=== PATIENT | male | born 1945 | race Caucasian/White ===

== ENCOUNTER → 2020-06-24 14:11 | Outpatient (CLI) | payer MEDICARE, SELFPAY ==
--- NOTE | ~2020-06-24 | XR_ITS ---
XR chest 2V 06/24/2020 14:30 Indication: Shortness of breath Procedure: 2 view chest Comparison: Comparison to multiple prior studies sequentially, with oldest reviewed study dated 03/31. Findings: Shallow inspiration. Bibasilar atelectasis. Cardiomegaly. Pulmonary vascular congestion. No pleural effusion, focal pneumonia or pneumothorax. Impression: 1: Cardiomegaly with mild pulmonary vascular congestion. 2: Bibasilar atelectasis. Reviewed, dictated and finalized at location B. Impression: 1: Cardiomegaly with mild pulmonary vascular congestion. 2: Bibasilar atelectasis.
== END ==
PROVIDERS: PCP Family Medicine; Visit Provider Family Medicine
DX: R06.02 Shortness of breath (principal); R91.8 Other nonspecific abnormal finding of lung field; I51.7 Cardiomegaly
CPT/HCPCS: 71046

== ENCOUNTER 2020-07-09 12:27 | Outpatient (CLI) | payer MEDICARE, SELFPAY ==
[2020-07-09 13:24] VITALS: PULSE 92; O2SAT 90
[2020-07-09 13:26] VITALS: PULSE 90; O2SAT 85
[2020-07-09 13:27] VITALS: PULSE 92; O2SAT 87
[2020-07-09 13:29] VITALS: PULSE 92; O2SAT 92
--- NOTE | 2020-07-09 13:36 | HOMEO2EVAL ---
Home Oxygen Evaluation RC: Home Oxygen (O2) Evaluation Start: 07/09/20 13:01 Freq: ONCE Status: Active Protocol: RPE Activity Type Activity Date Activity User E-Sign Co-Sign Detail Recorded Client Recorded Date Recorded By Document 07/09/20 13:24 KMV [id number] 07/09/20 13:25 KMV Document 07/09/20 13:26 KRM [id number] 07/09/20 13:36 KRM Document 07/09/20 13:27 KRM [id number] 07/09/20 13:36 KRM Document 07/09/20 13:29 KRM [id number] 07/09/20 13:36 KRM 07/09/20 07/09/20 07/09/20 13:24 13:26 13:27 Home O2 Evaluation Test Phase Resting Exercise Exercise Oxygen Delivery Room Air Room Air Nasal Cannula Oxygen Flow Rate (L/min) 2 Pulse Oximetry (90-100 %) 90 85 L 87 L Pulse Rate (60-100 beats/min) 92 90 92 Activity Tolerance Fair Fair Rate of Perceived Exertion (PE) 20 Ambulation Distance (feet) Home Oxygen Evaluation Comments Treatment Charges O2 Evaluation 07/09/20 13:29 Home O2 Evaluation Test Phase Exercise Oxygen Delivery Nasal Cannula Oxygen Flow Rate (L/min) 3 Pulse Oximetry (90-100 %) 92 Pulse Rate (60-100 beats/min) 92 Activity Tolerance Fair Rate of Perceived Exertion (PE) Ambulation Distance (feet) 100 Home Oxygen Evaluation Comments 3LPM WITH ACTIVITY. Treatment Charges
== END 2020-07-09 12:28 | disposition home or self-care (01) ==
LOC: ANHPFT 12:28
PROVIDERS: PCP Family Medicine; Visit Provider Family Medicine
DX: R09.02 Hypoxemia (principal)
CPT/HCPCS: 94618

== ENCOUNTER 2020-09-08 00:26 | Outpatient (CLI) | payer MEDICARE, SELFPAY ==
[2020-09-08 18:50] LABS: SARS-CoV-2 RNA PCR Negative
== END 2020-09-08 00:27 | disposition home or self-care (01) ==
LOC: ANHCOVIDDT 00:26
PROVIDERS: PCP Family Medicine; Visit Provider Internal Medicine Cardiovascular Disease
DX: Z01.812 Encounter for preprocedural laboratory examination (principal); Z20.822 Contact with and (suspected) exposure to COVID-19
CPT/HCPCS: C9803; U0003

== ENCOUNTER 2020-10-06 00:22 | Outpatient (CLI) | payer MEDICARE, SELFPAY ==
[2020-10-06 17:34] LABS: SARS-CoV-2 RNA PCR Negative
== END 2020-10-06 00:23 | disposition home or self-care (01) ==
LOC: ANHCOVIDDT 00:23
PROVIDERS: Family Provider Family Medicine; PCP Family Medicine; Visit Provider Internal Medicine Cardiovascular Disease
DX: Z01.812 Encounter for preprocedural laboratory examination (principal); Z20.822 Contact with and (suspected) exposure to COVID-19
CPT/HCPCS: C9803; U0003; U0005

== ENCOUNTER 2020-11-06 16:14 | Outpatient (CLI) | payer MEDICARE, SELFPAY | END 2020-11-06 16:15 | disposition home or self-care (01) | LOC: ANHCOVIDVC 16:14 | PROVIDERS: PCP Family Medicine | DX: Z23 Encounter for immunization (principal) | CPT/HCPCS: 0001A; 91300 ==

== ENCOUNTER → 2020-11-10 00:15 | Outpatient (CLI) | payer MEDICARE, SELFPAY ==
[2020-11-10 18:03] LABS: SARS-CoV-2 RNA PCR Negative
== END ==
PROVIDERS: PCP Family Medicine; Visit Provider Internal Medicine Cardiovascular Disease
DX: Z01.812 Encounter for preprocedural laboratory examination (principal); Z20.822 Contact with and (suspected) exposure to COVID-19
CPT/HCPCS: C9803; U0003; U0005

== ENCOUNTER 2020-11-13 01:02 | Day surgery (SDC) | payer MEDICARE, SELFPAY ==
[2020-11-12 14:26] VITALS: BMI 35.9
[2020-11-13] VITALS (18 sets, daily range): BP systolic 107–144; BP diastolic 60–91; PULSE 69–123; RESP 14–31; TEMP 36.2–36.9; O2SAT 91–96
--- NOTE | 2020-11-13 08:00 | SUR.PREOP ---
Patient took 50mg of benadryl and 50mg of prednisone for premedication for heart cath.
[2020-11-13 08:08] LABS: Basophils Percent Auto 0.3 % (0.2-1.2); Hematocrit 43.6 % (42.0-52.0); Hemoglobin 14.1 g/dL (14.0-18.0); Immature Granulocyte Absolute 0.04 K/mm3 (0.00-0.031); Immature Granulocyte Percent A 0.4 % (0-0.5); Lymphocytes Absolute Auto 0.36 K/mm3 (0.9-3.2); Mean Corpuscular HGB Conc 32.3 g/dl (32-36); Mean Corpuscular Hemoglobin 32.6 pg (26-34); Mean Corpuscular Volume 100.7 fl (80-100); Monocytes Absolute Auto 0.1 K/mm3 (0.1-0.6); Monocytes Percent Auto 0.7 % (2.6-8.5); Neutrophils Absolute Auto 8.6 K/mm3 (1.3-6.7); Neutrophils Percent Auto 94.6 % (45.5-73.1); Platelet Count Result 250 k/mm3 (150-375); Red Blood Count 4.33 M/mm3 (4.6-6.20); Red Cell Distribution Width 12.9 % (11.5-14.5); White Blood Count 9.1 K/mm3 (4.5-10.0)
[2020-11-13 08:17] LABS: Anion Gap 6 mmol/L (8-16); Blood Urea Nitrogen 25 mg/dL (9-20); Calcium 9.4 mg/dL (8.4-10.2); Carbon Dioxide 29 mmol/L (22-30); Chloride 106 mmol/L (98-107); Estimated CRCL calculation 80 ml/min; Estimated Glomerular Filt Rate > 60; Glucose 154 mg/dL (75-110); Potassium 4.7 mmol/L (3.4-5.0); Sodium 141 mmol/L (137-145)
[2020-11-13] MEDS: SODIUM CHLORIDE 0.9% IV 500 ML 100 ML IV CONT (08:26)
--- NOTE | 2020-11-13 09:06 | WPDMODSED ---
Moderate Sedation Note-Pt Data Patient Data Allergies Allergy/AdvReac Type Severity Reaction Status Date / Time Contrast Media Allergy Severe RASH, Uncoded 11/12/20 14:22 DIFFICULTY BREATHING, SHAKING Home Medications Medication Instructions Recorded Confirmed Type aspirin 81 mg tablet,delayed 81 mg PO DAILY 08/21/20 11/12/20 History release atorvastatin 20 mg tablet 20 mg PO DAILY 08/21/20 11/12/20 History bumetanide 1 mg tablet 1 mg PO DAILY 08/21/20 11/12/20 History clopidogrel 75 mg tablet 75 mg PO DAILY 08/21/20 11/12/20 History lisinopril 20 mg tablet 20 mg PO DAILY 08/21/20 11/12/20 History multivitamin 1 tablet PO DAILY 08/21/20 11/12/20 History spironolactone 25 mg tablet 100 mg PO DAILY tablet 08/21/20 11/12/20 History Current Medications: Active Medications Sodium Chloride (Normal Saline Iv) 500 mls @ 100 mls/hr IV CONT .Q5H ОЛЬГА Last Admin: 11/13/20 08:26 Dose: 100 mls/hr Documented by: Sedation/Anesthesia: No previous sedation/anesthesia problems (including family history). [facility] Past Medical History Medical History CAD (coronary artery disease) Cataract CHF (congestive heart failure), NYHA class II HTN (hypertension), benign Mixed hyperlipidemia Restrictive lung disease Stroke Family History Family History Father Diabetes mellitus Cerebrovascular accident Cataract Back pain, chronic Mother Cataract Arthritis Migraines Sibling No problems noted. Sibling Alcoholism Hearing loss Social History Social History Smoking packs per day: 2 Smoking cigarettes per day: 40.0 Years smoked: 40 Smoking pack-years: 80.00 Smoking status: Former smoker Tobacco type: cigarettes Second hand tobacco smoke exposure: No Alcohol intake: current Drinks per week: 6 Substance use: never Living arrangements: alone Gender identity (if verbalized by the patient): Male Spiritual care concerns: Yes (Congregational) Mod Sed Physical Exam Physical Exam Pre Procedural Exam: Normal: Appearance, Eyes, Ears, Nose, Neck, Throat, Airway, Lungs, Heart Size, Heart Rate, Heart Rhythm, Neuro Exam, Abdomen, Liver, Kidneys, Spleen, Breasts, Genitalia, Extremities and Skin Hours since solid foods: 8 Hours since liquid intake: 8 Internal Medicine - PN: Obj Da Vital Signs Vital Signs: Vital Signs - 24 hr 11/13/20 08:13 Temperature 36.4 C L Pulse Rate 71 Respiratory Rate 14 Blood Pressure 144/91 H Pulse Oximetry 96 Meds/Results Medications: Active Medications Generic Name Dose Route Start Last Admin Trade Name Rachelle PRN Reason Stop Dose Admin Sodium Chloride 500 mls @ 100 mls/hr 11/13/20 07:30 11/13/20 08:26 Normal Saline Iv IV CONT 100 mls/hr .Q5H ОЛЬГА Administration Labs CBC & Chem 7: 11/13/20 07:52 11/13/20 07:53 Labs: Laboratory Results - last 24 hr 11/13/20 11/13/20 07:52 07:53 WBC 9.1 RBC 4.33 L Hgb 14.1 Hct 43.6 MCV 100.7 H MCH 32.6 MCHC 32.3 RDW 12.9 Plt Count 250 MPV 10.0 Immature Gran % (Auto) 0.4 Neut % (Auto) 94.6 H Lymph % (Auto) 4.0 L [place] % (Auto) 0.7 L Eos % (Auto) 0.0 Baso % (Auto) 0.3 Lymph # (Auto) 0.36 L [place] # (Auto) 0.1 Eos # (Auto) 0.0 Baso # (Auto) 0.0 Abs Immat Gran (auto) 0.04 H Absolute Neuts (auto) 8.6 H Absolute Nucleated RBC 0.0 Nucleated RBC % 0.0 Sodium 141 Potassium 4.7 Chloride 106 Carbon Dioxide 29 Anion Gap 6 L BUN 25 H Creatinine 0.90 Estim Creat Clear Calc 80 Estimated GFR > 60 Glucose 154 H Calcium 9.4 ASA Classification/Sedation ASA Classification/Sedation ASA Class: I Emergent: No Risks: Risks, benefits and alternatives explained and patient/family accepted plan for
--- NOTE | 2020-11-13 11:06 | WPDHPUPDATE1 ---
History and Physical Update Update Date/Time: 11/13/20 0900 History and Physical has been reviewed, including an updated exam of the patient. There are NO changes in the patient's condition. Risks, benefits, and alternatives have been discussed and questions answered. Patient agrees to proceed with procedure.
--- NOTE | 2020-11-13 11:22 | WPDCARDPROC ---
Cardiac Cath Procedure Note Date of procedure:: 11/13/20 Performing physician:: Iqra Patel MD Date of service 11/13/2020 Indication:: abnormal stress test and dyspnea exertion Brief clinical history:: this is a 75-year-old patient past medical history of COPD hypertension, CVA, recent COVID infection was evaluated for persistent dyspnea on exertion. underwent stress testing that was abnormal with small area of ischemia inferior inferolateral. Procedure Procedure performed:: 1-Moderate sedation that started at 947 am and ended at 10:58 a.m.using 5mg of Versed and 175mcg fentanyl. The registered nurse was Tamika alvarez 2-Selective left and right coronary angiogram. 3-Left heart catheterization with measurement of LVEDP and measurement of gradient across aortic valve. 4-Right common femoral arterial angiogram. 5-Deployment of 6 [place] Angio-Seal. 6- intravascular ultrasound of the right coronary artery. 7- deployment of a drug-eluting stent resolute 4 by 38 under 20 atmospheres for 25 seconds. post dilatation using 5 by 20 balloon with inflation under 6 atmospheres corresponding to size 4.6 mm. Sedation/Medication given:: Moderate sedation. Access site:: Right common femoral artery. Estimated blood loss:: 10cc Procedure note:: After informed consent patient was brought in to label rewinder with the was draped and prepped in usual manner. Moderate sedation was given and the right groin was infiltrated using 1% lidocaine. Five [place] sheath was obtained using micropuncture needle and the modified Seldinger technique. Selective left coronary angiogram was done using JL5 catheter with the tip of the catheter placed in the left main coronary artery. Selective right coronary angiogram was done using WRP catheter with the tip of the catheter placed to the right coronary artery. After that 5 [place] pigtail catheter was advanced across the aortic valve into the left ventricle with measurement of LVEDP and measurement of gradient across aortic valve. Right common femoral arterial angiogram was done. subsequently 6 [place] WRP guide catheter was engaged in the RCA. Subsequently a coronary wire Najib 0.014 was advanced to distal RCA. Balloon angioplasty done using 4 x 20 under normal pressure for 20 seconds. Intravascular ultrasound was done and measurement of diameter of the blood vessel. Then after that we deployed 4 x 38 resolute stent at 20 atmospheres for 25 seconds. Post dilatation using 5 x 20 balloon and there 6 atmospheres for 25 seconds each. Three inflations. Findings:: 1- left coronary artery is a large artery that divides into large LAD, large circumflex artery. Left main is Minimal irregularity. 2- left anterior descending artery is a large artery that runs and wraps around the apex. has minimal irregularities. Large diagonal branch that has 50% stenosis followed by aneurysmal segment followed by another 50%. 3- leftcircumflex artery is a large artery And has in the mid segment 90% stenosis. 4- right coronary artery is Large artery and dominant and has mid segment 90% stenosis. 5- LVEDP was 10 mm Hgand no gradient across aortic valve. 6- opening arterial pressure was and1 60/80 and closing pressure was 170/90 7- right femoral artery angiogram shows no significant disease in the right common femoral artery. 8- intravascular ultrasound of the RCA shows atrial diameter of of the right coronary artery was 4.5mm. Conclusion:: successful stenting of mid and proximal RCA. high-grade stenosis mid left circumflex artery which will be addressed in another session. - difficulty appreciated with administration of moderate sedation because patient keeps moving, he had some desaturation during the procedure. Noe next time we do a cardiac catheterization to have Anesthesiology on board Assessment and Plan Additional Plan continue aggressive risk factor modification for CAD. continue aspirin Plavix. address left circumflex artery
--- NOTE | 2020-11-13 11:31 | ECG_ITS ---
Measurements Intervals [place] Rate: 104 P: 269 UT: 180 QRS: -4 QRSD: 145 T: 40 QT: 357 QTc: 470 Interpretive Statements SINUS OR ECTOPIC ATRIAL TACHYCARDIA RIGHT BUNDLE BRANCH BLOCK MINIMAL Q WAVES- HIGH LATERAL LEADS BASELINE ARTIFACT- II, III, AVR, AVF, V1 ABNORMAL ECG Electronically Signed On 11-13-2020 11:58:06 FILE CLERK by Santiago Machado D.O.
--- NOTE | 2020-11-13 12:28 | SUR.PHASEII ---
END PHASE II RECOVERY. PT. TO REMAIN IN [facility] 4 EXTENDED RECOVERY POST PROCEDURE STATUS PT. SEE PCS FOR FURTHER DOCUMENTATION.
--- NOTE | 2020-11-13 12:29 | ADMGEN ---
This patient, Prabhakar Brito, was admitted to/[facility] AN EXTENDED RECOVERY AFTER OUTPATIENT PROCEDURE, C W/ PCI. SEE PHASE II RECOVERY FOR PREVIOUS DOCUMENTATION. Patient/family oriented to hospital policies and general routines including ID bracelet, bed and alarms, visiting hours, pain management, procedures, bathroom and other care routines, personal items, smoking policy, room service/diet, and visiting hours. Information on how to activate the Rapid Response Team has been discussed. Patient/Family are encouraged to report perceived risks to care and to ask questions if they do not understand what they are told or what they should do.
[2020-11-13] MEDS: SPIRONOLACTONE 25 MG TABLET 100 MG PO (18:51)
[2020-11-13] MEDS: lisinopriL 20 MG TABLET PO (18:51)
[2020-11-13] MEDS: BUMETANIDE 1 MG TABLET PO (18:51)
[2020-11-14] VITALS: BP 114/63; PULSE 58; PULSE 64; RESP 24; TEMP 36.8; O2SAT 95
[2020-11-14 02:00] VITALS: PULSE 65
[2020-11-14 04:00] VITALS: BP 111/48; PULSE 65; PULSE 67; RESP 24; TEMP 37.1; O2SAT 94
[2020-11-14 04:29] LABS: Basophils Absolute Auto 0.1 K/mm3 (0.0-0.1); Basophils Percent Auto 0.5 % (0.2-1.2); Eosinophils Percent Auto 0.1 % (0-4.4); Hematocrit 40.1 % (42.0-52.0); Hemoglobin 12.8 g/dL (14.0-18.0); Immature Granulocyte Absolute 0.08 K/mm3 (0.00-0.031); Immature Granulocyte Percent A 0.5 % (0-0.5); Lymphocytes Absolute Auto 0.68 K/mm3 (0.9-3.2); Lymphocytes Percent Auto 4.4 % (18.3-44.2); Mean Corpuscular HGB Conc 31.9 g/dl (32-36); Mean Corpuscular Hemoglobin 32.4 pg (26-34); Mean Corpuscular Volume 101.5 fl (80-100); Mean Platelet Volume 10.5 fl (7.4-10.4); Monocytes Absolute Auto 0.9 K/mm3 (0.1-0.6); Monocytes Percent Auto 5.8 % (2.6-8.5); Neutrophils Absolute Auto 13.7 K/mm3 (1.3-6.7); Neutrophils Percent Auto 88.7 % (45.5-73.1); Platelet Count Result 225 k/mm3 (150-375); Red Blood Count 3.95 M/mm3 (4.6-6.20); White Blood Count 15.5 K/mm3 (4.5-10.0)
[2020-11-14 05:31] VITALS: PULSE 71
[2020-11-14 06:00] LABS: Anion Gap 2 mmol/L (8-16); Blood Urea Nitrogen 24 mg/dL (9-20); Calcium 8.6 mg/dL (8.4-10.2); Carbon Dioxide 35 mmol/L (22-30); Chloride 104 mmol/L (98-107); Estimated CRCL calculation 89 ml/min; Estimated Glomerular Filt Rate > 60; Glucose 104 mg/dL (75-110); Potassium 4.6 mmol/L (3.4-5.0); Sodium 141 mmol/L (137-145)
[2020-11-14 07:58] VITALS: PULSE 87
[2020-11-14 08:00] VITALS: BP 111/66; PULSE 72; RESP 14; O2SAT 93
--- NOTE | 2020-11-14 08:50 | PM.DS ---
DS: Admitting Diagnosis Admitting Diagnosis Admitting Diagnosis: Exertional dyspnea/abnormal stress test DS: Discharge Diagnosis Discharge Diagnosis (1) CAD (coronary artery disease): Qualifiers: Coronary Disease-Associated Artery/Lesion type: unspecified vessel or lesion type [place] vs. transplanted heart: [place] heart Associated angina: without angina Qualified Code(s): I25.10 - Atherosclerotic heart disease of [place] coronary artery without angina pectoris Code(s): I25.10 - Atherosclerotic heart disease of [place] coronary artery without angina pectoris Status: Acute DS: Summary Hospital Course Reason for hospitalization: Elective left heart catheterization Hospital Course: This is a 75-year-old man without previous history of known coronary disease who has been experiencing exertional dyspnea and had an outpatient stress test with significant perfusion abnormalities. He was scheduled for an outpatient angiogram which was done yesterday morning and he was found to have significant 2 vessel coronary artery disease. The patient at high-grade stenosis in the right coronary artery as well as in the mid circumflex. The patient underwent successful PCI using a large diameter drug-eluting stent by Dr. Patel with a good anatomical result. He apparently has high-grade stenosis in the mid circumflex as well the recommendation was to treat this lesion on another day in a staged fashion. Following the procedure he was asymptomatic he completed his bedrest there is no sign of any hemorrhagic complications at the puncture site. The patient was already on dual anti-platelet therapy and statin therapy and no new medications were added following his PCI. He is being discharged today plans will be directed by Dr. Patel for arranging either follow-up in the office or is simply scheduling a staged intervention in the near future. Status at Discharge Functional status at discharge: independent ambulation Time Spent with Patient Time attestation: Total time spent providing and/or coordinating discharge services: Exam Const: General: comfortable and no acute distress HENMT: Mouth: Yes moist mucous membranes Eyes: Sclera: sclerae normal Pupils: Equal, round and reactive pupils present Neck: Neck: supple and no JVD Other: Normal carotid pulses no bruits Resp: Effort & Inspection: normal respiratory effort Auscultation: clear to auscultation bilaterally Cardio: Rate: regular rate Rhythm: regular rhythm Other: PMI difficult to palpate no murmur GI: GI Palp: Yes Soft to palpation Auscultation: normal bowel sounds Skin: General skin exam: normal color Extrem: General: normal to inspection Other: Right groin puncture site looks fine normal pulse no bruit no ecchymosis no hematoma. DS: Data Data Completed and Pending Labs on day of discharge: Labs from last 24 hours 11/14/20 11/14/20 05:20 04:15 WBC 15.5 H RBC 3.95 L Hgb 12.8 L Hct 40.1 L MCV 101.5 H MCH 32.4 MCHC 31.9 L RDW 13.0 Plt Count 225 MPV 10.5 H Immature Gran % (Auto) 0.5 Neut % (Auto) 88.7 H Lymph % (Auto) 4.4 L [place] % (Auto) 5.8 Eos % (Auto) 0.1 Baso % (Auto) 0.5 Lymph # (Auto) 0.68 L [place] # (Auto) 0.9 H Eos # (Auto) 0.0 Baso # (Auto) 0.1 Abs Immat Gran (auto) 0.08 H Absolute Neuts (auto) 13.7 H Absolute Nucleated RBC 0.0 Nucleated RBC % 0.0 Sodium 141 Potassium 4.6 Chloride 104 Carbon Dioxide 35 H Anion Gap 2 L BUN 24 H Creatinine 0.80 Estim Creat Clear Calc 89 Estimated GFR > 60 Glucose 104 Calcium 8.6 Discharge Plan Discharge Patient Disposition: Home, Self-Care Discharge Instructions: YOU [facility] NEED STAGED PCI AT [facility] TO ADDRESS ADDITIONAL HIGH GRADE STENOSIS. [facility] WILL CONTACT YOU TO SCHEDULE ADDITIONAL PROCEDURE. [facility] PH.# IS [phone]. Patient Instructions: Moderate Sedation (DC), Coronary Intravascula
--- NOTE | 2020-11-14 08:57 | PM.PNCARD ---
Progress Note: A&P Additional Plan 75-year-old man with three-vessel coronary artery disease and diabetes with exertional angina. Vessels are diffusely diseased and long-term outcome in my opinion is in agreement with Dr. Patel that surgical revascularization is probably the optimal recommendation. The patient is going to be seeing cardiothoracic surgeon of his choice out at [facility] and he will be provided his compact disc from his angiogram yesterday for their review. He is stable for discharge this morning. Kris Cantor MD [facility] Subjective Date/time seen: 11/14/20 08:57 Interval history: Follow-up visit in this 75-year-old man who underwent elective catheterization as an outpatient yesterday demonstrating evidence of severe multivessel coronary artery disease for which surgical revascularization has been recommended. Patient is asymptomatic this morning feeling somewhat despondent about the findings of yesterday's study but otherwise offers no complaints. Exam Const: General: comfortable and no acute distress HENMT: Mouth: Yes moist mucous membranes Eyes: Sclera: sclerae normal Pupils: Equal, round and reactive pupils present Neck: Neck: supple and no JVD Resp: Effort & Inspection: normal respiratory effort Auscultation: clear to auscultation bilaterally Cardio: Rate: regular rate Rhythm: regular rhythm Other: S4 noted no murmur GI: GI Palp: Yes Soft to palpation Auscultation: normal bowel sounds Neuro: Cognition (Neuro): normal cognition Extrem: General: normal to inspection Objective Data Vital Signs Vital Signs: Vital Signs - 24 hr 11/13/20 11:30 11/13/20 11:45 11/13/20 12:00 Temperature 36.2 C L Pulse Rate 104 H 100 101 H Respiratory Rate 24 H 24 H 24 H Blood Pressure 127/84 142/82 H 140/79 Pulse Oximetry 92 93 92 11/13/20 12:15 11/13/20 12:45 11/13/20 13:00 Temperature Pulse Rate 103 H 101 H Respiratory Rate 24 H 24 H Blood Pressure 132/76 138/78 Pulse Oximetry 92 91 11/13/20 13:15 11/13/20 14:00 11/13/20 14:15 Temperature Pulse Rate 100 123 H 122 H Respiratory Rate 24 H 31 H Blood Pressure 139/86 110/83 Pulse Oximetry 11/13/20 15:15 11/13/20 16:00 11/13/20 16:15 Temperature 36.6 C Pulse Rate 110 H 109 H 102 H Respiratory Rate 26 H 24 H Blood Pressure 136/82 121/70 Pulse Oximetry 92 92 11/13/20 17:15 11/13/20 18:00 11/13/20 18:15 Temperature Pulse Rate 75 85 85 Respiratory Rate 24 H 24 H Blood Pressure 107/60 127/63 Pulse Oximetry 92 92 11/13/20 20:00 11/13/20 22:00 11/14/20 00:00 Temperature 36.9 C 36.8 C Pulse Rate 81 69 58 L Respiratory Rate 20 24 H Blood Pressure 127/60 114/63 Pulse Oximetry 94 95 11/14/20 02:00 11/14/20 04:00 11/14/20 05:31 Temperature 37.1 C Pulse Rate 65 67 71 Respiratory Rate 24 H Blood Pressure 111/48 L Pulse Oximetry 94 11/14/20 07:58 Temperature Pulse Rate 87 Respiratory Rate Blood Pressure Pulse Oximetry Intake/Output Intake/Output: Intake & Output 11/11/20 11/12/20 11/13/20 11/14/20 23:59 23:59 23:59 23:59 Intake Total 480 240 Output Total 400 1600 Balance 80 -1360 Meds/Results Medications: Active Medications Generic Name Dose Route Start Last Admin Trade Name Davisq PRN Reason Stop Dose Admin Al Hydrox/Mg Hydrox/Simethicone 30 ml 11/13/20 11:31 Mag Hydrox/Al Hydrox/Simeth 30 Ml Udc PO Q4H PRN Indigestion Aspirin 81 mg 11/14/20 09:00 11/14/20 08:54 Aspirin 81 Mg Enteric Tablet PO 81 mg DAILY ОЛЬГА Administration Bumetanide 1 mg 11/13/20 13:30 11/14/20 08:55 Bumetanide 1 Mg Tablet PO 1 mg DAILY ОЛЬГА Administration Clopidogrel Bisulfate 75 mg 11/13/20 13:30 11/14/20 08:55 Clopidogrel Bisulfate 75 Mg Tablet PO 75 mg DAILY ОЛЬГА Administration Lisinopril 20 mg 11/13/20 13:30 11/14/20 08:55 Lisinopril 20 Mg Tablet PO 20 mg DAILY ОЛЬГА Administration Nitroglycerin 0
--- NOTE | 2020-11-14 09:15 | PC.NURSE ---
0900-pt will take home medications when he arrives back at his residence
--- NOTE | 2020-11-14 09:49 | PC.NURSE ---
pt given D/C orders and instructions. Questions answered and verbalized understanding. AOx4. PIV removed intact. Groin soft and non-tender, no evidence of bleeding or hematoma noted. Strong right pedal pulse noted. Pt waiting in room for ride.
== END 2020-11-14 09:55 | disposition home or self-care (01) ==
LOC: ANHCATHLAB 07:33 → ANHCPC 13:06
PROVIDERS: PCP Family Medicine; Visit Provider Internal Medicine Cardiovascular Disease
PROC: 4A023N7 Measurement of Cardiac Sampling and Pressure, Left Heart, Percutaneous Approach (ICD-10-PCS; CPT 93452; principal; 2020-11-13 09:00)
DX: I25.10 Atherosclerotic heart disease of native coronary artery without angina pectoris (principal); R94.39 Abnormal result of other cardiovascular function study; R06.09 Other forms of dyspnea; I11.0 Hypertensive heart disease with heart failure; I50.9 Heart failure, unspecified; E78.2 Mixed hyperlipidemia; J44.9 Chronic obstructive pulmonary disease, unspecified; Z86.73 Personal history of transient ischemic attack (TIA), and cerebral infarction without residual deficits; Z86.16 Personal history of COVID-19; Z87.891 Personal history of nicotine dependence; Z79.82 Long term (current) use of aspirin; Z79.02 Long term (current) use of antithrombotics/antiplatelets
CPT/HCPCS: 36415; 80048; 85025; 92978; 93458; A9270; C1725; C1753; C1760; C1769; C1874; C1887; C1894; C9600; C9803; G0269; J0360; J0583; J1200; J1327; J1644; J2250; J3010; J7040; U0003; U0005

== ENCOUNTER 2020-11-27 16:13 | Outpatient (CLI) | payer MEDICARE, SELFPAY | END 2020-11-27 16:14 | disposition home or self-care (01) | LOC: ANHCOVIDVC 16:13 | PROVIDERS: PCP Family Medicine | DX: Z23 Encounter for immunization (principal) | CPT/HCPCS: 0002A; 91300 ==

== ENCOUNTER 2021-01-27 17:30 | Emergency (ER) | payer MEDICARE, SELFPAY ==
[2021-01-27 17:39] VITALS: BP 144/81; PULSE 78; RESP 20; TEMP 36.9; O2SAT 92
--- NOTE | 2021-01-27 17:43 | ED.GENADULT ---
HPI - General Adult General Stated complaint: Toe Bleeding Source: patient Mode of arrival: ambulatory Limitations: no limitations History of Present Illness HPI narrative: 75 y/o male. PMH includes: CVA, HTN, HLD. Presents to ED today with acute complaints of RT 2nd toe bleeding complication. Pt reports to have had a pedicure , and following pedicure he noticed his toe had stated bleeding. No acute bony pain or trauma. He does take daily Plavix anticoagulation regimen. He tells me he is pre-diabetic. 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 He is without additional acute complaints upon exam. Related Data Home Medications Medication Instructions Recorded Confirmed aspirin 81 mg tablet,delayed 81 mg PO DAILY 08/21/20 11/12/20 release bumetanide 1 mg tablet 1 mg PO DAILY 08/21/20 11/12/20 multivitamin 1 tablet PO DAILY 08/21/20 11/12/20 spironolactone 25 mg tablet 100 mg PO DAILY tablet 08/21/20 11/12/20 Allergies Allergy/AdvReac Type Severity Reaction Status Date / Time Contrast Media Allergy Severe RASH, Uncoded 11/12/20 14:22 DIFFICULTY BREATHING, SHAKING Review of Systems Review of Systems: Narrative: CONSTITUTIONAL: Denies fever, chills, sweats. EYES: Denies visual changes, redness, discharge. ENT: Denies rhinorrhea, congestion, sore throat, otalgia. CARDIOVASCULAR: Denies chest pain, palpitations, edema. RESPIRATORY: Denies dyspnea, wheezing, cough GASTROINTESTINAL: Denies abdominal pain, nausea, vomiting, diarrhea. GENITOURINARY: Denies dysuria, hematuria, abnormal discharge SKIN: Denies rash or itching. Bleeding RT second toe nail. MUSCULOSKELETAL: Denies acute back pain, joint pain, or myalgia. NEUROLOGIC: Denies numbness, or focal weakness. PSYCHIATRIC: Denies anxiety or depression. All systems reviewed & are unremarkable except as noted in HPI and below PMFSH Past Medical History Medical History CAD (coronary artery disease) Cataract CHF (congestive heart failure), NYHA class II HTN (hypertension), benign Mixed hyperlipidemia Restrictive lung disease Stroke Surgical History Surgical History History of PTCA Family History Family History Father Diabetes mellitus Cerebrovascular accident Cataract Back pain, chronic Mother Cataract Arthritis Migraines Sibling No problems noted. Sibling Alcoholism Hearing loss Social History Social History Smoking packs per day: 2 Smoking cigarettes per day: 40.0 Years smoked: 40 Smoking pack-years: 80.00 Smoking status: Former smoker Tobacco type: cigarettes Second hand tobacco smoke exposure: No Alcohol intake: current Drinks per week: 6 Substance use: never Gender identity (if verbalized by the patient): Male Spiritual care concerns: Yes (Yarsanism) Exam Narrative: Exam Narrative: GENERAL: This is a well-nourished, well-developed patient, in no apparent distress. HEAD: normocephalic, atraumatic. EYES: PERRL. Sclera clear/white. Vision is grossly intact. EARS: External ears normal, auditory canals clear and without drainage, TMs normal without perforation. Hearing grossly intact. NOSE: External nose normal with no obvious nasal discharge, nares without redness, no rhinorrhea. THROAT: Mucous membranes moist, posterior pharynx clear. NECK: Neck supple, non-tender without lymphadenopathy, masses or thyromegaly. CARDIOVASCULAR: Regular rate and rhythm without murmurs, gallops, or rubs. Pulses RLE intact, strong. RESPIRATORY: Clear to auscultation. Breath sounds equal bilaterally. No wheezes, rales, or rhonchi. GASTROINTESTINAL: Abdomen soft, non-tender, nondistended. Bowel sounds are active. No hepato-splenomegaly,
== END 2021-01-27 18:07 | disposition home or self-care (01) ==
PROVIDERS: Emergency Provider Nurse Practitioner Adult Health; PCP Family Medicine
DX: S91.204A Unspecified open wound of right lesser toe(s) with damage to nail, initial encounter (principal); X58.XXXA Exposure to other specified factors, initial encounter; Z87.891 Personal history of nicotine dependence; I25.10 Atherosclerotic heart disease of native coronary artery without angina pectoris; I11.0 Hypertensive heart disease with heart failure; I50.9 Heart failure, unspecified; E78.2 Mixed hyperlipidemia; Z86.73 Personal history of transient ischemic attack (TIA), and cerebral infarction without residual deficits; R73.03 Prediabetes
CPT/HCPCS: 99213; G0463

== ENCOUNTER 2021-04-10 20:28 | Inpatient (IN) | payer MEDICARE, SELFPAY ==
[2021-04-10] VITALS (15 sets, daily range): BP systolic 136–165; BP diastolic 66–98; PULSE 96–118; RESP 19–37; TEMP 36.3–36.6; O2SAT 95–100
--- NOTE | ~2021-04-10 | XR_ITS ---
XR chest 1V portable 04/11/2021 06:01 Indication: Dyspnea Procedure: AP portable chest Comparison: Comparison to multiple prior studies sequentially, with oldest reviewed study dated 11/14. Findings: Cardiomegaly with pulmonary edema. Elevated left diaphragm. No significant effusion or pneu mothorax. No acute osseous abnormality. Impression: 1: Cardiomegaly with pulmonary edema. Pneumonia less favored. Reviewed, dictated and finalized at location A. Impression: 1: Cardiomegaly with pulmonary edema. Pneumonia less favored.
--- NOTE | ~2021-04-10 | XR_ITS ---
EXAMINATION: XR chest 2V DATE: 04/13/2021 13:06 INDICATION: Congestive heart failure. TECHNIQUE: Frontal and lateral views of the chest were obtained. COMPARISON: Chest single view 04/11/2021 FINDINGS: There is chronic mild elevation of left hemidiaphragm. There is a diffuse interstitial megha priscilla in the lungs, consistent with mild pulmonary edema. No pleural effusion or pneumothorax. The hear t size is normal. IMPRESSION: 1. Mild pulmonary edema. Reviewed, dictated and finalized at location A. IMPRESSION: 1. Mild pulmonary edema.
--- NOTE | ~2021-04-10 | XR_ITS ---
EXAMINATION: XR chest 1V portable DATE: 04/10/2021 20:45 INDICATION: Shortness of breath. TECHNIQUE: A single frontal view of the chest was obtained. COMPARISON: Chest single view 03/31/2017, chest CT 03/26/2009 FINDINGS: There is chronic elevation of left hemidiaphragm. There are airspace opacities in the mid a nd lower lung zones. No pleural effusion or pneumothorax. The heart size is normal. IMPRESSION: 1. Airspace opacities in the mid and lower lung zones, consistent with atelectasis/scarring versus pn eumonia. Reviewed, dictated and finalized at location A. IMPRESSION: 1. Airspace opacities in the mid and lower lung zones, consistent with atelecta sis/scarring versus pneumonia.
--- NOTE | 2021-04-10 20:35 | ECG_ITS ---
Measurements Intervals [place] Rate: 106 P: ME: 0 QRS: 12 QRSD: 146 T: 9 QT: 379 QTc: 505 Interpretive Statements ATRIAL FLUTTER/TACHYCARDIA WITH RAPID VENTRICULAR RESPONSE RIGHT BUNDLE BRANCH BLOCK MINIMAL Q WAVES- HIGH LATERAL LEADS BASELINE ARTIFACT- III, AVL, AVF, V1 ABNORMAL ECG Electronically Signed On 04-10-2021 21:47:23 CDT by Santiago Machado D.O.
--- NOTE | 2021-04-10 20:38 | ED.SOB ---
HPI - SOB/Dyspnea General Chief Complaint: Shortness of Breath/Dyspnea Stated Complaint: COPD SOB X 2-3 DAYS History of Present Illness HPI Narrative: 75 yo male w/ h/o CHF, CAD presents to the ED for SOB. He has had worsening SOB for the past few days. this has been associated with mild cough productive of white sputum. He has also noted increase in BLL edema. No CP. He has had the COVID-19 vaccine Related Data Home Medications Medication Instructions Recorded Confirmed aspirin 81 mg tablet,delayed 81 mg PO DAILY 08/21/20 04/11/21 release bumetanide 1 mg tablet 1 mg PO BID 08/21/20 04/11/21 multivitamin 1 tablet PO DAILY 08/21/20 04/11/21 spironolactone 25 mg tablet 100 mg PO DAILY tablet 08/21/20 04/11/21 lisinopril 20 mg PO BID 04/11/21 04/11/21 Allergies Allergy/AdvReac Type Severity Reaction Status Date / Time Contrast Media Allergy Severe RASH, Uncoded 04/10/21 20:41 DIFFICULTY BREATHING, SHAKING Review of Systems Review of Systems: All systems reviewed & are unremarkable except as noted in HPI and below Constitutional: Constitutional: Denies chills and Denies fever(s) Cardiovascular: Cardiovascular: Reports chest pain Respiratory: Respiratory: Reports cough and Reports dyspnea Gastrointestinal: Gastrointestinal: Denies abdominal pain and Denies nausea Genitourinary: Genitourinary: Reports no additional male genitourinary complaints Neurologic: Denies numbness and Denies weakness [facility] Past Medical History Medical History CAD (coronary artery disease) Cataract CHF (congestive heart failure), NYHA class II HTN (hypertension), benign Mixed hyperlipidemia Restrictive lung disease Stroke Surgical History Surgical History History of PTCA Family History Family History Father Back pain, chronic Cataract Cerebrovascular accident Mother Arthritis Migraines Cataract Sibling No problems noted. Sibling Hearing loss Alcoholism Social History Social History Smoking packs per day: 2 Smoking cigarettes per day: 40.0 Years smoked: 40 Smoking pack-years: 80.00 Smoking status: Former smoker Tobacco type: cigarettes Second hand tobacco smoke exposure: No Alcohol intake: current Drinks per week: 14 Substance use: never Gender identity (if verbalized by the patient): Male Spiritual care concerns: Yes (advent) Exam Const: General: alert Nutritional Appearance: obese Orientation/consciousness: patient oriented x3 Other: Mild distress HENMT: Head: normal to inspection Neck: Neck: normal visual inspection Resp: Effort & Inspection: labored and tachypneic Auscultation: crackles bilateral in the mid lung acosta and diminished lung sounds bilateral in the lower lung acosta Cardio: Rate: tachycardic Rhythm: abnormal rhythm regularly irregular GI: GI Palp: Yes Soft to palpation and No Tenderness to palpation present (GI) Skin: General skin exam: normal color Neuro: General: patient oriented x3, moves all extremities and no focal motor deficits Speech: normal speech Extrem: General: edema bilateral (2+ ) Other: nontender Psych: Mental Status: mental status grossly normal Affect: normal affect Attitude: cooperative Course Vital Signs Vital signs: Vital Signs Temperature 36.3 C L 04/10/21 20:29 Pulse Rate 104 H 04/10/21 20:29 Respiratory Rate 23 H 04/10/21 20:29 Blood Pressure 160/91 H 04/10/21 20:29 Pulse Oximetry 96 04/10/21 20:29 Temperature 35.7 C L 04/11/21 16:07 Pulse Rate 88 04/11/21 16:07 Respiratory Rate 18 04/11/21 16:07 Blood Pressure 125/72 04/11/21 16:07 Pulse Oximetry 94 04/11/21 16:07 MDM - SOB/Dyspnea Differential Diag
[2021-04-10] MEDS: NITROGLYCERIN OINTMENT 1 INCH DOSE TRANSDERM (20:52)
[2021-04-10] MEDS: FUROSEMIDE INJ 100 MG/10 ML VIAL 80 MG IV PUSH (20:53)
[2021-04-10 20:58] LABS: Hematocrit 43.6 % (42.0-52.0); Hemoglobin 14.2 g/dL (14.0-18.0); Mean Corpuscular HGB Conc 32.6 g/dl (32-36); Mean Corpuscular Hemoglobin 29.3 pg (26-34); Mean Corpuscular Volume 89.9 fl (80-100); Mean Platelet Volume 9.8 fl (7.4-10.4); Platelet Count Result 257 k/mm3 (150-375); Red Blood Count 4.85 M/mm3 (4.6-6.20); Red Cell Distribution Width 15.9 % (11.5-14.5); White Blood Count 12.2 K/mm3 (4.5-10.0)
[2021-04-10 21:08] LABS: INR 1.1; Prothrombin Time 13.6 Seconds (11.1-14.7)
[2021-04-10 21:09] LABS: Partial Thromboplastin Time 29.1 SECONDS (22.3-36.8)
[2021-04-10 21:11] LABS: Alanine Aminotransferase 29 U/L (4-50); Albumin Level 4.4 g/dL (3.5-5.1); Alkaline Phosphatase 77 U/L (38-126); Anion Gap 9 mmol/L (8-16); Aspartate Amino Transferase 61 U/L (17-59); Bilirubin,Total 1.4 mg/dL (0.2-1.3); Blood Urea Nitrogen 13 mg/dL (9-20); Carbon Dioxide 29 mmol/L (22-30); Chloride 84 mmol/L (98-107); Estimated CRCL calculation 104 ml/min; Estimated Glomerular Filt Rate > 60; Glucose 108 mg/dL (65-110); Potassium 4.6 mmol/L (3.4-5.0); Sodium 122 mmol/L (137-145)
[2021-04-10 21:27] LABS: NT Pro B Type Natriuretic Pept 2030 pg/mL (5-100); Troponin I 0.062 ng/mL (0.000-0.034)
[2021-04-10 21:43] LABS: Anisocytosis 2+ (NORMAL); Band Neutrophils Percent 2 % (0-6); Lymphocytes Absolute Manual 0.73 K/mm3 (1.1-4.5); Monocytes Absolute Manual 0.73 K/mm3 (0.1-0.90); Monocytes Percent Manual 6 % (3-9); Neutrophils Absolute Manual 10.73 K/mm3 (1.3-6.7); Neutrophils Percent Manual 86 % (46-73); Platelet Estimate Adequate (Adequate); Total Cells Counted 100
[2021-04-11] VITALS (20 sets, daily range): BP systolic 96–125; BP diastolic 56–72; PULSE 70–97; RESP 18–30; TEMP 35.7–36.6; O2SAT 84–100; BMI 36.8
--- NOTE | 2021-04-11 | PC.NURSE ---
This patient, Prabhakar Brito, was admitted to IMU Room 210-01. Patient/family oriented to hospital policies and general routines including ID bracelet, bed and alarms, visiting hours, pain management, procedures, bathroom and other care routines, personal items, smoking policy, room service/diet, and visiting hours. Information on how to activate the Rapid Response Team has been discussed. Patient/Family are encouraged to report perceived risks to care and to ask questions if they do not understand what they are told or what they should do.
--- NOTE | 2021-04-11 | ECHO_ITS ---
Patient Info Name: Prabhakar Brito Age: 75 years : 1945 Gender: Male Ht: 70 in Wt: 264 lbs BSA: 2.48 m2 HR: 74 bpm BP: 115 / 71 mmHg Heart Rhythm: Atrial Flutter Technical Quality: Fair Exam Date: 04/11/2021 9:22 AM Exam Location: [facility] Card Pulmonary Patient Status: Inpatient Admit Date: 04/10/2021 Staff Ordering Physician: Lorenzo Acharya MD Insulation Cupola Charger: Celena Echevarria RDCS Attending Provider: Lorenzo Acharya MD Referring Physician: Patrizia SONG; Exam Type: CA echo doppler color flow Study Info Complete two-dimensional, color flow and Doppler transthoracic echocardiogram is performed. Summary 1. Complete two-dimensional, color flow and Doppler transthoracic echocardiogram is performed. 2. Technically difficult study with limited views. Regional wall motion assessment limited due to poor endomyocardial border definition. 3. Left ventricular chamber dimension is normal. 4. Left ventricular systolic function is normal, estimated at 55-60%. 5. Left atrial chamber dimension is severely enlarged. 6. There is mild mitral valve regurgitation. 7. There is mild tricuspid valve regurgitation. 8. No pulmonary hypertension, estimated pulmonary arterial systolic pressure is 22 mmHg. Left Ventricle Left ventricular chamber dimension is normal. Left ventricular systolic function is normal, estimated at 55-60%. There is mildly increased left ventricular wall thickness. The left ventricular diastolic function is indeterminate. Technically difficult study with limited views. Regional wall motion assessment limited due to poor endomyocardial border definition. Right Ventricle Right ventricular chamber dimension is not well visualized. Right ventricular systolic function is normal. Left Atria Left atrial chamber dimension is severely enlarged. Right Atria Right atrial chamber dimension is mildly enlarged. Aortic Valve The aortic valve is not well visualized. There is no aortic valve stenosis. There is no aortic valve regurgitation. Pulmonic Valve The pulmonic valve is not well visualized. Mitral Valve The mitral valve has normal leaflets. There is mild mitral valve regurgitation. The mitral valve annulus is mildly calcified. Tricuspid Valve The tricuspid valve leaflets are normal. There is mild tricuspid valve regurgitation. No pulmonary hypertension, estimated pulmonary arterial systolic pressure is 22 mmHg. Pericardium/Pleural The pericardium appears not well visualized. Inferior Vena Cava Normal inferior vena cava with >50% collapse upon inspiration consistent with normal right atrial pressure, 5 mmHg. Aorta The aortic root size at the sinus of Valsalva is normal. There is mild aortic atherosclerosis. Left Ventricular Outflow Tract Name Value Normal LVOT 2D LVOT Diameter 2.3 cm LVOT Doppler LVOT Peak Gradient 13 mmHg LVOT Mean Gradient 9 mmHg LVOT VTI 34 cm LVOT VTI/AV VTI Ratio 1.0 LVOT Stroke Volume 138 ml L
--- NOTE | 2021-04-11 00:16 | ADMIMU ---
This patient, Prabhakar Brito, was admitted to IMU status, and placed in IMU Room 210-01 at 2256. Patient/family oriented to hospital policies and general routines including ID bracelet, bed and alarms, visiting hours, pain management, procedures, bathroom and other care routines, personal items, smoking policy, room service/diet, and visiting hours. Information on how to activate the Rapid Response Team has been discussed. Patient/Family are encouraged to report perceived risks to care and to ask questions if they do not understand what they are told or what they should do.
--- NOTE | 2021-04-11 01:02 | PM.IMHP ---
H&P: HPI History of Present Illness Date/Time: 04/11/21 01:02 Chief Complaint: Shortness of breath Narrative: This is a 75-year-old male with past medical history significant for coronary artery disease status post stent placement in November of this year in our facility, hypertension, COPD/emphysema, former smoker. Patient presented to the emergency room due to worsening shortness of breath and worsening bilateral lower extremity edema PND and orthopnea he has been adding pillows at bedtime to be able to sleep his had cough productive of white sputum, he denies chest pain, denies fevers chills or rigors. Patient upon arrival to emergency room was found to have low oxygen saturation and was immediately placed on BiPAP. History taken was somehow limited because of the use of this device. Preliminary workup was significant for a sodium of 122 chloride of 80 for BMP in 1999 chest x-ray with lung infiltrates. Review of Systems Review of Systems: Worsening shortness of breath PND orthopnea bilateral lower extremity swelling. Constitutional: Constitutional: Denies chills, Denies fever(s) and Denies night sweats Eyes: Eyes: Denies change in vision ENT: Denies dysphagia, Denies nasal congestion, Denies nasal discharge, Denies nasal obstruction and Denies odynophagia Cardiovascular: Cardiovascular: Denies chest pain, Reports leg edema, Denies radiating jaw, neck or arm pain, Reports dyspnea on exertion, Reports orthopnea and Reports paroxysmal nocturnal dyspnea Comments: Increased abdominal girth Respiratory: Respiratory: Reports cough Gastrointestinal: Gastrointestinal: Denies abdominal pain, Denies diarrhea, Denies nausea and Denies vomiting Genitourinary: Genitourinary: Denies no additional male genitourinary complaints Musculoskeletal: Musculoskeletal: Denies no additional musculoskeletal complaints Integumentary/Breasts: Skin/Breast: Denies system reviewed and no additional complaints, except as docu Neurologic: Denies system reviewed and no additional complaints, except as documented Psychiatric: Psychiatric: Denies no additional psychiatric complaints Endocrine: Endocrine: Denies no additional endocrine complaints Hematologic/Lymphatic: Hematologic/Lymphatic: Denies no additional hematologic/lymphatic complaints Allergic/Immunologic: Allergic/Immunologic: Denies no additional allergic/immunologic complaints PMFSH Past Medical History Medical History CAD (coronary artery disease) Cataract CHF (congestive heart failure), NYHA class II HTN (hypertension), benign Mixed hyperlipidemia Restrictive lung disease Stroke Surgical History Surgical History History of PTCA Family History Family History (Updated 04/11/21 @ 00:15 by Charisse Romo RN) Father Back pain, chronic Cataract Cerebrovascular accident Mother Arthritis Migraines Cataract Sibling No problems noted. Sibling Hearing loss Alcoholism Social History Social History Smoking packs per day: 2 Smoking cigarettes per day: 40.0 Years smoked: 40 Smoking pack-years: 80.00 Smoking status: Former smoker Tobacco type: cigarettes Second hand tobacco smoke exposure: No Alcohol intake: current Drinks per week: 14 Substance use: never Gender identity (if verbalized by the patient): Male Spiritual care concerns: Yes (sabianist) Meds Home Medications and Allergies Home Medications Medication Instructions Recorded Confirmed Type aspirin 81 mg tablet,delayed 81 mg PO DAILY 08/21/20 04/11/21 History release bumetanide 1 mg tablet 1 mg PO BID 08/21/20 04/11/21 History multivitamin 1 tablet PO DAILY 08/21/20 04/11/21 History spironolactone 25 mg tablet 100 mg PO DAILY tablet 08/21/20 04/11/21 History atorvastat
[2021-04-11] MEDS: ACETAMINOPHEN 500 MG TABLET 1000 MG PO (01:17)
[2021-04-11] MEDS: ENOXAPARIN 120 MG/0.8 ML SYRINGE 115 MG SUB-Q ×3 (02:50→23:59)
[2021-04-11 02:51] LABS: Troponin I 0.068 ng/mL (0.000-0.034)
[2021-04-11 06:03] LABS: Hematocrit 42.8 % (42.0-52.0); Hemoglobin 13.3 g/dL (14.0-18.0); Mean Corpuscular HGB Conc 31.1 g/dl (32-36); Mean Corpuscular Hemoglobin 29.2 pg (26-34); Mean Corpuscular Volume 93.9 fl (80-100); Mean Platelet Volume 10.4 fl (7.4-10.4); Platelet Count Result 256 k/mm3 (150-375); Red Blood Count 4.56 M/mm3 (4.6-6.20); White Blood Count 11.1 K/mm3 (4.5-10.0)
[2021-04-11 06:24] LABS: Troponin I 0.077 ng/mL (0.000-0.034)
[2021-04-11 06:37] LABS: Magnesium 1.5 mg/dL (1.6-2.3)
[2021-04-11] MEDS: FUROSEMIDE INJ 40 MG/4 ML VIAL IV PUSH ×2 (10:00→20:36)
[2021-04-11] MEDS: ASPIRIN 81 MG ENTERIC TABLET PO (10:00)
[2021-04-11] MEDS: MULTIVITAMINS THERAPEUTIC TAB (*BKC) 1 TABLET PO (10:00)
[2021-04-11] MEDS: ATORVASTATIN 20 MG TABLET PO (10:00)
[2021-04-11] MEDS: lisinopriL 20 MG TABLET PO ×2 (10:00→16:03)
[2021-04-11] MEDS: CLOPIDOGREL BISULFATE 75 MG TABLET PO (10:00)
--- NOTE | 2021-04-11 10:50 | PM.IMPN ---
Progress Note: A&P Assessment and Plan (1) Acute on chronic combined systolic (congestive) and diastolic (congestive) heart failure: Code(s): I50.43 - Acute on chronic combined systolic (congestive) and diastolic (congestive) heart failure Status: Acute Assessment and Plan: Admit to IMU Patient on spironolactone and bumetanide at home which are being held Lasix 40 mg IV b.i.d. received 80 mg IV in the ER yesterday Echocardiogram pending Cardiology consulted (2) Acute and chronic respiratory failure with hypoxia: Code(s): J96.21 - Acute and chronic respiratory failure with hypoxia Status: Acute Assessment and Plan: Chest x-ray with infiltrate Blood cultures processing Started on Rocephin and Zithromax Repeat chest x-ray with congestive/opacities Currently on BiPAP will taper off BiPAP and place on nasal cannula this morning on 3-4 L oxygen at home (3) Lung infiltrate: Code(s): R91.8 - Other nonspecific abnormal finding of lung field Status: Acute Assessment and Plan: Repeat chest x-ray in the morning if infiltrates have changed more in line with congestive heart failure Continue to monitor Will continue with ceftriaxone and azithromycin (4) COPD (chronic obstructive pulmonary disease): Qualifiers: COPD type: unspecified COPD Qualified Code(s): J44.9 - Chronic obstructive pulmonary disease, unspecified Code(s): J44.9 - Chronic obstructive pulmonary disease, unspecified Status: Acute Assessment and Plan: Breathing treatments (5) CAD (coronary artery disease): Qualifiers: Coronary Disease-Associated Artery/Lesion type: unspecified vessel or lesion type [place] vs. transplanted heart: [place] heart Associated angina: without angina Qualified Code(s): I25.10 - Atherosclerotic heart disease of [place] coronary artery without angina pectoris Code(s): I25.10 - Atherosclerotic heart disease of [place] coronary artery without angina pectoris Status: Acute Assessment and Plan: Continue Plavix Continue statin Continue aspirin Continue to monitor EKG with no acute changes (6) HTN (hypertension), benign: Code(s): I10 - Essential (primary) hypertension Status: Acute Assessment and Plan: Continue lisinopril Continue to monitor (7) Atrial flutter with rapid ventricular response: Code(s): I48.92 - Unspecified atrial flutter Status: Acute Assessment and Plan: Therapeutic Lovenox Continue to monitor Cardiology consult Currently rate controlled (8) Hyponatremia: Code(s): E87.1 - Hypo-osmolality and hyponatremia Status: Acute Assessment and Plan: New likely hypervolemic hyponatremia continue diuresis and monitor check urine lytes (9) Hypomagnesemia: Code(s): E83.42 - Hypomagnesemia Status: Acute Assessment and Plan: Replaced (10) Elevated troponin: Code(s): R77.8 - Other specified abnormalities of plasma proteins Status: Acute Assessment and Plan: Flat trend not indicating ACS Additional Plan This is a 75-year-old male with past medical history significant for coronary artery disease status post stent placement in November of this year in our facility, hypertension, COPD/emphysema, former smoker. Patient presented to the emergency room due to worsening shortness of breath and worsening bilateral lower extremity edema PND and orthopnea he has been adding pillows at bedtime to be able to sleep his had cough productive of white sputum, he denies chest pain, denies fevers chills or rigors. Patient upon arrival to emergency room was found to have low oxygen saturation and was immediately placed on BiPAP. History taken was somehow limited because of the use of this device. Preliminary workup was significant for a sodium of 122 chloride of 80 for BMP in 1999 chest x-ray with lung infiltrates. 04/11: Chest x-ray and labs reviewed. Be
--- NOTE | 2021-04-11 11:50 | PM.CNCAR ---
Assessment and Plan Assessment and plan (1) Atrial flutter with rapid ventricular response: Code(s): I48.92 - Unspecified atrial flutter Status: Acute Assessment and Plan: New diagnosis, heart rate reasonably controlled. Initiate low-dose beta-alexa carvedilol 3.125 mg twice daily. (2) Acute and chronic respiratory failure with hypoxia: Code(s): J96.21 - Acute and chronic respiratory failure with hypoxia Status: Acute Assessment and Plan: Patient is clearly in decompensated heart failure diastolic plus or minus systolic. Assess LV systolic function by echocardiogram. Will review when available. Possible new onset atrial flutter decompensated patient over time. Accurate input and output, daily weight. CHF counseling. Continue Supportive therapy with BiPAP, wean as tolerated along with O2 supplementation to baseline. IV Lasix, bronchodilator therapy is appropriate. COVID swab pending. Patient receiving IV antibiotics for possible associated pneumonia and or COPD exacerbation. (3) HTN (hypertension), benign: Code(s): I10 - Essential (primary) hypertension Status: Acute Assessment and Plan: Stable, no acute issues at this time. (4) Elevated troponin: Code(s): R77.8 - Other specified abnormalities of plasma proteins Status: Acute Assessment and Plan: Minimal flat troponin elevation not consistent with acute coronary syndrome and/or plaque rupture. Type 2 infarction secondary to acute respiratory failure and probable underlying atrial flutter (5) CAD (coronary artery disease): Qualifiers: Coronary Disease-Associated Artery/Lesion type: unspecified vessel or lesion type [place] vs. transplanted heart: [place] heart Associated angina: without angina Qualified Code(s): I25.10 - Atherosclerotic heart disease of [place] coronary artery without angina pectoris Code(s): I25.10 - Atherosclerotic heart disease of [place] coronary artery without angina pectoris Status: Acute Assessment and Plan: As above, continue medical therapy with dual antiplatelet therapy without interruption. Increased bleeding risk on dual antiplatelet therapy and systemic anticoagulation. Upon transition to oral anticoagulation plan to discontinue aspirin with continuation of clopidogrel. Patient had 2 drug-eluting stents placed in November in the circumflex and RCA. He requires antiplatelet therapy for a minimum of 12 months. Monitor bleeding very closely. Further recommendation to follow after review of echocardiogram. History of Present Illness History of Present Illness Consult date/time: Date of service: 04/11/21 11:50 Cardiology consultation at the request of Dr. Acharya for our opinion regarding shortness of breath, CHF and CAD. Requesting physician: Lorenzo Acharya MD Consult reason: congestive heart failure Reason For Visit: Acute on Chronic Resp Failure w/hypoxia,CHF Narrative: Patient is a 75-year-old male with a history of COPD oxygen dependent at 3 L at home, hypertension, history of stroke, recent COVID infection with complaints of exertional dyspnea who previously underwent as stress testing which was abnormal with a small area of inferolateral and inferior ischemia referral for coronary angiography as an outpatient on 11/13/2020. It was noted patient had 2 vessel severe coronary disease with 90% distal RCA and mid circumflex stenosis. He underwent successful 4.0 x 38 mm drug-eluting stent to distal RCA with planned staged intervention to the circumflex due to his inability to lie flat consistently opposing risks to himself. He was then cathed on 11/25/2020 at [facility] and underwent a 3.5 x 18 mm drug-eluting stent to mid circumflex without complication. Patient states he did not have any assessment chest pain but notes over the past couple weeks he was gaining weight, lower extremity edema with progressive shortness of breath much more s
[2021-04-11] MEDS: MAGNESIUM SULF 2 GM/WATER 50ML 2 GM/50 ML BAG IVPB (12:24)
[2021-04-11 12:56] LABS: Blood Urea Nitrogen 13 mg/dL (9-20); Carbon Dioxide > 40 mmol/L (22-30); Chloride 84 mmol/L (98-107); Estimated CRCL calculation 123 ml/min; Estimated Glomerular Filt Rate > 60; Glucose 108 mg/dL (65-110); Potassium 4.1 mmol/L (3.4-5.0); Sodium 129 mmol/L (137-145)
[2021-04-11 16:45] LABS: Creatinine Urine 19.8 mg/dL; Urea Random Urine 72 MG/DL
[2021-04-11 16:49] LABS: Sodium Urine Random 33 meq/L
[2021-04-11 21:29] LABS: SARS-CoV-2 RNA PCR Negative
[2021-04-12] VITALS (16 sets, daily range): BP systolic 100–126; BP diastolic 56–69; PULSE 71–97; RESP 12–24; TEMP 36.2–36.9; O2SAT 91–99
[2021-04-12 05:42] LABS: Basophils Absolute Auto 0.1 K/mm3 (0.0-0.1); Basophils Percent Auto 1.4 % (0.2-1.2); Eosinophils Absolute Auto 0.6 K/mm3 (0-0.3); Eosinophils Percent Auto 5.8 % (0-4.4); Hematocrit 44.4 % (42.0-52.0); Hemoglobin 13.2 g/dL (14.0-18.0); Immature Granulocyte Absolute 0.05 K/mm3 (0.00-0.031); Immature Granulocyte Percent A 0.5 % (0-0.5); Lymphocytes Absolute Auto 0.96 K/mm3 (0.9-3.2); Lymphocytes Percent Auto 9.8 % (18.3-44.2); Mean Corpuscular HGB Conc 29.7 g/dl (32-36); Mean Corpuscular Hemoglobin 28.9 pg (26-34); Mean Corpuscular Volume 97.4 fl (80-100); Mean Platelet Volume 10.3 fl (7.4-10.4); Monocytes Absolute Auto 1.3 K/mm3 (0.1-0.6); Monocytes Percent Auto 12.9 % (2.6-8.5); Neutrophils Absolute Auto 6.8 K/mm3 (1.3-6.7); Neutrophils Percent Auto 69.6 % (45.5-73.1); Platelet Count Result 247 k/mm3 (150-375); Red Blood Count 4.56 M/mm3 (4.6-6.20); Red Cell Distribution Width 16.3 % (11.5-14.5); White Blood Count 9.8 K/mm3 (4.5-10.0)
[2021-04-12 06:13] LABS: Alanine Aminotransferase 27 U/L (4-50); Albumin Level 3.6 g/dL (3.5-5.1); Alkaline Phosphatase 73 U/L (38-126); Anion Gap 6 mmol/L (8-16); Aspartate Amino Transferase 44 U/L (17-59); Bilirubin,Total 0.8 mg/dL (0.2-1.3); Blood Urea Nitrogen 15 mg/dL (9-20); Calcium 9.3 mg/dL (8.4-10.2); Carbon Dioxide 39 mmol/L (22-30); Chloride 92 mmol/L (98-107); Estimated CRCL calculation 78 ml/min; Estimated Glomerular Filt Rate > 60; Glucose 90 mg/dL (65-110); Potassium 3.9 mmol/L (3.4-5.0); Sodium 137 mmol/L (137-145)
[2021-04-12 07:07] LABS: Anisocytosis 1+ (NORMAL); Platelet Estimate Adequate (Adequate); Stomatocytes 2+ (NORMAL)
[2021-04-12] MEDS: FUROSEMIDE INJ 40 MG/4 ML VIAL IV PUSH ×2 (08:20→20:33)
[2021-04-12] MEDS: CLOPIDOGREL BISULFATE 75 MG TABLET PO (08:21)
[2021-04-12] MEDS: ATORVASTATIN 20 MG TABLET PO (08:21)
[2021-04-12] MEDS: ASPIRIN 81 MG ENTERIC TABLET PO (08:21)
[2021-04-12] MEDS: lisinopriL 20 MG TABLET PO ×2 (08:21→16:58)
[2021-04-12] MEDS: MULTIVITAMINS THERAPEUTIC TAB (*BKC) 1 TABLET PO (08:21)
--- NOTE | 2021-04-12 11:32 | ECG_ITS ---
Measurements Intervals Zeigler Rate: 97 P: AR: 0 QRS: 37 QRSD: 149 T: 6 QT: 393 QTc: 501 Interpretive Statements ATRIAL FLUTTER/TACHYCARDIA RIGHT BUNDLE BRANCH BLOCK MINIMAL Q WAVES- HIGH LATERAL LEADS ABNORMAL ECG Electronically Signed On 04-12-2021 16:31:52 CDT by Santiago Machado D.O.
--- NOTE | 2021-04-12 12:00 | PM.PNCARD ---
Progress Note: A&P Assessment and Plan (1) Atrial flutter with rapid ventricular response: Code(s): I48.92 - Unspecified atrial flutter Status: Acute Assessment and Plan: New diagnosis, heart rate controlled controlled. Twelve lead EKG today. Initiate low-dose beta-alexa carvedilol 3.125 mg twice daily. Eliquis 5 mg b.i.d. for systemic anticoagulation. CHADS2 Vasc score 4. Discussed embolic stroke risk versus bleeding risk in detail. Unable to completely discontinue antiplatelet therapy given 2 drug-eluting stents in the past 6 months. Discussed increased bleeding risk with dual antiplatelet therapy and systemic anticoagulation. For now, will discontinue aspirin, continue clopidogrel 75 mg daily along with Eliquis 5 mg b.i.d.. Discussed this and/or potential preference to warfarin with antiplatelet therapy for bleeding risk reduction. Patient verbalized understanding and agreed with plan of care. Stable at this time. Monitor heart rate and medication tolerance. I am not convinced cardioversion to sinus rhythm given heart rate control will offer significant benefit at this time. PT OT. Continue telemetry. Monitor electrolytes and renal function closely. Magnesium 1.5 yesterday for which 2 g IV magnesium sulfate administered. (2) Acute and chronic respiratory failure with hypoxia: Code(s): J96.21 - Acute and chronic respiratory failure with hypoxia Status: Acute Assessment and Plan: Much improved but not quite euvolemic remains somewhat volume overloaded. EF 55-60% by echocardiogram consistent heart failure with preserved ejection fraction. Continue IV diuresis. Potential transition to oral regimen tomorrow with observation. Accurate input and output, daily weight. CHF counseling. Continue Supportive therapy with BiPAP, wean as tolerated along with O2 supplementation to baseline. IV Lasix, bronchodilator therapy is appropriate. COVID swab pending. Patient receiving IV antibiotics for possible associated pneumonia and or COPD exacerbation. (3) HTN (hypertension), benign: Code(s): I10 - Essential (primary) hypertension Status: Acute Assessment and Plan: Stable, no acute issues at this time. (4) Elevated troponin: Code(s): R77.8 - Other specified abnormalities of plasma proteins Status: Acute Assessment and Plan: Minimal flat troponin elevation not consistent with acute coronary syndrome and/or plaque rupture. Type 2 infarction secondary to acute respiratory failure and probable underlying atrial flutter (5) CAD (coronary artery disease): Qualifiers: Coronary Disease-Associated Artery/Lesion type: unspecified vessel or lesion type [place] vs. transplanted heart: [place] heart Associated angina: without angina Qualified Code(s): I25.10 - Atherosclerotic heart disease of [place] coronary artery without angina pectoris Code(s): I25.10 - Atherosclerotic heart disease of [place] coronary artery without angina pectoris Status: Acute Assessment and Plan: As above, continue medical therapy with dual antiplatelet therapy without interruption. Increased bleeding risk on dual antiplatelet therapy and systemic anticoagulation. Upon transition to oral anticoagulation plan to discontinue aspirin with continuation of clopidogrel. Patient had 2 drug-eluting stents placed in November in the circumflex and RCA. As above. Subjective Date/time seen: Date of service: 04/12/21 12:00 Follow-up for CHF, atrial flutter Feels much better today. No new issues overnight. While not active, denies shortness of breath at this time. No palpitations or chest pain. Heart rate very nicely controlled probable atrial flutter with variable AV block. Started on Eliquis. No dizziness. Edema improved but not resolved. Feeling much better off BiPAP. COVID negative. Review of Systems Review of Systems: All systems reviewed & are unremarkable except as not
[2021-04-12 12:43] LABS: Sodium 136 mmol/L (137-145)
[2021-04-12 12:45] LABS: Magnesium 1.9 mg/dL (1.6-2.3)
--- NOTE | 2021-04-12 12:59 | PM.IMPN ---
Progress Note: A&P Assessment and Plan (1) CHF (congestive heart failure): Code(s): I50.9 - Heart failure, unspecified Status: Acute Assessment and Plan: Echo showing no evidence of systolic HF -clinically pt is hypervolemic, could be due to arrythmia -continue lasix 40mg BID -Pt is off the bipap and is on his home o2 setting -Continue with cardiology's recommendations -okay to transfer to [facility] (2) Acute and chronic respiratory failure with hypoxia: Code(s): J96.21 - Acute and chronic respiratory failure with hypoxia Status: Acute Assessment and Plan: Resolved. Back to baseline o2 requirement -Chest x-ray with infiltrate -Continue azithromycin and ceftriaxone -improving -COVID negative (3) Lung infiltrate: Code(s): R91.8 - Other nonspecific abnormal finding of lung field Status: Acute Assessment and Plan: As above (4) COPD (chronic obstructive pulmonary disease): Qualifiers: COPD type: unspecified COPD Qualified Code(s): J44.9 - Chronic obstructive pulmonary disease, unspecified Code(s): J44.9 - Chronic obstructive pulmonary disease, unspecified Status: Acute Assessment and Plan: Chronic, no wheezing today -No home inhalers noted (5) CAD (coronary artery disease): Qualifiers: Associated angina: without angina Coronary Disease-Associated Artery/Lesion type: unspecified vessel or lesion type [place] vs. transplanted heart: [place] heart Qualified Code(s): I25.10 - Atherosclerotic heart disease of [place] coronary artery without angina pectoris Code(s): I25.10 - Atherosclerotic heart disease of [place] coronary artery without angina pectoris Status: Acute Assessment and Plan: Continue with plavix and now apixaban -no CP, stable (6) HTN (hypertension), benign: Code(s): I10 - Essential (primary) hypertension Status: Acute Assessment and Plan: Last bp 110/61 -continue lisinopril and lasix (7) Atrial flutter with rapid ventricular response: Code(s): I48.92 - Unspecified atrial flutter Status: Acute Assessment and Plan: Noted on admission -transition to [facility], he can afford the copay monthly at $47 -spoke with cardiology, new EKG ordered (8) Hyponatremia: Code(s): E87.1 - Hypo-osmolality and hyponatremia Status: Acute Assessment and Plan: New likely hypervolemic hyponatremia -continue diuretics -Na now 136 (9) Hypomagnesemia: Code(s): E83.42 - Hypomagnesemia Status: Acute Assessment and Plan: mg 1.9 today (10) Elevated troponin: Code(s): R77.8 - Other specified abnormalities of plasma proteins Status: Acute Assessment and Plan: Flat trend not indicating ACS -no CP (11) Acute on chronic combined systolic (congestive) and diastolic (congestive) heart failure: Code(s): I50.43 - Acute on chronic combined systolic (congestive) and diastolic (congestive) heart failure Status: Acute Assessment and Plan: This diagnosis should be removed. Unable to delete it out of the document for unclear reasons. Time Spent With Patient Time with patient: 25 - 35 minutes Subjective Date/time seen: 04/12/21 12:59 Interval history: Pt is a 75-year-old male here for CHF. Patient states he is feeling much better. He is on his 3 L of oxygen home requirement and breathing easier. His swelling is better but not at baseline. Pt denies nausea, vomiting, fevers, chills, constipation, diarrhea, chest pain, sob, or abdominal pain. Review of Systems Review of Systems: All systems reviewed & are unremarkable except as noted in HPI and below Exam Narrative: General: Well developed well nourished patient in NAD HEENT: normocephalic Neck: supple Neuro: Alert and oriented x4 CV:RRR on exam. tele showing aflutter with controlled rate. Res
--- NOTE | 2021-04-12 15:50 | PC.NURSE ---
Patient transferred from IMU to room 314-01 at 1545 per bed. Belongings at patient's bedside. Patient orientated to unit. Call light within reach. Patient voiced understanding of how to use call light and is able to make needs known. Denies any pain or discomfort when asked.
--- NOTE | 2021-04-12 15:55 | PC.NURSE ---
This patient, Prabhakar Brito, was transferred to [ 314 ] on 04/12/21 at 1545. Personal belongings sent with patient. Report given to [ ONEYDA Bonner. ]. Appropriate documentation sent with patient.
[2021-04-12] MEDS: APIXABAN 5 MG TABLET PO (20:33)
[2021-04-13] VITALS (7 sets, daily range): BP systolic 110–112; BP diastolic 45–61; PULSE 81–98; RESP 20; TEMP 35.9–36.4; O2SAT 92–93
[2021-04-13 06:57] LABS: Blood Urea Nitrogen 16 mg/dL (9-20); Carbon Dioxide > 40 mmol/L (22-30); Chloride 89 mmol/L (98-107); Estimated CRCL calculation 71 ml/min; Estimated Glomerular Filt Rate > 60; Glucose 94 mg/dL (65-110); Magnesium 1.8 mg/dL (1.6-2.3); Potassium 3.4 mmol/L (3.4-5.0); Sodium 135 mmol/L (137-145)
[2021-04-13] MEDS: acetaZOLAMIDE SODIUM FOR INJ 500 MG VIAL 250 MG IV PUSH (08:19)
[2021-04-13] MEDS: POTASSIUM CHLORIDE 20 MEQ TABLET PO (08:20)
[2021-04-13] MEDS: lisinopriL 20 MG TABLET PO (08:21)
[2021-04-13] MEDS: CLOPIDOGREL BISULFATE 75 MG TABLET PO (08:21)
[2021-04-13] MEDS: MULTIVITAMINS THERAPEUTIC TAB (*BKC) 1 TABLET PO (08:21)
[2021-04-13] MEDS: SPIRONOLACTONE 50 MG TABLET 100 MG PO (08:21)
[2021-04-13] MEDS: APIXABAN 5 MG TABLET PO (08:21)
[2021-04-13] MEDS: ATORVASTATIN 20 MG TABLET PO (08:21)
[2021-04-13] MEDS: BUMETANIDE 1 MG TABLET PO (08:21)
--- NOTE | 2021-04-13 10:41 | PM.PNCARD ---
Progress Note: A&P Assessment and Plan (1) Atrial flutter with rapid ventricular response: Code(s): I48.92 - Unspecified atrial flutter <SAMRA Wing - Last Filed: 04/13/21 11:40> Status: Acute <SAMRA Wing - Last Filed: 04/13/21 11:40> Assessment and Plan: New diagnosis, heart rate adequately controlled on low-dose carvedilol 3.125 mg twice daily -heart rate mostly in the 70s and 80s. Eliquis 5 mg b.i.d. for systemic anticoagulation. CHADS2 Vasc score 4. Discussed continuation of Plavix due to recent stent in addition to Eliquis. <SMARA Wing - Last Filed: 04/13/21 11:40> (2) Acute and chronic respiratory failure with hypoxia: Code(s): J96.21 - Acute and chronic respiratory failure with hypoxia <SAMRA Wing - Last Filed: 04/13/21 11:40> Status: Acute <SAMRA Wing - Last Filed: 04/13/21 11:40> Assessment and Plan: Continue Supportive therapy with BiPAP, wean as tolerated along with O2 supplementation to baseline. diuresis, bronchodilator therapy is appropriate. COVID negatie. Patient receiving IV antibiotics for possible associated pneumonia and or COPD exacerbation. <SAMRA Wing - Last Filed: 04/13/21 11:40> (3) HTN (hypertension), benign: Code(s): I10 - Essential (primary) hypertension <SAMRA Wing - Last Filed: 04/13/21 11:40> Status: Acute <SAMRA Wing - Last Filed: 04/13/21 11:40> Assessment and Plan: Stable, no acute issues at this time. <SAMRA Wing - Last Filed: 04/13/21 11:40> (4) Elevated troponin: Code(s): R77.8 - Other specified abnormalities of plasma proteins <SAMRA Wing - Last Filed: 04/13/21 11:40> Status: Acute <SAMRA Wing - Last Filed: 04/13/21 11:40> Assessment and Plan: Minimal flat troponin elevation not consistent with acute coronary syndrome and/or plaque rupture. Type 2 infarction secondary to acute respiratory failure and probable underlying atrial flutter <SAMRA Wing - Last Filed: 04/13/21 11:40> (5) CAD (coronary artery disease): Qualifiers: Associated angina: without angina Coronary Disease-Associated Artery/Lesion type: unspecified vessel or lesion type [place] vs. transplanted heart: [place] heart Qualified Code(s): I25.10 - Atherosclerotic heart disease of [place] coronary artery without angina pectoris <SAMRA Wing - Last Filed: 04/13/21 11:40> Code(s): I25.10 - Atherosclerotic heart disease of [place] coronary artery without angina pectoris <SAMRA Wing - Last Filed: 04/13/21 11:40> Status: Acute <SAMRA Wing - Last Filed: 04/13/21 11:40> Assessment and Plan: As above, continue medical therapy with dual antiplatelet therapy without interruption. Increased bleeding risk on dual antiplatelet therapy and systemic anticoagulation. Upon transition to oral anticoagulation plan to discontinue aspirin with continuation of clopidogrel. Patient had 2 drug-eluting stents placed in November in the circumflex and RCA. As above. <SAMRA Wing - Last Filed: 04/13/21 11:40> (6) CHF (congestive heart failure): Code(s): I50.9 - Heart failure, unspecified <SAMRA Wing - Last Filed: 04/13/21 11:40> Status: Acute <SAMRA Wing - Last Filed: 04/13/21 11:40> Assessment and Plan: Much improved but not quite euvolemic remains somewhat volume overloaded. EF 55-60% by echocardiogram consistent heart failure with preserved ejection fraction. - He has been shifted from IV furosemide to oral Bumex. - I & O - Daily weights - CHF counseling - K+ 3.4 this morning, this has been repleted. Continue to monitor daily bmp. <Mary Mcneal APN-C - Last Filed: 04/13/21 11:40> Additional Plan Attending addendum: I agr
--- NOTE | 2021-04-13 14:36 | PM.DS ---
DS: Admitting Diagnosis Admitting Diagnosis CHF DS: Discharge Diagnosis Discharge Diagnosis (1) CHF (congestive heart failure): Code(s): I50.9 - Heart failure, unspecified Status: Acute (2) Acute and chronic respiratory failure with hypoxia: Code(s): J96.21 - Acute and chronic respiratory failure with hypoxia Status: Acute (3) COPD (chronic obstructive pulmonary disease): Qualifiers: COPD type: unspecified COPD Qualified Code(s): J44.9 - Chronic obstructive pulmonary disease, unspecified Code(s): J44.9 - Chronic obstructive pulmonary disease, unspecified Status: Acute (4) CAD (coronary artery disease): Qualifiers: Coronary Disease-Associated Artery/Lesion type: unspecified vessel or lesion type [place] vs. transplanted heart: [place] heart Associated angina: without angina Qualified Code(s): I25.10 - Atherosclerotic heart disease of [place] coronary artery without angina pectoris Code(s): I25.10 - Atherosclerotic heart disease of [place] coronary artery without angina pectoris Status: Acute (5) Atrial flutter with rapid ventricular response: Code(s): I48.92 - Unspecified atrial flutter Status: Acute (6) Hypomagnesemia: Code(s): E83.42 - Hypomagnesemia Status: Acute (7) Hyponatremia: Code(s): E87.1 - Hypo-osmolality and hyponatremia Status: Acute (8) Elevated troponin: Code(s): R77.8 - Other specified abnormalities of plasma proteins Status: Acute DS: Summary Hospital Course Hospital Course: date of service April 13, 2021 Patient is a 75-year-old male who presented emergency room on April 10, 2021 for shortness of breath found to be in acute on chronic heart failure with new onset atrial fibrillation. Patient was admitted to the hospitalist service and started on Lasix 40 mg b.i.d.. He underwent an echocardiogram which showed an EF of 50-60%, mild valve disease and diastolic function was indeterminate on the read. Cardiology was consulted and started carvedilol and Eliquis. The patient required oxygen but was able to be weaned down to his normal setting. He also has some lower extremity edema that had improved. Cardiology saw the patient and plans to follow up with him outpatient and discontinue the aspirin as he is now on Eliquis and Plavix. Day of discharge the patient was back to his home oxygen requirements and his lower extremity swelling had improved although not completely resolved. He said he felt much better than he did on admission and was ready to go. Repeat chest x-ray showed showed mild pulmonary edema which should improve with continued diuretic use and low-salt diet. I educated him about the worrisome signs and symptoms come back to emergency room for and was discharged stable condition. Time Spent with Patient Time attestation: Total time spent providing and/or coordinating discharge services:38 min Exam Narrative: General: Well developed well nourished patient in NAD HEENT: normocephalic Neck: supple Neuro: Alert and oriented x4 CV:RRR on exam. tele showing aflutter with controlled rate. Resp:Crackles on the bases, worse on the right. Abd: Soft, non distended. No pain to palpation. Positive bowel sounds Extremities: 1+ edema with the right leg and trace to the left ankle. no erythema DS: Data Data Completed and Pending Labs on day of discharge: Labs from last 24 hours 04/13/21 06:14 Sodium 135 L Potassium 3.4 Chloride 89 L Carbon Dioxide > 40 H Anion Gap BUN 16 Creatinine 1.00 Estim Creat Clear Calc 71 Estimated GFR > 60 Glucose 94 Calcium 9.0 Magnesium 1.8 Preliminary micro results at discharge 04/10/21 22:14 Blood Culture - Preliminary Blood 04/10/21 22:14 Blood Culture - Preliminary Blood Discharge Plan Discharge Attending physician on discharge: Vero Amor Consulting providers: Farhad Damon ; Norman Salazar
[2021-04-19 06:46] LABS: Osmolality, Urine 143 mOsm/kg (50-1200)
== END 2021-04-13 16:33 | disposition home or self-care (01) | DRG 291 ==
LOC: ANHED 21:45 → ANHIMU 04-11 00:17 → ANH3MEDSUR 04-13 12:50 → ANHIMU 04-16 10:44
PROVIDERS: Internal Medicine; Admitting Provider Internal Medicine; Emergency Provider Emergency Medicine; PCP Family Medicine; Visit Provider Physician Assistant
DX: I11.0 Hypertensive heart disease with heart failure (principal); J96.21 Acute and chronic respiratory failure with hypoxia; I48.92 Unspecified atrial flutter; E87.1 Hypo-osmolality and hyponatremia; E87.2 Acidosis; I48.91 Unspecified atrial fibrillation; I50.9 Heart failure, unspecified; Z20.822 Contact with and (suspected) exposure to COVID-19; I25.10 Atherosclerotic heart disease of native coronary artery without angina pectoris; E83.42 Hypomagnesemia; R77.8 Other specified abnormalities of plasma proteins; J43.9 Emphysema, unspecified; R91.8 Other nonspecific abnormal finding of lung field; Z79.82 Long term (current) use of aspirin; Z79.899 Other long term (current) drug therapy; Z87.891 Personal history of nicotine dependence; Z86.73 Personal history of transient ischemic attack (TIA), and cerebral infarction without residual deficits; Z86.16 Personal history of COVID-19; Z95.5 Presence of coronary angioplasty implant and graft
CPT/HCPCS: 36415; 71045; 71046; 80048; 80053; 82570; 83735; 83880; 83935; 84295; 84300; 84484; 84540; 85025; 85027; 85610; 85730; 87040; 93005; 93306; 94002; 94003; 96374; 99291; A9270; C9803; J0456; J0696; J1120; J1650; J1940; J3475; U0003; U0005

== ENCOUNTER 2021-05-04 12:49 | Outpatient (CLI) | payer MEDICARE, SELFPAY ==
[2021-05-04 13:23] LABS: Anion Gap 9 mmol/L (8-16); Blood Urea Nitrogen 27 mg/dL (9-20); Calcium 9.9 mg/dL (8.4-10.2); Carbon Dioxide 37 mmol/L (22-30); Chloride 93 mmol/L (98-107); Estimated Glomerular Filt Rate > 60; Glucose 120 mg/dL (65-110); Potassium 4.5 mmol/L (3.4-5.0); Sodium 139 mmol/L (137-145)
== END 2021-05-04 12:50 | disposition home or self-care (01) ==
PROVIDERS: PCP Family Medicine; Visit Provider Internal Medicine Cardiovascular Disease
DX: R06.00 Dyspnea, unspecified (principal); I50.32 Chronic diastolic (congestive) heart failure; I48.0 Paroxysmal atrial fibrillation
CPT/HCPCS: 36415; 80048; 84443

== ENCOUNTER 2021-05-12 12:03 | Outpatient (CLI) | payer MEDICARE, SELFPAY ==
[2021-05-14 20:37] LABS: Alpha-1-Antitrypsin, QN 162 mg/dL (83-199)
== END 2021-05-12 12:04 | disposition home or self-care (01) ==
PROVIDERS: PCP Family Medicine; Visit Provider Internal Medicine Critical Care Medicine
DX: J44.9 Chronic obstructive pulmonary disease, unspecified (principal); J96.11 Chronic respiratory failure with hypoxia; Z99.81 Dependence on supplemental oxygen
CPT/HCPCS: 36415; 82103; 82104

== ENCOUNTER 2021-06-02 11:12 | Outpatient (CLI) | payer MEDICARE, SELFPAY ==
--- NOTE | ~2021-06-02 | CT_ITS ---
EXAMINATION: CT diagnostic chest wo con DATE: 06/02/2021 11:51 INDICATION: Chronic obstructive pulmonary disease TECHNIQUE: Computed tomography (CT) of the chest was performed without intravenous contrast. The dose -length product (DLP) was 383.34 mGy-cm. Automated exposure control and iterative reconstruction tech [employer] were employed. COMPARISON: 03/26/2009 FINDINGS: There is moderate emphysema. The lung volumes are low. Cardiomegaly is noted. There is a mi ld interstitial pattern. No focal airspace opacities are identified. There is mild atelectasis. There is no pleural effusion or pneumothorax. Coronary artery stents are noted. No pathologically enlarged thoracic lymph nodes are identified. There are bridging osteophytes at multiple levels in the spine, consistent with diffuse idiopathic skeletal hyperostosis (DISH). IMPRESSION: 1. Cardiomegaly with mild pulmonary edema. 2. Moderate emphysema. Reviewed, dictated and finalized at location A.
== END 2021-06-02 11:13 | disposition home or self-care (01) ==
PROVIDERS: PCP Family Medicine; Visit Provider Internal Medicine Critical Care Medicine
DX: J44.9 Chronic obstructive pulmonary disease, unspecified (principal); J43.9 Emphysema, unspecified; I51.7 Cardiomegaly
CPT/HCPCS: 71250

== ENCOUNTER 2021-06-04 12:53 | Outpatient (CLI) | payer MEDICARE, SELFPAY ==
[2021-06-04] VITALS (7 sets, daily range): PULSE 86–90; O2SAT 85–90
--- NOTE | 2021-06-04 15:04 | HOMEO2EVAL ---
Evaluation was performed at [facility] Home Oxygen Evaluation RC: Home Oxygen (O2) Evaluation Start: 06/04/21 15:01 Freq: Status: Active Protocol: RPE Activity Type Activity Date Activity User E-Sign Co-Sign Detail Recorded Client Recorded Date Recorded By Document 06/04/21 13:15 [email or web address] [email or web address] 06/04/21 15:04 DJO Document 06/04/21 13:16 [email or web address] [email or web address] 06/04/21 15:04 DJO Document 06/04/21 13:17 [email or web address] [email or web address] 06/04/21 15:04 DJO Document 06/04/21 13:18 [email or web address] [email or web address] 06/04/21 15:04 DJO Document 06/04/21 13:19 [email or web address] [email or web address] 06/04/21 15:04 DJO Document 06/04/21 13:20 [email or web address] [email or web address] 06/04/21 15:04 DJO Document 06/04/21 13:30 [email or web address] [email or web address] 06/04/21 15:04 DJO 06/04/21 06/04/21 06/04/21 13:15 13:16 13:17 Home O2 Evaluation Test Phase Resting Resting Resting Oxygen Delivery Room Air Nasal Cannula Nasal Cannula Oxygen Flow Rate (L/min) 2 3 Pulse Oximetry (90-100 %) 85 L 87 L 90 Pulse Rate (60-100 beats/min) 86 Home Oxygen Evaluation Comments Treatment Charges O2 Evaluation - Outpatient 06/04/21 06/04/21 06/04/21 13:18 13:19 13:20 Home O2 Evaluation Test Phase Exercise Exercise Exercise Oxygen Delivery Nasal Cannula Nasal Cannula Nasal Cannula Oxygen Flow Rate (L/min) 3 4 5 Pulse Oximetry (90-100 %) 87 L 87 L 90 Pulse Rate (60-100 beats/min) 90 Home Oxygen Evaluation Comments PT REQUIRES 3 AT REST AND 5 WITH EXERTION Treatment Charges 06/04/21 13:30 Home O2 Evaluation Test Phase Resting Oxygen Delivery Nasal Cannula Oxygen Flow Rate (L/min) 3 Pulse Oximetry (90-100 %) 85 L Pulse Rate (60-100 beats/min) Home Oxygen Evaluation Comments Treatment Charges
--- NOTE | 2021-06-05 16:14 | P.PCNPFT_ITS ---
PFT Procedure Performed PFT Procedure Performed Spirometry with Pre/Post Bronchodilator Plethysmography (Lung Vol) Diffusing Cap (DLCO) Flow Vol Loop PFT Interpretation This is a pulmonary function test with pre and post-bronchodilator spirometry, plethysmography and diffusing capacity. The test was performed and results interpreted in accordance with the 2019 and 2005 ATS/ERS Task Force guidelines respectively using the Global Lung Function Initiative-2012 reference equations. Patient demonstrated good effort and cooperation. Reproducibility criteria were met. The quality of the pre bronchodilator spirometry maneuver was Grade A and post bronchodilator spirometry maneuver was Grade A. Findings: Spirometry: The contour the expiratory flow tracing resembles a witch's hat . The contour the inspiratory flow tracing is normal. The pre bronchodilator FVC is 1.83 L, 45% predicted. The pre bronchodilator FEV1 is 1.41 L, 46% predicted. The FEV1: FVC ratio 77%. The post bronchodilator FVC is 2.20 L, representing a 20% increase. The post bronchodilator FEV1 is 1.54 L, representing a 10% increase. Plethysmography: The total lung capacity is 4.43 L, 63% predicted. Functional residual capacity is 2.93 L, 78% predicted. The residual volume is 2.06 L, 81% predicted. Diffusing capacity: The absolute diffusion capacity is 10.7, 42% predicted. The diffusing capacity corrected for alveolar volume is 3.00, 79% predicted. When compared to the previous pulmonary function study on 05/29/2019 the post bronchodilator FVC is unchanged from 2.10 L to 2.20 L. The post bronchodilator FEV1 is unchanged from 1.55 L to 1.54 L. The total lung capacity has decreased from 5.11 L to 4.43 L. The functional residual capacity has decreased from 3.93 L to 2.93 L. The residual volume has decreased from 2.82 L to 2.06 L. The absolute diffusion capacity has decreased from 12.9 to 10.7. The diffusion c apacity corrected for alveolar volume has decreased from 3.79 to 3.00. Impression: There is a severe restrictive ventilatory abnormality. The spirometry is normal without evidence of an obstructive abnormality. There is significant improvement after inhaling a single dose of albuterol. The absolute diffusing capacity is moderately decreased and normalizes when corrected for alveolar volume. compared to the previous pulmonary function study on 05/29/2019 there has been a greater than anticipated time dependent decrease in the total lung capacity, functional residual capacity, residual volume, absolute diffusion capacity and diffusing capacity corrected for alveolar volume. There has been no significant change in the post bronchodilator FVC, and FEV1. On the current study there is a bronchodilator response. Clinical correlation is recommended.
== END 2021-06-04 12:54 | disposition home or self-care (01) ==
LOC: ANHPFT 12:57
PROVIDERS: PCP Family Medicine; Visit Provider Internal Medicine Critical Care Medicine
DX: J44.9 Chronic obstructive pulmonary disease, unspecified (principal); R09.02 Hypoxemia
CPT/HCPCS: 94060; 94618; 94726; 94729

== ENCOUNTER 2021-07-15 12:58 | Emergency (ER) | payer MEDICARE, SELFPAY ==
[2021-07-15 13:11] VITALS: BP 95/47; PULSE 51; RESP 18; TEMP 36.4
--- NOTE | 2021-07-15 14:02 | ED.WOUNDLAC ---
HPI - Wound/Laceration General Chief Complaint: Wound/Laceration Stated Complaint: INJURED L FOREARM Source: patient and RN notes reviewed Mode of arrival: ambulatory History of Present Illness HPI narrative: This is a 75-year-old male who presented to our care with skin tear to his left forearm. According to patient she is unsure what he had his arm all overnight which caused a skin tear. Patient is on blood thinner in has a sense of blood bleeding. The patient denies SOB, CP, palpitation, extremity numbness, lightheadedness, dizziness, constipation, diarrhea, chills, or fever.. No signs and symptoms of infection noted Related Data Home Medications Medication Instructions Recorded Confirmed multivitamin 1 tablet PO DAILY 08/21/20 06/11/21 lisinopril 20 mg PO BID 04/11/21 06/11/21 melatonin 10 mg tablet 10 mg PO QHS PRN 04/22/21 06/11/21 Allergies Allergy/AdvReac Type Severity Reaction Status Date / Time Contrast Media Allergy Severe RASH, Uncoded 05/12/21 10:40 DIFFICULTY BREATHING, SHAKING Review of Systems Review of Systems: A 14 organ system Review of Systems was performed and pertinent positives included in the HPI, otherwise remaining ROS is negative. PENDING SALE TO [facility] Past Medical History Medical History (Updated 07/15/21 @ 14:01 by CHUY Espinosa) Acute and chronic respiratory failure with hypoxia CAD (coronary artery disease) Cataract CHF (congestive heart failure), NYHA class II Chronic respiratory failure with hypoxia, on home O2 therapy COPD (chronic obstructive pulmonary disease) History of tobacco abuse HTN (hypertension), benign Mixed hyperlipidemia Restrictive lung disease Stroke Surgical History Surgical History History of PTCA Family History Family History Father Back pain, chronic Cataract Cerebrovascular accident Mother Arthritis Migraines Cataract Sibling No problems noted. Sibling Hearing loss Alcoholism Social History Social History Smoking packs per day: 2 Smoking cigarettes per day: 40.0 Years smoked: 40 Smoking pack-years: 80.00 Tobacco type: cigarettes Second hand tobacco smoke exposure: No Smoking end date: 05/12/21 Alcohol intake: current Drinks per week: 14 Substance use: never Gender identity (if verbalized by the patient): Male Spiritual care concerns: Yes (sabianism) Exam Narrative: GENERAL: This is a well-nourished, well-developed patient, in no apparent distress. HEAD: normocephalic, atraumatic. EYES: PERRL. Sclera clear/white. Vision is grossly intact. EARS: External ears normal, auditory canals clear and without drainage, TMs normal without perforation. Hearing grossly intact. NOSE: External nose normal with no obvious nasal discharge, nares without redness, no rhinorrhea. THROAT: Mucous membranes moist, posterior pharynx clear. NECK: Neck supple, non-tender without lymphadenopathy, masses or thyromegaly. CARDIOVASCULAR: Regular rate and rhythm without murmurs, gallops, or rubs. RESPIRATORY: Clear to auscultation. Breath sounds equal bilaterally. No wheezes, rales, or rhonchi. GASTROINTESTINAL: Abdomen soft, non-tender, nondistended. Bowel sounds are active. No hepato-splenomegaly, or palpable masses. No guarding. SKIN: Multiple bruising to upper extremities, recent injury [id number] in size Steri-Strips placed into sites NEURO: awake, alert, and oriented to person, place and time. There were no obvious focal neurologic abnormalities. Steady gait EXTREMITIES: Normal range of motion. No edema. No calf tenderness. Negative Homans sign bilaterally. BACK: Nontender without deformity or crepitance. No flank tenderness. Course Course Emergency Course: Patient injury site clean with normal saline Steri
== END 2021-07-15 14:12 | disposition home or self-care (01) ==
PROVIDERS: Emergency Provider Nurse Practitioner; PCP Family Medicine
DX: S51.812A Laceration without foreign body of left forearm, initial encounter (principal); X58.XXXA Exposure to other specified factors, initial encounter; I25.10 Atherosclerotic heart disease of native coronary artery without angina pectoris; I11.0 Hypertensive heart disease with heart failure; I50.9 Heart failure, unspecified; J44.9 Chronic obstructive pulmonary disease, unspecified; E78.2 Mixed hyperlipidemia; Z86.73 Personal history of transient ischemic attack (TIA), and cerebral infarction without residual deficits; Z99.81 Dependence on supplemental oxygen
CPT/HCPCS: 99212; G0463

== ENCOUNTER 2021-07-23 10:58 | Inpatient (IN) | payer MEDICARE, SELFPAY ==
[2021-07-23] VITALS (24 sets, daily range): BP systolic 87–111; BP diastolic 47–72; PULSE 43–74; RESP 16–30; TEMP 36.3–37; O2SAT 91–99; BMI 32.8
--- NOTE | ~2021-07-23 | CT_ITS ---
EXAMINATION: CT abdomen pelvis wo con DATE: 07/23/2021 12:55 INDICATION: Generalized abdominal pain. TECHNIQUE: Computed tomography (CT) of the abdomen and pelvis was performed without intravenous contr ast. Automated exposure control and iterative reconstruction technique were employed. The dose-length product was 1213.31 mGy-cm. COMPARISON: CT abdomen and pelvis 01/23/2009 FINDINGS: The visualized portions of the lung bases demonstrate mild atelectasis. No pleural effusion . Cardiomegaly is noted. There are coronary artery calcifications. No pericardial effusion. The liver , spleen, pancreas, and adrenal glands are normal. Calcifications at the alex of the kidneys are like ly vascular. There is a 10 mm cyst in left kidney. There is an umbilical hernia containing fat. The p rostate is mildly enlarged. There is diverticulosis of the colon without evidence of diverticulitis. The appendix is normal. There is a twisting of the sigmoid colon best appreciated on coronal images. The sigmoid colon is mildly distended immediately proximal to this area. The colon is normal in calib er from the cecum to the proximal sigmoid colon. There are no pathologically enlarged lymph nodes. Th ere is no free intraperitoneal fluid. There is a left inguinal hernia containing fat. There are chron ic bilateral L5 pars defects. There is 5 mm anterolisthesis of L5 on S1. There is severe lumbar spond ylosis and mild thoracic spondylosis. IMPRESSION: 1. Mildly distended sigmoid colon, likely secondary to low-grade partial obstruction from sigmoid vol vulus. 2. Umbilical hernia and left inguinal hernia containing fat. Reviewed, dictated and finalized at location A. [facility] [employer] [facility] IMPRESSION: 1. Mildly distended sigmoid colon, likely secondary to low-grade partial obstru ction from sigmoid volvulus. 2. Umbilical hernia and left inguinal hernia containing fat.
--- NOTE | ~2021-07-23 | XR_ITS ---
EXAMINATION: XR chest 1V portable EXAM DATE: 07/23/2021 12:42 INDICATION: Shortness of breath, weakness and loss of appetite. TECHNIQUE: Portable AP frontal chest x-ray was obtained. Comparison is made to prior examination from 04/13/2021. FINDINGS: Chronic left hemidiaphragm elevation which could indicate paralysis. Associated pulmonary v ascular congestion. The cardiomediastinal silhouette is prominent but magnified on this AP technique. There is bibasilar airspace disease which could be atelectasis, does not appear significantly changed compared to prior study. Pneumonia difficult to exclude. No pneumothorax or pleural effusion. There are mild bony degenerative changes. IMPRESSION: 1. Chronic left hemidiaphragm elevation. 2. Bibasilar infrahilar opacities probably atelectasis but can't exclude pneumonia. Reviewed, dictated and finalized at location B. [employer] IMPRESSION: 1. Chronic left hemidiaphragm elevation. 2. Bibasilar infrahilar opacities probably atelectasis but can't exclude pneum onia.
--- NOTE | 2021-07-23 11:46 | ECG_ITS ---
Measurements Intervals [place] Rate: 69 P: GA: 0 QRS: 21 QRSD: 146 T: 11 QT: 421 QTc: 451 Interpretive Statements ATRIAL FIBRILLATION RIGHT BUNDLE BRANCH BLOCK ABNORMAL ECG Electronically Signed On 07-28-2021 13:44:53 GUARD SUPERVISOR by Santiago Machado D.O.
--- NOTE | 2021-07-23 11:50 | ED.ABDPAIN ---
HPI - Abdominal Pain General Chief Complaint: Abdominal Pain Stated Complaint: N/V LOW BP Time Seen by Provider: 07/23/21 11:24 Source: patient, RN notes reviewed and old records reviewed Mode of arrival: ambulatory Limitations: no limitations History of Present Illness HPI narrative: This is a 75 year old male with history of chronic respiratory failure, CAD s/p stent, atrial fibrillation who presents from his PCP for evaluation of diffuse abdominal pain . He has been having diffuse abdominal pain for 4-5 day. He states his pain is worse in left lower abdomen and he has associated nausea. He has decreased appetite so he has not eaten much over the past couple of days. He was noted to have BP in the 90s so he was referred to ER for evaluation. He denies vomiting, diarrhea, back pain, fever, chills or urinary complaints. He wears oxygen chronically he states he does feel more short of breath than use, but he denies cough or chest pain. He is ask for acetaminophen for left neck pain that he has been having intermittently. He does feel weak but he denies any recent falls. He was noted to have multiple wounds to his arms which he states are due to cutting himself accidentally while moving. Related Data Home Medications Medication Instructions Recorded Confirmed multivitamin 1 tablet PO DAILY 08/21/20 07/23/21 lisinopril 20 mg PO Q12H 04/11/21 07/23/21 melatonin 10 mg tablet 10 mg PO QHS PRN 04/22/21 07/23/21 albuterol sulfate [ProAir HFA] 1 inh INHALATION Q6H PRN 07/23/21 07/23/21 atorvastatin [Lipitor] 20 mg PO DAILY 07/23/21 07/23/21 bumetanide 1 mg PO BID 07/23/21 07/23/21 clopidogrel [Plavix] 75 mg PO DAILY 07/23/21 07/23/21 spironolactone 100 mg PO DAILY 07/23/21 07/23/21 Allergies Allergy/AdvReac Type Severity Reaction Status Date / Time Contrast Media Allergy Severe RASH, Uncoded 07/23/21 12:20 DIFFICULTY BREATHING, SHAKING Review of Systems Review of Systems: All systems reviewed & are unremarkable except as noted in HPI and below Constitutional: Constitutional: Reports weakness ENT: Denies epistaxis, Denies nasal congestion and Denies sore throat Cardiovascular: Cardiovascular: Denies chest pain Respiratory: Respiratory: Denies cough and Reports dyspnea Gastrointestinal: Gastrointestinal: Reports abdominal pain and Reports nausea Genitourinary: Genitourinary: Denies hematuria, Denies oliguria and Denies urinary frequency Musculoskeletal: Musculoskeletal: Denies back pain Neurologic: Denies focal weakness Hematologic/Lymphatic: Hematologic/Lymphatic: Reports easy bleeding PMFSH Past Medical History Medical History (Updated 07/23/21 @ 20:34 by Minerva Louise MD) Acute and chronic respiratory failure with hypoxia Afib CAD (coronary artery disease) Cataract CHF (congestive heart failure), NYHA class II Chronic respiratory failure with hypoxia, on home O2 therapy COPD (chronic obstructive pulmonary disease) Dehydration History of tobacco abuse HTN (hypertension), benign Mixed hyperlipidemia Restrictive lung disease Stroke Surgical History Surgical History H/O heart artery stent X2 History of cataract extraction History of PTCA S/P ORIF (open reduction internal fixation) fracture Right ankle with plates and screws Family History Family History Father Back pain, chronic Cataract Cerebrovascular accident Mother Arthritis Migraines Cataract Sibling No problems noted. Sibling Hearing loss Alcoholism Social History Social History Social History: The patient stated that he quit smoking a couple years ago. The patient is per and has 1 daughter. The patient worked for a [employer]. The patient's sister Sruthi kwan is his durable power at
[2021-07-23 12:05] LABS: Basophils Absolute Auto 0.1 K/mm3 (0.0-0.1); Basophils Percent Auto 1.1 % (0.2-1.2); Eosinophils Absolute Auto 0.6 K/mm3 (0-0.3); Eosinophils Percent Auto 5.4 % (0-4.4); Hematocrit 51.5 % (42.0-52.0); Hemoglobin 17.9 g/dL (14.0-18.0); Immature Granulocyte Absolute 0.06 K/mm3 (0.00-0.031); Immature Granulocyte Percent A 0.5 % (0-0.5); Lymphocytes Percent Auto 8.8 % (18.3-44.2); Mean Corpuscular HGB Conc 34.8 g/dl (32-36); Mean Corpuscular Hemoglobin 31.9 pg (26-34); Mean Corpuscular Volume 91.6 fl (80-100); Mean Platelet Volume 10.5 fl (7.4-10.4); Monocytes Absolute Auto 1.6 K/mm3 (0.1-0.6); Monocytes Percent Auto 13.7 % (2.6-8.5); Neutrophils Absolute Auto 8.1 K/mm3 (1.3-6.7); Neutrophils Percent Auto 70.5 % (45.5-73.1); Platelet Count Result 262 k/mm3 (150-375); Red Blood Count 5.62 M/mm3 (4.6-6.20); Red Cell Distribution Width 14.5 % (11.5-14.5); White Blood Count 11.4 K/mm3 (4.5-10.0)
[2021-07-23 12:10] LABS: Lactic Acid Reflex 1.3 mmol/L (0.7-2.1)
[2021-07-23 12:13] LABS: Alanine Aminotransferase 51 U/L (4-50); Alkaline Phosphatase 61 U/L (38-126); Anion Gap 9 mmol/L (8-16); Aspartate Amino Transferase 70 U/L (17-59); Bilirubin,Total 0.9 mg/dL (0.2-1.3); Blood Urea Nitrogen 65 mg/dL (9-20); Calcium 11.8 mg/dL (8.4-10.2); Carbon Dioxide 32 mmol/L (22-30); Chloride 87 mmol/L (98-107); Estimated CRCL calculation 42 ml/min; Estimated Glomerular Filt Rate 40; Glucose 99 mg/dL (65-110); Lipase 443 U/L (23-300); Sodium 128 mmol/L (137-145)
[2021-07-23] MEDS: ONDANSETRON INJ 4 MG/2 ML VIAL IV PUSH (12:17)
[2021-07-23 12:19] LABS: Alveolar/Arterial O2 Gradient 182.2 mmHg; Fractional Inspired Oxygen 40 %; HCO3 ABG 23.1 mEq/l (22.0-26.0); Methemoglobin ABG 0.2 %THb (0-1.5); Oxygen Content ABG 23.1 %vol (16.0-22.0); Oxyhemoglobin 92.9 % THb (90.0-100.0); PCO2 ABG 30.9 mmHg (35.0-45.0); PO2 ABG 67.5 mmHg (80.0-100.0); PO2 FiO2 Ratio Arterial Blood 1.69 %; Reduced Hemoglobin 5.9 %THb (0-5.0); Total Hemoglobin 17.7 g/dL (12.0-18.0); pH ABG 7.492 (7.350-7.450)
[2021-07-23] MEDS: SODIUM CHLORIDE 0.9% IV 500 ML 999 ML IV CONT ×2 (12:19→15:45)
[2021-07-23 12:20] LABS: Device NASAL CANNULA; Modified Allen's Test Pass; Site Drawn LEFT RADIAL
[2021-07-23] MEDS: DEXTROSE 50% 25 GM/50 ML SYRINGE IV PUSH ×2 (12:25→18:41)
[2021-07-23] MEDS: INSULIN HUMAN REGULAR (*BKC) 100 UNITS/ML 10 UNITS IV PUSH ×2 (12:25→18:41)
[2021-07-23] MEDS: ALBUTEROL SULFATE NEB 2.5 MG/0.5 ML INH 5 MG INHALATION (12:26)
[2021-07-23 12:27] LABS: NT Pro B Type Natriuretic Pept 523 pg/mL (5-100)
[2021-07-23 12:49] LABS: INR 1.2; Partial Thromboplastin Time 30.1 SECONDS (22.3-36.8); Prothrombin Time 14.7 Seconds (11.1-14.7)
[2021-07-23] MEDS: SODIUM CHLORIDE 0.9% IV 1,000 ML 150 ML IV CONT (13:16)
[2021-07-23 14:48] LABS: Add Urine Microscopic? YES; Appearance Urine Clear (Clear); Bilirubin Urine Negative (Negative); Blood Urine Negative (Negative); Color Urine Yellow (Yellow); Glucose Urine UA Negative (Negative); Ketones Urine Negative (Negative); Leukocyte Esterase Ur Trace LEU/UL (Negative); Nitrate Urine Negative (Negative); Protein Urine Negative (Negative); RBC Urine 0-2 /hpf (0-2); Specific Grav Ur 1.008 (1.001-1.035); Squamous Epithelial Cell Urine Rare /hpf (Few); Urobilinogen Urine Negative mg/dL (<2.0); WBC Urine 0-3 /hpf
--- NOTE | 2021-07-23 15:17 | PM.IMHP ---
H&P: HPI History of Present Illness Date/Time: 07/23/21 15:17 this is a 75-year-old male patient who has a history of COPD and is chronically on oxygen anywhere from 3-4 L. the patient uses 3 at rest and 4 with activity. The patient came to the emergency room today to be evaluated for diffuse abdominal pain. This is been occurring for the last 4-5 days. The pain is worse in the left lower abdomen has associated nausea. He has had decreased appetite and has not been eating much at all. Patient's blood pressure was noted to be in the 90s and therefore he was referred to the emergency room for evaluation. He also complained of feeling more short of breath than usual. No fever chills. Patient was asking for some Tylenol for some neck pain that he is having intermittently. He does feel weak but denies any recent falls. Patient has multiples bleeding wounds to both arms. The patient stated that he just barely gets touched any starts to bleed. The patient is on Eliquis for atrial fibrillation. The patient was given IV Tylenol here and he stated he was feeling much better. He is also given Zofran and started on IV fluids. His white count is noted to be 11.4. His potassium was noted to be 6.0 and is sodium 128. His troponin was noted to be 0.070 which is his baseline from his previous levels drawn here at [facility]. Lipase is 443. Abdominal pelvis CT was read as mildly distended sigmoid colon, likely secondary to low-grade partial obstruction from sigmoid volvulus. Umbilical hernia and left inguinal hernia containing fat. CHEST X-RAY WAS READ CHRONIC LEFT HEMO DIAPHRAGM ELEVATION. BIBASILAR INFRAHILAR OPACITIES PROBABLY ATELECTASIS BUT CAN NOT EXCLUDE PNEUMONIA. The patient has no complaints of any fever. The patient was given D50, IV insulin and albuterol treatment for his hyperkalemia. The patient is also started on IV fluids. The patient is being admitted to inpatient services on the date of service 07/23/2021 Chief Complaint: Abdominal pain PMFSH Past Medical History Medical History (Updated 07/23/21 @ 16:12 by Molly Bobo NP) Acute and chronic respiratory failure with hypoxia Afib CAD (coronary artery disease) Cataract CHF (congestive heart failure), NYHA class II Chronic respiratory failure with hypoxia, on home O2 therapy COPD (chronic obstructive pulmonary disease) History of tobacco abuse HTN (hypertension), benign Mixed hyperlipidemia Restrictive lung disease Stroke Surgical History Surgical History (Updated 07/23/21 @ 15:46 by Molly Bobo NP) H/O heart artery stent X2 History of cataract extraction History of PTCA S/P ORIF (open reduction internal fixation) fracture Right ankle with plates and screws Family History Family History Father Back pain, chronic Cataract Cerebrovascular accident Mother Arthritis Migraines Cataract Sibling No problems noted. Sibling Hearing loss Alcoholism Social History Social History (Updated 07/23/21 @ 15:55 by Molly Bobo NP) Social History: The patient stated that he quit smoking a couple years ago. The patient is per and has 1 daughter. The patient worked for a [employer]. The patient's sister Sruthi kwan is his durable power admitted attorneys for healthcare. The patient drinks socially but does not use any marijuana or illicit drugs. Code status full code Smoking packs per day: 2 Smoking cigarettes per day: 40.0 Years smoked: 40 Smoking pack-years: 80.00 Tobacco type: cigarettes Second hand tobacco smoke exposure: No Alcohol intake: current Drinks per week: 14 Substance use: never Gender identity (if verbalized by the patient): Male Spiritual care concerns: Yes (religion) Meds Home Medications and Allergies Home Medications Medication Instructions Recorded Confirmed Type multivitamin
--- NOTE | 2021-07-23 15:54 | PM.CNGS ---
Assessment and Plan Assessment and plan (1) Volvulus: Code(s): K56.2 - Volvulus Status: Acute Assessment and Plan: abdominal exam benign, no indication for acute surgical intervention, discussed with GI and plan for decompressive sigmoidoscopy (2) ROSALIO (acute kidney injury): Code(s): N17.9 - Acute kidney failure, unspecified Status: Acute Assessment and Plan: cont IV fluid resus (3) Afib: Code(s): I48.91 - Unspecified atrial fibrillation Status: Chronic Assessment and Plan: hold anticoag for now (4) COPD (chronic obstructive pulmonary disease): Qualifiers: COPD type: unspecified COPD Qualified Code(s): J44.9 - Chronic obstructive pulmonary disease, unspecified Code(s): J44.9 - Chronic obstructive pulmonary disease, unspecified Status: Chronic Assessment and Plan: med mgmt, increases surgical risks History of Present Illness Consult details Consult date: 07/23/21 Reason for consult: abdominal pain Requesting physician: Minerva Louise MD Narrative: The patient is a 75-year-old male with multiple medical issues including COPD requiring home oxygen presenting to the emergency department complaining of weakness, fatigue, poor appetite over the last 4-5 days. The patient also complains of mild diffuse abdominal pain. The patient reports that he has had some loose bowel movements and is passing flatus. Patient reports some nausea and a few episodes of emesis. Of note, patient is a poor historian and is unsure of his previous surgical history. Review of Systems Constitutional: Constitutional: Reports anorexia, Denies chills, Reports fatigue, Denies increased appetite, Reports lethargy, Reports malaise, Reports poor appetite and Reports weakness ENT: Reports system reviewed and no additional complaints, except as documented Cardiovascular: Cardiovascular: Reports no additional cardiovascular complaints Respiratory: Respiratory: Reports dyspnea and Reports dyspnea on exertion Gastrointestinal: Gastrointestinal: Reports as per HPI, Reports abdominal pain, Reports bloating, Reports change in bowel habits, Reports GI cramping, Reports diarrhea, Reports loose stools, Reports nausea and Reports vomiting Genitourinary: Genitourinary: Reports no additional male genitourinary complaints Musculoskeletal: Musculoskeletal: Reports no additional musculoskeletal complaints Integumentary/Breasts: Skin/Breast: Reports system reviewed and no additional complaints, except as docu Neurologic: Reports system reviewed and no additional complaints, except as documented Psychiatric: Psychiatric: Reports no additional psychiatric complaints Endocrine: Endocrine: Reports no additional endocrine complaints Hematologic/Lymphatic: Hematologic/Lymphatic: Reports no additional hematologic/lymphatic complaints Allergic/Immunologic: Allergic/Immunologic: Reports no additional allergic/immunologic complaints [facility] Past Medical History Medical History Acute and chronic respiratory failure with hypoxia Afib CAD (coronary artery disease) Cataract CHF (congestive heart failure), NYHA class II Chronic respiratory failure with hypoxia, on home O2 therapy COPD (chronic obstructive pulmonary disease) History of tobacco abuse HTN (hypertension), benign Mixed hyperlipidemia Restrictive lung disease Stroke Surgical History Surgical History H/O heart artery stent X2 History of cataract extraction History of PTCA S/P ORIF (open reduction internal fixation) fracture Right ankle with plates and screws Family History Family History Father Back pain, chronic Cataract Cerebrovascular accident Mother Arthritis Migraines Cataract Sibling No problems noted. Sibling Decea
--- NOTE | 2021-07-23 17:37 | WPDGICN ---
Assessment and Plan Assessment and plan (1) Volvulus: Code(s): K56.2 - Volvulus Status: Acute Assessment and Plan: discussed with surgery, no plan for acute surgical intervention as abdomen is benign will proceed with sigmoidoscopy to assess and possible rectal tube decompression (2) HEATHER (acute kidney injury): Code(s): N17.9 - Acute kidney failure, unspecified Status: Acute Assessment and Plan: from dehydration and not eating treated with fluids monitor (3) Hyperkalemia: Code(s): E87.5 - Hyperkalemia Status: Acute Assessment and Plan: treated, repeat again (4) COPD (chronic obstructive pulmonary disease): Qualifiers: COPD type: unspecified COPD Qualified Code(s): J44.9 - Chronic obstructive pulmonary disease, unspecified Code(s): J44.9 - Chronic obstructive pulmonary disease, unspecified Status: Chronic Assessment and Plan: at baseline (5) Afib: Code(s): I48.91 - Unspecified atrial fibrillation Status: Chronic Assessment and Plan: eliquis will be on hold for now (6) Dehydration: Code(s): E86.0 - Dehydration Status: Acute Assessment and Plan: he was quite dehydrated with heather and hemoconcentration treated with iv fluids and already feeling better GI Consult Note Consult date/time: 07/23/21 17:37 Reason for consult: anorexia, sigmoid volvulus HPI: Prabhakar Godwin is a 75 year old male with history of COPD on home oxygen, CAD, pAfib on eliquis, HTN with last colonsocopy about 5 years ago. He came to ER with abdominal discomfort for the last 4-5 days, worse in the left lower abdomen with nausea and decreased appetite hardly eating anything. The patient reports that he has had some loose bowel movements and is passing flatus. ER evaluation with white count 11.4, K 6.0 treated medically and sodium 128, also had HEATHER. Lipase is 443. Abdominal pelvis CT reviewed and showed mildly distended sigmoid colon, likely secondary to low-grade partial obstruction from sigmoid volvulus. Umbilical hernia and left inguinal hernia containing fat. He is being admitted in this setting, also treated for dehydration and evaluated by surgery. Review of Systems Constitutional: Constitutional: Denies chills Eyes: Eyes: Reports no additional eye complaints ENT: Reports Normal hearing present Cardiovascular: Cardiovascular: Denies chest pain Respiratory: Respiratory: Reports dyspnea (chronic) Gastrointestinal: Gastrointestinal: Reports abdominal pain and Reports nausea Genitourinary: Genitourinary: Denies dysuria Musculoskeletal: Musculoskeletal: Denies back pain Integumentary/Breasts: Skin/Breast: Denies dry skin Neurologic: Reports headache(s) (h/o migraines) Psychiatric: Psychiatric: Reports no additional psychiatric complaints [facility] Past Medical History Medical History (Updated 07/23/21 @ 17:43 by Garett Kumar MD) Acute and chronic respiratory failure with hypoxia Afib CAD (coronary artery disease) Cataract CHF (congestive heart failure), NYHA class II Chronic respiratory failure with hypoxia, on home O2 therapy COPD (chronic obstructive pulmonary disease) Dehydration History of tobacco abuse HTN (hypertension), benign Mixed hyperlipidemia Restrictive lung disease Stroke Surgical History Surgical History H/O heart artery stent X2 History of cataract extraction History of PTCA S/P ORIF (open reduction internal fixation) fracture Right ankle with plates and screws Family History Family History Father Back pain, chronic Cataract Cerebrovascular accident Mother Arthritis Migraines Cataract Sibling No problems noted. Sibling Hearing loss Alcoholism Social History Social History (Reviewed 07/23/21 @ 16:12 b
--- NOTE | 2021-07-23 17:51 | ADMGEN ---
This patient, Prabhakar Godwin, was admitted to IMU Room 200-01. Patient/family oriented to hospital policies and general routines including ID bracelet, bed and alarms, visiting hours, pain management, procedures, bathroom and other care routines, personal items, smoking policy, room service/diet, and visiting hours. Information on how to activate the Rapid Response Team has been discussed. Patient/Family are encouraged to report perceived risks to care and to ask questions if they do not understand what they are told or what they should do.
[2021-07-23 17:53] LABS: Sodium Urine Random 36 meq/L
[2021-07-23 18:24] LABS: Anion Gap 12 mmol/L (8-16); Blood Urea Nitrogen 66 mg/dL (9-20); Calcium 10.5 mg/dL (8.4-10.2); Carbon Dioxide 24 mmol/L (22-30); Chloride 90 mmol/L (98-107); Estimated CRCL calculation 42 ml/min; Estimated Glomerular Filt Rate 40; Glucose 125 mg/dL (65-110); Sodium 126 mmol/L (137-145)
[2021-07-23 18:34] LABS: Troponin I 0.054 ng/mL (0.000-0.034)
[2021-07-23] MEDS: BISACODYL 5 MG TABLET EC PO (18:41)
[2021-07-23] MEDS: polyethylene glycoL 3350 238 GM BOTTLE PO (18:56)
[2021-07-23] MEDS: LORazepam INJ (*CRX) 2 MG/ML VIAL 0.5 MG IV PUSH (20:27)
[2021-07-23] MEDS: SODIUM CHLORIDE 0.9% IV 1,000 ML 125 ML IV CONT (20:58)
[2021-07-23 20:59] LABS: Anion Gap 9 mmol/L (8-16); Blood Urea Nitrogen 63 mg/dL (9-20); Calcium 9.6 mg/dL (8.4-10.2); Carbon Dioxide 21 mmol/L (22-30); Chloride 94 mmol/L (98-107); Estimated CRCL calculation 42 ml/min; Estimated Glomerular Filt Rate 40; Glucose 141 mg/dL (65-110); Potassium 5.7 mmol/L (3.4-5.0); Sodium 124 mmol/L (137-145)
[2021-07-24] VITALS (25 sets, daily range): BP systolic 85–117; BP diastolic 43–71; PULSE 54–90; RESP 19–35; TEMP 36.1–37; O2SAT 94–99; BMI 32.8
[2021-07-24] MEDS: LORazepam INJ (*CRX) 2 MG/ML VIAL 0.5 MG IV PUSH ×2 (02:22→23:40)
[2021-07-24 04:42] LABS: Basophils Absolute Auto 0.1 K/mm3 (0.0-0.1); Basophils Percent Auto 0.9 % (0.2-1.2); Eosinophils Absolute Auto 0.6 K/mm3 (0-0.3); Eosinophils Percent Auto 6.4 % (0-4.4); Hematocrit 45.2 % (42.0-52.0); Hemoglobin 15.2 g/dL (14.0-18.0); Immature Granulocyte Absolute 0.07 K/mm3 (0.00-0.031); Immature Granulocyte Percent A 0.7 % (0-0.5); Lymphocytes Absolute Auto 0.79 K/mm3 (0.9-3.2); Lymphocytes Percent Auto 7.9 % (18.3-44.2); Mean Corpuscular HGB Conc 33.6 g/dl (32-36); Mean Corpuscular Hemoglobin 31.9 pg (26-34); Mean Platelet Volume 10.5 fl (7.4-10.4); Monocytes Absolute Auto 1.2 K/mm3 (0.1-0.6); Monocytes Percent Auto 12.2 % (2.6-8.5); Neutrophils Absolute Auto 7.2 K/mm3 (1.3-6.7); Neutrophils Percent Auto 71.9 % (45.5-73.1); Platelet Count Result 189 k/mm3 (150-375); Red Blood Count 4.76 M/mm3 (4.6-6.20); Red Cell Distribution Width 14.6 % (11.5-14.5)
[2021-07-24 05:03] LABS: Alanine Aminotransferase 37 U/L (4-50); Alkaline Phosphatase 47 U/L (38-126); Anion Gap 9 mmol/L (8-16); Aspartate Amino Transferase 45 U/L (17-59); Bilirubin,Total 1.2 mg/dL (0.2-1.3); Blood Urea Nitrogen 62 mg/dL (9-20); Calcium 9.2 mg/dL (8.4-10.2); Carbon Dioxide 23 mmol/L (22-30); Chloride 94 mmol/L (98-107); Estimated CRCL calculation 42 ml/min; Estimated Glomerular Filt Rate 40; Glucose 110 mg/dL (65-110); Lipase 184 U/L (23-300); Magnesium 1.8 mg/dL (1.6-2.3); Potassium 5.6 mmol/L (3.4-5.0); Sodium 126 mmol/L (137-145)
[2021-07-24] MEDS: SODIUM CHLORIDE 0.9% IV 1,000 ML 125 ML IV CONT ×2 (08:16→22:00)
[2021-07-24] MEDS: ATORVASTATIN 20 MG TABLET PO (08:23)
[2021-07-24] MEDS: UMECLIDINIUM/VILANTEROL 62.5-25 MCG ELLIPTA 1 PUFF INHALATION (08:41)
--- NOTE | 2021-07-24 10:46 | PM.IMPN ---
Progress Note: A&P Assessment and Plan (1) Small bowel obstruction: Code(s): K56.609 - Unspecified intestinal obstruction, unspecified as to partial versus complete obstruction Status: Acute Assessment and Plan: Most likely related to the volvulus. Lactic acid normal Surgery has been consulted. Patient is NPO at this time. And IV fluids have continued. No surgical plans noted GI plans for decompressive sigmoidoscopy. Status post sigmoidoscopy 07/24/2021 a total of 3 5 mm to 6 mm polyps were observed in DC. One polyp removed using hot snare and 2 using cold snare polypectomies. The polyps were then successfully tried. A few diverticula were present in the sigmoid colon and in the rectosigmoid. The diverticulum not actively bleeding. The sigmoid colon was examined and no abnormalities were seen. Specifically did not find distended colon, no signs of spiraling of the mucosa and did not have any difficulty to negotiate the scope, able to reach ascending colon without any problem. No evidence of volvulus but in my way out colon was decompressed and suctioned air and liquid stool. (2) Volvulus: Code(s): K56.2 - Volvulus Status: Acute Assessment and Plan: Surgery has been consulted. See above (3) ROSALIO (acute kidney injury): Code(s): N17.9 - Acute kidney failure, unspecified Status: Acute Assessment and Plan: Admission creatinine of 1.7. Baseline creatinine of 1 from April 2021 No hydro nephrosis on CT scan Patient's Bumex and lisinopril on hold. Patient has been dehydrated. Most likely pre renal azotemia. The patient has poor oral intake. Continue with IV fluids. (4) Afib: Code(s): I48.91 - Unspecified atrial fibrillation Status: Chronic Assessment and Plan: Rate control. The patient had been on apixaban but is NPO at this time. I changed him to subcu Lovenox but will have to renal dose if his creatinine does not come down to normal. Eliquis 2 hold for 3 more days due to polypectomy (5) Hyperkalemia: Code(s): E87.5 - Hyperkalemia Status: Acute Assessment and Plan: Admission potassium of 6 Could be related to his acute renal failure. Slightly better but still mildly hyperkalemic (6) COPD (chronic obstructive pulmonary disease): Qualifiers: COPD type: unspecified COPD Qualified Code(s): J44.9 - Chronic obstructive pulmonary disease, unspecified Code(s): J44.9 - Chronic obstructive pulmonary disease, unspecified Status: Chronic Assessment and Plan: Continue with inhalers. (7) Chronic respiratory failure with hypoxia, on home O2 therapy: Code(s): J96.11 - Chronic respiratory failure with hypoxia; Z99.81 - Dependence on supplemental oxygen Status: Chronic Assessment and Plan: Continue with home oxygen. 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 (9) Elevated troponin: Code(s): R77.8 - Other specified abnormalities of plasma proteins Status: Acute Assessment and Plan: Flat troponin. Appears to be chronically elevated p.o. (10) Hyponatremia: Code(s): E87.1 - Hypo-osmolality and hyponatremia Status: Acute Assessment and Plan: Sodium level 126 On IV fluid continue to monitor Check urine sodium and osmolarity. (11) Mixed hyperlipidemia: Code(s): E78.2 - Mixed hyperlipidemia Status: Acute Assessment and Plan: Patient is NPO at this time. (12) HTN (hypertension), benign: Code(s): I10 - Essential (primary) hypertension Status: Acute Assessment and Plan: Patient is hypotensive and is NPO. (13) Hypotension: Code(s): I95.9 - Hypotension, unspecified Status: Acute Assessment and Plan: On IV fluids sl
--- NOTE | 2021-07-24 11:42 | PM.PNGS ---
Progress Note: A&P Assessment and Plan (1) Sigmoid volvulus: Code(s): K56.2 - Volvulus Status: Acute Assessment and Plan: plan for sigmoidoscopy today, exam benign, ruddy prep (2) Acute dehydration: Code(s): E86.0 - Dehydration Status: Acute Assessment and Plan: cont rehydration Subjective Subjective Date/Time Seen: 07/24/21 11:42 feels better today, no pain, +bowel fxn, ruddy clears Review of Systems Review of Systems: All systems reviewed & are unremarkable except as noted in HPI and below Exam Const: General: cooperative, comfortable and no acute distress Nutritional Appearance: obese Orientation/consciousness: patient oriented x3 Resp: Effort & Inspection: normal respiratory effort Auscultation: clear to auscultation bilaterally Cardio: Rate: regular rate Rhythm: regular rhythm GI: Inspection: normal to inspection, non-distended and incision GI Palp: Yes Soft to palpation, No Tenderness to palpation present (GI), No Guarding due to palpation present (GI) and No Rigid due to palpation Objective Data Vital Signs Vital Signs: Vital Signs - 24 hr 07/23/21 12:27 07/23/21 12:35 07/23/21 13:01 Temperature Pulse Rate 43 L 61 64 Pulse Rate [Bilateral Pedal (Dorsalis Pedis) Palpation] Respiratory Rate 21 H 23 H 21 H Blood Pressure Pulse Oximetry 99 07/23/21 13:25 07/23/21 13:45 07/23/21 14:00 Temperature Pulse Rate 69 62 69 Pulse Rate [Bilateral Pedal (Dorsalis Pedis) Palpation] Respiratory Rate 25 H 24 H 16 Blood Pressure Pulse Oximetry 96 92 91 07/23/21 14:01 07/23/21 14:15 07/23/21 14:30 Temperature Pulse Rate 57 L 67 68 Pulse Rate [Bilateral Pedal (Dorsalis Pedis) Palpation] Respiratory Rate 19 30 H 25 H Blood Pressure 97/72 L Pulse Oximetry 96 97 93 07/23/21 14:31 07/23/21 14:45 07/23/21 14:46 Temperature Pulse Rate 56 L 63 63 Pulse Rate [Bilateral Pedal (Dorsalis Pedis) Palpation] Respiratory Rate 23 H 22 H 24 H Blood Pressure 108/47 L 99/62 L Pulse Oximetry 97 94 93 07/23/21 15:00 07/23/21 15:16 07/23/21 15:30 Temperature Pulse Rate 71 66 59 L Pulse Rate [Bilateral Pedal (Dorsalis Pedis) Palpation] Respiratory Rate 25 H 27 H 17 Blood Pressure Pulse Oximetry 07/23/21 15:31 07/23/21 16:47 07/23/21 17:29 Temperature 36.3 C L Pulse Rate 66 74 64 Pulse Rate [Bilateral Pedal (Dorsalis Pedis) Palpation] Respiratory Rate 22 H 18 18 Blood Pressure 96/67 L 111/61 88/51 L Pulse Oximetry 95 94 07/23/21 18:00 07/23/21 19:21 07/23/21 20:00 Temperature 36.8 C Pulse Rate 64 64 Pulse Rate [Bilateral Pedal (Dorsalis Pedis) Palpation] Respiratory Rate 20 Blood Pressure 87/55 L Pulse Oximetry 94 94 07/23/21 22:00 07/23/21 23:39 07/24/21 00:00 Temperature 36.9 C Pulse Rate 58 L 50 L 54 L Pulse Rate [Bilateral Pedal (Dorsalis Pedis) Palpation] Respiratory Rate 20 Blood Pressure 92/50 L Pulse Oximetry 96 07/24/21 02:00 07/24/21 04:00 07/24/21 06:00 Temperature 37.0 C Pulse Rate 56 L 75 74 Pulse Rate [Bilateral Pedal (Dorsalis Pedis) Palpation] 56 L Respiratory Rate 19 Blood Pressure 106/55 L Pulse Oximetry 94 07/24/21 07:15 07/24/21 07:55 07/24/21 08:44 Temperature 36.5 C Pulse Rate 60 Pulse Rate [Bilateral Pedal (Dorsalis Pedis) Palpation] Respiratory Rate 26 H Blood Pressure 98/54 L Pulse Oximetry 97 94 96 Intake/Output Intake/Output: Intake & Output 07/21/21 07/22/21 07/23/21 07/24/21 23:59 23:59 23:59 23:59 Intake Total 1460 1500 Output Total 600 300 Balance 860 1200 Meds/Results Medications: Active Medications Generic Name Dose Route Start Last Admin Trade Name Freq PRN Reason Stop Dose Admin Albuterol 1 puff 07/23/21 21:22 Albuterol Sulfate (*Sp) Aerosol 1 Puff INHALATION Q6H PRN shortness of breath or wheezing Atorvastatin Calcium 20 mg 07/24/21 09:00 07/24/21 08:23 Ator
--- NOTE | 2021-07-24 13:41 | PCNSR ---
On 07/24/21, the student, Farzaneh Gorman, provided care and completed [facility] documentation on this patient. I have reviewed the student's documentation and agree with the findings.
--- NOTE | 2021-07-24 14:11 | WPDANESEPPF ---
Anes - Initial Pre Proc Eval Procedure: Operation Date: 07/24/21 14:30 Proposed Procedures p Sigmoidoscopy Possible Rectal Tube Placement - Garett Kumar MD Date/Time: 07/24/21 14:11 Surgeon: Boaz Turcios MD Pre Op Diagnosis: acute kidney injury,dehydration,hyperkalemia Patient Data Age: 75 Gender: M Height: 1.78 m Weight: 103.7 kg Last Vital Signs Temp 97.9 F 07/24/21 11:30 Pulse 59 L 07/24/21 14:00 Resp 22 H 07/24/21 11:30 BP 95/58 L 07/24/21 11:30 Pulse Ox 96 07/24/21 11:30 Allergies Allergy/AdvReac Type Severity Reaction Status Date / Time Contrast Media Allergy Severe RASH, Uncoded 07/24/21 14:10 DIFFICULTY BREATHING, SHAKING Home Medications Medication Instructions Recorded Confirmed Type multivitamin 1 tablet PO DAILY 08/21/20 07/23/21 History lisinopril 20 mg PO Q12H 04/11/21 07/23/21 History melatonin 10 mg tablet 10 mg PO QHS PRN 04/22/21 07/23/21 History apixaban 5 mg tablet 5 mg PO Q12HR #180 tablet 05/08/21 07/23/21 Rx umeclidinium 62.5 mcg-vilanterol 1 inh INHALATION Q24H 30 Days #60 05/12/21 07/23/21 Rx 25 mcg/actuation powdr for ea inhalation albuterol sulfate [ProAir HFA] 1 inh INHALATION Q6H PRN 07/23/21 07/23/21 History atorvastatin [Lipitor] 20 mg PO DAILY 07/23/21 07/23/21 History bumetanide 1 mg PO BID 07/23/21 07/23/21 History clopidogrel [Plavix] 75 mg PO DAILY 07/23/21 07/23/21 History spironolactone 100 mg PO DAILY 07/23/21 07/23/21 History Laboratory Tests 07/23/21 07/23/21 07/23/21 14:29 17:28 17:28 WBC RBC Hgb Hct MCV MCH MCHC RDW Plt Count MPV Immature Gran % (Auto) Neut % (Auto) Lymph % (Auto) [place] % (Auto) Eos % (Auto) Baso % (Auto) Lymph # (Auto) [place] # (Auto) Eos # (Auto) Baso # (Auto) Abs Immat Gran (auto) Absolute Neuts (auto) Absolute Nucleated RBC Nucleated RBC % Sodium Potassium Chloride Carbon Dioxide Anion Gap BUN Creatinine Estim Creat Clear Calc Estimated GFR Glucose Calcium Magnesium Total Bilirubin AST ALT Alkaline Phosphatase Troponin I Total Protein Albumin Lipase TSH (Reflex) Urine Color Yellow (Yellow) Urine Appearance Clear (Clear) Urine pH 5.0 (5.0-9.0) Ur Specific [place] 1.008 (1.001-1.035) Urine Protein Negative mg/dL mg/dL (Negative) Urine Glucose (UA) Negative mg/dL mg/dL (Negative) Urine Ketones Negative mg/dL mg/dL (Negative) Ur Blood (Man) Negative (Negative) Urine Nitrate Negative (Negative) Urine Bilirubin Negative (Negative) Urine Urobilinogen Negative mg/dL mg/dL (<2.0) Leukocyte Esterase Rfl Trace CICI/UL H CICI/UL (Negative) Urine RBC 0-2 /hpf /hpf (0-2) Urine WBC 0-3 /hpf /hpf Ur Squamous Epith Cells Rare /hpf /hpf (Few) Hyaline Casts 3-4 /lpf H /lpf (None) Urine Osmolality Pending Ur Random Sodium 36 meq/L meq/L 07/23/21 07/23/21 07/23/21 17:53 17:53 20:41 WBC RBC Hgb Hct MCV MCH MCHC RDW Plt Count MPV Immature Gran % (Auto) Neut % (Auto) Lymph % (Auto) [place] % (Auto) Eos % (Auto) Baso % (Auto) Lymph # (Aut
[2021-07-24] MEDS: LACTATED RINGERS 1,000 ML 150 ML IV CONT (14:18)
--- NOTE | 2021-07-24 14:24 | PC.NURSE ---
On 07/24/21, the student, [Gretchen Hartmann], provided care and completed [facility] documentation on this patient. I have reviewed the student's documentation and agree with the findings.
[2021-07-24] MEDS: MELATONIN 5 MG TABLET 10 MG PO (21:09)
[2021-07-25] VITALS (17 sets, daily range): BP systolic 105–136; BP diastolic 62–78; PULSE 54–78; RESP 18–20; TEMP 36.3–36.6; O2SAT 94–97
[2021-07-25 05:08] LABS: Basophils Absolute Auto 0.1 K/mm3 (0.0-0.1); Basophils Percent Auto 1.3 % (0.2-1.2); Eosinophils Absolute Auto 0.7 K/mm3 (0-0.3); Eosinophils Percent Auto 9.2 % (0-4.4); Hematocrit 44.8 % (42.0-52.0); Hemoglobin 14.8 g/dL (14.0-18.0); Immature Granulocyte Absolute 0.04 K/mm3 (0.00-0.031); Immature Granulocyte Percent A 0.5 % (0-0.5); Lymphocytes Absolute Auto 0.76 K/mm3 (0.9-3.2); Lymphocytes Percent Auto 9.8 % (18.3-44.2); Mean Corpuscular Hemoglobin 32.3 pg (26-34); Mean Corpuscular Volume 97.8 fl (80-100); Mean Platelet Volume 10.5 fl (7.4-10.4); Monocytes Absolute Auto 0.8 K/mm3 (0.1-0.6); Monocytes Percent Auto 10.8 % (2.6-8.5); Neutrophils Absolute Auto 5.3 K/mm3 (1.3-6.7); Neutrophils Percent Auto 68.4 % (45.5-73.1); Platelet Count Result 172 k/mm3 (150-375); Red Blood Count 4.58 M/mm3 (4.6-6.20); Red Cell Distribution Width 14.6 % (11.5-14.5); White Blood Count 7.7 K/mm3 (4.5-10.0)
[2021-07-25 05:21] LABS: Anion Gap 5 mmol/L (8-16); Blood Urea Nitrogen 39 mg/dL (9-20); Calcium 9.1 mg/dL (8.4-10.2); Carbon Dioxide 26 mmol/L (22-30); Chloride 100 mmol/L (98-107); Estimated CRCL calculation 69 ml/min; Estimated Glomerular Filt Rate > 60; Glucose 120 mg/dL (65-110); Potassium 5.6 mmol/L (3.4-5.0); Sodium 131 mmol/L (137-145)
[2021-07-25] MEDS: SODIUM CHLORIDE 0.9% IV 1,000 ML 125 ML IV CONT (05:48)
[2021-07-25] MEDS: ATORVASTATIN 20 MG TABLET PO (08:10)
[2021-07-25] MEDS: UMECLIDINIUM/VILANTEROL 62.5-25 MCG ELLIPTA 1 PUFF INHALATION (08:33)
--- NOTE | 2021-07-25 09:43 | WPDGIPROGNO ---
Progress Note: A&P Assessment and Plan (1) Sigmoid volvulus: Code(s): K56.2 - Volvulus Status: Acute Assessment and Plan: Sigmoid volvulus suggested on initial presentation. Colonoscopy yesterday revealed no evidence of volvulus suggesting this either resolved or was spurious finding on x-ray. Plan is to advance diet as tolerated. Surgical clearance advised as if he indeed had a volvulus it is prone to recurrence. Surgery with patient and COPD may be somewhat high risk. Continued stool softeners or laxatives may be of benefit. (2) Acute and chronic respiratory failure with hypoxia: Code(s): J96.21 - Acute and chronic respiratory failure with hypoxia Status: Acute (3) History of colon polyps: Code(s): Z86.010 - Personal history of colonic polyps Status: Acute Assessment and Plan: Patient had several polyps removed at the time of colonoscopy. Suggest holding Eliquis for 2 more days. Follow-up colonoscopy in 5 years advised. Subjective Date/time seen: 07/25/21 09:43 Patient seen in the absence of Dr. Hinton. Patient alert and comfortable this morning. Tolerating diet. Had good bowel movements with bowel preparation for endoscopy. No bowel movements subsequently. He denies abdominal pain. Review of Systems Review of Systems: All systems reviewed & are unremarkable except as noted in HPI and below Exam Narrative: Physical exam patient is alert. Vital signs stable. He is anicteric. Slightly short of breath at rest. On supplemental oxygen. Lungs are otherwise clear. Heart without murmur. Abdomen soft and nontender. Objective Data Vital Signs Vital Signs: Vital Signs - 24 hr 07/24/21 10:00 07/24/21 11:30 07/24/21 12:00 Temperature 97.9 F Pulse Rate 64 66 66 Pulse Rate [Bilateral Pedal (Dorsalis Pedis) Palpation] 66 Respiratory Rate 22 H Blood Pressure 95/58 L Pulse Oximetry 96 96 07/24/21 14:00 07/24/21 14:12 07/24/21 15:24 Temperature 96.9 F L Pulse Rate 59 L 80 70 Pulse Rate [Bilateral Pedal (Dorsalis Pedis) Palpation] Respiratory Rate 24 H 35 H Blood Pressure 111/51 L 85/48 L Pulse Oximetry 99 98 07/24/21 15:29 07/24/21 15:34 07/24/21 15:44 Temperature Pulse Rate 70 59 L 69 Pulse Rate [Bilateral Pedal (Dorsalis Pedis) Palpation] Respiratory Rate 28 H 34 H 21 H Blood Pressure 93/49 L 96/43 L 116/71 Pulse Oximetry 97 99 99 07/24/21 16:00 07/24/21 18:00 07/24/21 19:50 Temperature 97.6 F 97.7 F Pulse Rate 72 79 70 Pulse Rate [Bilateral Pedal (Dorsalis Pedis) Palpation] 72 Respiratory Rate 20 20 Blood Pressure 117/58 L 100/52 L Pulse Oximetry 99 96 07/24/21 20:00 07/24/21 22:00 07/24/21 23:32 Temperature 97.6 F Pulse Rate 66 70 90 Pulse Rate [Bilateral Pedal (Dorsalis Pedis) Palpation] 70 Respiratory Rate 20 21 H Blood Pressure 100/52 L 108/64 Pulse Oximetry 96 95 07/24/21 23:43 07/24/21 23:44 07/25/21 00:00 Temperature Pulse Rate 90 72 Pulse Rate [Bilateral Pedal (Dorsalis Pedis) Palpation] 90 Respiratory Rate 21 H Blood Pressure 108/64 Pulse Oximetry 95 07/25/21 01:36 07/25/21 04:00 07/25/21 06:00 Temperature 97.7 F Pulse Rate 72 54 L 66 Pulse Rate [Bilateral Pedal (Dorsalis Pedis) Palpation] 54 L Respiratory Rate 20 Blood Pressure 105/68 Pulse Oximetry 96 07/25/21 06:50 07/25/21 08:00 07/25/21 08:12 Temperature 97.6 F Pulse Rate 69 69 Pulse Rate [Bilateral Pedal (Dorsalis Pedis) Palpation] Respiratory Rate 19 Blood Pressure 110/62 Pulse Oximetry 97 97 07/25/21 08:30 Temperature Pulse Rate Pulse Rate [Bilateral Pedal (Dorsalis Pedis) Palpation] Respiratory Rate Blood Pressure Pulse Oximetry 97 Intake/Output Intake/Output: Intake & Output 07/22/21 07/23/21 07/24/21 07/25/21 23:59 23:59 23:59 23:59 Intake Total 1460 2550 1500 Output Total 330 140 4888 Balance 860 7365 -220 Meds/Results Medications: Active Med
--- NOTE | 2021-07-25 10:17 | PM.IMPN ---
Progress Note: A&P Assessment and Plan (1) Small bowel obstruction: Code(s): K56.609 - Unspecified intestinal obstruction, unspecified as to partial versus complete obstruction Status: Acute Assessment and Plan: Most likely related to the volvulus. Lactic acid normal Surgery has been consulted. Patient is NPO at this time. And IV fluids have continued. No surgical plans noted GI plans for decompressive sigmoidoscopy. Status post sigmoidoscopy 07/24/2021 a total of 3 5 mm to 6 mm polyps were observed in DC. One polyp removed using hot snare and 2 using cold snare polypectomies. The polyps were then successfully tried. A few diverticula were present in the sigmoid colon and in the rectosigmoid. The diverticulum not actively bleeding. The sigmoid colon was examined and no abnormalities were seen. Specifically did not find distended colon, no signs of spiraling of the mucosa and did not have any difficulty to negotiate the scope, able to reach ascending colon without any problem. No evidence of volvulus but in my way out colon was decompressed and suctioned air and liquid stool. Advance diet as tolerated General surgery on board Await clearance from GI and General surgery for discharge (2) Volvulus: Code(s): K56.2 - Volvulus Status: Acute Assessment and Plan: Surgery has been consulted. See above Looks like spontaneous resolution Further direction per GI in terms of prevention of recurrence (3) ROSALIO (acute kidney injury): Code(s): N17.9 - Acute kidney failure, unspecified Status: Acute Assessment and Plan: Admission creatinine of 1.7. Baseline creatinine of 1 from April 2021 No hydro nephrosis on CT scan Patient's Bumex and lisinopril on hold. Patient has been dehydrated. Most likely pre renal azotemia. The patient has poor oral intake. Continue with IV fluids. Will stop his IV fluid today ROSALIO his resolved 07/25/2021 (4) Afib: Code(s): I48.91 - Unspecified atrial fibrillation Status: Chronic Assessment and Plan: Rate control. The patient had been on apixaban but is NPO at this time. I changed him to subcu Lovenox but will have to renal dose if his creatinine does not come down to normal Eliquis 2 hold for 3 more days due to polypectomy (5) Hyperkalemia: Code(s): E87.5 - Hyperkalemia Status: Acute Assessment and Plan: Admission potassium of 6 Could be related to his acute renal failure. Slightly better but still mildly hyperkalemic Recheck it in the evening today (6) COPD (chronic obstructive pulmonary disease): Qualifiers: COPD type: unspecified COPD Qualified Code(s): J44.9 - Chronic obstructive pulmonary disease, unspecified Code(s): J44.9 - Chronic obstructive pulmonary disease, unspecified Status: Chronic Assessment and Plan: Continue with inhalers. (7) Chronic respiratory failure with hypoxia, on home O2 therapy: Code(s): J96.11 - Chronic respiratory failure with hypoxia; Z99.81 - Dependence on supplemental oxygen Status: Chronic Assessment and Plan: Continue with home oxygen. 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 Will restart Bumex from tomorrow (9) Elevated troponin: Code(s): R77.8 - Other specified abnormalities of plasma proteins Status: Acute Assessment and Plan: Flat troponin. Appears to be chronically elevated p.o. (10) Hyponatremia: Code(s): E87.1 - Hypo-osmolality and hyponatremia Status: Acute Assessment and Plan: Sodium level 126 on admission On IV fluid continue to monitor Check urine sodium and osmolarity. Sodium level Flick improving up to 131 today (11) Mixed hyperlipidemia: Code(s): E78.2 - Mixed hyperlipidemia
--- NOTE | 2021-07-25 14:48 | PM.PNGS ---
Progress Note: A&P Assessment and Plan (1) Sigmoid volvulus: Code(s): K56.2 - Volvulus Status: Acute Assessment and Plan: Resolved. Endoscopy showed no evidence of volvulus. Tolerating regular diet. Okay to discharge home. Discussed that if has future recurrence, surgery will be required. He is higher risk due to his comorbidities. Recommend stool softeners and avoiding constipation. (2) Acute dehydration: Code(s): E86.0 - Dehydration Status: Acute Assessment and Plan: Resolved Subjective Subjective Date/Time Seen: 07/25/21 14:48 Interval history: Tolerating diet. No bloating or abdominal pain. Positive flatus. Exam GI: Inspection: non-distended and obesity GI Palp: Yes Soft to palpation, No Tenderness to palpation present (GI) and No Guarding due to palpation present (GI) Percussion: Yes normal to percussion Auscultation: normal bowel sounds Objective Data Vital Signs Vital Signs: Vital Signs - 24 hr 07/24/21 15:24 07/24/21 15:29 07/24/21 15:34 Temperature Pulse Rate 70 70 59 L Pulse Rate [Bilateral Pedal (Dorsalis Pedis) Palpation] Respiratory Rate 35 H 28 H 34 H Blood Pressure 85/48 L 93/49 L 96/43 L Pulse Oximetry 98 97 99 07/24/21 15:44 07/24/21 16:00 07/24/21 18:00 Temperature 36.4 C Pulse Rate 69 72 79 Pulse Rate [Bilateral Pedal (Dorsalis Pedis) Palpation] 72 Respiratory Rate 21 H 20 Blood Pressure 116/71 117/58 L Pulse Oximetry 99 99 07/24/21 19:50 07/24/21 20:00 07/24/21 22:00 Temperature 36.5 C Pulse Rate 70 66 70 Pulse Rate [Bilateral Pedal (Dorsalis Pedis) Palpation] 70 Respiratory Rate 20 20 Blood Pressure 100/52 L 100/52 L Pulse Oximetry 96 96 07/24/21 23:32 07/24/21 23:43 07/24/21 23:44 Temperature 36.4 C Pulse Rate 90 90 Pulse Rate [Bilateral Pedal (Dorsalis Pedis) Palpation] 90 Respiratory Rate 21 H 21 H Blood Pressure 108/64 108/64 Pulse Oximetry 95 95 07/25/21 00:00 07/25/21 01:36 07/25/21 04:00 Temperature 36.5 C Pulse Rate 72 72 54 L Pulse Rate [Bilateral Pedal (Dorsalis Pedis) Palpation] 54 L Respiratory Rate 20 Blood Pressure 105/68 Pulse Oximetry 96 07/25/21 06:00 07/25/21 06:50 07/25/21 08:00 Temperature 36.4 C Pulse Rate 66 69 69 Pulse Rate [Bilateral Pedal (Dorsalis Pedis) Palpation] Respiratory Rate 19 Blood Pressure 110/62 Pulse Oximetry 97 07/25/21 08:12 07/25/21 08:30 07/25/21 10:00 Temperature Pulse Rate 73 Pulse Rate [Bilateral Pedal (Dorsalis Pedis) Palpation] Respiratory Rate Blood Pressure Pulse Oximetry 97 97 07/25/21 11:44 07/25/21 12:00 Temperature 36.4 C Pulse Rate 73 62 Pulse Rate [Bilateral Pedal (Dorsalis Pedis) Palpation] Respiratory Rate 18 Blood Pressure 133/72 Pulse Oximetry 95 Intake/Output Intake/Output: Intake & Output 07/22/21 07/23/21 07/24/21 07/25/21 23:59 23:59 23:59 23:59 Intake Total 1460 2550 2073 Output Total 108 261 8996 Balance 860 1675 353 Meds/Results Medications: Active Medications Generic Name Dose Route Start Last Admin Trade Name Freq PRN Reason Stop Dose Admin Albuterol 1 puff 07/23/21 21:22 Albuterol Sulfate (*Sp) Aerosol 1 Puff INHALATION Q6H PRN shortness of breath or wheezing Atorvastatin Calcium 20 mg 07/24/21 09:00 07/25/21 08:10 Atorvastatin 20 Mg Tablet PO 20 mg DAILY ОЛЬГА Administration Lorazepam 0.5 mg 07/23/21 16:17 07/24/21 23:40 Lorazepam Inj (*Crx) 2 Mg/Ml Vial IV PUSH 0.5 mg Q6H PRN Administration Anxiety Melatonin 10 mg 07/23/21 21:22 07/24/21 21:09 Melatonin 5 Mg Tablet PO 10 mg HS PRN Administration Insomnia Ondansetron HCl 4 mg 07/23/21 15:18 Ondansetron Inj 4 Mg/2 Ml Vial IV PUSH Q4H PRN Nausea Umeclidinium/Vilanterol 1 puff 07/24/21 08:00 07/25/21 08:33 Umeclidinium/Vilanterol 62.5-25 Mcg Ellipta INHALATION 1 puff DAILYRT ОЛЬГА Administration
[2021-07-25 17:14] LABS: Anion Gap 6 mmol/L (8-16); Blood Urea Nitrogen 31 mg/dL (9-20); Calcium 9.6 mg/dL (8.4-10.2); Carbon Dioxide 25 mmol/L (22-30); Chloride 101 mmol/L (98-107); Estimated CRCL calculation 69 ml/min; Estimated Glomerular Filt Rate > 60; Glucose 126 mg/dL (65-110); Potassium 5.9 mmol/L (3.4-5.0); Sodium 132 mmol/L (137-145)
[2021-07-25] MEDS: SODIUM POLYSTYRENE SULFONONATE 15 GM/60 ML BTL PO (17:52)
--- NOTE | 2021-07-25 21:04 | PC.NURSE ---
This patient, Prabhakar Godwin, was transferred to room 242 on 07/25/21 at 2104. Personal belongings sent with patient. Report given to ONEYDA Hu. Appropriate documentation sent with patient.
--- NOTE | 2021-07-25 21:15 | PC.NURSE ---
Received transfer from IMU. Patient alert and oriented report received from
[2021-07-25] MEDS: LORazepam INJ (*CRX) 2 MG/ML VIAL 0.5 MG IV PUSH (22:40)
[2021-07-25] MEDS: MELATONIN 5 MG TABLET 10 MG PO (22:40)
[2021-07-26] VITALS: BP 110/69; PULSE 76; RESP 18; TEMP 36.2; O2SAT 96
[2021-07-26 01:19] LABS: Osmolality, Urine 276 mOsm/kg (50-1200)
[2021-07-26 04:00] VITALS: BP 125/66; PULSE 56; RESP 20; TEMP 35.8; O2SAT 98
[2021-07-26 06:07] LABS: Basophils Absolute Auto 0.1 K/mm3 (0.0-0.1); Basophils Percent Auto 1.1 % (0.2-1.2); Eosinophils Absolute Auto 0.7 K/mm3 (0-0.3); Hematocrit 44.6 % (42.0-52.0); Hemoglobin 14.4 g/dL (14.0-18.0); Immature Granulocyte Absolute 0.03 K/mm3 (0.00-0.031); Immature Granulocyte Percent A 0.4 % (0-0.5); Lymphocytes Absolute Auto 0.92 K/mm3 (0.9-3.2); Lymphocytes Percent Auto 11.3 % (18.3-44.2); Mean Corpuscular HGB Conc 32.3 g/dl (32-36); Mean Corpuscular Hemoglobin 31.5 pg (26-34); Mean Corpuscular Volume 97.6 fl (80-100); Mean Platelet Volume 10.2 fl (7.4-10.4); Monocytes Absolute Auto 0.8 K/mm3 (0.1-0.6); Monocytes Percent Auto 9.7 % (2.6-8.5); Neutrophils Absolute Auto 5.6 K/mm3 (1.3-6.7); Neutrophils Percent Auto 69.5 % (45.5-73.1); Platelet Count Result 166 k/mm3 (150-375); Red Blood Count 4.57 M/mm3 (4.6-6.20); Red Cell Distribution Width 14.6 % (11.5-14.5); White Blood Count 8.1 K/mm3 (4.5-10.0)
[2021-07-26 06:21] LABS: Anion Gap 5 mmol/L (8-16); Blood Urea Nitrogen 25 mg/dL (9-20); Calcium 9.2 mg/dL (8.4-10.2); Carbon Dioxide 25 mmol/L (22-30); Chloride 103 mmol/L (98-107); Estimated CRCL calculation 76 ml/min; Estimated Glomerular Filt Rate > 60; Glucose 102 mg/dL (65-110); Potassium 4.8 mmol/L (3.4-5.0); Sodium 133 mmol/L (137-145)
[2021-07-26] MEDS: ACETAMINOPHEN 325 MG TABLET 650 MG PO (06:41)
[2021-07-26 08:00] VITALS: BP 120/65; PULSE 85; RESP 20; TEMP 36; O2SAT 95
[2021-07-26] MEDS: ATORVASTATIN 20 MG TABLET PO (08:03)
[2021-07-26] MEDS: UMECLIDINIUM/VILANTEROL 62.5-25 MCG ELLIPTA 1 PUFF INHALATION (08:43)
[2021-07-26 08:45] VITALS: O2SAT 90
--- NOTE | 2021-07-26 08:48 | WPDGIPROGNO ---
Progress Note: A&P Assessment and Plan (1) History of colon polyps: Code(s): Z86.010 - Personal history of colonic polyps Status: Acute Assessment and Plan: Patient had colon polyps removed at colonoscopy. Follow-up colonoscopy suggested in 5 years. (2) Sigmoid volvulus: Code(s): K56.2 - Volvulus Status: Acute Assessment and Plan: Sigmoid volvulus resolved clinically. Colonoscopy revealed no evidence of volvulus. If present it resolved spontaneously. Would recommend stool softeners and laxatives if needed as an outpatient. Okay with me for discharge. Subjective Date/time seen: 07/26/21 08:48 Patient tolerated diet without difficulty. Passing gas and flatus. Good bowel movements. Review of Systems Review of Systems: All systems reviewed & are unremarkable except as noted in HPI and below Exam Narrative: Physical exam reveals patient comfortable at rest. On supplemental oxygen. Lungs are clear. Heart without murmur. Abdomen bowel sounds present soft nontender with no organomegaly. Objective Data Vital Signs Vital Signs: Vital Signs - 24 hr 07/25/21 10:00 07/25/21 11:44 07/25/21 12:00 Temperature 97.6 F Pulse Rate 73 73 62 Respiratory Rate 18 Blood Pressure 133/72 Pulse Oximetry 95 07/25/21 14:00 07/25/21 16:00 07/25/21 16:08 Temperature 97.9 F Pulse Rate 69 68 56 L Respiratory Rate 18 Blood Pressure 136/72 Pulse Oximetry 94 07/25/21 18:00 07/25/21 20:00 07/25/21 23:15 Temperature 97.4 F L Pulse Rate 60 71 Respiratory Rate 19 Blood Pressure 133/78 Pulse Oximetry 96 96 07/26/21 00:00 07/26/21 04:00 07/26/21 08:45 Temperature 97.1 F L 96.4 F L Pulse Rate 76 56 L Respiratory Rate 18 20 Blood Pressure 110/69 125/66 Pulse Oximetry 96 98 90 Intake/Output Intake/Output: Intake & Output 07/23/21 07/24/21 07/25/21 07/26/21 23:59 23:59 23:59 23:59 Intake Total 1460 2550 4123 400 Output Total 258 645 6210 800 Balance 860 1675 53 -400 Meds/Results Medications: Active Medications Generic Name Dose Route Start Last Admin Trade Name Freq PRN Reason Stop Dose Admin Acetaminophen 650 mg 07/26/21 01:21 07/26/21 06:41 Acetaminophen 325 Mg Tablet PO 650 mg Q6H PRN Administration Mild Pain (1-3) or Fever Albuterol 1 puff 07/23/21 21:22 Albuterol Sulfate (*Sp) Aerosol 1 Puff INHALATION Q6H PRN shortness of breath or wheezing Atorvastatin Calcium 20 mg 07/24/21 09:00 07/26/21 08:03 Atorvastatin 20 Mg Tablet PO 20 mg DAILY ОЛЬГА Administration Lorazepam 0.5 mg 07/23/21 16:17 07/25/21 22:40 Lorazepam Inj (*Crx) 2 Mg/Ml Vial IV PUSH 0.5 mg Q6H PRN Administration Anxiety Melatonin 10 mg 07/23/21 21:22 07/25/21 22:40 Melatonin 5 Mg Tablet PO 10 mg HS PRN Administration Insomnia Ondansetron HCl 4 mg 07/23/21 15:18 Ondansetron Inj 4 Mg/2 Ml Vial IV PUSH Q4H PRN Nausea Umeclidinium/Vilanterol 1 puff 07/24/21 08:00 07/26/21 08:43 Umeclidinium/Vilanterol 62.5-25 Mcg Ellipta INHALATION 1 puff DAILYRT ОЛЬГА Administration Radiology Results: ITS Impressions Chest X-Ray 07/23/21 12:44 IMPRESSION: 1. Chronic left hemidiaphragm elevation. 2. Bibasilar infrahilar opacities probably atelectasis but can't exclude pneumonia. Abdomen/Pelvis CT 07/23/21 13:02 IMPRESSION: 1. Mildly distended sigmoid colon, likely secondary to low-grade partial obstruction from sigmoid volvulus. 2. Umbilical hernia and left inguinal hernia containing fat. Labs Labs: Laboratory Results - last 24 hr 07/23/21 07/25/21 07/26/21 17:28 16:34 05:07 WBC 8.1 RBC 4.57 L Hgb 14.4 Hct 44.6 MCV 97.6 MCH 31.5 MCHC 32.3 RDW 14.6 H Plt Count 166 MPV 10.2 Immature Gran % (Auto) 0.4 Neut % (Auto) 69.5 Lymph % (Auto) 11.3 L [place] % (Auto) 9.7 H Eos % (Auto) 8.0 H Baso % (Auto) 1.1 Ly
--- NOTE | 2021-07-26 09:18 | PM.IMPN ---
Subjective Date/time seen: 07/26/21 09:18 Objective Data Vital Signs Vital Signs: Vital Signs - 24 hr 07/25/21 10:00 07/25/21 11:44 07/25/21 12:00 Temperature 97.6 F Pulse Rate 73 73 62 Respiratory Rate 18 Blood Pressure 133/72 Pulse Oximetry 95 07/25/21 14:00 07/25/21 16:00 07/25/21 16:08 Temperature 97.9 F Pulse Rate 69 68 56 L Respiratory Rate 18 Blood Pressure 136/72 Pulse Oximetry 94 07/25/21 18:00 07/25/21 20:00 07/25/21 23:15 Temperature 97.4 F L Pulse Rate 60 71 Respiratory Rate 19 Blood Pressure 133/78 Pulse Oximetry 96 96 07/26/21 00:00 07/26/21 04:00 07/26/21 08:00 Temperature 97.1 F L 96.4 F L 96.8 F L Pulse Rate 76 56 L 85 Respiratory Rate 18 20 20 Blood Pressure 110/69 125/66 120/65 Pulse Oximetry 96 98 95 07/26/21 08:45 Temperature Pulse Rate Respiratory Rate Blood Pressure Pulse Oximetry 90 Intake/Output Intake/Output: Intake & Output 07/23/21 07/24/21 07/25/21 07/26/21 23:59 23:59 23:59 23:59 Intake Total 1460 2550 4123 640 Output Total 823 663 2721 800 Balance 860 1675 53 -160 Meds/Results Medications: Active Medications Generic Name Dose Route Start Last Admin Trade Name Freq PRN Reason Stop Dose Admin Acetaminophen 650 mg 07/26/21 01:21 07/26/21 06:41 Acetaminophen 325 Mg Tablet PO 650 mg Q6H PRN Administration Mild Pain (1-3) or Fever Albuterol 1 puff 07/23/21 21:22 Albuterol Sulfate (*Sp) Aerosol 1 Puff INHALATION Q6H PRN shortness of breath or wheezing Atorvastatin Calcium 20 mg 07/24/21 09:00 07/26/21 08:03 Atorvastatin 20 Mg Tablet PO 20 mg DAILY ОЛЬГА Administration Lorazepam 0.5 mg 07/23/21 16:17 07/25/21 22:40 Lorazepam Inj (*Crx) 2 Mg/Ml Vial IV PUSH 0.5 mg Q6H PRN Administration Anxiety Melatonin 10 mg 07/23/21 21:22 07/25/21 22:40 Melatonin 5 Mg Tablet PO 10 mg HS PRN Administration Insomnia Ondansetron HCl 4 mg 07/23/21 15:18 Ondansetron Inj 4 Mg/2 Ml Vial IV PUSH Q4H PRN Nausea Umeclidinium/Vilanterol 1 puff 07/24/21 08:00 07/26/21 08:43 Umeclidinium/Vilanterol 62.5-25 Mcg Ellipta INHALATION 1 puff DAILYRT ОЛЬГА Administration Radiology Results: ITS Impressions Chest X-Ray 07/23/21 12:44 IMPRESSION: 1. Chronic left hemidiaphragm elevation. 2. Bibasilar infrahilar opacities probably atelectasis but can't exclude pneumonia. Abdomen/Pelvis CT 07/23/21 13:02 IMPRESSION: 1. Mildly distended sigmoid colon, likely secondary to low-grade partial obstruction from sigmoid volvulus. 2. Umbilical hernia and left inguinal hernia containing fat. Labs Labs: Laboratory Results - last 24 hr 07/23/21 07/25/21 07/26/21 17:28 16:34 05:07 WBC 8.1 RBC 4.57 L Hgb 14.4 Hct 44.6 MCV 97.6 MCH 31.5 MCHC 32.3 RDW 14.6 H Plt Count 166 MPV 10.2 Immature Gran % (Auto) 0.4 Neut % (Auto) 69.5 Lymph % (Auto) 11.3 L [place] % (Auto) 9.7 H Eos % (Auto) 8.0 H Baso % (Auto) 1.1 Lymph # (Auto) 0.92 [place] # (Auto) 0.8 H Eos # (Auto) 0.7 H Baso # (Auto) 0.1 Abs Immat Gran (auto) 0.03 Absolute Neuts (auto) 5.6 Absolute Nucleated RBC 0.0 Nucleated RBC % 0.0 Sodium 132 L Potassium 5.9 H Chloride 101 Carbon Dioxide 25 Anion Gap 6 L BUN 31 H Creatinine 1.00 Estim Creat Clear Calc 69 Estimated GFR > 60 Glucose 126 H Calcium 9.6 Urine Osmolality 276 07/26/21 05:07 WBC RBC Hgb Hct MCV MCH MCHC RDW Plt Count MPV Immature Gran % (Auto) Neut % (Auto) Lymph % (Auto) [place] % (Auto) Eos % (Auto) Baso % (Auto) Lymph # (Auto) [place] # (Auto) Eos # (Auto) Baso # (Auto) Abs Immat Gran (auto) Absolute Neuts (auto) Absolute Nucleated RBC Nucleated RBC % Sodium 133 L Potassium 4.8 Chloride 103 Carbon Dioxide 25 Anion Gap 5 L BUN 25 H Creatinine 0.90 Est
--- NOTE | 2021-07-26 10:01 | PM.DS ---
DS: Admitting Diagnosis Discharge Date 07/2221 Admitting Diagnosis 1) Small bowel obstruction: (2) Volvulus: (3) ROSALIO (acute kidney injury): (4) Afib: (5) Hyperkalemia: (6) COPD (chronic obstructive pulmonary disease): (7) Chronic respiratory failure with hypoxia, on home O2 therapy: (8) CHF (congestive heart failure): (9) Elevated troponin: (10) Hyponatremia: (11) Mixed hyperlipidemia: (12) HTN (hypertension), benign: DS: Discharge Diagnosis Discharge Diagnosis (1) Small bowel obstruction: Code(s): K56.609 - Unspecified intestinal obstruction, unspecified as to partial versus complete obstruction Status: Acute Assessment and Plan: Most likely related to the volvulus. Lactic acid normal Surgery has been consulted. Patient is NPO at this time. And IV fluids have continued. No surgical plans noted GI plans for decompressive sigmoidoscopy. Status post sigmoidoscopy 07/24/2021 a total of 3 5 mm to 6 mm polyps were observed in DC. One polyp removed using hot snare and 2 using cold snare polypectomies. The polyps were then successfully tried. A few diverticula were present in the sigmoid colon and in the rectosigmoid. The diverticulum not actively bleeding. The sigmoid colon was examined and no abnormalities were seen. Specifically did not find distended colon, no signs of spiraling of the mucosa and did not have any difficulty to negotiate the scope, able to reach ascending colon without any problem. No evidence of volvulus but in my way out colon was decompressed and suctioned air and liquid stool. Advance diet as tolerated General surgery on board Await clearance from GI and General surgery for discharge (2) Volvulus: Code(s): K56.2 - Volvulus Status: Acute Assessment and Plan: Surgery has been consulted. See above Looks like spontaneous resolution Further direction per GI in terms of prevention of recurrence (3) ROSALIO (acute kidney injury): Code(s): N17.9 - Acute kidney failure, unspecified Status: Acute Assessment and Plan: Admission creatinine of 1.7. Baseline creatinine of 1 from April 2021 No hydro nephrosis on CT scan Patient's Bumex and lisinopril on hold. Patient has been dehydrated. Most likely pre renal azotemia. The patient has poor oral intake. Continue with IV fluids. Will stop his IV fluid today ROSALIO his resolved 07/25/2021 (4) Afib: Code(s): I48.91 - Unspecified atrial fibrillation Status: Chronic Assessment and Plan: Rate control. The patient had been on apixaban but is NPO at this time. I changed him to subcu Lovenox but will have to renal dose if his creatinine does not come down to normal Eliquis 2 hold for 3 more days due to polypectomy (5) Hyperkalemia: Code(s): E87.5 - Hyperkalemia Status: Acute Assessment and Plan: Admission potassium of 6 Could be related to his acute renal failure. Slightly better but still mildly hyperkalemic Recheck it in the evening today (6) COPD (chronic obstructive pulmonary disease): Qualifiers: COPD type: unspecified COPD Qualified Code(s): J44.9 - Chronic obstructive pulmonary disease, unspecified Code(s): J44.9 - Chronic obstructive pulmonary disease, unspecified Status: Chronic Assessment and Plan: Continue with inhalers. (7) Chronic respiratory failure with hypoxia, on home O2 therapy: Code(s): J96.11 - Chronic respiratory failure with hypoxia; Z99.81 - Dependence on supplemental oxygen Status: Chronic Assessment and Plan: Continue with home oxygen. 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 Will restart Bumex from tomorrow (9) Elevated tr
== END 2021-07-26 12:48 | disposition home or self-care (01) | DRG 389 ==
LOC: ANHED 11:26 → ANHIMU 16:26 → ANH2MED 07-26 10:04 → ANHIMU 07-28 15:11
PROVIDERS: Internal Medicine Gastroenterology; Nurse Practitioner; Admitting Provider Internal Medicine; Emergency Provider General Practice; PCP Family Medicine; Visit Provider Internal Medicine
PROC: 0DJD8ZZ Inspection of Lower Intestinal Tract, Via Natural or Artificial Opening Endoscopic (ICD-10-PCS; CPT 45330; principal; 2021-07-24 14:30)
DX: K56.600 Partial intestinal obstruction, unspecified as to cause (principal); N17.9 Acute kidney failure, unspecified; E87.1 Hypo-osmolality and hyponatremia; J96.11 Chronic respiratory failure with hypoxia; K56.2 Volvulus; I25.10 Atherosclerotic heart disease of native coronary artery without angina pectoris; Z95.5 Presence of coronary angioplasty implant and graft; I48.91 Unspecified atrial fibrillation; I95.9 Hypotension, unspecified; H26.9 Unspecified cataract; I11.0 Hypertensive heart disease with heart failure; I50.9 Heart failure, unspecified; E78.2 Mixed hyperlipidemia; Z86.73 Personal history of transient ischemic attack (TIA), and cerebral infarction without residual deficits; E87.5 Hyperkalemia; E86.0 Dehydration; Z79.01 Long term (current) use of anticoagulants; Z99.81 Dependence on supplemental oxygen; M54.2 Cervicalgia; K42.9 Umbilical hernia without obstruction or gangrene; K40.90 Unilateral inguinal hernia, without obstruction or gangrene, not specified as recurrent; F17.210 Nicotine dependence, cigarettes, uncomplicated; R77.8 Other specified abnormalities of plasma proteins; J43.9 Emphysema, unspecified; K63.5 Polyp of colon; K57.30 Diverticulosis of large intestine without perforation or abscess without bleeding
CPT/HCPCS: 36415; 36600; 71045; 74176; 80048; 80053; 81001; 82375; 82805; 83050; 83605; 83690; 83735; 83880; 83935; 84300; 84443; 84484; 85025; 85610; 85730; 88305; 93005; 94640; 96361; 96365; 96375; 99285; A9270; J0131; J1815; J2060; J2405; J2704; J7030; J7040; J7120

== ENCOUNTER 2021-07-30 15:13 | Observation (INO) | payer MEDICARE, SELFPAY ==
--- NOTE | ~2021-07-30 | CT_ITS ---
EXAMINATION: CT brain wo con DATE: 07/30/2021 15:55 INDICATION: Status post fall. Loss of consciousness. Facial abrasions. TECHNIQUE: Computed tomography (CT) of the head was performed without intravenous contrast. The dose- length product was 681.00 mGy-cm. Automated exposure control and iterative reconstruction technique w ere employed. COMPARISON: CT dated 03/31/2017 FINDINGS: Chronic lacunar infarction of the imelda. Prominent perivascular space left basal ganglia. Ge neralized atrophy. There are scattered moderate periventricular and subcortical white matter changes, most likely related to small vessel ischemic disease (microangiopathy). No ventriculomegaly or midli ne shift. There is intracranial atherosclerosis. No acute intracranial hemorrhage, infarction, mass o r mass effect. Basilar cisterns are patent. Paranasal sinuses and mastoids are pneumatized. IMPRESSION: 1. No acute intracranial abnormality. 2: Chronic lacunar infarction of the imelda. 3: Chronic age-related findings. Reviewed, dictated and finalized at location A. CARDIOGRAPHY TECHNOLOGIST
--- NOTE | ~2021-07-30 | XR_ITS ---
XR chest 1V portable 07/30/2021 17:13 Indication: Status post fall. CHF. COPD. Procedure: AP portable chest Comparison: Comparison to multiple prior studies sequentially, with oldest reviewed study dated 02/2021. Findings: Mild interstitial edema. No significant effusion or pneumothorax. No acute osseous abnormal ity. Impression: 1: Mild interstitial edema. Reviewed, dictated and finalized at location A. EW CANTOR Impression: 1: Mild interstitial edema.
--- NOTE | ~2021-07-30 | CT_ITS ---
EXAMINATION: CT facial & cervical spine wo DATE: 07/30/2021 15:55 INDICATION: Status post fall. Facial and neck pain. TECHNIQUE: Computed tomography (CT) of the maxillofacial region and cervical spine was performed with out intravenous contrast. The dose-length product was 580.47 mGy-cm. Automated exposure control and i terative reconstruction technique were employed. COMPARISON: None FINDINGS: MAXILLOFACIAL CT: No acute maxillofacial fracture. Orbits intact. Mandible within normal limits. Temporal mandibular wilfredo ints are symmetric. No nasal fracture. Mild mucosal thickening of the maxillary sinuses. Pterygoid pl ates within normal limits. Zygomatic arches are normal. Mild right frontal and periorbital soft tissu e swelling. CERVICAL SPINE CT: Straightening of cervical lordosis. There is degenerative disc disease at C2-3, C3-4 and C4-5 with pr ominent ventral osteophytes. Odontoid process within normal limits. Craniovertebral junction is ellen l. There is emphysema in the lung apices. No significant paraspinal soft tissue abnormality. IMPRESSION: 1. No acute fracture of the facial bones or cervical spine. Reviewed, dictated and finalized at location A. TANCE ADDICTION COORDINATOR
[2021-07-30 15:34] VITALS: BP 125/77; PULSE 77; RESP 20; TEMP 37; O2SAT 95
[2021-07-30] MEDS: TETANUS,DIPHTHERIA,AC PERTUSSIS ADULT (0.5 ML) BOOSTRIX IM (16:28)
--- NOTE | 2021-07-30 17:03 | ED.GENADULT ---
HPI - General Adult General Chief complaint: Unspecified <Olvin Gomez DO - Last Filed: 07/30/21 18:39> Stated complaint: fall, facial trauma <Olvin Gomez DO - Last Filed: 07/30/21 18:39> Time Seen by Provider: 07/30/21 15:20 <Olvin Gomez DO - Last Filed: 07/30/21 18:39> Source: RN notes reviewed <Olvin Gomez DO - Last Filed: 07/30/21 18:39> History of Present Illness HPI narrative: Patient presents emergency department from home for a fall. Patient states that he woke in bed this morning with a laceration to his forehead and wounds to his nose he states he is unsure how these occurred and when he awoke this morning felt blood on his face he states he had not followed out of bed and was in his bed when he awoke this morning he is not recall any history of sleepwalking patient also states he has been feeling dehydrated states he was recently in the hospital and discharged and feels like he needs some saline he states he has been feeling weak at home currently resides by himself he denies any fevers or chills abdominal pain nausea vomiting or any other symptoms states he has been eating and drinking at home. Patient is a poor historian <Olvin Gomez DO - Last Filed: 07/30/21 18:39> Related Data Home medications: Home Medications Medication Instructions Recorded Confirmed multivitamin 1 tablet PO DAILY 08/21/20 07/23/21 lisinopril 20 mg PO Q12H 04/11/21 07/23/21 melatonin 10 mg tablet 10 mg PO QHS PRN 04/22/21 07/23/21 albuterol sulfate [ProAir HFA] 1 inh INHALATION Q6H PRN 07/23/21 07/23/21 atorvastatin [Lipitor] 20 mg PO DAILY 07/23/21 07/23/21 bumetanide 1 mg PO BID 07/23/21 07/23/21 clopidogrel [Plavix] 75 mg PO DAILY 07/23/21 07/23/21 spironolactone 100 mg PO DAILY 07/23/21 07/23/21 <Olvin Gomez DO - Last Filed: 07/30/21 18:39> Allergies/adverse reactions: Allergies Allergy/AdvReac Type Severity Reaction Status Date / Time Contrast Media Allergy Severe RASH, Uncoded 07/24/21 14:10 DIFFICULTY BREATHING, SHAKING <Olvin Gomez DO - Last Filed: 07/30/21 18:39> Review of Systems Review of Systems: Gen.: Denies fevers or chills Eyes: Denies eye pain or visual change ENT: Denies congestion Respiratory: Denies shortness of breath or cough CV: Denies chest pain or palpitations GI: Denies abdominal pain nausea, emesis or diarrhea Musculoskeletal: Denies back pain or muscle pain Neuro: Reports weakness Skin: See HPI Except as documented, all other systems reviewed and negative <Olvin Gomez DO - Last Filed: 07/30/21 18:39> [facility] Past Medical History Medical History: Medical History Acute and chronic respiratory failure with hypoxia Afib CAD (coronary artery disease) Cataract CHF (congestive heart failure), NYHA class II Chronic respiratory failure with hypoxia, on home O2 therapy COPD (chronic obstructive pulmonary disease) Dehydration History of tobacco abuse HTN (hypertension), benign Mixed hyperlipidemia Restrictive lung disease Stroke <Olvin Gomez DO - Last Filed: 07/30/21 18:39> Surgical History Surgical History: Surgical History H/O heart artery stent X2 History of cataract extraction History of PTCA S/P ORIF (open reduction internal fixation) fracture Right ankle with plates and screws <Olvin Gomez DO - Last Filed: 07/30/21 18:39> Family History Family History: Family History Father Back pain, chronic Cataract Cerebrovascular accident Mother Arthritis Migraines Cataract Sibling No problems noted. Sibling Hearing loss Alcoholism <Olvin Gomez DO - Last Filed: 07/30/21 18:39> Social History Social History: Social History (Reviewed 1
[2021-07-30 17:29] LABS: Basophils Absolute Auto 0.1 K/mm3 (0.0-0.1); Basophils Percent Auto 0.9 % (0.2-1.2); Eosinophils Absolute Auto 0.1 K/mm3 (0-0.3); Eosinophils Percent Auto 1.3 % (0-4.4); Hematocrit 40.7 % (42.0-52.0); Immature Granulocyte Absolute 0.05 K/mm3 (0.00-0.031); Immature Granulocyte Percent A 0.6 % (0-0.5); Lymphocytes Absolute Auto 0.75 K/mm3 (0.9-3.2); Lymphocytes Percent Auto 9.4 % (18.3-44.2); Mean Corpuscular HGB Conc 34.4 g/dl (32-36); Mean Corpuscular Hemoglobin 31.7 pg (26-34); Mean Corpuscular Volume 92.1 fl (80-100); Mean Platelet Volume 9.7 fl (7.4-10.4); Monocytes Absolute Auto 0.6 K/mm3 (0.1-0.6); Monocytes Percent Auto 7.9 % (2.6-8.5); Neutrophils Absolute Auto 6.4 K/mm3 (1.3-6.7); Neutrophils Percent Auto 79.9 % (45.5-73.1); Platelet Count Result 252 k/mm3 (150-375); Red Blood Count 4.42 M/mm3 (4.6-6.20); Red Cell Distribution Width 13.8 % (11.5-14.5)
[2021-07-30 17:33] LABS: Add Urine Microscopic? YES; Appearance Urine Clear (Clear); Bilirubin Urine Negative (Negative); Blood Urine 2+ (Negative); Color Urine Colorless (Yellow); Glucose Urine UA Negative (Negative); Ketones Urine Negative (Negative); Leukocyte Esterase Ur Negative LEU/UL (Negative); Mucus Urine Rare /lpf; Nitrate Urine Negative (Negative); Protein Urine Negative (Negative); RBC Urine 0-2 /hpf (0-2); Urobilinogen Urine Negative mg/dL (<2.0)
[2021-07-30 17:37] LABS: Specific Grav Ur 1.003 (1.001-1.035)
[2021-07-30 17:39] LABS: INR 1.2; Prothrombin Time 14.9 Seconds (11.1-14.7)
[2021-07-30 17:40] LABS: Partial Thromboplastin Time 30.5 SECONDS (22.3-36.8)
[2021-07-30 17:41] LABS: Alanine Aminotransferase 40 U/L (4-50); Albumin Level 4.5 g/dL (3.5-5.1); Alkaline Phosphatase 49 U/L (38-126); Anion Gap 12 mmol/L (8-16); Aspartate Amino Transferase 54 U/L (17-59); Bilirubin,Total 0.8 mg/dL (0.2-1.3); Blood Urea Nitrogen 39 mg/dL (9-20); Carbon Dioxide 24 mmol/L (22-30); Chloride 94 mmol/L (98-107); Estimated CRCL calculation 55 ml/min; Estimated Glomerular Filt Rate 54; Glucose 89 mg/dL (65-110); Potassium 5.3 mmol/L (3.4-5.0); Sodium 130 mmol/L (137-145)
--- NOTE | 2021-07-30 17:43 | ECG_ITS ---
Measurements Intervals [place] Rate: 86 P: RI: 0 QRS: 1 QRSD: 141 T: -41 QT: 380 QTc: 456 Interpretive Statements ATRIAL FIBRILLATION RIGHT BUNDLE BRANCH BLOCK ABNORMAL ECG Electronically Signed On 07-30-2021 22:03:46 ASSOCIATE PROFESSOR OF ENGLISH by Santiago Machado D.O.
[2021-07-30] MEDS: SODIUM CHLORIDE 0.9% IV 500 ML 999 ML IV CONT (17:57)
[2021-07-30 18:31] LABS: Base Excess ABG -4.5 mEq/l (+/-2.0); HCO3 ABG 18.4 mEq/l (22.0-26.0); Oxygen Saturation ABG 96.8 % (95.0-100.0); PCO2 ABG 28.5 mmHg (35.0-45.0); Total Hemoglobin 14.2 g/dL (12.0-18.0); pH ABG 7.428 (7.350-7.450)
[2021-07-30 18:32] LABS: Alveolar/Arterial O2 Gradient 109.8 mmHg; Fractional Inspired Oxygen 32 %; Modified Allen's Test Pass; Oxyhemoglobin 94.9 % THb (90.0-100.0); PO2 FiO2 Ratio Arterial Blood 2.66 %; Site Drawn LEFT RADIAL
[2021-07-30 18:33] LABS: Device NASAL CANNULA
[2021-07-30 18:57] VITALS: BP 164/83; PULSE 88; RESP 24; O2SAT 97
[2021-07-30] MEDS: SODIUM CHLORIDE 0.9% IV 1,000 ML 75 ML IV CONT (21:17)
[2021-07-30 21:29] VITALS: PULSE 84
[2021-07-30 21:51] VITALS: O2SAT 96
[2021-07-30 21:52] VITALS: BP 154/89; PULSE 94; RESP 20; TEMP 36.9; O2SAT 96
[2021-07-31] VITALS (10 sets, daily range): BP systolic 121–148; BP diastolic 69–79; PULSE 77–93; RESP 18–20; TEMP 36.3–37; O2SAT 94–95; BMI 32.8
--- NOTE | 2021-07-31 01:14 | PM.IMHP ---
H&P: HPI History of Present Illness Date/Time: 07/31/21 01:14 Chief Complaint: Forehead laceration Narrative: This is a 75-year-old male with past medical history significant for COPD, hypertension, coronary artery disease, atrial fibrillation, congestive heart failure class II, restrictive lung disease, mixed hyperlipidemia. Patient just recently discharged due to volvulus and rectal sigmoidoscopy performed patient was discharged to independent living facility. Patient presented today to the emergency room after he woke up from his sleep while he was in bed and he noticed that he had blood running down his face and his sheets. Upon further questioning 8 turns out to be that the patient had been drinking the night states that probably 3-4 drinks but maybe 6-8 drinks has no recollection of events. Patient denies any lightheadedness ,dizziness, or loss of consciousness, no fevers, no rigors, no chills, no chest pain, no shortness of breath, no cough, no sputum production, no nausea, no vomiting, no diarrhea. Preliminary workup was significant for CT of the head no acute intracranial abnormality, old strokes of the imelda, age related changes, CT of the head face and cervical spine did not show any acute fractures. Review of Systems Review of Systems: Laceration wound to the forehead Constitutional: Constitutional: Denies chills, Denies fatigue, Denies fever(s), Denies frequent falls, Denies headache(s), Denies lethargy and Denies weakness Eyes: Eyes: Denies change in vision ENT: Denies dysphagia, Denies vertigo, Denies dizziness, Denies nasal congestion, Denies nasal discharge, Denies nasal obstruction and Denies odynophagia Cardiovascular: Cardiovascular: Denies pedal edema, Denies irregular heart rhythm, Denies claudication, Denies leg edema, Denies lightheadedness, Denies radiating jaw, neck or arm pain, Denies palpitations, Denies dyspnea, Denies dyspnea on exertion and Denies orthopnea Respiratory: Respiratory: Denies cough, Denies excessive phlegm production, Denies dyspnea and Denies wheezing Gastrointestinal: Gastrointestinal: Denies abdominal pain, Denies dyspepsia, Denies heartburn, Denies diarrhea, Denies nausea and Denies vomiting Genitourinary: Genitourinary: Denies dysuria Musculoskeletal: Musculoskeletal: Denies arthralgias and Denies joint swelling Integumentary/Breasts: Comments: Laceration wound to the right forehead above the orbit Neurologic: Denies syncope, Denies focal weakness and Denies Sensory deficit (Neuro) Psychiatric: Psychiatric: Reports no additional psychiatric complaints and Reports as per HPI Endocrine: Endocrine: Reports no additional endocrine complaints and Reports as per HPI Hematologic/Lymphatic: Hematologic/Lymphatic: Reports no additional hematologic/lymphatic complaints and Reports as per HPI Allergic/Immunologic: Allergic/Immunologic: Reports no additional allergic/immunologic complaints and Reports as per HPI [facility] Past Medical History Medical History Acute and chronic respiratory failure with hypoxia Afib CAD (coronary artery disease) Cataract CHF (congestive heart failure), NYHA class II Chronic respiratory failure with hypoxia, on home O2 therapy COPD (chronic obstructive pulmonary disease) Dehydration History of tobacco abuse HTN (hypertension), benign Mixed hyperlipidemia Restrictive lung disease Stroke Surgical History Surgical History H/O heart artery stent X2 History of cataract extraction History of PTCA S/P ORIF (open reduction internal fixation) fracture Right ankle with plates and screws Family History Family History Father Back pain, chronic Cataract Cerebrovascular accident Mother Arthritis Migraines Cataract Sibling No problems noted. Sibling Hearing lo
[2021-07-31 01:59] LABS: Anion Gap 7 mmol/L (8-16); Blood Urea Nitrogen 36 mg/dL (9-20); Calcium 9.2 mg/dL (8.4-10.2); Carbon Dioxide 28 mmol/L (22-30); Chloride 96 mmol/L (98-107); Estimated CRCL calculation 64 ml/min; Estimated Glomerular Filt Rate > 60; Glucose 103 mg/dL (65-110); Potassium 4.7 mmol/L (3.4-5.0); Sodium 131 mmol/L (137-145)
[2021-07-31 06:01] LABS: Basophils Absolute Auto 0.1 K/mm3 (0.0-0.1); Basophils Percent Auto 0.9 % (0.2-1.2); Eosinophils Absolute Auto 0.1 K/mm3 (0-0.3); Eosinophils Percent Auto 1.2 % (0-4.4); Hematocrit 45.5 % (42.0-52.0); Immature Granulocyte Absolute 0.05 K/mm3 (0.00-0.031); Immature Granulocyte Percent A 0.6 % (0-0.5); Lymphocytes Absolute Auto 0.66 K/mm3 (0.9-3.2); Lymphocytes Percent Auto 7.3 % (18.3-44.2); Mean Corpuscular Hemoglobin 31.8 pg (26-34); Mean Corpuscular Volume 96.4 fl (80-100); Monocytes Percent Auto 11.5 % (2.6-8.5); Neutrophils Absolute Auto 7.1 K/mm3 (1.3-6.7); Neutrophils Percent Auto 78.5 % (45.5-73.1); Platelet Count Result 259 k/mm3 (150-375); Red Blood Count 4.72 M/mm3 (4.6-6.20); Red Cell Distribution Width 14.4 % (11.5-14.5); White Blood Count 9.1 K/mm3 (4.5-10.0)
[2021-07-31 06:09] LABS: Alanine Aminotransferase 38 U/L (4-50); Albumin Level 4.4 g/dL (3.5-5.1); Alkaline Phosphatase 58 U/L (38-126); Anion Gap 9 mmol/L (8-16); Aspartate Amino Transferase 44 U/L (17-59); Bilirubin,Total 1.2 mg/dL (0.2-1.3); Blood Urea Nitrogen 34 mg/dL (9-20); Calcium 9.3 mg/dL (8.4-10.2); Carbon Dioxide 29 mmol/L (22-30); Chloride 99 mmol/L (98-107); Estimated CRCL calculation 65 ml/min; Estimated Glomerular Filt Rate > 60; Glucose 106 mg/dL (65-110); Potassium 4.4 mmol/L (3.4-5.0); Sodium 137 mmol/L (137-145)
[2021-07-31] MEDS: ATORVASTATIN 20 MG TABLET PO (07:55)
[2021-07-31] MEDS: BUMETANIDE 1 MG TABLET PO ×2 (07:55→20:24)
[2021-07-31] MEDS: SPIRONOLACTONE 50 MG TABLET 100 MG PO (07:56)
[2021-07-31] MEDS: UMECLIDINIUM/VILANTEROL 62.5-25 MCG ELLIPTA 1 PUFF INHALATION (07:56)
[2021-07-31] MEDS: lisinopriL 20 MG TABLET PO ×2 (07:56→20:24)
[2021-07-31] MEDS: MULTIVITAMINS THERAPEUTIC TAB (*BKC) 1 TABLET PO (07:56)
--- NOTE | 2021-07-31 10:59 | WPDGICN ---
Assessment and Plan Assessment and plan (1) Blood in stool: Code(s): K92.1 - Melena Status: Acute Assessment and Plan: had recent sigmoidoscopy that did not show acute findings and no signs of volvulus, blood in stool probably could have been from recent polypectomies however only small size no abdominal pain or nausea and stable hb advance diet no need to repeat scopes will follow from [place] as needed (2) Facial laceration: Code(s): S01.81XA - Laceration without foreign body of other part of head, initial encounter Status: Acute Assessment and Plan: wonder if he drank too much and passed out CT scan no fractures work up by primary (3) Acute dehydration: Code(s): E86.0 - Dehydration Status: Acute Assessment and Plan: treated and resolved (4) Hyponatremia: Code(s): E87.1 - Hypo-osmolality and hyponatremia Status: Acute Assessment and Plan: hyponatremia resolved after hydration (5) Atrial flutter with rapid ventricular response: Code(s): I48.92 - Unspecified atrial flutter Status: Acute (6) CHF (congestive heart failure), NYHA class II: Qualifiers: Congestive heart failure type: combined Congestive heart failure chronicity: chronic Qualified Code(s): I50.42 - Chronic combined systolic (congestive) and diastolic (congestive) heart failure Code(s): I50.9 - Heart failure, unspecified Status: Acute (7) Colon, diverticulosis: Code(s): K57.30 - Diverticulosis of large intestine without perforation or abscess without bleeding Status: Acute Assessment and Plan: recent finding, there was not bleeding hb is stable no need to repeat scopes path report showed TA polyps, next colonoscopy in 3 years GI Consult Note Consult date/time: 07/31/21 10:59 Reason for consult: blood in stool HPI: Prabhakar Godwin is a 75 year old male with history significant for COPD, hypertension, coronary artery disease, atrial fibrillation on eliquis and plavix, congestive heart failure class II, restrictive lung disease who I met during recently hospitalization after he was diagnosed with possible sigmoid volvulus by CT scan with benign exam otherwise, I performed sigmoidoscopy that did not reveal acute findings only had small TA polyps removed with snare and diverticulosis. He came to ER after he woke up from his sleep and noticed that he had blood running down his face and his sheets, night before he was drinking alcohol but does not remember passing out. ER evaluation found that had facial trauma with laceration, treated with sutures. CT of the head and face reviewed, no acute intracranial abnormality, no acute fractures. Also mentioned that probably had blood in stool however he is color blind, denies abdominal pain or change in bowel habits. Hb is normal. Review of Systems Constitutional: Constitutional: Denies chills Eyes: Eyes: Reports no additional eye complaints ENT: Reports Normal hearing present Cardiovascular: Cardiovascular: Denies chest pain Respiratory: Respiratory: Denies dyspnea Gastrointestinal: Gastrointestinal: Denies abdominal pain Genitourinary: Genitourinary: Denies dysuria Musculoskeletal: Comments: face laceration Neurologic: Reports system reviewed and no additional complaints, except as documented Psychiatric: Psychiatric: Reports no additional psychiatric complaints [facility] Past Medical History Medical History (Updated 07/31/21 @ 11:05 by Garett Kumar MD) Acute and chronic respiratory failure with hypoxia Afib Blood in stool CAD (coronary artery disease) Cataract CHF (congestive heart failure), NYHA class II Chronic respiratory failure with hypoxia, on home O2 therapy Colon, diverticulosis COPD (chronic obstructive pulmonary disease) Dehydration History of tobacco abuse HTN (hypertension), benign Mixed hyperlipidemia Restrictive lung disease Stroke Surgical H
[2021-07-31] MEDS: SODIUM CHLORIDE 0.9% IV 1,000 ML 75 ML IV CONT ×2 (12:49→23:15)
[2021-07-31] MEDS: chlordiazePOXIDE (*CRX) 25 MG CAPSULE PO ×2 (12:50→20:24)
--- NOTE | 2021-07-31 12:56 | PM.IMPN ---
Progress Note: A&P Assessment and Plan (1) Facial laceration: Code(s): S01.81XA - Laceration without foreign body of other part of head, initial encounter Status: Acute Assessment and Plan: A status post sutures CT of the head reviewed CT of the head face and cervical spine reviewed Fall precautions Supportive care 07/31/21 12:56 Chief Complaint: Forehead laceration Narrative: This is a 75-year-old male with past medical history significant for COPD, hypertension, coronary artery disease, atrial fibrillation, congestive heart failure class II, restrictive lung disease, mixed hyperlipidemia. Patient just recently discharged due to volvulus and rectal sigmoidoscopy performed patient was discharged to independent living facility. Patient presented today to the emergency room after he woke up from his sleep while he was in bed and he noticed that he had blood running down his face and his sheets. Upon further questioning 8 turns out to be that the patient had been drinking the night states that probably 3-4 drinks but maybe 6-8 drinks has no recollection of events. Patient denies any lightheadedness ,dizziness, or loss of consciousness, no fevers, no rigors, no chills, no chest pain, no shortness of breath, no cough, no sputum production, no nausea, no vomiting, no diarrhea. Preliminary workup was significant for CT of the head no acute intracranial abnormality, old strokes of the imelda, age related changes, CT of the head face and cervical spine did not show any acute fractures. 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 drinks 6-8 drinks daily, and concerning for DT will start the patient on Librium 25 mg q.6 as needed and monitor with CIWA protocol, will start the patient on folic acid and thiamine, patient has a rectal bleed most likely secondary to patient is on Eliquis and Plavix will consult probate lawyer for further recommendation, patient has a melanoma will consult GI for recommendation, will continue monitor H&H and electrolytes, the PT OT evaluate the patient (2) Acute dehydration: Code(s): E86.0 - Dehydration Status: Acute Assessment and Plan: Receiving IV fluids Repeat BMP in the morning Suspect secondary to diuretic (3) Acute hyperkalemia: Code(s): E87.5 - Hyperkalemia Status: Acute Assessment and Plan: Patient is on spironolactone could have probably contributed to these as is a potassium-sparing agent Will repeat BMP (4) Chronic respiratory failure with hypoxia, on home O2 therapy: Code(s): J96.11 - Chronic respiratory failure with hypoxia; Z99.81 - Dependence on supplemental oxygen Status: Chronic Assessment and Plan: Patient currently on his usual choir minute of supplemental oxygen Continue to monitor (5) CHF (congestive heart failure): Code(s): I50.9 - Heart failure, unspecified Status: Acute Assessment and Plan: Appears to be euvolemic Continue to monitor daily intake and output (6) Hyponatremia: Code(s): E87.1 - Hypo-osmolality and hyponatremia Status: Acute Assessment and Plan: Likely secondary to the use of diuretics Receiving NS 0.9 (7) Atrial flutter with rapid ventricular response: Code(s): I48.92 - Unspecified atrial flutter Status: Acute Assessment and Plan: Rate controlled Anticoagulated (8) CAD (coronary artery disease): Qualifiers: Coronary Disease-Associated Artery/Lesion type: unspecified vessel or lesion type [place] vs. transplanted heart: [place] heart Associated angina: without angina Qualified Code(s): I25.10 - Atherosclerotic heart disease of [place] coronary artery without angina pectoris Code(s): I25.10 - Atherosclerotic heart disease of [place] coronary artery without angina pectoris Status: Acute Assessment and Tamiko
[2021-07-31] MEDS: THIAMINE HCL 100 MG TABLET PO (20:24)
[2021-07-31] MEDS: APIXABAN 5 MG TABLET PO (20:24)
[2021-07-31] MEDS: FOLIC ACID 1 MG TABLET PO (20:24)
[2021-07-31] MEDS: MELATONIN 5 MG TABLET 10 MG PO (20:25)
[2021-08-01] VITALS (9 sets, daily range): BP systolic 92–118; BP diastolic 60–78; PULSE 58–95; RESP 18–20; TEMP 36–36.2; O2SAT 92–96
[2021-08-01 05:30] LABS: Hematocrit 42.7 % (42.0-52.0); Hemoglobin 14.1 g/dL (14.0-18.0); Mean Corpuscular Volume 96.8 fl (80-100); Platelet Count Result 243 k/mm3 (150-375); Red Blood Count 4.41 M/mm3 (4.6-6.20); Red Cell Distribution Width 14.4 % (11.5-14.5); White Blood Count 8.1 K/mm3 (4.5-10.0)
[2021-08-01 05:46] LABS: Alanine Aminotransferase 33 U/L (4-50); Albumin Level 3.9 g/dL (3.5-5.1); Alkaline Phosphatase 53 U/L (38-126); Anion Gap 6 mmol/L (8-16); Aspartate Amino Transferase 34 U/L (17-59); Bilirubin,Total 0.8 mg/dL (0.2-1.3); Blood Urea Nitrogen 24 mg/dL (9-20); Calcium 9.1 mg/dL (8.4-10.2); Carbon Dioxide 32 mmol/L (22-30); Chloride 102 mmol/L (98-107); Estimated CRCL calculation 65 ml/min; Estimated Glomerular Filt Rate > 60; Glucose 124 mg/dL (65-110); Magnesium 1.6 mg/dL (1.6-2.3); Potassium 4.2 mmol/L (3.4-5.0); Sodium 140 mmol/L (137-145)
--- NOTE | 2021-08-01 06:34 | PCNSR ---
On 08/01/21, the student, Farzaneh Gorman, provided care and completed [facility] documentation on this patient. I have reviewed the student's documentation and agree with the findings.
[2021-08-01] MEDS: UMECLIDINIUM/VILANTEROL 62.5-25 MCG ELLIPTA 1 PUFF INHALATION (08:06)
[2021-08-01] MEDS: FOLIC ACID 1 MG TABLET PO (08:13)
[2021-08-01] MEDS: CLOPIDOGREL BISULFATE 75 MG TABLET PO (08:13)
[2021-08-01] MEDS: lisinopriL 20 MG TABLET PO (08:13)
[2021-08-01] MEDS: MULTIVITAMINS THERAPEUTIC TAB (*BKC) 1 TABLET PO (08:13)
[2021-08-01] MEDS: ATORVASTATIN 20 MG TABLET PO (08:13)
[2021-08-01] MEDS: THIAMINE HCL 100 MG TABLET PO (08:13)
[2021-08-01] MEDS: SPIRONOLACTONE 50 MG TABLET 100 MG PO (08:13)
[2021-08-01] MEDS: APIXABAN 5 MG TABLET PO ×2 (08:13→20:29)
[2021-08-01] MEDS: chlordiazePOXIDE (*CRX) 25 MG CAPSULE PO ×3 (08:15→23:33)
[2021-08-01] MEDS: BUMETANIDE 1 MG TABLET PO ×2 (10:07→17:06)
[2021-08-01] MEDS: MAGNESIUM OXIDE 400 MG TABLET PO (10:07)
--- NOTE | 2021-08-01 11:38 | PM.CNCAR ---
Assessment and Plan Additional Plan AF with RVR, HR in 110 to 110, part of increased HR could be related to his anxiety with hospital admission, Hx of CAD and PCi to LCX and RCA in November 2020, Rectal bleeding likely related to recent sigmoidoscopy and polypectomy, facial trauma and bleeding, plan resume eliquis when bleeding stop, and change plavix to ASA 324 tomorrow then 81 mg daily, start low dose metoprolol 25 mg BID. History of Present Illness History of Present Illness Consult date/time: 08/01/21 11:38 Consult reason: Other (anticoagulation ) Reason For Visit: Acute Renal Insufficiency, Hyperkalemia, Facial La Narrative: 75 yrs old male with Hx of CAD, HTN, COPD, CHF and AF who presented after waking up from sleep woth facial laceration. She doesn't recall falls, waking up from sleep or change in position. He was drinking night before. No prior similar episode per patient. He had no syncope or dizziness. on arrival he noted to have bleeding per rectum that is improving. He recently had rectal sigmoidoscopy for volvulus and polypectomy. He was in Tele and noted to have HR in 110 Review of Systems Review of Systems: All systems reviewed & are unremarkable except as noted in HPI and below PMFSH Past Medical History Medical History (Updated 07/31/21 @ 11:05 by Garett Kumar MD) Acute and chronic respiratory failure with hypoxia Afib Blood in stool CAD (coronary artery disease) Cataract CHF (congestive heart failure), NYHA class II Chronic respiratory failure with hypoxia, on home O2 therapy Colon, diverticulosis COPD (chronic obstructive pulmonary disease) Dehydration History of tobacco abuse HTN (hypertension), benign Mixed hyperlipidemia Restrictive lung disease Stroke Surgical History Surgical History H/O heart artery stent X2 History of cataract extraction History of PTCA S/P ORIF (open reduction internal fixation) fracture Right ankle with plates and screws Family History Family History Father Back pain, chronic Cataract Cerebrovascular accident Mother Arthritis Migraines Cataract Sibling No problems noted. Sibling Hearing loss Alcoholism Social History Social History Social History: The patient stated that he quit smoking a couple years ago. The patient is per and has 1 daughter. The patient worked for a [employer]. The patient's sister Sruthi kwan is his durable power trademark attorney for healthcare. The patient drinks socially but does not use any marijuana or illicit drugs. Code status full code Smoking packs per day: 2 Smoking cigarettes per day: 40.0 Years smoked: 45 Smoking pack-years: 90.00 Smoking status: Former smoker Second hand tobacco smoke exposure: No Alcohol intake: current Drinks per week: 10 Substance use: never Gender identity (if verbalized by the patient): Male Spiritual care concerns: No Meds Home Medications and Allergies Home Medications Medication Instructions Recorded Confirmed Type multivitamin 1 tablet PO DAILY 08/21/20 07/30/21 History lisinopril 20 mg PO Q12H 04/11/21 07/30/21 History melatonin 10 mg tablet 10 mg PO QHS PRN 04/22/21 07/30/21 History apixaban 5 mg tablet 5 mg PO Q12HR #180 tablet 05/08/21 07/30/21 Rx umeclidinium 62.5 mcg-vilanterol 1 inh INHALATION Q24H 30 Days #60 05/12/21 07/30/21 Rx 25 mcg/actuation powdr for ea inhalation albuterol sulfate [ProAir HFA] 1 inh INHALATION Q6H PRN 07/23/21 07/30/21 History atorvastatin [Lipitor] 20 mg PO DAILY 07/23/21 07/30/21 History bumetanide 1 mg PO BID 07/23/21 07/30/21 History clopidogrel [Plavix] 75 mg PO DAILY 07/23/21 07/30/21 History spironolactone 100 mg PO DAILY 07/23/21 07/30/21 History Allergies Allergy/AdvReac Type
--- NOTE | 2021-08-01 12:51 | PM.IMPN ---
Progress Note: A&P Assessment and Plan (1) Facial laceration: Code(s): S01.81XA - Laceration without foreign body of other part of head, initial encounter Status: Acute Assessment and Plan: A status post sutures CT of the head reviewed CT of the head face and cervical spine reviewed Fall precautions Supportive care 07/31/21 12:56 Chief Complaint: Forehead laceration Narrative: This is a 75-year-old male with past medical history significant for COPD, hypertension, coronary artery disease, atrial fibrillation, congestive heart failure class II, restrictive lung disease, mixed hyperlipidemia. Patient just recently discharged due to volvulus and rectal sigmoidoscopy performed patient was discharged to independent living facility. Patient presented today to the emergency room after he woke up from his sleep while he was in bed and he noticed that he had blood running down his face and his sheets. Upon further questioning 8 turns out to be that the patient had been drinking the night states that probably 3-4 drinks but maybe 6-8 drinks has no recollection of events. Patient denies any lightheadedness ,dizziness, or loss of consciousness, no fevers, no rigors, no chills, no chest pain, no shortness of breath, no cough, no sputum production, no nausea, no vomiting, no diarrhea. Preliminary workup was significant for CT of the head no acute intracranial abnormality, old strokes of the imelda, age related changes, CT of the head face and cervical spine did not show any acute fractures. 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 drinks 6-8 drinks daily, and concerning for DT will start the patient on Librium 25 mg q.6 as needed and monitor with CIWA protocol, will start the patient on folic acid and thiamine, patient has a rectal bleed most likely secondary to patient is on Eliquis and Plavix will consult champagne maker for further recommendation, patient has a melanoma will consult GI for recommendation, will continue monitor H&H and electrolytes, the PT OT evaluate the patient Interval history 08/01/2021 patient is a poor historian unable to provide what exactly happened to his face, 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 (2) Acute dehydration: Code(s): E86.0 - Dehydration Status: Acute Assessment and Plan: Receiving IV fluids Repeat BMP in the morning Suspect secondary to diuretic (3) Acute hyperkalemia: Code(s): E87.5 - Hyperkalemia Status: Acute Assessment and Plan: Patient is on spironolactone could have probably contributed to these as is a potassium-sparing agent Will repeat BMP (4) Chronic respiratory failure with hypoxia, on home O2 therapy: Code(s): J96.11 - Chronic respiratory failure with hypoxia; Z99.81 - Dependence on supplemental oxygen Status: Chronic Assessment and Plan: Patient currently on his usual choir minute of supplemental oxygen Continue to monitor (5) CHF (congestive heart failure): Code(s): I50.9 - Heart failure, unspecified Status: Acute Assessment and Plan: Appears to be euvolemic Continue to monitor daily intake and output (6) Hyponatremia: Code(s): E87.1 - Hypo-osmolality and hyponatremia Status: Acute Assessment and Plan: Likely secondary to the use of diuretics Receiving NS 0.9 (7) Atrial flutter with rapid ventricular response: Code(s): I48.92
[2021-08-01] MEDS: SODIUM CHLORIDE 0.9% IV 1,000 ML 75 ML IV CONT (13:37)
--- NOTE | 2021-08-01 17:43 | PC.NURSE ---
Sister called and expressed concern for patient's multiple espisodes of falling without memory of what caused his injuries. She stated that she would like the doctor or toddler caregiver to speak with him about how well he is adjusting to his new living situation in the independent living apartment. She states that he has lived at [facility] for a few months and still doesn't have his television or computer hooked up or have his boxes unpacked. She says that he is having a difficult time since he has moved there. She says he doesn't think he is not firing on all circuits.
[2021-08-01] MEDS: MELATONIN 5 MG TABLET 10 MG PO (20:29)
[2021-08-02] VITALS (11 sets, daily range): BP systolic 96–103; BP diastolic 50–58; PULSE 70–93; RESP 16–20; TEMP 36.1–36.7; O2SAT 91–97
[2021-08-02] MEDS: SODIUM CHLORIDE 0.9% IV 1,000 ML 75 ML IV CONT ×2 (05:06→17:23)
[2021-08-02 05:31] LABS: Hemoglobin 13.3 g/dL (14.0-18.0); Mean Corpuscular HGB Conc 31.7 g/dl (32-36); Mean Corpuscular Hemoglobin 32.4 pg (26-34); Mean Corpuscular Volume 102.4 fl (80-100); Mean Platelet Volume 9.9 fl (7.4-10.4); Platelet Count Result 233 k/mm3 (150-375); Red Cell Distribution Width 14.4 % (11.5-14.5); White Blood Count 8.6 K/mm3 (4.5-10.0)
[2021-08-02 05:53] LABS: Alanine Aminotransferase 29 U/L (4-50); Albumin Level 3.5 g/dL (3.5-5.1); Alkaline Phosphatase 51 U/L (38-126); Anion Gap 4 mmol/L (8-16); Aspartate Amino Transferase 28 U/L (17-59); Bilirubin,Total 0.4 mg/dL (0.2-1.3); Blood Urea Nitrogen 28 mg/dL (9-20); Calcium 8.9 mg/dL (8.4-10.2); Carbon Dioxide 32 mmol/L (22-30); Chloride 104 mmol/L (98-107); Estimated CRCL calculation 56 ml/min; Estimated Glomerular Filt Rate 54; Glucose 118 mg/dL (65-110); Magnesium 1.7 mg/dL (1.6-2.3); Potassium 4.2 mmol/L (3.4-5.0); Sodium 140 mmol/L (137-145)
[2021-08-02] MEDS: UMECLIDINIUM/VILANTEROL 62.5-25 MCG ELLIPTA 1 PUFF INHALATION (07:51)
[2021-08-02] MEDS: ASPIRIN 81 MG CHEWABLE TABLET 324 MG PO (08:03)
[2021-08-02] MEDS: SPIRONOLACTONE 50 MG TABLET 100 MG PO (08:04)
[2021-08-02] MEDS: THIAMINE HCL 100 MG TABLET PO (08:04)
[2021-08-02] MEDS: FOLIC ACID 1 MG TABLET PO (08:04)
[2021-08-02] MEDS: ATORVASTATIN 20 MG TABLET PO (08:04)
[2021-08-02] MEDS: lisinopriL 20 MG TABLET PO (08:04)
[2021-08-02] MEDS: APIXABAN 5 MG TABLET PO ×2 (08:04→20:30)
[2021-08-02] MEDS: BUMETANIDE 1 MG TABLET PO ×2 (08:04→16:51)
[2021-08-02] MEDS: MAGNESIUM OXIDE 400 MG TABLET PO (08:04)
[2021-08-02] MEDS: MULTIVITAMINS THERAPEUTIC TAB (*BKC) 1 TABLET PO (08:04)
--- NOTE | 2021-08-02 11:02 | PM.PNCARD ---
Progress Note: A&P Additional Plan AF with controlled V response, Hx of CAD and PCi to LCX and RCA in November 2020, Rectal bleeding likely related to recent sigmoidoscopy and polypectomy, facial trauma and bleeding, plan cont eliquis and ASA 81 mg daily, f/u in clinic, cardiology will sign off Subjective Date/time seen: 08/02/21 11:03 Interval history: no acuet events AF rate 50 to 80 Review of Systems Review of Systems: All systems reviewed & are unremarkable except as noted in HPI and below Exam Const: General: comfortable and no acute distress Other: Able to lie flat HENMT: General nose exam: Normal nares present and no epistaxis Mouth: Yes moist mucous membranes Eyes: Sclera: sclerae normal Pupils: Equal, round and reactive pupils present Neck: Neck: supple and no JVD Carotids: no bruits Resp: Auscultation: clear to auscultation bilaterally and lung sounds not diminished Other: No chest wall tenderness Cardio: Rate: abnormal rate Rhythm: abnormal rhythm Heart sounds: no gallops, no murmurs and no rubs GI: GI Palp: Yes Soft to palpation and No Tenderness to palpation present (GI) Auscultation: normal bowel sounds Skin: General skin exam: normal color, rashes and/or lesions noted and no erythema Other: Warm Neuro: Cranial nerves: Yes Equal, round and reactive pupils present Speech: normal speech Other: No obvious focal deficit or facial asymmetry Extrem: General: no edema Other: Normal capillary refills Intact distal pulses. Objective Data Vital Signs Vital Signs: Vital Signs - 24 hr 08/01/21 12:00 08/01/21 14:00 08/01/21 16:00 Temperature 36.2 C L Pulse Rate 95 58 L 91 Respiratory Rate 20 Blood Pressure 102/68 Pulse Oximetry 96 08/01/21 20:00 08/02/21 00:00 08/02/21 04:00 Temperature 36.2 C L Pulse Rate 89 70 73 Respiratory Rate 18 Blood Pressure 92/60 L Pulse Oximetry 96 08/02/21 04:28 08/02/21 07:52 08/02/21 08:00 Temperature 36.1 C L Pulse Rate 82 89 Respiratory Rate 20 Blood Pressure 103/51 L Pulse Oximetry 97 91 91 Intake/Output Intake/Output: Intake & Output 07/30/21 07/31/21 08/01/21 08/02/21 23:59 23:59 23:59 23:59 Intake Total 500 2900 3720 1630 Output Total 450 2800 600 Balance 500 2450 920 1030 Meds/Results Medications: Active Medications Generic Name Dose Route Start Last Admin Trade Name Freq PRN Reason Stop Dose Admin Albuterol 1 puff 07/31/21 01:14 Albuterol Sulfate (*Sp) Aerosol 1 Puff INHALATION Q6H PRN shortness of breath or wheezing Apixaban 5 mg 07/31/21 09:00 08/02/21 08:04 Apixaban 5 Mg Tablet PO 5 mg Q12HR ОЛЬГА Administration Aspirin 81 mg 08/03/21 09:00 Aspirin 81 Mg Enteric Tablet PO QAM ОЛЬГА Atorvastatin Calcium 20 mg 07/31/21 09:00 08/02/21 08:04 Atorvastatin 20 Mg Tablet PO 20 mg DAILY ОЛЬГА Administration Bumetanide 1 mg 07/31/21 09:00 08/02/21 08:04 Bumetanide 1 Mg Tablet PO 1 mg BID ОЛЬГА Administration Chlordiazepoxide HCl 25 mg 07/31/21 11:51 08/01/21 23:33 Chlordiazepoxide (*Crx) 25 Mg Capsule PO 25 mg Q6H PRN Administration Withdrawal Folic Acid 1 mg 07/31/21 21:00 08/02/21 08:04 Folic Acid 1 Mg Tablet PO 1 mg DAILY ОЛЬГА Administration Sodium Chloride 1,000 mls @ 75 mls/hr 07/30/21 18:30 08/02/21 05:06 Normal Saline Iv IV CONT 75 mls/hr .[id number] ОЛЬГА Administration Lisinopril 20 mg 07/31/21 09:00 08/02/21 08:04 Lisinopril 20 Mg Tablet PO 20 mg Q12HR ОЛЬГА Administration Magnesium Oxide 400 mg 08/01/21 09:00 08/02/21 08:04 Magnesium Oxide 400 Mg Tablet PO 400 mg QAM ОЛЬГА Administration Melatonin 10 mg 07/31/21 01:14 08/01/21 20:29 Melatonin 5 Mg Tablet PO 10 mg HS PRN Administration Insomnia Multivitamins Therapeutic 1 tablet 07/31/21 09:00 08/02/21 08:04 Multivitamins Therapeutic Tab (*Bkc) PO 1 tablet DAILY ОЛЬГА Administration Spironolactone 100
--- NOTE | 2021-08-02 14:27 | PM.IMPN ---
Progress Note: A&P Assessment and Plan (1) Facial laceration: Code(s): S01.81XA - Laceration without foreign body of other part of head, initial encounter Status: Acute Assessment and Plan: A status post sutures CT of the head reviewed CT of the head face and cervical spine reviewed Fall precautions Supportive care 07/31/21 12:56 Chief Complaint: Forehead laceration Narrative: This is a 75-year-old male with past medical history significant for COPD, hypertension, coronary artery disease, atrial fibrillation, congestive heart failure class II, restrictive lung disease, mixed hyperlipidemia. Patient just recently discharged due to volvulus and rectal sigmoidoscopy performed patient was discharged to independent living facility. Patient presented today to the emergency room after he woke up from his sleep while he was in bed and he noticed that he had blood running down his face and his sheets. Upon further questioning 8 turns out to be that the patient had been drinking the night states that probably 3-4 drinks but maybe 6-8 drinks has no recollection of events. Patient denies any lightheadedness ,dizziness, or loss of consciousness, no fevers, no rigors, no chills, no chest pain, no shortness of breath, no cough, no sputum production, no nausea, no vomiting, no diarrhea. Preliminary workup was significant for CT of the head no acute intracranial abnormality, old strokes of the imelda, age related changes, CT of the head face and cervical spine did not show any acute fractures. 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 drinks 6-8 drinks daily, and concerning for DT will start the patient on Librium 25 mg q.6 as needed and monitor with CIWA protocol, will start the patient on folic acid and thiamine, patient has a rectal bleed most likely secondary to patient is on Eliquis and Plavix will consult land surveyor assistant for further recommendation, patient has a melanoma will consult GI for recommendation, will continue monitor H&H and electrolytes, the PT OT evaluate the patient Interval history 08/01/2021 patient is a poor historian unable to provide what exactly happened to his face, 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 patient has no new complaint his hemoglobin is trending down with there is no kevin bleeding will continue to monitor and may discharge the patient tomorrow (2) Acute dehydration: Code(s): E86.0 - Dehydration Status: Acute Assessment and Plan: Receiving IV fluids Repeat BMP in the morning Suspect secondary to diuretic (3) Acute hyperkalemia: Code(s): E87.5 - Hyperkalemia Status: Acute Assessment and Plan: Patient is on spironolactone could have probably contributed to these as is a potassium-sparing agent Will repeat BMP (4) Chronic respiratory failure wi
[2021-08-03] VITALS (12 sets, daily range): BP systolic 84–120; BP diastolic 46–78; PULSE 68–100; RESP 18–20; TEMP 36.7–37; O2SAT 91–96
[2021-08-03] MEDS: SODIUM CHLORIDE 0.9% IV 1,000 ML 75 ML IV CONT (06:11)
[2021-08-03 06:43] LABS: Hematocrit 39.6 % (42.0-52.0); Hemoglobin 12.5 g/dL (14.0-18.0); Mean Corpuscular HGB Conc 31.6 g/dl (32-36); Mean Corpuscular Hemoglobin 31.9 pg (26-34); Mean Platelet Volume 10.1 fl (7.4-10.4); Platelet Count Result 232 k/mm3 (150-375); Red Blood Count 3.92 M/mm3 (4.6-6.20); Red Cell Distribution Width 14.4 % (11.5-14.5); White Blood Count 9.2 K/mm3 (4.5-10.0)
[2021-08-03 07:01] LABS: Alanine Aminotransferase 27 U/L (4-50); Albumin Level 3.5 g/dL (3.5-5.1); Alkaline Phosphatase 55 U/L (38-126); Anion Gap 4 mmol/L (8-16); Aspartate Amino Transferase 26 U/L (17-59); Bilirubin,Total 0.4 mg/dL (0.2-1.3); Blood Urea Nitrogen 24 mg/dL (9-20); Calcium 8.5 mg/dL (8.4-10.2); Carbon Dioxide 30 mmol/L (22-30); Chloride 103 mmol/L (98-107); Estimated CRCL calculation 71 ml/min; Estimated Glomerular Filt Rate > 60; Glucose 111 mg/dL (65-110); Magnesium 1.4 mg/dL (1.6-2.3); Potassium 3.7 mmol/L (3.4-5.0); Sodium 137 mmol/L (137-145)
--- NOTE | 2021-08-03 08:44 | PC.NURSE ---
Dr Dickens notified of bp 84/48, orders to turn ivf up to ns 125 ml/hr
--- NOTE | 2021-08-03 08:56 | PCOTNOTE ---
Attempted to see for OT, nurse requests to wait, due to low patient BP. Will follow up later.
[2021-08-03] MEDS: FOLIC ACID 1 MG TABLET PO (09:21)
[2021-08-03] MEDS: ASPIRIN 81 MG ENTERIC TABLET PO (09:21)
[2021-08-03] MEDS: APIXABAN 5 MG TABLET PO (09:21)
[2021-08-03] MEDS: THIAMINE HCL 100 MG TABLET PO (09:21)
[2021-08-03] MEDS: ATORVASTATIN 20 MG TABLET PO (09:21)
[2021-08-03] MEDS: MAGNESIUM OXIDE 400 MG TABLET PO (09:21)
[2021-08-03] MEDS: MULTIVITAMINS THERAPEUTIC TAB (*BKC) 1 TABLET PO (09:21)
[2021-08-03] MEDS: UMECLIDINIUM/VILANTEROL 62.5-25 MCG ELLIPTA 1 PUFF INHALATION (09:27)
--- NOTE | 2021-08-03 09:55 | PCPTNOTE ---
Attempted PT evaluation, however RN requested to check back after lunch due to pt's low BP. Will attempt again at a later date/time.
[2021-08-03] MEDS: MAGNESIUM SULF 2 GM/WATER 50ML 2 GM/50 ML BAG IVPB (12:48)
--- NOTE | 2021-08-03 13:11 | PM.IMPN ---
Progress Note: A&P Assessment and Plan (1) Facial laceration: Code(s): S01.81XA - Laceration without foreign body of other part of head, initial encounter Status: Acute Assessment and Plan: A status post sutures CT of the head reviewed CT of the head face and cervical spine reviewed Fall precautions Supportive care 07/31/21 12:56 Chief Complaint: Forehead laceration Narrative: This is a 75-year-old male with past medical history significant for COPD, hypertension, coronary artery disease, atrial fibrillation, congestive heart failure class II, restrictive lung disease, mixed hyperlipidemia. Patient just recently discharged due to volvulus and rectal sigmoidoscopy performed patient was discharged to independent living facility. Patient presented today to the emergency room after he woke up from his sleep while he was in bed and he noticed that he had blood running down his face and his sheets. Upon further questioning 8 turns out to be that the patient had been drinking the night states that probably 3-4 drinks but maybe 6-8 drinks has no recollection of events. Patient denies any lightheadedness ,dizziness, or loss of consciousness, no fevers, no rigors, no chills, no chest pain, no shortness of breath, no cough, no sputum production, no nausea, no vomiting, no diarrhea. Preliminary workup was significant for CT of the head no acute intracranial abnormality, old strokes of the imelda, age related changes, CT of the head face and cervical spine did not show any acute fractures. 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 drinks 6-8 drinks daily, and concerning for DT will start the patient on Librium 25 mg q.6 as needed and monitor with CIWA protocol, will start the patient on folic acid and thiamine, patient has a rectal bleed most likely secondary to patient is on Eliquis and Plavix will consult fire alarm technician for further recommendation, patient has a melanoma will consult GI for recommendation, will continue monitor H&H and electrolytes, the PT OT evaluate the patient Interval history 08/01/2021 patient is a poor historian unable to provide what exactly happened to his face, patient does have a history of alcoholic and drinks 6-8 drinks daily, and concerning for DT will start the patient on Librium 25 mg q.6 as needed and monitor with CIWA protocol, started the patient on folic acid and thiamine, patient has a rectal bleed, fire alarm technician and GI suspect 2/2 recent polypectomy and possibly secondary to patient is on Eliquis and Plavix, fire alarm technician recommended continue Eliquis and switch plavix to aspirin since its been six months since his last stent. Interval history 08/02/2021 patient is a poor historian unable to provide what exactly happened to his face, patient does have a history of alcoholic and drinks 6-8 drinks daily, and concerning for DT will start the patient on Librium 25 mg q.6 as needed and monitor with CIWA protocol, started the patient on folic acid and thiamine, patient has a rectal bleed, fire alarm technician and GI suspect 2/2 recent polypectomy and possibly secondary to patient is on Eliquis and Plavix, fire alarm technician recommended continue Eliquis and switch plavix to aspirin since its been six months since his last stent. patient has no new complaint his hemoglobin is trending down with there is no kevin bleeding will continue to monitor and may discharge the patient tomorrow. Interval history 08/03/2021 Patient remains clinically stable he has no complaint he denies any bleeding, denies any chest pain or shortness of breath or dizziness, his hemoglobin is trending down discussed with GI will recheck the patient, patient blood pressure is soft most likely secondary to dehydration and taking blood pressure medications will hold patient's medications and gently hydrate the patient and monitor blood pressure, the PT OT evaluate
[2021-08-03] MEDS: SODIUM CHLORIDE 0.9% IV 500 ML IV CONT (14:16)
[2021-08-03] MEDS: SODIUM CHLORIDE 0.9% IV 1,000 ML 125 ML IV CONT (14:17)
--- NOTE | 2021-08-03 18:23 | WPDGIPROGNO ---
Progress Note: A&P Assessment and Plan (1) Acute on chronic blood loss anemia: Code(s): D62 - Acute posthemorrhagic anemia Status: Acute Assessment and Plan: will proceed with egd tomorrow to asses if any source of gi blood loss had sigmoidoscopy during recent hospitalization, no need to repeat (2) Blood in stool: Code(s): K92.1 - Melena Status: Acute (3) Acute kidney failure: Code(s): N17.9 - Acute kidney failure, unspecified Status: Acute Assessment and Plan: resolved (4) Facial laceration: Code(s): S01.81XA - Laceration without foreign body of other part of head, initial encounter Status: Acute Assessment and Plan: on admission and required sutures, healing (5) Alcohol abuse: Code(s): F10.10 - Alcohol abuse, uncomplicated Status: Acute Subjective Date/time seen: 08/03/21 18:23 Interval history: no overt gib but primary team called again concerned about hb is downtrending. Patient is color blind and cant tell for sure if he saw blood earlier. No recent BM Review of Systems Review of Systems: All systems reviewed & are unremarkable except as noted in HPI and below Exam Const: General: comfortable and no acute distress HENMT: General nose exam: Normal nares present Eyes: Other: left orbit laceration Neck: Neck: supple Resp: Effort & Inspection: normal respiratory effort Cardio: Rate: regular rate GI: GI Palp: Yes Soft to palpation and No Guarding due to palpation present (GI) Auscultation: normal bowel sounds Skin: General skin exam: no rashes or lesions noted Neuro: Speech: normal speech Extrem: General: normal to inspection Psych: Mental Status: mental status grossly normal Objective Data Vital Signs Vital Signs: Vital Signs - 24 hr 08/02/21 20:29 08/02/21 20:30 08/02/21 20:31 Temperature 97.6 F Pulse Rate 83 73 Respiratory Rate 16 Blood Pressure 96/50 L Pulse Oximetry 95 95 08/03/21 00:00 08/03/21 04:00 08/03/21 06:00 Temperature 98.6 F Pulse Rate 86 79 68 Respiratory Rate 18 Blood Pressure 107/55 L Pulse Oximetry 95 08/03/21 08:00 08/03/21 08:44 08/03/21 12:00 Temperature Pulse Rate 93 82 Respiratory Rate Blood Pressure 90/50 L 84/48 L Pulse Oximetry 91 08/03/21 12:58 08/03/21 14:00 08/03/21 15:46 Temperature 98.6 F Pulse Rate 89 Respiratory Rate 20 Blood Pressure 120/78 84/46 L 90/60 L Pulse Oximetry 96 08/03/21 16:00 Temperature Pulse Rate 80 Respiratory Rate Blood Pressure Pulse Oximetry Intake/Output Intake/Output: Intake & Output 07/31/21 08/01/21 08/02/21 08/03/21 23:59 23:59 23:59 23:59 Intake Total 2900 3720 3660 2760 Output Total 450 2800 1000 1550 Balance 2450 920 2660 1210 Meds/Results Medications: Active Medications Generic Name Dose Route Start Last Admin Trade Name Freq PRN Reason Stop Dose Admin Albuterol 1 puff 07/31/21 01:14 Albuterol Sulfate (*Sp) Aerosol 1 Puff INHALATION Q6H PRN shortness of breath or wheezing Apixaban 5 mg 07/31/21 09:00 08/03/21 09:21 Apixaban 5 Mg Tablet PO 5 mg Q12HR ОЛЬГА Administration Aspirin 81 mg 08/03/21 09:00 08/03/21 09:21 Aspirin 81 Mg Enteric Tablet PO 81 mg QAM ОЛЬГА Administration Atorvastatin Calcium 20 mg 07/31/21 09:00 08/03/21 09:21 Atorvastatin 20 Mg Tablet PO 20 mg DAILY ОЛЬГА Administration Chlordiazepoxide HCl 25 mg 07/31/21 11:51 08/01/21 23:33 Chlordiazepoxide (*Crx) 25 Mg Capsule PO 25 mg Q6H PRN Administration Withdrawal Folic Acid 1 mg 07/31/21 21:00 08/03/21 09:21 Folic Acid 1 Mg Tablet PO 1 mg DAILY ОЛЬГА Administration Sodium Chloride 1,000 mls @ 125 mls/hr 07/30/21 18:30 08/03/21 14:17 Normal Saline Iv IV CONT 125 mls/hr .Q8H ОЛЬГА Administration Magnesium Oxide 400 mg 08/01/21 09:00 08/03/21 09:21 Magnesium Oxide 400 Mg Tablet PO 400 mg QAM ОЛЬГА
[2021-08-03] MEDS: MELATONIN 5 MG TABLET 10 MG PO (22:07)
[2021-08-04] VITALS (11 sets, daily range): BP systolic 89–110; BP diastolic 52–68; PULSE 71–97; RESP 16–28; TEMP 36.4–36.7; O2SAT 90–96
[2021-08-04 05:41] LABS: Hematocrit 39.7 % (42.0-52.0); Hemoglobin 12.4 g/dL (14.0-18.0); Mean Corpuscular HGB Conc 31.2 g/dl (32-36); Mean Corpuscular Hemoglobin 32.3 pg (26-34); Mean Corpuscular Volume 103.4 fl (80-100); Mean Platelet Volume 10.1 fl (7.4-10.4); Platelet Count Result 227 k/mm3 (150-375); Red Blood Count 3.84 M/mm3 (4.6-6.20); Red Cell Distribution Width 14.4 % (11.5-14.5); White Blood Count 8.5 K/mm3 (4.5-10.0)
[2021-08-04 05:45] LABS: Alanine Aminotransferase 24 U/L (4-50); Albumin Level 3.6 g/dL (3.5-5.1); Alkaline Phosphatase 56 U/L (38-126); Anion Gap 6 mmol/L (8-16); Aspartate Amino Transferase 26 U/L (17-59); Bilirubin,Total 0.4 mg/dL (0.2-1.3); Blood Urea Nitrogen 18 mg/dL (9-20); Calcium 8.8 mg/dL (8.4-10.2); Carbon Dioxide 28 mmol/L (22-30); Chloride 105 mmol/L (98-107); Estimated CRCL calculation 88 ml/min; Estimated Glomerular Filt Rate > 60; Glucose 108 mg/dL (65-110); Magnesium 1.7 mg/dL (1.6-2.3); Potassium 4.1 mmol/L (3.4-5.0); Sodium 139 mmol/L (137-145)
[2021-08-04] MEDS: SODIUM CHLORIDE 0.9% IV 1,000 ML 125 ML IV CONT (08:34)
[2021-08-04] MEDS: THIAMINE HCL 100 MG TABLET PO (08:36)
[2021-08-04] MEDS: ASPIRIN 81 MG ENTERIC TABLET PO (08:36)
[2021-08-04] MEDS: FOLIC ACID 1 MG TABLET PO (08:36)
[2021-08-04] MEDS: MAGNESIUM OXIDE 400 MG TABLET PO (08:36)
[2021-08-04] MEDS: ATORVASTATIN 20 MG TABLET PO (08:36)
[2021-08-04] MEDS: MULTIVITAMINS THERAPEUTIC TAB (*BKC) 1 TABLET PO (08:36)
[2021-08-04] MEDS: UMECLIDINIUM/VILANTEROL 62.5-25 MCG ELLIPTA 1 PUFF INHALATION (10:32)
--- NOTE | 2021-08-04 10:33 | PCRCNOTE ---
Window of time for administration has passed. See next scheduled administration.
[2021-08-04] MEDS: LACTATED RINGERS 1,000 ML 150 ML IV CONT (10:34)
--- NOTE | 2021-08-04 10:49 | PM.IMPN ---
Progress Note: A&P Assessment and Plan (1) Facial laceration: Code(s): S01.81XA - Laceration without foreign body of other part of head, initial encounter Status: Acute Assessment and Plan: 07/31/21 12:56 Chief Complaint: Forehead laceration Narrative: This is a 75-year-old male with past medical history significant for COPD, hypertension, coronary artery disease, atrial fibrillation, congestive heart failure class II, restrictive lung disease, mixed hyperlipidemia. Patient just recently discharged due to volvulus and rectal sigmoidoscopy performed patient was discharged to independent living facility. Patient presented today to the emergency room after he woke up from his sleep while he was in bed and he noticed that he had blood running down his face and his sheets. Upon further questioning 8 turns out to be that the patient had been drinking the night states that probably 3-4 drinks but maybe 6-8 drinks has no recollection of events. Patient denies any lightheadedness ,dizziness, or loss of consciousness, no fevers, no rigors, no chills, no chest pain, no shortness of breath, no cough, no sputum production, no nausea, no vomiting, no diarrhea. Preliminary workup was significant for CT of the head no acute intracranial abnormality, old strokes of the imelda, age related changes, CT of the head face and cervical spine did not show any acute fractures. 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 drinks 6-8 drinks daily, and concerning for DT will start the patient on Librium 25 mg q.6 as needed and monitor with CIWA protocol, will start the patient on folic acid and thiamine, patient has a rectal bleed most likely secondary to patient is on Eliquis and Plavix will consult lug loader for further recommendation, patient has a melanoma will consult GI for recommendation, will continue monitor H&H and electrolytes, the PT OT evaluate the patient Interval history 08/01/2021 patient is a poor historian unable to provide what exactly happened to his face, patient does have a history of alcoholic and drinks 6-8 drinks daily, and concerning for DT will start the patient on Librium 25 mg q.6 as needed and monitor with CIWA protocol, started the patient on folic acid and thiamine, patient has a rectal bleed, lug loader and GI suspect 2/2 recent polypectomy and possibly secondary to patient is on Eliquis and Plavix, lug loader recommended continue Eliquis and switch plavix to aspirin since its been six months since his last stent. Interval history 08/02/2021 patient is a poor historian unable to provide what exactly happened to his face, patient does have a history of alcoholic and drinks 6-8 drinks daily, and concerning for DT will start the patient on Librium 25 mg q.6 as needed and monitor with CIWA protocol, started the patient on folic acid and thiamine, patient has a rectal bleed, lug loader and GI suspect 2/2 recent polypectomy and possibly secondary to patient is on Eliquis and Plavix, lug loader recommended continue Eliquis and switch plavix to aspirin since its been six months since his last stent. patient has no new complaint his hemoglobin is trending down with there is no kevin bleeding. Interval history 08/03/2021 Patient remains clinically stable he has no complaint he denies any bleeding, denies any chest pain or shortness of breath or dizziness, his hemoglobin is trending down discussed with GI will recheck the patient, patient blood pressure is soft most likely secondary to dehydration and taking blood pressure medications will hold patient's medications and gently hydrate the patient and monitor blood pressure, the PT OT evaluate the patient further recommendation to follow. patient with history of alcohol abuse on CIWA protocol no sign of DT. Interval history 08/04/2021 Patient s going for EGD today. Pt to discharge th
--- NOTE | 2021-08-04 10:53 | PC.NURSE ---
On 08/04/21, the student, [ Carlos Brito ], provided care and completed [facility] documentation on this patient. I have reviewed the student's documentation and agree with the findings.
--- NOTE | 2021-08-04 11:05 | WPDANESEPPF ---
Anes - Initial Pre Proc Eval Procedure: Operation Date: 08/04/21 15:00 Proposed Procedures p Esophagogastroduodenoscopy - Garett Kumar MD Date/Time: 08/04/21 11:05 Surgeon: Estella Coates MD Pre Op Diagnosis: Acute Renal Insufficiency, Hyperkalemia, Facial La Patient Data Age: 75 Gender: M Height: 1.8 m Weight: 106.8 kg Last Vital Signs Temp 97.6 F 08/04/21 10:31 Pulse 80 08/04/21 10:31 Resp 20 08/04/21 10:31 BP 105/66 08/04/21 10:31 Pulse Ox 95 08/04/21 10:31 Allergies Allergy/AdvReac Type Severity Reaction Status Date / Time gadobenic acid Allergy Severe RASH, Verified 08/03/21 14:15 [From contrast - MRI] DIFFICULTY BREATHING, SHAKING Iodinated Contrast Media Allergy Severe RASH, Verified 08/03/21 14:15 DIFFICULTY BREATHING, SHAKING iodine Allergy Severe RASH, Verified 08/03/21 14:15 DIFFICULTY BREATHING, SHAKING iohexol Allergy Severe RASH, Verified 08/03/21 14:15 [From contrast - CT, X-RAY] DIFFICULTY BREATHING, SHAKING Home Medications Medication Instructions Recorded Confirmed Type multivitamin 1 tablet PO DAILY 08/21/20 07/30/21 History lisinopril 20 mg PO Q12H 04/11/21 07/30/21 History melatonin 10 mg tablet 10 mg PO QHS PRN 04/22/21 07/30/21 History apixaban 5 mg tablet 5 mg PO Q12HR #180 tablet 05/08/21 07/30/21 Rx umeclidinium 62.5 mcg-vilanterol 1 inh INHALATION Q24H 30 Days #60 05/12/21 07/30/21 Rx 25 mcg/actuation powdr for ea inhalation albuterol sulfate [ProAir HFA] 1 inh INHALATION Q6H PRN 07/23/21 07/30/21 History atorvastatin [Lipitor] 20 mg PO DAILY 07/23/21 07/30/21 History bumetanide 1 mg PO BID 07/23/21 07/30/21 History clopidogrel [Plavix] 75 mg PO DAILY 07/23/21 07/30/21 History spironolactone 100 mg PO DAILY 07/23/21 07/30/21 History Laboratory Tests 08/04/21 08/04/21 05:13 05:13 WBC 8.5 K/mm3 K/mm3 (4.5-10.0) RBC 3.84 M/mm3 L M/mm3 (4.6-6.20) Hgb 12.4 g/dL L g/dL (14.0-18.0) Hct 39.7 % L % (42.0-52.0) MCV 103.4 fl H fl (80-100) MCH 32.3 pg pg (26-34) MCHC 31.2 g/dl L g/dl (32-36) RDW 14.4 % % (11.5-14.5) Plt Count 227 k/mm3 k/mm3 (150-375) MPV 10.1 fl fl (7.4-10.4) Sodium 139 mmol/L mmol/L (137-145) Potassium 4.1 mmol/L mmol/L (3.4-5.0) Chloride 105 mmol/L mmol/L (98-107) Carbon Dioxide 28 mmol/L mmol/L (22-30) Anion Gap 6 mmol/L L mmol/L (8-16) BUN 18 mg/dL mg/dL (9-20) Creatinine 0.80 mg/dL mg/dL (0.7-1.3) Estim Creat Clear Calc 88 ml/min ml/min Estimated GFR > 60 (59 - ) Glucose 108 mg/dL mg/dL (65-110) Calcium 8.8 mg/dL mg/dL (8.4-10.2) Magnesium 1.7 mg/dL mg/dL (1.6-2.3) Total Bilirubin 0.4 mg/dL mg/dL (0.2-1.3) AST 26 U/L U/L (17-59) ALT 24 U/L U/L (4-50) Alkaline Phosphatase 56 U/L U/L (38-126) Total Protein 6.0 g/dL L g/dL (6.3-8.2) Albumin 3.6 g/dL g/dL (3.5-5.1) Patient hx anesthesia problems: none Family hx anesthesia problems: none Results Review: All pre-operative results and documents have been reviewed as part of the pre-operative evaluation. [facility] Past Medical History Medical History (Updated 08/04/21 @ 10:58 by Yoselin Rushing MD) Acute and chronic respiratory failure with hypoxia Acute on chronic blood loss anemia Afib Alcohol abuse Blood in stool CAD (coronary artery disease) Cataract CHF (congestive heart failure), NYHA class II Chronic respiratory failure with hypoxia, on home O2 therapy Colon, diverticulosis COPD (chronic obstructive pulmonary disease) Dehydration History of tobacco abuse HTN (hypertension), benign Mixed hyperlipidemia Restrictive lung disease Stroke Surgical History Surgical History H/O heart artery stent
--- NOTE | 2021-08-04 14:46 | PM.DS ---
DS: Admitting Diagnosis Discharge Date 08/04/2021 Admitting Diagnosis 07/31/2021 DS: Discharge Diagnosis Discharge Diagnosis (1) Facial laceration: Code(s): S01.81XA - Laceration without foreign body of other part of head, initial encounter Status: Acute Assessment and Plan: 07/31/21 12:56 Chief Complaint: Forehead laceration Narrative: This is a 75-year-old male with past medical history significant for COPD, hypertension, coronary artery disease, atrial fibrillation, congestive heart failure class II, restrictive lung disease, mixed hyperlipidemia. Patient just recently discharged due to volvulus and rectal sigmoidoscopy performed patient was discharged to independent living facility. Patient presented today to the emergency room after he woke up from his sleep while he was in bed and he noticed that he had blood running down his face and his sheets. Upon further questioning 8 turns out to be that the patient had been drinking the night states that probably 3-4 drinks but maybe 6-8 drinks has no recollection of events. Patient denies any lightheadedness ,dizziness, or loss of consciousness, no fevers, no rigors, no chills, no chest pain, no shortness of breath, no cough, no sputum production, no nausea, no vomiting, no diarrhea. Preliminary workup was significant for CT of the head no acute intracranial abnormality, old strokes of the imelda, age related changes, CT of the head face and cervical spine did not show any acute fractures. 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 drinks 6-8 drinks daily, and concerning for DT will start the patient on Librium 25 mg q.6 as needed and monitor with CIWA protocol, will start the patient on folic acid and thiamine, patient has a rectal bleed most likely secondary to patient is on Eliquis and Plavix will consult heel packer for further recommendation, patient has a melanoma will consult GI for recommendation, will continue monitor H&H and electrolytes, the PT OT evaluate the patient Interval history 08/01/2021 patient is a poor historian unable to provide what exactly happened to his face, patient does have a history of alcoholic and drinks 6-8 drinks daily, and concerning for DT will start the patient on Librium 25 mg q.6 as needed and monitor with CIWA protocol, started the patient on folic acid and thiamine, patient has a rectal bleed, heel packer and GI suspect 2/2 recent polypectomy and possibly secondary to patient is on Eliquis and Plavix, heel packer recommended continue Eliquis and switch plavix to aspirin since its been six months since his last stent. Interval history 08/02/2021 patient is a poor historian unable to provide what exactly happened to his face, patient does have a history of alcoholic and drinks 6-8 drinks daily, and concerning for DT will start the patient on Librium 25 mg q.6 as needed and monitor with CIWA protocol, started the patient on folic acid and thiamine, patient has a rectal bleed, heel packer and GI suspect 2/2 recent polypectomy and possibly secondary to patient is on Eliquis and Plavix, heel packer recommended continue Eliquis and switch plavix to aspirin since its been six months since his last stent. patient has no new complaint his hemoglobin is trending down with there is no kevin bleeding. Interval history 08/03/2021 Patient remains clinically stable he has no complaint he denies any bleeding, denies any chest pain or shortness of breath or dizziness, his hemoglobin is trending down discussed with GI will recheck the patient, patient blood pressure is soft most likely secondary to dehydration and taking blood pressure medications will hold patient's medications and gently hydrate the patient and monitor blood pressure, the PT OT evaluate the patient further recommendation to follow. patient with history of alcohol abuse on CIWA protocol no
== END 2021-08-04 17:00 | disposition home or self-care (01) ==
LOC: ANHED 18:39 → ANH2MED 07-31 05:15
PROVIDERS: Family Medicine; Internal Medicine; Internal Medicine Gastroenterology; Admitting Provider Internal Medicine; Emergency Provider Emergency Medicine; PCP Family Medicine; Visit Provider Family Medicine
PROC: 0DJ08ZZ Inspection of Upper Intestinal Tract, Via Natural or Artificial Opening Endoscopic (ICD-10-PCS; CPT 43235; principal; 2021-08-04 15:00)
DX: S01.81XA Laceration without foreign body of other part of head, initial encounter (principal); K29.70 Gastritis, unspecified, without bleeding; W19.XXXA Unspecified fall, initial encounter; R19.5 Other fecal abnormalities; D50.0 Iron deficiency anemia secondary to blood loss (chronic); J96.11 Chronic respiratory failure with hypoxia; J44.9 Chronic obstructive pulmonary disease, unspecified; I11.0 Hypertensive heart disease with heart failure; I50.9 Heart failure, unspecified; I25.10 Atherosclerotic heart disease of native coronary artery without angina pectoris; I48.91 Unspecified atrial fibrillation; E78.5 Hyperlipidemia, unspecified; Z79.01 Long term (current) use of anticoagulants; Z79.02 Long term (current) use of antithrombotics/antiplatelets
CPT/HCPCS: 43239; 12013; 36415; 36600; 70450; 70486; 71045; 72125; 80048; 80053; 81001; 82805; 83735; 85025; 85027; 85610; 85730; 88305; 90471; 90715; 93005; 94640; 96360; 96361; 96374; 97161; 97165; 99285; A9270; G0378; J2704; J3475; J7030; J7040; J7120

== ENCOUNTER 2021-11-17 10:17 | Outpatient (CLI) | payer MEDICARE, SELFPAY ==
[2021-11-17 10:30] VITALS: PULSE 68; O2SAT 92
[2021-11-17 10:33] VITALS: PULSE 74; O2SAT 87
[2021-11-17 10:34] VITALS: PULSE 78; O2SAT 91
[2021-11-17 10:45] VITALS: PULSE 66; O2SAT 95
--- NOTE | 2021-11-17 11:54 | HOMEO2EVAL ---
Evaluation was performed at [facility] Home Oxygen Evaluation RC: Home Oxygen (O2) Evaluation Start: 11/17/21 11:52 Freq: Status: Active Protocol: RPE Activity Type Activity Date Activity User E-Sign Co-Sign Detail Recorded Client Recorded Date Recorded By Document 11/17/21 10:30 TATUM [id number] 11/17/21 11:54 TATUM Document 11/17/21 10:33 TATUM [email or web address] 11/17/21 11:54 TATUM Document 11/17/21 10:34 TATUM [email or web address] 11/17/21 11:54 TATUM Document 11/17/21 10:45 TATUM [email or web address] 11/17/21 11:54 TATUM 11/17/21 11/17/21 11/17/21 10:30 10:33 10:34 Home O2 Evaluation Test Phase Resting Exercise Exercise Oxygen Delivery Room Air Room Air Nasal Cannula Oxygen Flow Rate (L/min) 1 Pulse Oximetry (90-100 %) 92 87 L 91 Pulse Rate (60-100 beats/min) 68 74 78 Home Oxygen Evaluation Comments PT REQUIRES 1 L WITH ACTIVITY Treatment Charges O2 Evaluation - Outpatient 11/17/21 10:45 Home O2 Evaluation Test Phase Resting Oxygen Delivery Room Air Oxygen Flow Rate (L/min) Pulse Oximetry (90-100 %) 95 Pulse Rate (60-100 beats/min) 66 Home Oxygen Evaluation Comments Treatment Charges
--- NOTE | 2021-11-17 11:54 | PCRCNOTE ---
HOME O2 EVAL COMPLETED AND FAXED TO OFFICE STAFF
--- NOTE | 2021-11-17 12:09 | P.PCNPFT_ITS ---
PFT Procedure Performed PFT Procedure Performed Spirometry with Pre/Post Bronchodilator Plethysmography (Lung Vol) Diffusing Cap (DLCO) Flow Vol Loop PFT Interpretation Lung were measured with the body plethysmography method. Lung volumes are unremarkable. Spirometry showed diminished expiratory flow rates and a diminis hed FEV1 to FVC ratio 68% consistent with obstructive airway disease. Following administration of a bronchodilator there was no significant change in the expiratory flow rates. Lung diffusion capacity is severely reduced at 43% predicted. Impression: Moderate obstructive airway disease with no response to bronchodilators on this testing. Severely reduced lung diffusion capacity.
== END 2021-11-17 10:18 | disposition home or self-care (01) ==
PROVIDERS: PCP Family Medicine; Visit Provider Internal Medicine Critical Care Medicine
DX: J44.9 Chronic obstructive pulmonary disease, unspecified (principal); J96.11 Chronic respiratory failure with hypoxia; Z99.81 Dependence on supplemental oxygen
CPT/HCPCS: 94060; 94618; 94726; 94729

== ENCOUNTER 2021-11-19 10:59 | Emergency (ER) | payer MEDICARE, SELFPAY ==
[2021-11-19 11:00] VITALS: BP 144/55; PULSE 68; RESP 20; TEMP 36.3; O2SAT 97
--- NOTE | 2021-11-19 11:19 | ED.WOUNDLAC ---
HPI - Wound/Laceration General Chief Complaint: Wound/Laceration Stated Complaint: l arm laceration Time Seen by Provider: 11/19/21 11:15 Source: patient, RN notes reviewed and old records reviewed Mode of arrival: ambulatory Limitations: no limitations History of Present Illness HPI narrative: 76-year-old male who presents to [facility] with stated complaints of skin tears to his left dorsal forearm which have bleeding that he can't get to stop. Patient states that he vaguely recalls hitting the wall with his left arm when he got up to use restroom during the night denies any known fall. Patient does admit to drinking alcohol last night of at least 6 drinks, reports that he does drink alcohol 3-4 times a week denies alcohol use daily. Patient is on daily anticoagulants of Plavix and Eliquis. Patient reports that he lives alone and has no one to change his dressing ,appointment made for him for follow up in his doctor's office on the of this month at 1430. Related Data Home Medications Medication Instructions Recorded Confirmed multivitamin 1 tablet PO DAILY 08/21/20 11/19/21 melatonin 10 mg tablet 10 mg PO QHS PRN 04/22/21 11/19/21 albuterol sulfate [ProAir HFA] 1 inh INHALATION Q6H PRN 07/23/21 11/19/21 atorvastatin [Lipitor] 20 mg PO DAILY 07/23/21 11/19/21 clopidogrel [Plavix] 75 mg PO DAILY 07/23/21 11/19/21 spironolactone 100 mg PO DAILY 07/23/21 11/19/21 Allergies Allergy/AdvReac Type Severity Reaction Status Date / Time gadobenic acid Allergy Severe RASH, Verified 11/19/21 11:11 [From contrast - MRI] DIFFICULTY BREATHING, SHAKING Iodinated Contrast Media Allergy Severe RASH, Verified 11/19/21 11:11 DIFFICULTY BREATHING, SHAKING iodine Allergy Severe RASH, Verified 11/19/21 11:11 DIFFICULTY BREATHING, SHAKING iohexol Allergy Severe RASH, Verified 11/19/21 11:11 [From contrast - CT, X-RAY] DIFFICULTY BREATHING, SHAKING Review of Systems Review of Systems: CONSTITUTIONAL: Denies fever, chills, or sweats. EYES: Denies visual changes, redness, or discharge. ENT: Denies rhinorrhea, congestion, sore throat, or otalgia. CARDIOVASCULAR: Denies chest pain, palpitations, trace pedal edema. RESPIRATORY: positive for chronic cough with BRYANT. GASTROINTESTINAL: Denies abdominal pain, nausea, vomiting, or diarrhea. GENITOURINARY: Denies dysuria or hematuria. SKIN: Denies rash or itching. MUSCULOSKELETAL: Denies acute back pain, joint pain, or myalgia. NEUROLOGIC: Denies headache, numbness, or weakness. PSYCHIATRIC: history of anxiety or depression. All systems reviewed & are unremarkable except as noted in HPI and below PMFSH Past Medical History Medical History Acute and chronic respiratory failure with hypoxia Acute on chronic blood loss anemia Afib Alcohol abuse Blood in stool CAD (coronary artery disease) Cataract CHF (congestive heart failure), NYHA class II Chronic respiratory failure with hypoxia, on home O2 therapy Colon, diverticulosis COPD (chronic obstructive pulmonary disease) Dehydration History of tobacco abuse HTN (hypertension), benign Mixed hyperlipidemia Restrictive lung disease Stroke (~03/31/17) Surgical History Surgical History H/O heart artery stent X2 History of cataract extraction right 2020 History of PTCA S/P ORIF (open reduction internal fixation) fracture Right ankle with plates and screws Family History Family History Father Back pain, chronic Cataract Cerebrovascular accident Mother Arthritis Migraines Cataract Sibling No problems noted. Sibling Hearing loss Alcoholism Social History Social History Social History: The patient stated that he quit
== END 2021-11-19 11:50 | disposition home or self-care (01) ==
PROVIDERS: Emergency Provider Registered Nurse; PCP Family Medicine
DX: S51.812A Laceration without foreign body of left forearm, initial encounter (principal); W22.09XA Striking against other stationary object, initial encounter; Z79.01 Long term (current) use of anticoagulants; Z87.891 Personal history of nicotine dependence; I48.91 Unspecified atrial fibrillation; I25.10 Atherosclerotic heart disease of native coronary artery without angina pectoris; I11.0 Hypertensive heart disease with heart failure; I50.9 Heart failure, unspecified; E78.2 Mixed hyperlipidemia; Z86.73 Personal history of transient ischemic attack (TIA), and cerebral infarction without residual deficits; Z95.5 Presence of coronary angioplasty implant and graft; Z99.81 Dependence on supplemental oxygen
CPT/HCPCS: 99212; G0463

== ENCOUNTER 2021-11-22 15:13 | Emergency (ER) | payer MEDICARE, SELFPAY ==
--- NOTE | ~2021-11-22 | XR_ITS ---
XR chest 1V portable DATE: 11/22/2021 16:21 INDICATION: Shortness of breath. History of hypertension and to coronary artery stent placements. TECHNIQUE: Portable upright AP chest on 11/22/2021 at 1615 hours COMPARISON: 07/30/2021 portable AP chest FINDINGS: There is prominent elevation of the left leaf of the diaphragm. Mild atelectasis is suggested at the lung bases. The lungs otherwise appear clear. Heart size is not optimally evaluated on AP projection because of magnification and because of the el evated left diaphragm. Aortic arch calcification. No pulmonary vascular congestion or pleural effusion or pneumothorax is evident. Diffuse osteopenia. Degenerative spurring of the thoracic spine. IMPRESSION: Elevated left diaphragm Mild bibasilar atelectasis is suggested Reviewed, dictated and finalized at location A.
[2021-11-22 15:15] VITALS: BP 137/74; PULSE 66; RESP 24; TEMP 36.7; O2SAT 96
--- NOTE | 2021-11-22 16:11 | ED.GENADULT ---
HPI - General Adult General Chief complaint: Wound/Laceration Stated complaint: FALL/SKIN TEAR Time Seen by Provider: 11/22/21 15:53 History of Present Illness HPI narrative: Patient is a 76-year-old gentleman who presented to emergency room with 3 skin tears noted to his left medial arm after falling on . Patient states that he tripped and fell onto the rug and had 3 skin tears on his left arm and he has not been able to stop the bleeding. Patient states he was on a blood thinner for atrial fibrillation. Patient denies any pain to his arms or fingers. Patient states he has full active range of motion without any pain. Patient states that he has noted some slight increase in shortness of breath with activity over the last few days. Patient states that he does have a known history of COPD who is oxygen at 1 L per nasal cannula at home continuously. Patient denies any cough or sputum production. Patient denies any fever or chills at home. Related Data Home Medications Medication Instructions Recorded Confirmed multivitamin 1 tablet PO DAILY 08/21/20 11/19/21 melatonin 10 mg tablet 10 mg PO QHS PRN 04/22/21 11/19/21 albuterol sulfate [ProAir HFA] 1 inh INHALATION Q6H PRN 07/23/21 11/19/21 atorvastatin [Lipitor] 20 mg PO DAILY 07/23/21 11/19/21 clopidogrel [Plavix] 75 mg PO DAILY 07/23/21 11/19/21 spironolactone 100 mg PO DAILY 07/23/21 11/19/21 Allergies Allergy/AdvReac Type Severity Reaction Status Date / Time gadobenic acid Allergy Severe RASH, Verified 11/19/21 11:11 [From contrast - MRI] DIFFICULTY BREATHING, SHAKING Iodinated Contrast Media Allergy Severe RASH, Verified 11/19/21 11:11 DIFFICULTY BREATHING, SHAKING iodine Allergy Severe RASH, Verified 11/19/21 11:11 DIFFICULTY BREATHING, SHAKING iohexol Allergy Severe RASH, Verified 11/19/21 11:11 [From contrast - CT, X-RAY] DIFFICULTY BREATHING, SHAKING Review of Systems Review of Systems: 12 point review of systems was completed. Positive negative per HPI remain unremarkable PMFSH Past Medical History Medical History Acute and chronic respiratory failure with hypoxia Acute on chronic blood loss anemia Afib Alcohol abuse Blood in stool CAD (coronary artery disease) Cataract CHF (congestive heart failure), NYHA class II Chronic respiratory failure with hypoxia, on home O2 therapy Colon, diverticulosis COPD (chronic obstructive pulmonary disease) Dehydration History of tobacco abuse HTN (hypertension), benign Mixed hyperlipidemia Restrictive lung disease Stroke (~03/31/17) Surgical History Surgical History H/O heart artery stent X2 History of cataract extraction right 2020 History of PTCA S/P ORIF (open reduction internal fixation) fracture Right ankle with plates and screws Family History Family History Father Back pain, chronic Cataract Cerebrovascular accident Mother Arthritis Migraines Cataract Sibling No problems noted. Sibling Hearing loss Alcoholism Social History Social History Social History: The patient stated that he quit smoking a couple years ago. The patient is per and has 1 daughter. The patient worked for a [employer]. The patient's sister Sruthi kwan is his durable power senior trial attorney for healthcare. The patient drinks socially but does not use any marijuana or illicit drugs. Code status full code Smoking packs per day: 2 Smoking cigarettes per day: 40.0 Years smoked: 45 Smoking pack-years: 90.00 Smoking status: Former smoker Second hand tobacco smoke exposure: No Smoking end date: 03/05/17 Alcohol intake: current Drinks per week: 10 Substance use: never
--- NOTE | 2021-11-22 19:26 | PC.NURSE ---
Attempted to call listed family members for a ride for patient with no answer with exception to his daughter Ludy who is 4 hours away. Pt also missing his cell phone but is unsure when he last had it. Called EMS service who checked their truck and did not see it. Called [place] to see if they could check his apartment.
[2021-11-22 19:41] VITALS: BP 141/67; PULSE 65; RESP 24; O2SAT 96
[2021-11-22 19:42] VITALS: BP 141/67; PULSE 65; RESP 24; O2SAT 96
== END 2021-11-22 19:58 ==
PROVIDERS: Emergency Provider Nurse Practitioner Adult Health; PCP Family Medicine
DX: S51.812A Laceration without foreign body of left forearm, initial encounter (principal); J44.9 Chronic obstructive pulmonary disease, unspecified; I48.91 Unspecified atrial fibrillation; I25.10 Atherosclerotic heart disease of native coronary artery without angina pectoris; I50.9 Heart failure, unspecified; J96.11 Chronic respiratory failure with hypoxia; I11.0 Hypertensive heart disease with heart failure; E78.2 Mixed hyperlipidemia; Z86.73 Personal history of transient ischemic attack (TIA), and cerebral infarction without residual deficits; Z99.81 Dependence on supplemental oxygen; Z95.5 Presence of coronary angioplasty implant and graft; Z98.42 Cataract extraction status, left eye; Z98.41 Cataract extraction status, right eye; Z87.891 Personal history of nicotine dependence; Z79.01 Long term (current) use of anticoagulants; Z79.02 Long term (current) use of antithrombotics/antiplatelets; W01.0XXA Fall on same level from slipping, tripping and stumbling without subsequent striking against object, initial encounter
CPT/HCPCS: 71045; 99283

== ENCOUNTER 2021-11-26 18:03 | Inpatient (IN) | payer MEDICARE, SELFPAY ==
[2021-11-26] VITALS (31 sets, daily range): BP systolic 91–154; BP diastolic 50–130; PULSE 52–79; RESP 13–27; O2SAT 92–100
--- NOTE | ~2021-11-26 | CT_ITS ---
EXAMINATION: CT brain wo con EXAM DATE: 11/26/2021 18:43 INDICATION: Dizziness, fall on blood thinners. TECHNIQUE: Spiral CT of the head was performed without contrast. Axial, coronal and sagittal images were reviewed. The dose-length product (DLP) for this examination was 681.00 mGy-cm. The exposure w as tailored according to patient size, and iterative reconstruction (ASIR) was used as additional dos e reduction technique. Comparison is made to prior examination from 07/30/2021. FINDINGS: There is no acute intraparenchymal hemorrhage. No evidence of intraparenchymal brain mass lesion. No evidence of acute infarction. Please note that initial head CT has limited sensitivity f or small or acute infarctions. There is mild to moderate periventricular and subcortical hypodensity, nonspecific but probably related to small vessel ischemic disease. There is mild to moderate promi nence of the sulci and ventricles related to cerebral atrophy. There is intracranial carotid arteri osclerosis. There are no extra-axial collections. There is no mass effect or midline shift. Patien t has had bilateral ocular lens surgery. Soft tissue is unremarkable. The visualized sinuses and ma stoid air cells are well aerated. IMPRESSION: 1. No acute intracranial findings. 2. Chronic age related findings. Reviewed, dictated and finalized at location G.
--- NOTE | ~2021-11-26 | CT_ITS ---
EXAMINATION: CT chest abdomen pelvis wo con EXAM DATE: 11/26/2021 22:25 INDICATION: Shortness of breath abdominal distension leukocytosis. TECHNIQUE: Spiral CT of the chest, abdomen and pelvis was performed without contrast. Axial, matos l and sagittal images chest, abdomen and pelvis were reviewed. Coronal maximum intensity pixel image s of chest reviewed. The dose-length product (DLP) for this examination was 1498.89 mGy-cm. The exp osure was tailored according to patient size (auto mA exposure control), and iterative reconstruction (ASIR) was used as additional dose reduction technique. Comparison is made to prior examination from 07/23/2021. 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 There is left lower lobe, lingular segmental atelectasis. Subsegmental right lower lobe atelectasis. There are no pleural or pericardial effusions. Tracheobronchial tree is patent. There is no mediastinal, hilar or axillar y lymphadenopathy. There is no pneumothorax. Cardiomegaly. There is mild to moderate emphysema. T here are dense coronary arteries, could be severe coronary arterial sclerosis and/or coronary artery stent(s), which are difficult to distinguish due to cardiac motion on this non-gated exam. Correlate with cardiac history and consider cardiology consult if not recently evaluated. ABDOMEN PELVIS: The liver, spleen, adrenal glands and pancreas are unremarkable. There are gallstone s within an otherwise unremarkable gallbladder. No evidence of obstructive biliary disease. Punctat e bilateral nephrolithiasis. No ureteral stones. The prostate is unremarkable. The bladder is diste nded but otherwise unremarkable. There is no retroperitoneal or pelvic lymphadenopathy. There is m oderate scattered arteriosclerotic disease. Small umbilical fat-containing hernia. The appendix is normal. The stomach and small bowel are unremarkable. There is moderate to large am ount of gas with air-fluid levels in the ascending and transverse colon. This tapers to more normal c aliber descending colon. There is moderate descending and sigmoid colonic colonic diverticulosis. Th ere is no adjacent inflammatory change to suggest diverticulitis. No free intraperitoneal gas. T here are no osteoblastic or osteolytic lesions identified. IMPRESSION: 1. Moderate to large amount of ascending and transverse colonic fluid and gas without colonic obstru ction. No transition point. Probably colonic ileus. 2. Moderate colonic diverticulosis. 3. Bibasilar airspace disease consistent with atelectasis. Can't totally exclude pneumonia. 4. 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 5. Mild to moderate emphysema. 6. Dense coronary artery calcifications. 7. Punctate bilateral nephrolithiasis. Reviewed, dictated and finalized at location G. IMPRESSION: 1. Moderate to large amount of ascending and transverse colonic fluid and gas without colonic obstruction. No transition point. Probably colonic ileus. 2. Moderate colonic diverticulosis. 3. Bibasilar airspace disease consistent with atelectasis. Can't totally exclu de pneumonia. 4. 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 5. Mild to moderate emphysema. 6. Dense coronary artery calcifications. 7. Punctate bilateral nephrolithiasis.
--- NOTE | ~2021-11-26 | XR_ITS ---
EXAMINATION: XR chest 1V portable DATE: 11/28/2021 14:01 INDICATION: Shortness of breath and cough TECHNIQUE: frontal view of the chest was obtained. COMPARISON: Chest radiograph dated 11/26/2021 FINDINGS: Previously marked elevation of the left hemidiaphragm has decreased. Persistent opacities at the bila teral lower lung zones. No pleural effusion or pneumothorax. Cardiomegaly. IMPRESSION: 1. Persistent bibasilar opacities consistent with atelectasis and/or pneumonia. 2. Decrease in the degree of elevation of the left hemidiaphragm which may have been increased in the prior study due to the gaseous distention of the underlying splenic flexure of the colon. Reviewed, dictated and finalized at location A. IMPRESSION: 1. Persistent bibasilar opacities consistent with atelectasis and/or pneumonia. 2. Decrease in the degree of elevation of the left hemidiaphragm which may have been increased in the prior study due to the gaseous distention of the underly ing splenic flexure of the colon.
--- NOTE | ~2021-11-26 | XR_ITS ---
EXAMINATION: XR chest 2V EXAM DATE: 11/26/2021 19:44 INDICATION: Cough, dizziness, hyponatremia. TECHNIQUE: Frontal and lateral projections of the chest obtained and reviewed. Comparison is made to prior examination from 11/22/2021. FINDINGS: Chronic severe elevation left hemidiaphragm with adjacent multisegmental compressive atele ctasis, unchanged compared to prior study. There is distended air-filled colon. No pneumothorax or si zable pleural effusion. Cardiomegaly. There are bony degenerative changes. IMPRESSION: 1. Chronic left hemidiaphragm elevation, likely paralysis, adjacent multisegmental atelectasis. 2. Distended air-filled colon. Reviewed, dictated and finalized at location G. IMPRESSION: 1. Chronic left hemidiaphragm elevation, likely paralysis, adjacent multisegme ntal atelectasis. 2. Distended air-filled colon.
--- NOTE | ~2021-11-26 | XR_ITS ---
EXAMINATION: XR abdomen/kub 1V DATE: 12/01/2021 12:12 INDICATION: Abdominal distention. TECHNIQUE: A supine view of the abdomen on 2 radiographs was obtained. COMPARISON: CT abdomen and pelvis 11/26/2021 FINDINGS: The colon is predominantly gas-filled and mildly distended. The small bowel is normal in ca liber. IMPRESSION: 1. Mildly distended colon, likely adynamic ileus. Reviewed, dictated and finalized at location A.
--- NOTE | 2021-11-26 18:16 | ED.FALL ---
HPI - Fall General Chief Complaint: Dizziness Stated Complaint: FALL Time Seen by Provider: 11/26/21 18:15 Source: patient Mode of arrival: EMS Limitations: no limitations History of Present Illness HPI Narrative: Patient is a 76-year-old male who presents to the ED, via EMS, with report of a fall. Patient is a resident of [facility]. He reports he was going to get his mail today from the mailbox when he became dizzy and fell. He states he has been intermittently dizzy, described as lightheadedness, for the past 6 months. He reports he has seen his PCP for this who has been adjusting his medications. Patient denies any head injury or loss of consciousness, but notes he is on Eliquis and Plavix. He uses a cane for assistance with ambulation but was not using this today. He reports he last fell a couple weeks ago. Patient also reports having an intermittent cough for the past few weeks. He chronically wears 1 L nasal cannula, but increases this to 2 to 4 L with exertion. He reports having shortness of breath currently in the ED bed, but denies any other complaints. No fever, chills, headache, nausea, vomiting, abdominal pain, back pain, chest pain, BLE pain or edema. Related Data Home Medications Medication Instructions Recorded Confirmed multivitamin 1 tablet PO DAILY 08/21/20 11/27/21 melatonin 10 mg tablet 10 mg PO QHS PRN 04/22/21 11/27/21 atorvastatin [Lipitor] 20 mg PO DAILY 07/23/21 11/27/21 clopidogrel [Plavix] 75 mg PO DAILY 07/23/21 11/27/21 spironolactone 100 mg PO DAILY 07/23/21 11/27/21 bumetanide 1 mg PO DAILY 11/27/21 11/27/21 Allergies Allergy/AdvReac Type Severity Reaction Status Date / Time gadobenic acid Allergy Severe RASH, Verified 11/25/21 14:24 [From contrast - MRI] DIFFICULTY BREATHING, SHAKING Iodinated Contrast Media Allergy Severe RASH, Verified 11/25/21 14:24 DIFFICULTY BREATHING, SHAKING iodine Allergy Severe RASH, Verified 11/25/21 14:24 DIFFICULTY BREATHING, SHAKING iohexol Allergy Severe RASH, Verified 11/25/21 14:24 [From contrast - CT, X-RAY] DIFFICULTY BREATHING, SHAKING Review of Systems Review of Systems: CONSTITUTIONAL: Denies fever, chills, or sweats. CARDIOVASCULAR: Denies chest pain, palpitations, or edema. RESPIRATORY: Reports cough and dyspnea. GASTROINTESTINAL: Denies abdominal pain, nausea, vomiting, or diarrhea. GENITOURINARY: Denies dysuria or hematuria. MUSCULOSKELETAL: Denies back pain, joint pain, or myalgia. NEUROLOGIC: Reports dizziness, lightheadedness. Denies headache, numbness, or weakness. All systems reviewed & are unremarkable except as noted in HPI and below PMFSH Past Medical History Medical History Acute and chronic respiratory failure with hypoxia Acute on chronic blood loss anemia Afib Alcohol abuse Blood in stool CAD (coronary artery disease) Cataract CHF (congestive heart failure), NYHA class II Chronic respiratory failure with hypoxia, on home O2 therapy Colon, diverticulosis COPD (chronic obstructive pulmonary disease) Dehydration History of tobacco abuse HTN (hypertension), benign Mixed hyperlipidemia Restrictive lung disease Stroke (~03/31/17) Surgical History Surgical History H/O heart artery stent X2 History of cataract extraction right 2020 History of PTCA S/P ORIF (open reduction internal fixation) fracture Right ankle with plates and screws Family History Family History Father Back pain, chronic Cataract Cerebrovascular accident Mother Arthritis Migraines Cataract Sibling No problems noted. Sibling Hearing loss Alcoholism Social History Social History Social History:
--- NOTE | 2021-11-26 18:25 | ECG_ITS ---
Measurements Intervals [place] Rate: 51 P: HI: 0 QRS: 26 QRSD: 116 T: 226 QT: 450 QTc: 414 Interpretive Statements ATRIAL FLUTTER/TACHYCARDIA WITH SLOW VENTRICULAR RESPONSE INCOMPLETE RIGHT BUNDLE BRANCH BLOCK [90+ ms QRS DURATION, TERMINAL R IN V1/V2, 40+ ms S IN I/aVL/V4/V5/V6] ST DEVIATION AND MODERATE T-WAVE ABNORMALITY, CONSIDER ANTEROLATERAL ISCHEMIA [-0.1+ mV T WAVE IN V3-V6] ST DEVIATION AND MODERATE T-WAVE ABNORMALITY, CONSIDER INFERIOR ISCHEMIA [-0.1+ mV T WAVE IN II/aVF] INTRAVENTRICULAR CONDUCTION DELAY ABNORMAL ECG Electronically Signed On 11-27-2021 16:15:08 CDT by Abraham Leung M.D.
[2021-11-26 19:00] LABS: Basophils Absolute Auto 0.1 K/mm3 (0.0-0.1); Basophils Percent Auto 0.3 % (0.2-1.2); Eosinophils Absolute Auto 0.1 K/mm3 (0-0.3); Eosinophils Percent Auto 0.7 % (0-4.4); Hematocrit 36.1 % (42.0-52.0); Immature Granulocyte Absolute 0.38 K/mm3 (0.00-0.031); Immature Granulocyte Percent A 2.1 % (0-0.5); Lymphocytes Absolute Auto 0.65 K/mm3 (0.9-3.2); Lymphocytes Percent Auto 3.5 % (18.3-44.2); Mean Corpuscular Hemoglobin 31.6 pg (26-34); Mean Corpuscular Volume 87.8 fl (80-100); Mean Platelet Volume 9.6 fl (7.4-10.4); Monocytes Absolute Auto 1.6 K/mm3 (0.1-0.6); Monocytes Percent Auto 8.4 % (2.6-8.5); Neutrophils Absolute Auto 15.7 K/mm3 (1.3-6.7); Platelet Count Result 254 k/mm3 (150-375); Red Blood Count 4.11 M/mm3 (4.6-6.20); Red Cell Distribution Width 16.8 % (11.5-14.5); White Blood Count 18.5 K/mm3 (4.5-10.0)
--- NOTE | 2021-11-26 19:03 | ED.GENADULT ---
HPI - General Adult General Chief complaint: Dizziness Stated complaint: FALL Time Seen by Provider: 11/26/21 18:15 Source: patient Mode of arrival: EMS Limitations: no limitations Related Data Home Medications Medication Instructions Recorded Confirmed multivitamin 1 tablet PO DAILY 08/21/20 11/25/21 melatonin 10 mg tablet 10 mg PO QHS PRN 04/22/21 11/25/21 albuterol sulfate [ProAir HFA] 1 inh INHALATION Q6H PRN 07/23/21 11/25/21 atorvastatin [Lipitor] 20 mg PO DAILY 07/23/21 11/25/21 clopidogrel [Plavix] 75 mg PO DAILY 07/23/21 11/25/21 spironolactone 100 mg PO DAILY 07/23/21 11/25/21 Allergies Allergy/AdvReac Type Severity Reaction Status Date / Time gadobenic acid Allergy Severe RASH, Verified 11/25/21 14:24 [From contrast - MRI] DIFFICULTY BREATHING, SHAKING Iodinated Contrast Media Allergy Severe RASH, Verified 11/25/21 14:24 DIFFICULTY BREATHING, SHAKING iodine Allergy Severe RASH, Verified 11/25/21 14:24 DIFFICULTY BREATHING, SHAKING iohexol Allergy Severe RASH, Verified 11/25/21 14:24 [From contrast - CT, X-RAY] DIFFICULTY BREATHING, SHAKING PMFSH Past Medical History Medical History Acute and chronic respiratory failure with hypoxia Acute on chronic blood loss anemia Afib Alcohol abuse Blood in stool CAD (coronary artery disease) Cataract CHF (congestive heart failure), NYHA class II Chronic respiratory failure with hypoxia, on home O2 therapy Colon, diverticulosis COPD (chronic obstructive pulmonary disease) Dehydration History of tobacco abuse HTN (hypertension), benign Mixed hyperlipidemia Restrictive lung disease Stroke (~03/31/17) Surgical History Surgical History H/O heart artery stent X2 History of cataract extraction right 2020 History of PTCA S/P ORIF (open reduction internal fixation) fracture Right ankle with plates and screws Family History Family History Father Back pain, chronic Cataract Cerebrovascular accident Mother Arthritis Migraines Cataract Sibling No problems noted. Sibling Hearing loss Alcoholism Social History Social History Social History: The patient stated that he quit smoking a couple years ago. The patient is per and has 1 daughter. The patient worked for a [employer]. The patient's sister Sruthi kwan is his durable power compliance attorney for healthcare. The patient drinks socially but does not use any marijuana or illicit drugs. Code status full code Smoking packs per day: 2 Smoking cigarettes per day: 40.0 Years smoked: 45 Smoking pack-years: 90.00 Second hand tobacco smoke exposure: No Smoking end date: 03/05/17 Alcohol intake: current Drinks per week: 10 Substance use: never Gender identity (if verbalized by the patient): Male Spiritual care concerns: No Course Vital Signs Vital signs: Vital Signs Pulse Rate 60 11/26/21 18:05 Respiratory Rate 15 11/26/21 18:05 Blood Pressure 91/50 L 11/26/21 18:05 Pulse Oximetry 99 11/26/21 18:05 Pulse Rate 60 11/26/21 18:05 Respiratory Rate 15 11/26/21 18:05 Blood Pressure 91/50 L 11/26/21 18:05 Pulse Oximetry 99 11/26/21 18:05 Medical Decision Making Vital Signs Vital Signs: Vital Signs Pulse Rate 60 11/26/21 18:05 Respiratory Rate 15 11/26/21 18:05 Blood Pressure 91/50 L 11/26/21 18:05 Pulse Oximetry 99 11/26/21 18:05 Pulse Rate 60 11/26/21 18:05 Respiratory Rate 15 11/26/21 18:05 Blood Pressure 91/50 L 11/26/21 18:05 Pulse Oximetry 99 11/26/21 18:05 Lab Data Result diagrams: 11/26/21 18:55 11/26/21 18:55 Labs: Lab Results 11/26
[2021-11-26 19:20] LABS: Alanine Aminotransferase 39 U/L (4-50); Albumin Level 4.1 g/dL (3.5-5.1); Alkaline Phosphatase 63 U/L (38-126); Anion Gap 9 mmol/L (8-16); Aspartate Amino Transferase 85 U/L (17-59); Bilirubin,Total 0.9 mg/dL (0.2-1.3); Blood Urea Nitrogen 29 mg/dL (9-20); Calcium 7.7 mg/dL (8.4-10.2); Carbon Dioxide 21 mmol/L (22-30); Chloride 75 mmol/L (98-107); Estimated CRCL calculation 47 ml/min; Estimated Glomerular Filt Rate 46; Glucose 119 mg/dL (65-110); Potassium 4.6 mmol/L (3.4-5.0); Sodium 105 mmol/L (137-145)
[2021-11-26 19:38] LABS: NT Pro B Type Natriuretic Pept 1040 pg/mL (5-100); Troponin I 0.047 ng/mL (0.000-0.034)
[2021-11-26] MEDS: SODIUM CHLORIDE 0.9% IV 1,000 ML 125 ML IV CONT (20:50)
[2021-11-26 20:56] LABS: Add Urine Microscopic? YES; Appearance Urine Clear (Clear); Bilirubin Urine Negative (Negative); Blood Urine 2+ (Negative); Color Urine Yellow (Yellow); Glucose Urine UA Negative (Negative); Ketones Urine Negative (Negative); Leukocyte Esterase Ur Negative LEU/UL (Negative); Nitrate Urine Negative (Negative); Protein Urine Negative (Negative); Sodium Urine Random 33 meq/L; Specific Grav Ur 1.008 (1.001-1.035); Urobilinogen Urine Negative mg/dL (<2.0); WBC Urine 0-3 /hpf
--- NOTE | 2021-11-26 21:41 | PM.IMHP ---
H&P: HPI History of Present Illness Date/Time: 11/26/21 21:41 Chief Complaint: 76 years old male with past medical history of stroke, AFib, GI bleed, CHF on Bumex, history of cardiac catheterization on 2020 presented to the hospital with chronic dizziness worsening gradually patient complains of diarrhea few days ago which was resolved patient denies fever or chills at the ER patient was found to have blood pressure of 95 systolic acute renal failure with creatinine of 1.5 leukocytosis white blood cells of 18,000 hyponatremia of sodium of 105 nephrology was consulted patient was started on IV fluid also patient has mildly elevated troponin Chest x-ray showed multifocal atelectasis patient was admitted to the hospital for further evaluation and treat Review of Systems Review of Systems: All systems reviewed & are unremarkable except as noted in HPI and below PMFSH Past Medical History Medical History Acute and chronic respiratory failure with hypoxia Acute on chronic blood loss anemia Afib Alcohol abuse Blood in stool CAD (coronary artery disease) Cataract CHF (congestive heart failure), NYHA class II Chronic respiratory failure with hypoxia, on home O2 therapy Colon, diverticulosis COPD (chronic obstructive pulmonary disease) Dehydration History of tobacco abuse HTN (hypertension), benign Mixed hyperlipidemia Restrictive lung disease Stroke (~03/31/17) Surgical History Surgical History H/O heart artery stent X2 History of cataract extraction right 2019 History of PTCA S/P ORIF (open reduction internal fixation) fracture Right ankle with plates and screws Family History Family History Father Back pain, chronic Cataract Cerebrovascular accident Mother Arthritis Migraines Cataract Sibling No problems noted. Sibling Hearing loss Alcoholism Social History Social History Social History: The patient stated that he quit smoking a couple years ago. The patient is per and has 1 daughter. The patient worked for a [employer]. The patient's sister Sruthi kwan is his durable power assistant district attorney for healthcare. The patient drinks socially but does not use any marijuana or illicit drugs. Code status full code Smoking packs per day: 2 Smoking cigarettes per day: 40.0 Years smoked: 45 Smoking pack-years: 90.00 Second hand tobacco smoke exposure: No Smoking end date: 03/05/17 Alcohol intake: current Drinks per week: 10 Substance use: never Gender identity (if verbalized by the patient): Male Spiritual care concerns: No Meds Home Medications and Allergies Home Medications Medication Instructions Recorded Confirmed Type multivitamin 1 tablet PO DAILY 08/21/20 11/25/21 History melatonin 10 mg tablet 10 mg PO QHS PRN 04/22/21 11/25/21 History apixaban 5 mg tablet 5 mg PO Q12HR #180 tablet 05/08/21 11/25/21 Rx umeclidinium 62.5 mcg-vilanterol 1 inh INHALATION Q24H 30 Days #60 05/12/21 11/25/21 Rx 25 mcg/actuation powdr for ea inhalation albuterol sulfate [ProAir HFA] 1 inh INHALATION Q6H PRN 07/23/21 11/25/21 History atorvastatin [Lipitor] 20 mg PO DAILY 07/23/21 11/25/21 History clopidogrel [Plavix] 75 mg PO DAILY 07/23/21 11/25/21 History spironolactone 100 mg PO DAILY 07/23/21 11/25/21 History thiamine HCl (vitamin B1) [Vitamin 100 mg PO QAM #30 tablet 08/04/21 11/25/21 Rx B-1] amitriptyline 25 mg tablet 25 mg PO QHS #90 tablet 08/12/21 11/25/21 Rx bumetanide 1 mg tablet See Rx Instructions .ROUTE 10/16/21 11/25/21 Rx .COMPLEX #90 tablet lisinopril 10 mg tablet 10 mg PO BID 90 Days #180 tablet 11/06/21 11/25/21 Rx sertraline 25 mg tablet 25 mg PO QHS #30 tablet 11/25/21
[2021-11-26 22:56] LABS: Lactic Acid Reflex 0.9 mmol/L (0.7-2.1)
[2021-11-26 23:17] LABS: Sodium 109 mmol/L (137-145)
[2021-11-26 23:45] LABS: Thyroid Stimulating Hormone Reflex 0.772 uIU/mL (0.465-4.68)
[2021-11-27] VITALS (24 sets, daily range): BP systolic 82–135; BP diastolic 55–71; PULSE 64–95; RESP 15–37; TEMP 36.2–36.7; O2SAT 91–100; BMI 32.4
--- NOTE | 2021-11-27 | ECHO_ITS ---
Patient Info Name: Prabhakar Godwin Age: 76 years : 1945 Gender: Male Ht: 70 in Wt: 235 lbs BSA: 2.33 m2 HR: 75 bpm BP: 116 / 71 mmHg Heart Rhythm: Atrial Fibrillation Technical Quality: Fair Exam Date: 11/27/2021 9:57 AM Exam Location: [facility] Card Pulmonary Patient Status: Inpatient Admit Date: 11/27/2021 Staff Ordering Physician: Aditi Lr M.A., MD Lan Specialist: Adolfo Chakraborty RDCS, RT Attending Provider: Boaz Turcios MD Referring Physician: Alphonse TORREZ; Exam Type: CA echo dop color flow w con Study Info Indications I50.9 - Heart failure, unspecified Complete two-dimensional, color flow and Doppler transthoracic echocardiogram is performed with contrast to opacify the left ventricle and to improve the deliniation of the left ventricle endocardial borders. Summary 1. Left ventricular chamber dimension is normal. 2. Left ventricular systolic function is normal, estimated at 65-70%. 3. Definity contrast administered improved wall motion interpretation. 4. The left ventricular diastolic function is abnormal. 5. E/e' 11 is mildly elevated. 6. Atrial fibrillation. 7. Left atrial chamber dimension is moderately enlarged. 8. There is trace tricuspid valve regurgitation. 9. Moderate pulmonary hypertension, estimated pulmonary arterial systolic pressure is 50 mmHg. Left Ventricle Atrial fibrillation. E/e' 11 is mildly elevated. Definity contrast administered improved wall motion interpretation. Left ventricular chamber dimension is normal. Left ventricular systolic function is normal, estimated at 65-70%. The left ventricular diastolic function is abnormal. Right Ventricle Right ventricular systolic function is normal and with normal TAPSE 2.2 cm. Right ventricular chamber dimension is normal. Left Atria Left atrial chamber dimension is moderately enlarged. Right Atria Right atrial chamber dimension is normal. Aortic Valve The aortic valve is trileaflet. There is no aortic valve stenosis. There is no aortic valve regurgitation. Pulmonic Valve There is no pulmonic regurgitation. Mitral Valve There is no mitral valve stenosis. There is no mitral valve regurgitation. Tricuspid Valve There is trace tricuspid valve regurgitation. Moderate pulmonary hypertension, estimated pulmonary arterial systolic pressure is 50 mmHg. Pericardium/Pleural There is no pericardial effusion. Inferior Vena Cava Normal inferior vena cava with >50% collapse upon inspiration consistent with normal right atrial pressure, 5 mmHg. Aorta The aortic root size at the sinus of Valsalva is normal. Left Ventricular Outflow Tract Name Value Normal LVOT 2D LVOT Diameter 2.00 cm LVOT Doppler LVOT Peak Velocity 127.72 cm/s LVOT Peak Gradient 4 mmHg LVOT Mean Gradient 3 mmHg LVOT VTI 19.51 cm LVOT VTI/AV VTI Ratio 0.74 LVOT Stroke Volume 61.55 ml LVOT CO 3.27 l/min LV
--- NOTE | 2021-11-27 00:43 | ADMGEN ---
This patient, Prabhakar Godwin, was admitted to IMU Room 204-01. Patient/family oriented to hospital policies and general routines including ID bracelet, bed and alarms, visiting hours, pain management, procedures, bathroom and other care routines, personal items, smoking policy, room service/diet, and visiting hours. Information on how to activate the Rapid Response Team has been discussed. Patient/Family are encouraged to report perceived risks to care and to ask questions if they do not understand what they are told or what they should do.
[2021-11-27] MEDS: SODIUM CHLORIDE 0.9% IV 1,000 ML 77 ML IV CONT (01:04)
[2021-11-27] MEDS: DOXYCYCLINE 100 MG/NS 100 ML 100 MG/100 ML BAG IVPB ×3 (01:04→21:10)
[2021-11-27] MEDS: cefTRIAXone 2 GM in SODIUM CHLORIDE 0.9% IV 100 ML 200 ML IVPB ×2 (01:05→20:18)
[2021-11-27 02:21] LABS: Troponin I 0.053 ng/mL (0.000-0.034)
[2021-11-27 02:22] LABS: Sodium 109 mmol/L (137-145)
[2021-11-27 04:36] LABS: Basophils Percent Auto 0.3 % (0.2-1.2); Eosinophils Absolute Auto 0.2 K/mm3 (0-0.3); Eosinophils Percent Auto 1.1 % (0-4.4); Hematocrit 36.5 % (42.0-52.0); Hemoglobin 13.6 g/dL (14.0-18.0); Immature Granulocyte Absolute 0.29 K/mm3 (0.00-0.031); Immature Granulocyte Percent A 1.8 % (0-0.5); Lymphocytes Absolute Auto 0.79 K/mm3 (0.9-3.2); Mean Corpuscular HGB Conc 37.3 g/dl (32-36); Mean Corpuscular Hemoglobin 31.9 pg (26-34); Mean Corpuscular Volume 85.5 fl (80-100); Mean Platelet Volume 9.8 fl (7.4-10.4); Monocytes Absolute Auto 1.3 K/mm3 (0.1-0.6); Monocytes Percent Auto 8.3 % (2.6-8.5); Neutrophils Absolute Auto 13.3 K/mm3 (1.3-6.7); Neutrophils Percent Auto 83.5 % (45.5-73.1); Platelet Count Result 228 k/mm3 (150-375); Red Blood Count 4.27 M/mm3 (4.6-6.20); Red Cell Distribution Width 16.5 % (11.5-14.5); White Blood Count 15.9 K/mm3 (4.5-10.0)
[2021-11-27 04:53] LABS: Alanine Aminotransferase 38 U/L (4-50); Albumin Level 3.9 g/dL (3.5-5.1); Alkaline Phosphatase 62 U/L (38-126); Anion Gap 7 mmol/L (8-16); Aspartate Amino Transferase 75 U/L (17-59); Bilirubin,Total 0.7 mg/dL (0.2-1.3); Blood Urea Nitrogen 27 mg/dL (9-20); Calcium 7.8 mg/dL (8.4-10.2); Carbon Dioxide 24 mmol/L (22-30); Chloride 79 mmol/L (98-107); Estimated CRCL calculation 62 ml/min; Estimated Glomerular Filt Rate > 60; Glucose 104 mg/dL (65-110); Potassium 3.9 mmol/L (3.4-5.0); Sodium 110 mmol/L (137-145)
[2021-11-27 05:09] LABS: Troponin I 0.051 ng/mL (0.000-0.034)
[2021-11-27 10:24] LABS: Sodium 110 mmol/L (137-145)
[2021-11-27] MEDS: PERFLUTREN LIPID MICROSPHERES 1.5 ML VIAL DILUTED TO 10 ML TOTAL VOLUME IV PUSH (10:30)
--- NOTE | 2021-11-27 12:56 | P.CONNP_ITS ---
Assessment and Plan Assessment and plan (1) Hyponatremia: Code(s): E87.1 - Hypo-osmolality and hyponatremia Status: Acute Assessment and Plan: * suspect due to volume depletion worsened by ongoing use of diuretic therapy * urine electrolytes suggest pre-renal azotemia * slow improvement in sodium with gentle normal saline IVFs * however, has other risk factors: * known history of pulmonary issues (COPD, restrictive lung disease, chronic respiratory failure, smoking hx) * CHF * SSRI use * TSH and cortisol okay * follow-up on serum/urine osmolality; check SPEP and UPEP * goal of therapy is a rate of change in sodium of 4 - 6mmol/L (and not exceed 8mmol/L) per 24 hours * follow trend of repeat sodium levels (2) ROSALIO (acute kidney injury): Code(s): N17.9 - Acute kidney failure, unspecified Status: Acute Assessment and Plan: * presumably from dehydration and diuretic use as well as BAIRON-I use * holding diuretics and lisinopril * follow trend of renal function * further testing is creatinine does not improve (3) Hypotension: Code(s): I95.9 - Hypotension, unspecified Status: Acute Assessment and Plan: * as noted on admission * better at this time * follow trend of hemodynamics (4) COPD (chronic obstructive pulmonary disease): Qualifiers: COPD type: unspecified COPD Qualified Code(s): J44.9 - Chronic obstructive pulmonary disease, unspecified Code(s): J44.9 - Chronic obstructive pulmonary disease, unspecified Status: Chronic Assessment and Plan: * seems stable at this time * continue home medications/inhalers * monitor respiratory status (5) CHF (congestive heart failure): Code(s): I50.9 - Heart failure, unspecified Status: Resolved Assessment and Plan: * appears compensated * follow-up on Echo * follow volume status closely since diuretics on hold (and getting IVFs) Will continue to follow. History of Present Illness Reason for Consult Consult date: 11/27/21 Reason for consult: hyponatremia Chief Complaint Chief complaint: Severe Hyponatremia History of Present Illness Narrative: The patient is a 76-year-old male with a past medical history as outlined below who presented to [facility] Emergency room due to recurrent falls. From my discussion with the ER physician and review his records, the patient has been having ongoing issues and problems with recurrent falls for the last few weeks if not longer. Surprisingly, despite this issue, no recent blood tests were done and attention was focused on adjusting his medications on the assumption that this was the cause of the problem. However, he continued to have these issues and problems along with worsening dizziness that led to his presentation to the emergency room Workup and evaluation in the emergency room did demonstrate the patient to be relatively hypotensive considering that he has a history of hypertension along with the aforementioned unsteadiness/dizziness. Routine blood tests were sig nificant for severe hyponatremia with a sodium level of 105 and an elevated creatinine consistent with acute kidney injury of 1.5 mg/dL. Given his constellation of symptoms and laboratory abnormalities, he was admitted the hospital for further evaluation and therapy. Renal consultation was requested due to his hyponatremia. From review his records, it does not seem that he has had an issue and/or problem with hyponatremia up until this point time. Furthermore, his renal function is normal
--- NOTE | 2021-11-27 12:56 | PM.CNNEP ---
Assessment and Plan Assessment and plan (1) Hyponatremia: Code(s): E87.1 - Hypo-osmolality and hyponatremia Status: Acute Assessment and Plan: suspect due to volume depletion worsened by ongoing use of diuretic therapy urine electrolytes suggest pre-renal azotemia slow improvement in sodium with gentle normal saline IVFs however, has other risk factors: known history of pulmonary issues (COPD, restrictive lung disease, chronic respiratory failure, smoking hx) CHF SSRI use TSH and cortisol okay follow-up on serum/urine osmolality; check SPEP and UPEP goal of therapy is a rate of change in sodium of 4 - 6mmol/L (and not exceed 8mmol/L) per 24 hours follow trend of repeat sodium levels (2) ROSALIO (acute kidney injury): Code(s): N17.9 - Acute kidney failure, unspecified Status: Acute Assessment and Plan: presumably from dehydration and diuretic use as well as BAIRON-I use holding diuretics and lisinopril follow trend of renal function further testing is creatinine does not improve (3) Hypotension: Code(s): I95.9 - Hypotension, unspecified Status: Acute Assessment and Plan: as noted on admission better at this time follow trend of hemodynamics (4) COPD (chronic obstructive pulmonary disease): Qualifiers: COPD type: unspecified COPD Qualified Code(s): J44.9 - Chronic obstructive pulmonary disease, unspecified Code(s): J44.9 - Chronic obstructive pulmonary disease, unspecified Status: Chronic Assessment and Plan: seems stable at this time continue home medications/inhalers monitor respiratory status (5) CHF (congestive heart failure): Code(s): I50.9 - Heart failure, unspecified Status: Resolved Assessment and Plan: appears compensated follow-up on Echo follow volume status closely since diuretics on hold (and getting IVFs) Will continue to follow. History of Present Illness Reason for Consult Consult date: 11/27/21 Reason for consult: hyponatremia Chief Complaint Chief complaint: Severe Hyponatremia History of Present Illness Narrative: The patient is a 76-year-old male with a past medical history as outlined below who presented to [facility] Emergency room due to recurrent falls. From my discussion with the ER physician and review his records, the patient has been having ongoing issues and problems with recurrent falls for the last few weeks if not longer. Surprisingly, despite this issue, no recent blood tests were done and attention was focused on adjusting his medications on the assumption that this was the cause of the problem. However, he continued to have these issues and problems along with worsening dizziness that led to his presentation to the emergency room Workup and evaluation in the emergency room did demonstrate the patient to be relatively hypotensive considering that he has a history of hypertension along with the aforementioned unsteadiness/dizziness. Routine blood tests were significant for severe hyponatremia with a sodium level of 105 and an elevated creatinine consistent with acute kidney injury of 1.5 mg/dL. Given his constellation of symptoms and laboratory abnormalities, he was admitted the hospital for further evaluation and therapy. Renal consultation was requested due to his hyponatremia. From review his records, it does not seem that he has had an issue and/or problem with hyponatremia up until this point time. Furthermore, his renal function is normal arguing that he has acute kidney injury/acute renal failure along with his severe hyponatremia. His clinical exam was consistent with volume depletion and there was some concern that this may have been exacerbated by his ongoing use of chronic diuretic therapy as well as an BAIRON-inhibitor. With gentle normal saline IV fluids, his sodium level has been slowly trending and to date has not overcorrecte
--- NOTE | 2021-11-27 13:25 | PM.IMPN ---
Progress Note: A&P Assessment and Plan (1) Acute dehydration: Code(s): E86.0 - Dehydration Status: Resolved Assessment and Plan: Multifactorial most likely related to decreased oral intake and diuretic Hold Bumex Give IV fluid Monitor closely for fluid overload (2) Hypotension: Code(s): I95.9 - Hypotension, unspecified Status: Acute Assessment and Plan: Probably related to medication and dehydration Hold lisinopril hold Bumex Continue IV fluid as ordered Patient has leukocytosis with abnormal chest x-ray. Chest x-ray with chronic left hemidiaphragmatic elevation likely process with adjacent multi segmental atelectasis associated distended air-filled colon CT chest abdomen and pelvis with 1. Moderate to large amount of ascending and transverse colonic fluid and gas without colonic obstruction. No transition point. Probably colonic ileus. 2. Moderate colonic diverticulosis. 3. Bibasilar airspace disease consistent with atelectasis. Can't totally exclude pneumonia. 4. 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 5. Mild to moderate emphysema. 6. Dense coronary artery calcifications. 7. Punctate bilateral nephrolithiasis. Lactic acid was normal Empirically started on doxycycline and ceftriaxone. However he has history of diarrhea few days back along with colonic ileus noted on the CT scan. Bibasilar airspace disease consistent with atelectasis however pneumonia not completely excluded. Will also add Flagyl for enteric anaerobic coverage. CT scan chest abdomen pelvis reviewed Will get stool studies ordered Blood pressure has improved compared to admission (3) Acute kidney failure: Code(s): N17.9 - Acute kidney failure, unspecified Status: Acute Assessment and Plan: Most likely related to dehydration IV fluid Done in 1.5 on admission baseline creatinine 0.8 (4) Afib: Code(s): I48.91 - Unspecified atrial fibrillation Status: Chronic Assessment and Plan: Stable patient on Eliquis at home EKG with atrial fibrillation with slow ventricular response on admission (5) COPD (chronic obstructive pulmonary disease): Qualifiers: COPD type: unspecified COPD Qualified Code(s): J44.9 - Chronic obstructive pulmonary disease, unspecified Code(s): J44.9 - Chronic obstructive pulmonary disease, unspecified Status: Chronic Assessment and Plan: Stable continue home medication (6) Chronic respiratory failure with hypoxia, on home O2 therapy: Code(s): J96.11 - Chronic respiratory failure with hypoxia; Z99.81 - Dependence on supplemental oxygen Status: Chronic Assessment and Plan: Secondary to COPD restrictive lung disease as CHF stable (7) CHF (congestive heart failure): Code(s): I50.9 - Heart failure, unspecified Status: Resolved Assessment and Plan: Most likely diastolic repeat echo as patient has hypotension and elevated troponin Echo 11/27/2021 ejection fraction 65-70%, abnormal diastolic function, he by E prime mildly elevated, moderate pulmonary hypertension with PASP 50 mm Hg (8) Elevated troponin: Code(s): R77.8 - Other specified abnormalities of plasma proteins Status: Acute Assessment and Plan: Most likely NSTEMI type 2 secondary to demand ischemia secondary to renal failure dehydration and hypotension Follow troponin Continue Plavix once confirmed Check echo in a.m. (9) Hyponatremia: Code(s): E87.1 - Hypo-osmolality and hyponatremia Status: Resolved Assessment and Plan: Severe hyponatremia with admission sodium level of 105 baseline normal sodium level prior to this. Does have history of hyponatremia back in July 2021 Nephrology has been consulted on normal saline Sodium up to 110 in 12 hours. Monitor sodium level every 6 hours. Plan to increase non more than 8-10 mEq per 24 hours Most likely related to medication Hold Bumex Give IV fl
--- NOTE | 2021-11-27 13:48 | PCCCNOTE ---
On 11/27/21, the student, [Farzaneh Boucher], provided care and completed [facility] documentation on this patient. I have reviewed the student's documentation and agree with the findings.
[2021-11-27 14:51] LABS: Sodium 111 mmol/L (137-145)
[2021-11-27] MEDS: CLOPIDOGREL BISULFATE 75 MG TABLET PO (17:04)
[2021-11-27] MEDS: metroNIDAZOLE 500 MG/ISO 100ML 500 MG/100 ML BAG 100 MG IVPB ×2 (17:04→23:10)
[2021-11-27] MEDS: ATORVASTATIN 20 MG TABLET PO (17:04)
[2021-11-27 19:31] LABS: Sodium 112 mmol/L (137-145)
[2021-11-27] MEDS: APIXABAN 5 MG TABLET PO (20:18)
[2021-11-27] MEDS: AMITRIPTYLINE HCL 25 MG TABLET PO (20:18)
[2021-11-27] MEDS: MELATONIN 5 MG TABLET 10 MG PO (20:19)
[2021-11-27] MEDS: SERTRALINE HCL 25 MG TABLET PO (20:19)
[2021-11-27 23:22] LABS: Sodium 115 mmol/L (137-145)
[2021-11-28] VITALS (14 sets, daily range): BP systolic 97–127; BP diastolic 52–66; PULSE 61–99; RESP 16–20; TEMP 35.8–36.6; O2SAT 91–100
[2021-11-28] MEDS: SODIUM CHLORIDE 0.9% IV 1,000 ML 50 ML IV CONT (01:52)
[2021-11-28 04:33] LABS: Basophils Absolute Auto 0.1 K/mm3 (0.0-0.1); Basophils Percent Auto 0.6 % (0.2-1.2); Eosinophils Absolute Auto 0.3 K/mm3 (0-0.3); Eosinophils Percent Auto 2.6 % (0-4.4); Immature Granulocyte Absolute 0.18 K/mm3 (0.00-0.031); Immature Granulocyte Percent A 1.4 % (0-0.5); Lymphocytes Absolute Auto 0.49 K/mm3 (0.9-3.2); Lymphocytes Percent Auto 3.9 % (18.3-44.2); Mean Corpuscular HGB Conc 35.1 g/dl (32-36); Mean Corpuscular Hemoglobin 31.8 pg (26-34); Mean Corpuscular Volume 90.5 fl (80-100); Mean Platelet Volume 9.6 fl (7.4-10.4); Monocytes Absolute Auto 1.3 K/mm3 (0.1-0.6); Monocytes Percent Auto 10.7 % (2.6-8.5); Neutrophils Absolute Auto 10.1 K/mm3 (1.3-6.7); Neutrophils Percent Auto 80.8 % (45.5-73.1); Platelet Count Result 218 k/mm3 (150-375); Red Blood Count 4.09 M/mm3 (4.6-6.20); Red Cell Distribution Width 17.1 % (11.5-14.5); White Blood Count 12.5 K/mm3 (4.5-10.0)
[2021-11-28 04:48] LABS: Alanine Aminotransferase 35 U/L (4-50); Albumin Level 3.8 g/dL (3.5-5.1); Alkaline Phosphatase 60 U/L (38-126); Anion Gap 5 mmol/L (8-16); Aspartate Amino Transferase 61 U/L (17-59); Bilirubin,Total 0.6 mg/dL (0.2-1.3); Blood Urea Nitrogen 16 mg/dL (9-20); Carbon Dioxide 23 mmol/L (22-30); Chloride 90 mmol/L (98-107); Estimated CRCL calculation 68 ml/min; Estimated Glomerular Filt Rate > 60; Glucose 116 mg/dL (65-110); Magnesium 1.8 mg/dL (1.6-2.3); Potassium 4.1 mmol/L (3.4-5.0); Sodium 118 mmol/L (137-145)
[2021-11-28] MEDS: metroNIDAZOLE 500 MG/ISO 100ML 500 MG/100 ML BAG 100 MG IVPB ×4 (06:23→23:42)
[2021-11-28] MEDS: THIAMINE HCL 100 MG TABLET PO (09:16)
[2021-11-28] MEDS: CLOPIDOGREL BISULFATE 75 MG TABLET PO (09:17)
[2021-11-28] MEDS: APIXABAN 5 MG TABLET PO ×2 (09:17→20:45)
[2021-11-28] MEDS: ATORVASTATIN 20 MG TABLET PO (09:17)
[2021-11-28] MEDS: DOXYCYCLINE 100 MG/NS 100 ML 100 MG/100 ML BAG IVPB ×2 (09:22→20:46)
[2021-11-28] MEDS: MULTIVITAMINS THERAPEUTIC TAB (*BKC) 1 TABLET PO (10:15)
[2021-11-28 10:16] LABS: Sodium 120 mmol/L (137-145)
--- NOTE | 2021-11-28 12:29 | P.PNNP_ITS ---
Progress Note: A&P Assessment and Plan (1) Hyponatremia: Code(s): E87.1 - Hypo-osmolality and hyponatremia Status: Acute Assessment and Plan: * unclear how acute or chronic this is * however, he has had issues with hyponatremia in the past (but never a sodium level as low as on this admission) * suspect due to volume depletion worsened by ongoing use of diuretic therapy * urine electrolytes suggest pre-renal azotemia * slow improvement in sodium with gentle normal saline IVFs * however, has other risk factors: * known history of pulmonary issues (COPD, restrictive lung disease, chronic respiratory failure, smoking hx) * CHF * SSRI use * alcohol use * TSH and cortisol okay * follow-up on serum/urine osmolality; check SPEP and UPEP * goal of therapy is a rate of change in sodium of 4 - 6mmol/L (and not to exce ed 8mmol/L) in 24 hours -- being achieved so far * increased urine output noted -- possible auto-diuresis so he may need D5W/DDAVP to prevent overcorrection * follow trend of repeat sodium levels (2) ROSALIO (acute kidney injury): Code(s): N17.9 - Acute kidney failure, unspecified Status: Acute Assessment and Plan: * resolving if not resolved * presumably from dehydration along with hypotension and diuretic use as well as BAIRON-I * holding diuretics and lisinopril * follow trend of renal function (3) Hypotension: Code(s): I95.9 - Hypotension, unspecified Status: Acute Assessment and Plan: * as noted on admission * better at this time * follow trend of hemodynamics (4) COPD (chronic obstructive pulmonary disease): Qualifiers: COPD type: unspecified COPD Qualified Code(s): J44.9 - Chronic obstructive pulmonary disease, unspecified Code(s): J44.9 - Chronic obstructive pulmonary disease, unspecified Status: Chronic Assessment and Plan: * seems stable at this time * continue home medications/inhalers * monitor respiratory status (5) CHF (congestive heart failure): Code(s): I50.9 - Heart failure, unspecified Status: Resolved Assessment and Plan: * appears compensated * follow-up on Echo * follow volume status closely since diuretics on hold (and getting IVFs) Will continue to follow. Subjective Date/time seen: 11/28/21 12:29 Sodium rising appropriately and no neurological symptoms to report at this time; would like better food to eat (on clear liquid diet); other than fatigue/tirednes, no other acute issues/complaints voiced. Exam Narrative: General: elderly male in NAD Heart: normal S1 and S2; no rub Lungs: decreased breath sounds throughout Abdomen: mild distension noted, hypoactive bowel sounds Extremities: no cyanosis or clubbing; no edema Skin: warm and dry Objective Data Vital Signs Vital Signs: Vital Signs Temp Pulse Resp BP Pulse Ox 11/28/21 08:15 66 98 11/28/21 08:00 36.6 C 80 16 112/66 98 11/28/21 06:00 87 11/28/21 04:00 36.5 C 66 20 127/59 L 99 11/28/21 01:27 71 11/28/21 00:00 90 11/27/21 23:28 73 20 97 11/27/21 23:03 36.4 C L 73 20 115/55 L 97 11/27/21 21:26 66 11/27/21 20:30 96 11/27/21 20:00 71 20 98 11/27/21 19:57 36.3 C L 65 20 120/65 98 11/27/21 18:00 69
--- NOTE | 2021-11-28 12:29 | PM.PNNEP ---
Progress Note: A&P Assessment and Plan (1) Hyponatremia: Code(s): E87.1 - Hypo-osmolality and hyponatremia Status: Acute Assessment and Plan: unclear how acute or chronic this is however, he has had issues with hyponatremia in the past (but never a sodium level as low as on this admission) suspect due to volume depletion worsened by ongoing use of diuretic therapy urine electrolytes suggest pre-renal azotemia slow improvement in sodium with gentle normal saline IVFs however, has other risk factors: known history of pulmonary issues (COPD, restrictive lung disease, chronic respiratory failure, smoking hx) CHF SSRI use alcohol use TSH and cortisol okay follow-up on serum/urine osmolality; check SPEP and UPEP goal of therapy is a rate of change in sodium of 4 - 6mmol/L (and not to exceed 8mmol/L) in 24 hours -- being achieved so far increased urine output noted -- possible auto-diuresis so he may need D5W/DDAVP to prevent overcorrection follow trend of repeat sodium levels (2) ROSALIO (acute kidney injury): Code(s): N17.9 - Acute kidney failure, unspecified Status: Acute Assessment and Plan: resolving if not resolved presumably from dehydration along with hypotension and diuretic use as well as BAIRON-I holding diuretics and lisinopril follow trend of renal function (3) Hypotension: Code(s): I95.9 - Hypotension, unspecified Status: Acute Assessment and Plan: as noted on admission better at this time follow trend of hemodynamics (4) COPD (chronic obstructive pulmonary disease): Qualifiers: COPD type: unspecified COPD Qualified Code(s): J44.9 - Chronic obstructive pulmonary disease, unspecified Code(s): J44.9 - Chronic obstructive pulmonary disease, unspecified Status: Chronic Assessment and Plan: seems stable at this time continue home medications/inhalers monitor respiratory status (5) CHF (congestive heart failure): Code(s): I50.9 - Heart failure, unspecified Status: Resolved Assessment and Plan: appears compensated follow-up on Echo follow volume status closely since diuretics on hold (and getting IVFs) Will continue to follow. Subjective Date/time seen: 11/28/21 12:29 Sodium rising appropriately and no neurological symptoms to report at this time; would like better food to eat (on clear liquid diet); other than fatigue/tirednes, no other acute issues/complaints voiced. Exam Narrative: General: elderly male in NAD Heart: normal S1 and S2; no rub Lungs: decreased breath sounds throughout Abdomen: mild distension noted, hypoactive bowel sounds Extremities: no cyanosis or clubbing; no edema Skin: warm and dry Objective Data Vital Signs Vital Signs: Vital Signs Temp Pulse Resp BP Pulse Ox 11/28/21 08:15 66 98 11/28/21 08:00 36.6 C 80 16 112/66 98 11/28/21 06:00 87 11/28/21 04:00 36.5 C 66 20 127/59 L 99 11/28/21 01:27 71 11/28/21 00:00 90 11/27/21 23:28 73 20 97 11/27/21 23:03 36.4 C L 73 20 115/55 L 97 11/27/21 21:26 66 11/27/21 20:30 96 11/27/21 20:00 71 20 98 11/27/21 19:57 36.3 C L 65 20 120/65 98 11/27/21 18:00 69 11/27/21 16:00 36.6 C 67 28 H 111/59 L 100 11/27/21 14:00 88 Intake/Output Intake/Output: Intake & Output 11/25/21 11/26/21 11/27/21 11/28/21 23:59 23:59 23:59 23:59 Intake Total 3350 220 Output Total 2340 1450 Balance 1010 -1230 Meds/Results Medications: Active Medications Generic Name Dose Route Start Last Admin Trade Name Davisq PRN Reason Stop Dose Admin Acetaminophen 650 mg 11/26/21 21:34 Acetaminophen 325 Mg Tablet PO Q4H PRN Mild Pain (1-3) or Fever Al Hydrox/Mg Hydrox/Simethicone 30 ml 11/26/21 21:34 Mag Hydrox/Al Hydrox/Simeth 30 Ml Udc PO QID PRN Dyspepsia Amitriptyline HCl
[2021-11-28 14:37] LABS: Sodium 121 mmol/L (137-145)
[2021-11-28] MEDS: DEXTROSE 5% IN WATER 500 ML 200 ML IV CONT (15:35)
[2021-11-28 15:56] LABS: IFOB Positive Control Positive; Immunochemical Fecal Occult Bl Positive (N)
[2021-11-28 16:19] LABS: Toxigenic C. Diff NEGATIVE (NEGATIVE)
--- NOTE | 2021-11-28 16:25 | PM.IMPN ---
Progress Note: A&P Assessment and Plan (1) Acute dehydration: Code(s): E86.0 - Dehydration Status: Resolved Assessment and Plan: Multifactorial most likely related to decreased oral intake and diuretic Hold Bumex Give IV fluid Monitor closely for fluid overload (2) Hypotension: Code(s): I95.9 - Hypotension, unspecified Status: Acute Assessment and Plan: Probably related to medication and dehydration Hold lisinopril hold Bumex Continue IV fluid as ordered Patient has leukocytosis with abnormal chest x-ray. Chest x-ray with chronic left hemidiaphragmatic elevation likely process with adjacent multi segmental atelectasis associated distended air-filled colon CT chest abdomen and pelvis with 1. Moderate to large amount of ascending and transverse colonic fluid and gas without colonic obstruction. No transition point. Probably colonic ileus. 2. Moderate colonic diverticulosis. 3. Bibasilar airspace disease consistent with atelectasis. Can't totally exclude pneumonia. 4. 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 5. Mild to moderate emphysema. 6. Dense coronary artery calcifications. 7. Punctate bilateral nephrolithiasis. Lactic acid was normal Empirically started on doxycycline and ceftriaxone. However he has history of diarrhea few days back along with colonic ileus noted on the CT scan. Bibasilar airspace disease consistent with atelectasis however pneumonia not completely excluded. Leukocytosis slowly improving Added Flagyl for enteric anaerobic coverage 11/27/2021. CT scan chest abdomen pelvis reviewed Stool studies C diff negative occult blood was positive Blood pressure has improved compared to admission (3) Acute kidney failure: Code(s): N17.9 - Acute kidney failure, unspecified Status: Acute Assessment and Plan: Most likely related to dehydration IV fluid 1.5 on admission baseline creatinine 0.8 Back to baseline now (4) Afib: Code(s): I48.91 - Unspecified atrial fibrillation Status: Chronic Assessment and Plan: Stable patient on Eliquis at home EKG with atrial fibrillation with slow ventricular response on admission (5) COPD (chronic obstructive pulmonary disease): Qualifiers: COPD type: unspecified COPD Qualified Code(s): J44.9 - Chronic obstructive pulmonary disease, unspecified Code(s): J44.9 - Chronic obstructive pulmonary disease, unspecified Status: Chronic Assessment and Plan: Stable continue home medication (6) Chronic respiratory failure with hypoxia, on home O2 therapy: Code(s): J96.11 - Chronic respiratory failure with hypoxia; Z99.81 - Dependence on supplemental oxygen Status: Chronic Assessment and Plan: Secondary to COPD restrictive lung disease as CHF stable (7) CHF (congestive heart failure): Code(s): I50.9 - Heart failure, unspecified Status: Resolved Assessment and Plan: Most likely diastolic repeat echo as patient has hypotension and elevated troponin Echo 11/27/2021 ejection fraction 65-70%, abnormal diastolic function, E by E prime mildly elevated, moderate pulmonary hypertension with PASP 50 mm Hg (8) Elevated troponin: Code(s): R77.8 - Other specified abnormalities of plasma proteins Status: Acute Assessment and Plan: Most likely NSTEMI type 2 secondary to demand ischemia secondary to renal failure dehydration and hypotension Follow troponin Continue Plavix once confirmed Check echo in a.m. (9) Hyponatremia: Code(s): E87.1 - Hypo-osmolality and hyponatremia Status: Resolved Assessment and Plan: Severe hyponatremia with admission sodium level of 105 baseline normal sodium level prior to this. Does have history of hyponatremia back in July 2021 Nephrology has been consulted on normal saline Sodium up to 110 in 12 hours. Monitor sodium level every 6 hours. Plan to increase non more than 8-10 m
[2021-11-28] MEDS: BENZOCAINE/MENTHOL (*BKC) 18 EA LOZENGE 1 LOZENGE PO (17:29)
[2021-11-28 18:31] LABS: Sodium 121 mmol/L (137-145)
[2021-11-28] MEDS: SERTRALINE HCL 25 MG TABLET PO (20:45)
[2021-11-28] MEDS: AMITRIPTYLINE HCL 25 MG TABLET PO (20:45)
[2021-11-28] MEDS: cefTRIAXone 2 GM in SODIUM CHLORIDE 0.9% IV 100 ML 200 ML IVPB (20:46)
[2021-11-28 22:58] LABS: Sodium 121 mmol/L (137-145)
[2021-11-29] VITALS (14 sets, daily range): BP systolic 85–137; BP diastolic 50–75; PULSE 64–92; RESP 14–20; TEMP 36.1–36.7; O2SAT 95–100
[2021-11-29 05:14] LABS: Basophils Absolute Auto 0.1 K/mm3 (0.0-0.1); Basophils Percent Auto 0.9 % (0.2-1.2); Eosinophils Absolute Auto 0.6 K/mm3 (0-0.3); Eosinophils Percent Auto 5.5 % (0-4.4); Hematocrit 38.5 % (42.0-52.0); Hemoglobin 12.9 g/dL (14.0-18.0); Immature Granulocyte Absolute 0.19 K/mm3 (0.00-0.031); Immature Granulocyte Percent A 1.7 % (0-0.5); Lymphocytes Absolute Auto 0.42 K/mm3 (0.9-3.2); Lymphocytes Percent Auto 3.8 % (18.3-44.2); Mean Corpuscular HGB Conc 33.5 g/dl (32-36); Mean Corpuscular Hemoglobin 31.2 pg (26-34); Mean Corpuscular Volume 93.2 fl (80-100); Mean Platelet Volume 9.8 fl (7.4-10.4); Monocytes Absolute Auto 1.4 K/mm3 (0.1-0.6); Monocytes Percent Auto 12.5 % (2.6-8.5); Neutrophils Absolute Auto 8.2 K/mm3 (1.3-6.7); Neutrophils Percent Auto 75.6 % (45.5-73.1); Platelet Count Result 238 k/mm3 (150-375); Red Blood Count 4.13 M/mm3 (4.6-6.20); Red Cell Distribution Width 17.6 % (11.5-14.5); White Blood Count 10.9 K/mm3 (4.5-10.0)
[2021-11-29] MEDS: metroNIDAZOLE 500 MG/ISO 100ML 500 MG/100 ML BAG 100 MG IVPB ×4 (05:28→23:12)
[2021-11-29 05:30] LABS: Alanine Aminotransferase 33 U/L (4-50); Albumin Level 3.6 g/dL (3.5-5.1); Alkaline Phosphatase 64 U/L (38-126); Anion Gap 4 mmol/L (8-16); Aspartate Amino Transferase 41 U/L (17-59); Bilirubin,Total 0.5 mg/dL (0.2-1.3); Blood Urea Nitrogen 12 mg/dL (9-20); Calcium 8.2 mg/dL (8.4-10.2); Carbon Dioxide 24 mmol/L (22-30); Chloride 94 mmol/L (98-107); Estimated CRCL calculation 68 ml/min; Estimated Glomerular Filt Rate > 60; Glucose 110 mg/dL (65-110); Magnesium 1.9 mg/dL (1.6-2.3); Potassium 4.3 mmol/L (3.4-5.0); Sodium 122 mmol/L (137-145)
[2021-11-29] MEDS: SODIUM CHLORIDE 0.9% IV 1,000 ML 40 ML IV CONT (06:21)
[2021-11-29] MEDS: APIXABAN 5 MG TABLET PO ×2 (09:21→20:22)
[2021-11-29] MEDS: ATORVASTATIN 20 MG TABLET PO (09:21)
[2021-11-29] MEDS: MULTIVITAMINS THERAPEUTIC TAB (*BKC) 1 TABLET PO (09:21)
[2021-11-29] MEDS: DOXYCYCLINE 100 MG/NS 100 ML 100 MG/100 ML BAG IVPB ×2 (09:21→20:22)
[2021-11-29] MEDS: THIAMINE HCL 100 MG TABLET PO (09:22)
[2021-11-29] MEDS: CLOPIDOGREL BISULFATE 75 MG TABLET PO (09:22)
[2021-11-29 12:32] LABS: Sodium 124 mmol/L (137-145)
--- NOTE | 2021-11-29 12:34 | P.PNNP_ITS ---
Progress Note: A&P Assessment and Plan (1) Hyponatremia: Code(s): E87.1 - Hypo-osmolality and hyponatremia Status: Acute Assessment and Plan: * unclear how acute or chronic this is * however, he has had issues with hyponatremia in the past (but never a sodium level as low as on this admission) * suspect due to volume depletion worsened by ongoing use of diuretic therapy * urine electrolytes suggest pre-renal azotemia * slow improvement in sodium with gentle normal saline IVFs * however, has other risk factors: * known history of pulmonary issues (COPD, restrictive lung disease, chronic respiratory failure, smoking hx) * CHF * SSRI use * alcohol use * TSH and cortisol okay * follow-up on serum/urine osmolality; SPEP and UPEP pending * goal of therapy is a rate of change in sodium of 4 - 6mmol/L (and not to ex ceed 8mmol/L) in 24 hours -- being achieved so far * follow trend of repeat sodium levels (2) ROSALIO (acute kidney injury): Code(s): N17.9 - Acute kidney failure, unspecified Status: Acute Assessment and Plan: * resolving * presumably from dehydration along with hypotension and diuretic use as well as BAIRON-I * holding diuretics and lisinopril * follow trend of renal function (3) Hypotension: Code(s): I95.9 - Hypotension, unspecified Status: Acute Assessment and Plan: * as noted on admission * better at this time * empirically on antibiotics for this in possible association with pneumonia + abdominal process * follow trend of hemodynamics (4) COPD (chronic obstructive pulmonary disease): Qualifiers: COPD type: unspecified COPD Qualified Code(s): J44.9 - Chronic obstruct keli pulmonary disease, unspecified Code(s): J44.9 - Chronic obstructive pulmonary disease, unspecified Status: Chronic Assessment and Plan: * seems stable at this time * continue home medications/inhalers * monitor respiratory status (5) CHF (congestive heart failure): Code(s): I50.9 - Heart failure, unspecified Status: Resolved Assessment and Plan: * appears compensated * follow-up on Echo * follow volume status closely since diuretics on hold (and getting IVFs) Will continue to follow. Subjective Date/time seen: 11/29/21 12:34 Sodium slowly improving at an appropriate rate of change since admission; no apparent distress noted; no other complaints to report; no issues/events overnight or earlier this AM. Exam Narrative: General: elderly male in NAD Heart: normal S1 and S2; no rub Lungs: decreased breath sounds throughout Abdomen: mild distension noted, hypoactive bowel sounds Extremities: no cyanosis or clubbing; no edema Skin: warm and intact Objective Data Vital Signs Vital Signs: Vital Signs Temp Pulse Resp BP Pulse Ox 11/29/21 12:00 36.3 C L 87 16 117/59 L 100 11/29/21 09:39 87 11/29/21 08:00 36.7 C 68 14 93/54 L 95 11/29/21 05:52 65 11/29/21 04:00 36.1 C L 89 20 137/75 99 11/29/21 01:55 86 11/29/21 00:00 36.1 C L 92 18 136/71 98 11/28/21 21:29 99 11/28/21 21:18 100 11/28/21 20:00 35.8 C L 88 18 114/61 91 11/28/21 18:00 68 11/28/21 16:00 36.6 C 66 20 97/52 L 98 11/28/21 14:00 61 Intake/Output
--- NOTE | 2021-11-29 12:34 | PM.PNNEP ---
Progress Note: A&P Assessment and Plan (1) Hyponatremia: Code(s): E87.1 - Hypo-osmolality and hyponatremia Status: Acute Assessment and Plan: unclear how acute or chronic this is however, he has had issues with hyponatremia in the past (but never a sodium level as low as on this admission) suspect due to volume depletion worsened by ongoing use of diuretic therapy urine electrolytes suggest pre-renal azotemia slow improvement in sodium with gentle normal saline IVFs however, has other risk factors: known history of pulmonary issues (COPD, restrictive lung disease, chronic respiratory failure, smoking hx) CHF SSRI use alcohol use TSH and cortisol okay follow-up on serum/urine osmolality; SPEP and UPEP pending goal of therapy is a rate of change in sodium of 4 - 6mmol/L (and not to exceed 8mmol/L) in 24 hours -- being achieved so far follow trend of repeat sodium levels (2) ROSALIO (acute kidney injury): Code(s): N17.9 - Acute kidney failure, unspecified Status: Acute Assessment and Plan: resolving presumably from dehydration along with hypotension and diuretic use as well as BAIRON-I holding diuretics and lisinopril follow trend of renal function (3) Hypotension: Code(s): I95.9 - Hypotension, unspecified Status: Acute Assessment and Plan: as noted on admission better at this time empirically on antibiotics for this in possible association with pneumonia + abdominal process follow trend of hemodynamics (4) COPD (chronic obstructive pulmonary disease): Qualifiers: COPD type: unspecified COPD Qualified Code(s): J44.9 - Chronic obstructive pulmonary disease, unspecified Code(s): J44.9 - Chronic obstructive pulmonary disease, unspecified Status: Chronic Assessment and Plan: seems stable at this time continue home medications/inhalers monitor respiratory status (5) CHF (congestive heart failure): Code(s): I50.9 - Heart failure, unspecified Status: Resolved Assessment and Plan: appears compensated follow-up on Echo follow volume status closely since diuretics on hold (and getting IVFs) Will continue to follow. Subjective Date/time seen: 11/29/21 12:34 Sodium slowly improving at an appropriate rate of change since admission; no apparent distress noted; no other complaints to report; no issues/events overnight or earlier this AM. Exam Narrative: General: elderly male in NAD Heart: normal S1 and S2; no rub Lungs: decreased breath sounds throughout Abdomen: mild distension noted, hypoactive bowel sounds Extremities: no cyanosis or clubbing; no edema Skin: warm and intact Objective Data Vital Signs Vital Signs: Vital Signs Temp Pulse Resp BP Pulse Ox 11/29/21 12:00 36.3 C L 87 16 117/59 L 100 11/29/21 09:39 87 11/29/21 08:00 36.7 C 68 14 93/54 L 95 11/29/21 05:52 65 11/29/21 04:00 36.1 C L 89 20 137/75 99 11/29/21 01:55 86 11/29/21 00:00 36.1 C L 92 18 136/71 98 11/28/21 21:29 99 11/28/21 21:18 100 11/28/21 20:00 35.8 C L 88 18 114/61 91 11/28/21 18:00 68 11/28/21 16:00 36.6 C 66 20 97/52 L 98 11/28/21 14:00 61 Intake/Output Intake/Output: Intake & Output 11/26/21 11/27/21 11/28/21 11/29/21 23:59 23:59 23:59 23:59 Intake Total 3350 2450 570 Output Total 2340 2550 425 Balance 1010 -100 145 Meds/Results Medications: Active Medications Generic Name Dose Route Start Last Admin Trade Name Freq PRN Reason Stop Dose Admin Acetaminophen 650 mg 11/26/21 21:34 Acetaminophen 325 Mg Tablet PO Q4H PRN Mild Pain (1-3) or Fever Al Hydrox/Mg Hydrox/Simethicone 30 ml 11/26/21 21:34 Mag Hydrox/Al Hydrox/Simeth 30 Ml Udc PO QID PRN Dyspepsia Amitriptyline HCl 25 mg 11/27/21 21:00 11/28/21 20:45 Amitriptyline Hcl 25 Mg Tablet PO 25 m
--- NOTE | 2021-11-29 14:12 | P.PNIM_ITS ---
Progress Note: A&P Assessment and Plan (1) Acute dehydration: Code(s): E86.0 - Dehydration Status: Resolved Assessment and Plan: Multifactorial most likely related to decreased oral intake and diuretic Hold Bumex Give IV fluid Monitor closely for fluid overload (2) Hypotension: Code(s): I95.9 - Hypotension, unspecified Status: Acute Assessment and Plan: Probably related to medication and dehydration Hold lisinopril hold Bumex Continue IV fluid as ordered Patient has leukocytosis with abnormal chest x-ray. Chest x-ray with chronic left hemidiaphragmatic elevation likely process with adjacent multi segmental atelectasis associated distended air-filled colon CT chest abdomen and pelvis with 1. Moderate to large amount of ascending and transverse colonic fluid and gas without colonic obstruction. No transition point. Probably colonic ileus. 2. Moderate colonic diverticulosis. 3. Bibasilar airspace disease consistent with atelectasis. Can't totally exclude pneumonia. 4. 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 5. Mild to moderate emphysema. 6. Dense coronary artery calcifications. 7. Punctate bilateral nephrolithiasis. Lactic acid was normal Empirically started on doxycycline and ceftriaxone. However he has history of diarrhea few days back along with colonic ileus noted on the CT scan. Bibasilar airspace disease consistent with atelectasis however pneumonia not completely excluded. Leukocytosis slowly improving Added Flagyl for enteric anaerobic coverage 11/27/2021. CT scan chest abdomen pelvis reviewed Stool studies C diff negative occult blood was positive Blood pressure has improved compared to admission (3) Acute kidney failure: Code(s): N17.9 - Acute kidney failure, unspecified Status: Acute Assessment and Plan: Most likely related to dehydration IV fluid 1.5 on admission baseline creatinine 0.8 Back to baseline now (4) Afib: Code(s): I48.91 - Unspecified atrial fibrillation Status: Chronic Assessment and Plan: Stable patient on Eliquis at home EKG with atrial fibrillation with slow ventricular response on admission (5) COPD (chronic obstructive pulmonary disease): Qualifiers: COPD type: unspecified COPD Qualified Code(s): J44.9 - Chronic obstructive pulmonary disease, unspecified Code(s): J44.9 - Chronic obstructive pulmonary disease, unspecified Status: Chronic Assessment and Plan: Stable continue home medication (6) Chronic respiratory failure with hypoxia, on home O2 therapy: Code(s): J96.11 - Chronic respiratory failure with hypoxia; Z99.81 - Dependence on supplemental oxygen Status: Chronic Assessment and Plan: Secondary to COPD restrictive lung disease as CHF stable (7) CHF (congestive heart failure): Code(s): I50.9 - Heart failure, unspecified Status: Resolved Assessment and Plan: Most likely diastolic repeat echo as patient has hypotension and elevated troponin Echo 11/27/2021 ejection fraction 65-70%, abnormal diastolic function, E by E prime mildly elevated, moderate pulmonary hypertension with PASP 50 mm Hg (8) Elevated troponin: Code(s): R77.8 - Other specified abnormalities of plasma proteins Status: Acute Assessment and Plan: Most likely NSTEMI type 2 secondary to demand ischemia secondary to renal failure dehydration and hypotension Follow troponin Continue Plavix once confirmed Check echo in a.m. (9) Hyponatremia: Code(s): E87.1 - Hypo-osmolality and hyponatr
[2021-11-29] MEDS: SERTRALINE HCL 25 MG TABLET PO (20:22)
[2021-11-29] MEDS: AMITRIPTYLINE HCL 25 MG TABLET PO (20:22)
[2021-11-29] MEDS: cefTRIAXone 2 GM in SODIUM CHLORIDE 0.9% IV 100 ML 200 ML IVPB (20:23)
[2021-11-29 23:04] LABS: Sodium 126 mmol/L (137-145)
[2021-11-30] VITALS (12 sets, daily range): BP systolic 95–110; BP diastolic 48–64; PULSE 82–111; RESP 20–24; TEMP 36.1–37.1; O2SAT 94–97
[2021-11-30 05:33] LABS: Basophils Absolute Auto 0.1 K/mm3 (0.0-0.1); Basophils Percent Auto 1.1 % (0.2-1.2); Eosinophils Absolute Auto 0.7 K/mm3 (0-0.3); Eosinophils Percent Auto 6.3 % (0-4.4); Hematocrit 36.5 % (42.0-52.0); Hemoglobin 11.9 g/dL (14.0-18.0); Immature Granulocyte Absolute 0.13 K/mm3 (0.00-0.031); Immature Granulocyte Percent A 1.3 % (0-0.5); Lymphocytes Absolute Auto 0.46 K/mm3 (0.9-3.2); Lymphocytes Percent Auto 4.5 % (18.3-44.2); Mean Corpuscular HGB Conc 32.6 g/dl (32-36); Mean Corpuscular Hemoglobin 31.5 pg (26-34); Mean Corpuscular Volume 96.6 fl (80-100); Mean Platelet Volume 9.5 fl (7.4-10.4); Monocytes Absolute Auto 1.6 K/mm3 (0.1-0.6); Monocytes Percent Auto 15.3 % (2.6-8.5); Neutrophils Absolute Auto 7.4 K/mm3 (1.3-6.7); Neutrophils Percent Auto 71.5 % (45.5-73.1); Platelet Count Result 236 k/mm3 (150-375); Red Blood Count 3.78 M/mm3 (4.6-6.20); Red Cell Distribution Width 17.9 % (11.5-14.5); White Blood Count 10.3 K/mm3 (4.5-10.0)
[2021-11-30] MEDS: metroNIDAZOLE 500 MG/ISO 100ML 500 MG/100 ML BAG 100 MG IVPB ×4 (05:37→23:21)
[2021-11-30 05:42] LABS: Alanine Aminotransferase 27 U/L (4-50); Albumin Level 3.3 g/dL (3.5-5.1); Alkaline Phosphatase 67 U/L (38-126); Anion Gap 5 mmol/L (8-16); Aspartate Amino Transferase 31 U/L (17-59); Bilirubin,Total 0.5 mg/dL (0.2-1.3); Blood Urea Nitrogen 10 mg/dL (9-20); Calcium 8.3 mg/dL (8.4-10.2); Carbon Dioxide 21 mmol/L (22-30); Chloride 100 mmol/L (98-107); Estimated CRCL calculation 83 ml/min; Estimated Glomerular Filt Rate > 60; Glucose 97 mg/dL (65-110); Magnesium 1.8 mg/dL (1.6-2.3); Potassium 4.1 mmol/L (3.4-5.0); Sodium 126 mmol/L (137-145)
[2021-11-30] MEDS: ATORVASTATIN 20 MG TABLET PO (08:52)
[2021-11-30] MEDS: THIAMINE HCL 100 MG TABLET PO (08:52)
[2021-11-30] MEDS: DOXYCYCLINE 100 MG/NS 100 ML 100 MG/100 ML BAG IVPB ×2 (08:52→21:55)
[2021-11-30] MEDS: MULTIVITAMINS THERAPEUTIC TAB (*BKC) 1 TABLET PO (08:53)
[2021-11-30] MEDS: APIXABAN 5 MG TABLET PO ×2 (08:53→20:12)
[2021-11-30] MEDS: CLOPIDOGREL BISULFATE 75 MG TABLET PO (08:53)
--- NOTE | 2021-11-30 12:42 | P.PNNP_ITS ---
Progress Note: A&P Assessment and Plan (1) Hyponatremia: Code(s): E87.1 - Hypo-osmolality and hyponatremia Status: Acute Assessment and Plan: * unclear how acute or chronic this is * however, he has had issues with hyponatremia in the past (but never a sodium level as low as on this admission) * suspect due to volume depletion worsened by ongoing use of diuretic therapy * urine electrolytes suggest pre-renal azotemia * slow improvement in sodium with gentle normal saline IVFs * however, has other risk factors: * known history of pulmonary issues (COPD, restrictive lung disease, chronic respiratory failure, smoking hx) * CHF * SSRI use * alcohol use * TSH and cortisol okay * follow-up on serum/urine osmolality; SPEP and UPEP pending * goal of therapy is a rate of change in sodium of 4 - 6mmol/L (and not to ex ceed 8mmol/L) in 24 hours -- being achieved so far * follow trend of repeat sodium levels (2) ROSALIO (acute kidney injury): Code(s): N17.9 - Acute kidney failure, unspecified Status: Acute Assessment and Plan: * resolving if not resolved * presumably from dehydration along with hypotension and diuretic use as well as BAIRON-I * holding diuretics and lisinopril * follow trend of renal function (3) Hypotension: Code(s): I95.9 - Hypotension, unspecified Status: Acute Assessment and Plan: * as noted on admission * better at this time * empirically on antibiotics for this in possible association with pneumonia + abdominal process * follow trend of hemodynamics (4) COPD (chronic obstructive pulmonary disease): Qualifiers: COPD type: unspecified COPD Qualified Code(s): J44.9 - Chronic obstructive pulmonary disease, unspecified Code(s): J44.9 - Chronic obstructive pulmonary disease, unspecified Status: Chronic Assessment and Plan: * seems stable at this time * continue home medications/inhalers * monitor respiratory status (5) CHF (congestive heart failure): Code(s): I50.9 - Heart failure, unspecified Status: Resolved Assessment and Plan: * appears compensated * Echo results noted * follow volume status closely since diuretics on hold (and getting IVFs) * will eventually need to restart diuretic therapy Will continue to follow. Subjective Date/time seen: 11/30/21 12:42 No apparent distress voiced at this time; overall, states he is slowly getting better/stronger in general; no apparent distress voiced on my visit; no apparent issues/events overnight or earlier this AM; sodium continues to slowly improve with current interventions. Exam Narrative: General: elderly male in NAD Heart: normal S1 and S2; no rub Lungs: decreased breath sounds throughout Abdomen: mild distension noted, hypoactive bowel sounds Extremities: no cyanosis or clubbing; no edema Skin: warm and intact Objective Data Vital Signs Vital Signs: Vital Signs Temp Pulse Resp BP Pulse Ox 11/30/21 12:00 37.1 C 97 20 109/61 97 11/30/21 10:00 82 11/30/21 08:53 95 11/30/21 08:00 36.4 C L 111 H 24 H 105/64 95 11/30/21 05:43 97 11/30/21 04:00 36.4 C 101 H 22 H 95/56 L 95 11/30/21 02:00 94 11/30/21 01:10 95 11/30/21 00:00 89 20 95 11/29/21 23:39 36.3 C L 89 20 103/59 L 95
--- NOTE | 2021-11-30 12:42 | PM.PNNEP ---
Progress Note: A&P Assessment and Plan (1) Hyponatremia: Code(s): E87.1 - Hypo-osmolality and hyponatremia Status: Acute Assessment and Plan: unclear how acute or chronic this is however, he has had issues with hyponatremia in the past (but never a sodium level as low as on this admission) suspect due to volume depletion worsened by ongoing use of diuretic therapy urine electrolytes suggest pre-renal azotemia slow improvement in sodium with gentle normal saline IVFs however, has other risk factors: known history of pulmonary issues (COPD, restrictive lung disease, chronic respiratory failure, smoking hx) CHF SSRI use alcohol use TSH and cortisol okay follow-up on serum/urine osmolality; SPEP and UPEP pending goal of therapy is a rate of change in sodium of 4 - 6mmol/L (and not to exceed 8mmol/L) in 24 hours -- being achieved so far follow trend of repeat sodium levels (2) ROSALIO (acute kidney injury): Code(s): N17.9 - Acute kidney failure, unspecified Status: Acute Assessment and Plan: resolving if not resolved presumably from dehydration along with hypotension and diuretic use as well as BAIRON-I holding diuretics and lisinopril follow trend of renal function (3) Hypotension: Code(s): I95.9 - Hypotension, unspecified Status: Acute Assessment and Plan: as noted on admission better at this time empirically on antibiotics for this in possible association with pneumonia + abdominal process follow trend of hemodynamics (4) COPD (chronic obstructive pulmonary disease): Qualifiers: COPD type: unspecified COPD Qualified Code(s): J44.9 - Chronic obstructive pulmonary disease, unspecified Code(s): J44.9 - Chronic obstructive pulmonary disease, unspecified Status: Chronic Assessment and Plan: seems stable at this time continue home medications/inhalers monitor respiratory status (5) CHF (congestive heart failure): Code(s): I50.9 - Heart failure, unspecified Status: Resolved Assessment and Plan: appears compensated Echo results noted follow volume status closely since diuretics on hold (and getting IVFs) will eventually need to restart diuretic therapy Will continue to follow. Subjective Date/time seen: 11/30/21 12:42 No apparent distress voiced at this time; overall, states he is slowly getting better/stronger in general; no apparent distress voiced on my visit; no apparent issues/events overnight or earlier this AM; sodium continues to slowly improve with current interventions. Exam Narrative: General: elderly male in NAD Heart: normal S1 and S2; no rub Lungs: decreased breath sounds throughout Abdomen: mild distension noted, hypoactive bowel sounds Extremities: no cyanosis or clubbing; no edema Skin: warm and intact Objective Data Vital Signs Vital Signs: Vital Signs Temp Pulse Resp BP Pulse Ox 11/30/21 12:00 37.1 C 97 20 109/61 97 11/30/21 10:00 82 11/30/21 08:53 95 11/30/21 08:00 36.4 C L 111 H 24 H 105/64 95 11/30/21 05:43 97 11/30/21 04:00 36.4 C 101 H 22 H 95/56 L 95 11/30/21 02:00 94 11/30/21 01:10 95 11/30/21 00:00 89 20 95 11/29/21 23:39 36.3 C L 89 20 103/59 L 95 11/29/21 22:00 89 11/29/21 20:00 88 20 99 11/29/21 19:58 36.5 C 89 20 96/50 L 99 11/29/21 17:14 90 11/29/21 16:00 36.4 C 64 16 85/55 L 100 11/29/21 13:55 89 Intake/Output Intake/Output: Intake & Output 11/27/21 11/28/21 11/29/21 11/30/21 23:59 23:59 23:59 23:59 Intake Total 3350 2450 1830 200 Output Total 2340 2550 826 750 Balance 1010 -100 1004 -550 Meds/Results Medications: Active Medications Generic Name Dose Route Start Last Admin Trade Name Freq PRN Reason Stop Dose Admin Acetaminophen 650 mg 11/26/21 21:34 Acetaminophen 325 Mg Tablet PO Q4H PRN
[2021-11-30 13:00] LABS: Sodium 127 mmol/L (137-145)
[2021-11-30 19:21] LABS: Osmolality, Urine 280 mOsm/kg (50-1200)
--- NOTE | 2021-11-30 20:00 | PC.NURSE ---
Pt transferred from IMU to room [facility] at 20:00 11/30/2021.
[2021-11-30] MEDS: SERTRALINE HCL 25 MG TABLET PO (20:12)
[2021-11-30] MEDS: AMITRIPTYLINE HCL 25 MG TABLET PO (20:12)
[2021-11-30] MEDS: cefTRIAXone 2 GM in SODIUM CHLORIDE 0.9% IV 100 ML 200 ML IVPB (20:50)
[2021-11-30] MEDS: SODIUM CHLORIDE 0.9% IV 1,000 ML 40 ML IV CONT (22:01)
[2021-12-01] VITALS (7 sets, daily range): BP systolic 107–124; BP diastolic 49–69; PULSE 80–96; RESP 18–22; TEMP 35.9–36.6; O2SAT 93–98
[2021-12-01] MEDS: metroNIDAZOLE 500 MG/ISO 100ML 500 MG/100 ML BAG 100 MG IVPB ×4 (05:31→23:39)
[2021-12-01 05:47] LABS: Basophils Absolute Auto 0.1 K/mm3 (0.0-0.1); Basophils Percent Auto 0.9 % (0.2-1.2); Eosinophils Absolute Auto 0.7 K/mm3 (0-0.3); Eosinophils Percent Auto 6.1 % (0-4.4); Hematocrit 39.2 % (42.0-52.0); Hemoglobin 12.8 g/dL (14.0-18.0); Immature Granulocyte Absolute 0.12 K/mm3 (0.00-0.031); Immature Granulocyte Percent A 1.1 % (0-0.5); Lymphocytes Absolute Auto 0.64 K/mm3 (0.9-3.2); Lymphocytes Percent Auto 5.9 % (18.3-44.2); Mean Corpuscular HGB Conc 32.7 g/dl (32-36); Mean Corpuscular Hemoglobin 31.8 pg (26-34); Mean Corpuscular Volume 97.3 fl (80-100); Mean Platelet Volume 9.5 fl (7.4-10.4); Monocytes Absolute Auto 1.7 K/mm3 (0.1-0.6); Monocytes Percent Auto 15.8 % (2.6-8.5); Neutrophils Absolute Auto 7.6 K/mm3 (1.3-6.7); Neutrophils Percent Auto 70.2 % (45.5-73.1); Platelet Count Result 262 k/mm3 (150-375); Red Blood Count 4.03 M/mm3 (4.6-6.20); Red Cell Distribution Width 17.6 % (11.5-14.5); White Blood Count 10.8 K/mm3 (4.5-10.0)
[2021-12-01 05:59] LABS: Alanine Aminotransferase 25 U/L (4-50); Albumin Level 3.6 g/dL (3.5-5.1); Alkaline Phosphatase 66 U/L (38-126); Anion Gap 7 mmol/L (8-16); Aspartate Amino Transferase 29 U/L (17-59); Bilirubin,Total 0.5 mg/dL (0.2-1.3); Blood Urea Nitrogen 9 mg/dL (9-20); Calcium 8.8 mg/dL (8.4-10.2); Carbon Dioxide 18 mmol/L (22-30); Chloride 106 mmol/L (98-107); Estimated CRCL calculation 83 ml/min; Estimated Glomerular Filt Rate > 60; Glucose 105 mg/dL (65-110); Potassium 3.9 mmol/L (3.4-5.0); Sodium 131 mmol/L (137-145)
[2021-12-01] MEDS: ATORVASTATIN 20 MG TABLET PO (09:42)
[2021-12-01] MEDS: APIXABAN 5 MG TABLET PO ×2 (09:42→20:33)
[2021-12-01] MEDS: MULTIVITAMINS THERAPEUTIC TAB (*BKC) 1 TABLET PO (09:43)
[2021-12-01] MEDS: CLOPIDOGREL BISULFATE 75 MG TABLET PO (09:43)
[2021-12-01] MEDS: DOXYCYCLINE 100 MG/NS 100 ML 100 MG/100 ML BAG IVPB (09:43)
[2021-12-01] MEDS: THIAMINE HCL 100 MG TABLET PO (09:43)
[2021-12-01] MEDS: BENZOCAINE/MENTHOL (*BKC) 18 EA LOZENGE 1 LOZENGE PO (09:57)
--- NOTE | 2021-12-01 11:59 | P.PNNP_ITS ---
Progress Note: A&P Assessment and Plan (1) Hyponatremia: Code(s): E87.1 - Hypo-osmolality and hyponatremia Status: Acute Assessment and Plan: * unclear how acute or chronic this is * however, he has had issues with hyponatremia in the past (but never a sodium level as low as on this admission) * suspect due to volume depletion worsened by ongoing use of diuretic therapy * urine electrolytes suggest pre-renal azotemia * slow improvement in sodium with gentle normal saline IVFs * however, has other risk factors: * known history of pulmonary issues (COPD, restrictive lung disease, chronic respiratory failure, smoking hx) * CHF * SSRI use * alcohol use * TSH and cortisol okay * follow-up on serum/urine osmolality; SPEP and UPEP pending * goal of therapy is a rate of change in sodium of 4 - 6mmol/L (and not to ex ceed 8mmol/L) in 24 hours -- achieved * will d/c IVFs today * follow trend of repeat sodium levels (2) ROSALIO (acute kidney injury): Code(s): N17.9 - Acute kidney failure, unspecified Status: Acute Assessment and Plan: * resolving if not resolved * presumably from dehydration along with hypotension and diuretic use as well as BAIRON-I * holding diuretics and lisinopril * follow trend of renal function (3) Hypotension: Code(s): I95.9 - Hypotension, unspecified Status: Acute Assessment and Plan: * as noted on admission * better at this time * empirically on antibiotics for this in possible association with pneumonia + abdominal process * follow trend of hemodynamics (4) COPD (chronic obstructive pulmonary disease): Qualifiers: COPD type: unspecified COPD Qualified Code(s): J44.9 - Chronic obstructive pulmonary disease, unspecified Code(s): J44.9 - Chronic obstructive pulmonary disease, unspecified Status: Chronic Assessment and Plan: * seems stable at this time * continue home medications/inhalers * monitor respiratory status (5) CHF (congestive heart failure): Code(s): I50.9 - Heart failure, unspecified Status: Resolved Assessment and Plan: * appears compensated * Echo results noted * follow volume status closely since diuretics on hold * will eventually need to restart diuretic therapy Will continue to follow. Subjective Date/time seen: 12/01/21 11:59 Continues to have slow and steady improvement in sodium level as noted by trend of labs; unfortunately, still having some issues with diarrhea/loose stools; otherwise, no acute distress voiced; no other events/issues to report overnight or earlier this AM. Exam Narrative: General: elderly male in NAD Heart: normal S1 and S2; no rub Lungs: decreased breath sounds throughout Abdomen: mild distension noted, hypoactive bowel sounds Extremities: no cyanosis or clubbing; no edema Skin: no rash or nodules Objective Data Vital Signs Vital Signs: Vital Signs Temp Pulse Resp BP Pulse Ox 12/01/21 09:52 36.3 C L 82 20 124/69 98 12/01/21 04:00 36.1 C L 96 18 112/58 L 93 12/01/21 00:00 35.9 C L 86 18 107/58 L 98 11/30/21 20:00 36.1 C L 85 23 H 110/48 L 96 11/30/21 16:00 36.9 C 91 22 H 103/61 96 11/30/21 14:00 93 Intake/Output Intake/Output: Intake & Output 11/28/21 11/29/21 11/30/21 12/01/21
--- NOTE | 2021-12-01 11:59 | PM.PNNEP ---
Progress Note: A&P Assessment and Plan (1) Hyponatremia: Code(s): E87.1 - Hypo-osmolality and hyponatremia Status: Acute Assessment and Plan: unclear how acute or chronic this is however, he has had issues with hyponatremia in the past (but never a sodium level as low as on this admission) suspect due to volume depletion worsened by ongoing use of diuretic therapy urine electrolytes suggest pre-renal azotemia slow improvement in sodium with gentle normal saline IVFs however, has other risk factors: known history of pulmonary issues (COPD, restrictive lung disease, chronic respiratory failure, smoking hx) CHF SSRI use alcohol use TSH and cortisol okay follow-up on serum/urine osmolality; SPEP and UPEP pending goal of therapy is a rate of change in sodium of 4 - 6mmol/L (and not to exceed 8mmol/L) in 24 hours -- achieved will d/c IVFs today follow trend of repeat sodium levels (2) ROSALIO (acute kidney injury): Code(s): N17.9 - Acute kidney failure, unspecified Status: Acute Assessment and Plan: resolving if not resolved presumably from dehydration along with hypotension and diuretic use as well as BAIRON-I holding diuretics and lisinopril follow trend of renal function (3) Hypotension: Code(s): I95.9 - Hypotension, unspecified Status: Acute Assessment and Plan: as noted on admission better at this time empirically on antibiotics for this in possible association with pneumonia + abdominal process follow trend of hemodynamics (4) COPD (chronic obstructive pulmonary disease): Qualifiers: COPD type: unspecified COPD Qualified Code(s): J44.9 - Chronic obstructive pulmonary disease, unspecified Code(s): J44.9 - Chronic obstructive pulmonary disease, unspecified Status: Chronic Assessment and Plan: seems stable at this time continue home medications/inhalers monitor respiratory status (5) CHF (congestive heart failure): Code(s): I50.9 - Heart failure, unspecified Status: Resolved Assessment and Plan: appears compensated Echo results noted follow volume status closely since diuretics on hold will eventually need to restart diuretic therapy Will continue to follow. Subjective Date/time seen: 12/01/21 11:59 Continues to have slow and steady improvement in sodium level as noted by trend of labs; unfortunately, still having some issues with diarrhea/loose stools; otherwise, no acute distress voiced; no other events/issues to report overnight or earlier this AM. Exam Narrative: General: elderly male in NAD Heart: normal S1 and S2; no rub Lungs: decreased breath sounds throughout Abdomen: mild distension noted, hypoactive bowel sounds Extremities: no cyanosis or clubbing; no edema Skin: no rash or nodules Objective Data Vital Signs Vital Signs: Vital Signs Temp Pulse Resp BP Pulse Ox 12/01/21 09:52 36.3 C L 82 20 124/69 98 12/01/21 04:00 36.1 C L 96 18 112/58 L 93 12/01/21 00:00 35.9 C L 86 18 107/58 L 98 11/30/21 20:00 36.1 C L 85 23 H 110/48 L 96 11/30/21 16:00 36.9 C 91 22 H 103/61 96 11/30/21 14:00 93 Intake/Output Intake/Output: Intake & Output 11/28/21 11/29/21 11/30/21 12/01/21 23:59 23:59 23:59 23:59 Intake Total 2450 1830 2240 400 Output Total 2550 826 750 Balance -100 1004 1490 400 Meds/Results Medications: Active Medications Generic Name Dose Route Start Last Admin Trade Name Freq PRN Reason Stop Dose Admin Acetaminophen 650 mg 11/26/21 21:34 Acetaminophen 325 Mg Tablet PO Q4H PRN Mild Pain (1-3) or Fever Al Hydrox/Mg Hydrox/Simethicone 30 ml 11/26/21 21:34 Mag Hydrox/Al Hydrox/Simeth 30 Ml Udc PO QID PRN Dyspepsia Amitriptyline HCl 25 mg 11/27/21 21:00 11/30/21 20:12 Amitriptyline Hcl 25 Mg Tablet PO 25 mg HS ОЛЬГА Administration Apixaban 5
--- NOTE | 2021-12-01 13:07 | PCOTNOTE ---
Attempted to see patient, patient sleeping soundly. Patient declined when awoken to participate in OT. Will continue plan of care tomorrow.
[2021-12-01] MEDS: SERTRALINE HCL 25 MG TABLET PO (20:33)
[2021-12-01] MEDS: AMITRIPTYLINE HCL 25 MG TABLET PO (20:33)
[2021-12-01] MEDS: cefTRIAXone 2 GM in SODIUM CHLORIDE 0.9% IV 100 ML IVPB (20:34)
[2021-12-02] VITALS (7 sets, daily range): BP systolic 98–109; BP diastolic 48–66; PULSE 73–103; RESP 16–20; TEMP 36.1–36.8; O2SAT 95–98
[2021-12-02] MEDS: metroNIDAZOLE 500 MG/ISO 100ML 500 MG/100 ML BAG 100 MG IVPB ×3 (05:20→17:23)
[2021-12-02 05:40] LABS: Basophils Absolute Auto 0.1 K/mm3 (0.0-0.1); Basophils Percent Auto 0.8 % (0.2-1.2); Eosinophils Absolute Auto 0.7 K/mm3 (0-0.3); Eosinophils Percent Auto 6.9 % (0-4.4); Hematocrit 38.3 % (42.0-52.0); Hemoglobin 12.3 g/dL (14.0-18.0); Immature Granulocyte Absolute 0.08 K/mm3 (0.00-0.031); Immature Granulocyte Percent A 0.8 % (0-0.5); Lymphocytes Absolute Auto 0.55 K/mm3 (0.9-3.2); Lymphocytes Percent Auto 5.8 % (18.3-44.2); Mean Corpuscular HGB Conc 32.1 g/dl (32-36); Mean Corpuscular Hemoglobin 31.3 pg (26-34); Mean Corpuscular Volume 97.5 fl (80-100); Mean Platelet Volume 9.2 fl (7.4-10.4); Monocytes Absolute Auto 1.3 K/mm3 (0.1-0.6); Monocytes Percent Auto 14.1 % (2.6-8.5); Neutrophils Absolute Auto 6.8 K/mm3 (1.3-6.7); Neutrophils Percent Auto 71.6 % (45.5-73.1); Platelet Count Result 233 k/mm3 (150-375); Red Blood Count 3.93 M/mm3 (4.6-6.20); Red Cell Distribution Width 17.4 % (11.5-14.5); White Blood Count 9.4 K/mm3 (4.5-10.0)
[2021-12-02 05:51] LABS: Alanine Aminotransferase 22 U/L (4-50); Albumin Level 3.3 g/dL (3.5-5.1); Alkaline Phosphatase 63 U/L (38-126); Anion Gap 8 mmol/L (8-16); Aspartate Amino Transferase 28 U/L (17-59); Bilirubin,Total 0.4 mg/dL (0.2-1.3); Blood Urea Nitrogen 9 mg/dL (9-20); Calcium 8.7 mg/dL (8.4-10.2); Carbon Dioxide 17 mmol/L (22-30); Chloride 108 mmol/L (98-107); Estimated CRCL calculation 94 ml/min; Estimated Glomerular Filt Rate > 60; Glucose 104 mg/dL (65-110); Potassium 3.7 mmol/L (3.4-5.0); Sodium 133 mmol/L (137-145)
[2021-12-02] MEDS: MULTIVITAMINS THERAPEUTIC TAB (*BKC) 1 TABLET PO (08:46)
[2021-12-02] MEDS: CLOPIDOGREL BISULFATE 75 MG TABLET PO (08:46)
[2021-12-02] MEDS: ATORVASTATIN 20 MG TABLET PO (08:46)
[2021-12-02] MEDS: THIAMINE HCL 100 MG TABLET PO (08:46)
[2021-12-02] MEDS: APIXABAN 5 MG TABLET PO ×2 (08:46→21:06)
--- NOTE | 2021-12-02 12:06 | P.PNNP_ITS ---
Progress Note: A&P Assessment and Plan (1) Hyponatremia: Code(s): E87.1 - Hypo-osmolality and hyponatremia Status: Acute Assessment and Plan: * unclear how acute or chronic this is * however, he has had issues with hyponatremia in the past (but never a sodium level as low as on this admission) * suspect due to volume depletion worsened by ongoing use of diuretic therapy * urine electrolytes suggest pre-renal azotemia * slow improvement in sodium with gentle normal saline IVFs * however, has other risk factors: * known history of pulmonary issues (COPD, restrictive lung disease, chronic respiratory failure, smoking hx) * CHF * SSRI use * alcohol use * TSH and cortisol okay * follow-up on serum/urine osmolality as well as SPEP and UPEP * goal of therapy is a rate of change in sodium of 4 - 6mmol/L (and not to exceed 8mmol/L) in 24 hours -- achieved * will d/c IVFs today * follow trend of repeat sodium levels (2) ROSALIO (acute kidney injury): Code(s): N17.9 - Acute kidney failure, unspecified Status: Acute Assessment and Plan: * resolving if not resolved * presumably from dehydration along with hypotension and diuretic use as well as BAIRON-I * holding diuretics and lisinopril * follow trend of renal function (3) Hypotension: Code(s): I95.9 - Hypotension, unspecified Status: Acute Assessment and Plan: * as noted on admission * better at this time * empirically on antibiotics for this in possible association with pneumonia + abdominal process * follow trend of hemodynamics (4) COPD (chronic obstructive pulmonary disease): Qualifiers: COPD type: unspecified COPD Qualified Code(s): J44.9 - Chronic obstructive pulmonary disease, unspecified Code(s): J44.9 - Chronic obstructive pulmonary disease, unspecified Status: Chronic Assessment and Plan: * seems stable at this time * continue home medications/inhalers * monitor respiratory status (5) CHF (congestive heart failure): Code(s): I50.9 - Heart failure, unspecified Status: Resolved Assessment and Plan: * appears compensated * Echo results noted * follow volume status closely since diuretics on hold * will eventually need to restart diuretic therapy Not much else to add -- will continue to follow intermittently. Subjective Date/time seen: 12/02/21 12:06 Overall, appears to be doing well; sodium continues to improve if not stablize with current interventions; no apparent distress voiced; no issues overnight or earlier this AM. Exam Narrative: General: elderly male in NAD Heart: normal S1 and S2; no rub Lungs: decreased breath sounds throughout Abdomen: mild distension noted, hypoactive bowel sounds Extremities: no cyanosis or clubbing; no edema Skin: warm and dry Objective Data Vital Signs Vital Signs: Vital Signs Temp Pulse Resp BP Pulse Ox 12/02/21 09:14 97 12/02/21 08:00 36.4 C 73 18 103/65 98 12/02/21 06:04 36.1 C L 92 18 103/52 L 97 12/02/21 00:00 36.7 C 90 18 98/48 L 97 12/01/21 20:44 36.6 C 90 22 H 111/68 98 12/01/21 20:00 98 12/01/21 18:00 36.1 C L 82 20 118/64 98 12/01/21 14:00 36.1 C L 80 18 114/49 L 98 Intake/Output Intake/Output: Intake & Output 0
--- NOTE | 2021-12-02 12:06 | PM.PNNEP ---
Progress Note: A&P Assessment and Plan (1) Hyponatremia: Code(s): E87.1 - Hypo-osmolality and hyponatremia Status: Acute Assessment and Plan: unclear how acute or chronic this is however, he has had issues with hyponatremia in the past (but never a sodium level as low as on this admission) suspect due to volume depletion worsened by ongoing use of diuretic therapy urine electrolytes suggest pre-renal azotemia slow improvement in sodium with gentle normal saline IVFs however, has other risk factors: known history of pulmonary issues (COPD, restrictive lung disease, chronic respiratory failure, smoking hx) CHF SSRI use alcohol use TSH and cortisol okay follow-up on serum/urine osmolality as well as SPEP and UPEP goal of therapy is a rate of change in sodium of 4 - 6mmol/L (and not to exceed 8mmol/L) in 24 hours -- achieved will d/c IVFs today follow trend of repeat sodium levels (2) ROSALIO (acute kidney injury): Code(s): N17.9 - Acute kidney failure, unspecified Status: Acute Assessment and Plan: resolving if not resolved presumably from dehydration along with hypotension and diuretic use as well as BAIRON-I holding diuretics and lisinopril follow trend of renal function (3) Hypotension: Code(s): I95.9 - Hypotension, unspecified Status: Acute Assessment and Plan: as noted on admission better at this time empirically on antibiotics for this in possible association with pneumonia + abdominal process follow trend of hemodynamics (4) COPD (chronic obstructive pulmonary disease): Qualifiers: COPD type: unspecified COPD Qualified Code(s): J44.9 - Chronic obstructive pulmonary disease, unspecified Code(s): J44.9 - Chronic obstructive pulmonary disease, unspecified Status: Chronic Assessment and Plan: seems stable at this time continue home medications/inhalers monitor respiratory status (5) CHF (congestive heart failure): Code(s): I50.9 - Heart failure, unspecified Status: Resolved Assessment and Plan: appears compensated Echo results noted follow volume status closely since diuretics on hold will eventually need to restart diuretic therapy Not much else to add -- will continue to follow intermittently. Subjective Date/time seen: 12/02/21 12:06 Overall, appears to be doing well; sodium continues to improve if not stablize with current interventions; no apparent distress voiced; no issues overnight or earlier this AM. Exam Narrative: General: elderly male in NAD Heart: normal S1 and S2; no rub Lungs: decreased breath sounds throughout Abdomen: mild distension noted, hypoactive bowel sounds Extremities: no cyanosis or clubbing; no edema Skin: warm and dry Objective Data Vital Signs Vital Signs: Vital Signs Temp Pulse Resp BP Pulse Ox 12/02/21 09:14 97 12/02/21 08:00 36.4 C 73 18 103/65 98 12/02/21 06:04 36.1 C L 92 18 103/52 L 97 12/02/21 00:00 36.7 C 90 18 98/48 L 97 12/01/21 20:44 36.6 C 90 22 H 111/68 98 12/01/21 20:00 98 12/01/21 18:00 36.1 C L 82 20 118/64 98 12/01/21 14:00 36.1 C L 80 18 114/49 L 98 Intake/Output Intake/Output: Intake & Output 11/29/21 11/30/21 12/01/21 12/02/21 23:59 23:59 23:59 23:59 Intake Total 1830 2240 1540 780 Output Total 826 750 Balance 1004 1490 1540 780 Meds/Results Medications: Active Medications Generic Name Dose Route Start Last Admin Trade Name Freq PRN Reason Stop Dose Admin Acetaminophen 650 mg 11/26/21 21:34 Acetaminophen 325 Mg Tablet PO Q4H PRN Mild Pain (1-3) or Fever Al Hydrox/Mg Hydrox/Simethicone 30 ml 11/26/21 21:34 Mag Hydrox/Al Hydrox/Simeth 30 Ml Udc PO QID PRN Dyspepsia Amitriptyline HCl 25 mg 11/27/21 21:00 12/01/21 20:33 Amitriptyline Hcl 25 Mg Tablet PO 25 mg HS ОЛЬГА Administration
[2021-12-02] MEDS: ACETAMINOPHEN 325 MG TABLET 650 MG PO (12:09)
[2021-12-02 16:49] LABS: Albumin 3.5 g/dL (3.8-4.8); Alpha 1 Globulin 0.4 g/dL (0.2-0.3); Alpha 2 Globulin 0.8 g/dL (0.5-0.9); Beta 1 Globulin 0.4 g/dL (0.4-0.6); Gamma Globulin 0.5 g/dL (0.8-1.7); Protein, Total 5.7 g/dL (6.1-8.1)
[2021-12-02] MEDS: AMITRIPTYLINE HCL 25 MG TABLET PO (21:06)
[2021-12-02] MEDS: cefTRIAXone 2 GM in SODIUM CHLORIDE 0.9% IV 100 ML IVPB (21:06)
[2021-12-02] MEDS: SERTRALINE HCL 25 MG TABLET PO (21:06)
[2021-12-03] VITALS (7 sets, daily range): BP systolic 112–139; BP diastolic 65–72; PULSE 81–99; RESP 15–17; TEMP 36.1–36.5; O2SAT 95–98
[2021-12-03] MEDS: metroNIDAZOLE 500 MG/ISO 100ML 500 MG/100 ML BAG 100 MG IVPB ×3 (01:20→11:00)
[2021-12-03 05:26] LABS: Basophils Percent Auto 0.5 % (0.2-1.2); Eosinophils Absolute Auto 0.5 K/mm3 (0-0.3); Eosinophils Percent Auto 6.2 % (0-4.4); Hematocrit 38.7 % (42.0-52.0); Hemoglobin 12.3 g/dL (14.0-18.0); Immature Granulocyte Absolute 0.08 K/mm3 (0.00-0.031); Immature Granulocyte Percent A 0.9 % (0-0.5); Lymphocytes Absolute Auto 0.53 K/mm3 (0.9-3.2); Lymphocytes Percent Auto 6.1 % (18.3-44.2); Mean Corpuscular HGB Conc 31.8 g/dl (32-36); Mean Corpuscular Hemoglobin 31.5 pg (26-34); Mean Platelet Volume 8.9 fl (7.4-10.4); Monocytes Absolute Auto 1.1 K/mm3 (0.1-0.6); Monocytes Percent Auto 12.6 % (2.6-8.5); Neutrophils Absolute Auto 6.4 K/mm3 (1.3-6.7); Neutrophils Percent Auto 73.7 % (45.5-73.1); Platelet Count Result 242 k/mm3 (150-375); Red Blood Count 3.91 M/mm3 (4.6-6.20); Red Cell Distribution Width 17.7 % (11.5-14.5); White Blood Count 8.7 K/mm3 (4.5-10.0)
[2021-12-03 05:36] LABS: Albumin Level 3.3 g/dL (3.5-5.1); Anion Gap 5 mmol/L (8-16); Blood Urea Nitrogen 12 mg/dL (9-20); Carbon Dioxide 21 mmol/L (22-30); Chloride 109 mmol/L (98-107); Estimated CRCL calculation 93 ml/min; Estimated Glomerular Filt Rate > 60; Glucose 106 mg/dL (65-110); Sodium 135 mmol/L (137-145)
[2021-12-03] MEDS: ATORVASTATIN 20 MG TABLET PO (08:15)
[2021-12-03] MEDS: CLOPIDOGREL BISULFATE 75 MG TABLET PO (08:15)
[2021-12-03] MEDS: MULTIVITAMINS THERAPEUTIC TAB (*BKC) 1 TABLET PO (08:15)
[2021-12-03] MEDS: THIAMINE HCL 100 MG TABLET PO (08:15)
[2021-12-03] MEDS: APIXABAN 5 MG TABLET PO ×2 (08:15→20:22)
[2021-12-03] MEDS: ACETAMINOPHEN 325 MG TABLET 650 MG PO (10:56)
[2021-12-03] MEDS: SERTRALINE HCL 25 MG TABLET PO (20:22)
[2021-12-03] MEDS: AMITRIPTYLINE HCL 25 MG TABLET PO (20:22)
[2021-12-04 05:18] VITALS: BP 102/58; PULSE 94; RESP 18; TEMP 36.7; O2SAT 94
[2021-12-04] MEDS: MULTIVITAMINS THERAPEUTIC TAB (*BKC) 1 TABLET PO (08:36)
[2021-12-04] MEDS: THIAMINE HCL 100 MG TABLET PO (08:36)
[2021-12-04] MEDS: CLOPIDOGREL BISULFATE 75 MG TABLET PO (08:36)
[2021-12-04] MEDS: APIXABAN 5 MG TABLET PO (08:36)
[2021-12-04] MEDS: ATORVASTATIN 20 MG TABLET PO (08:37)
--- NOTE | 2021-12-04 10:41 | PCPTNOTE ---
Patient refused treatment this session due to patient wanting to rest at this time. Patient reported he is too tired and does not want to work with therapy at this time.
--- NOTE | 2021-12-04 11:01 | PM.DS ---
DS: Admitting Diagnosis Discharge Date 12/04/2021 Admitting Diagnosis Dizziness DS: Discharge Diagnosis Discharge Diagnosis (1) Acute dehydration: Code(s): E86.0 - Dehydration Status: Resolved Assessment and Plan: Multifactorial most likely related to decreased oral intake and diuretic Hold Bumex onIV fluid Monitor closely for fluid overload stop IV fluids (2) Hypotension: Code(s): I95.9 - Hypotension, unspecified Status: Acute Assessment and Plan: Probably related to medication and dehydration Hold lisinopril hold Bumex Continue IV fluid as ordered Patient has leukocytosis with abnormal chest x-ray. Chest x-ray with chronic left hemidiaphragmatic elevation likely process with adjacent multi segmental atelectasis associated distended air-filled colon CT chest abdomen and pelvis with 1. Moderate to large amount of ascending and transverse colonic fluid and gas without colonic obstruction. No transition point. Probably colonic ileus. 2. Moderate colonic diverticulosis. 3. Bibasilar airspace disease consistent with atelectasis. Can't totally exclude pneumonia. 4. 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 5. Mild to moderate emphysema. 6. Dense coronary artery calcifications. 7. Punctate bilateral nephrolithiasis. Lactic acid was normal Empirically started on doxycycline and ceftriaxone. However he has history of diarrhea few days back along with colonic ileus noted on the CT scan. Bibasilar airspace disease consistent with atelectasis however pneumonia not completely excluded. Leukocytosis slowly improving Added Flagyl for enteric anaerobic coverage 11/27/2021. CT scan chest abdomen pelvis reviewed Stool studies C diff negative occult blood was positive Blood pressure has improved compared to admission (3) Acute kidney failure: Code(s): N17.9 - Acute kidney failure, unspecified Status: Acute Assessment and Plan: Most likely related to dehydration IV fluid 1.5 on admission baseline creatinine 0.8 Back to baseline now (4) Afib: Code(s): I48.91 - Unspecified atrial fibrillation Status: Chronic Assessment and Plan: Stable patient on Eliquis at home EKG with atrial fibrillation with slow ventricular response on admission (5) COPD (chronic obstructive pulmonary disease): Qualifiers: COPD type: unspecified COPD Qualified Code(s): J44.9 - Chronic obstructive pulmonary disease, unspecified Code(s): J44.9 - Chronic obstructive pulmonary disease, unspecified Status: Chronic Assessment and Plan: Stable continue home medication (6) Chronic respiratory failure with hypoxia, on home O2 therapy: Code(s): J96.11 - Chronic respiratory failure with hypoxia; Z99.81 - Dependence on supplemental oxygen Status: Chronic Assessment and Plan: Secondary to COPD restrictive lung disease as CHF stable (7) CHF (congestive heart failure): Code(s): I50.9 - Heart failure, unspecified Status: Resolved Assessment and Plan: Most likely diastolic repeat echo as patient has hypotension and elevated troponin Echo 11/27/2021 ejection fraction 65-70%, abnormal diastolic function, E by E prime mildly elevated, moderate pulmonary hypertension with PASP 50 mm Hg (8) Elevated troponin: Code(s): R77.8 - Other specified abnormalities of plasma proteins Status: Acute Assessment and Plan: Most likely NSTEMI type 2 secondary to demand ischemia secondary to renal failure dehydration and hypotension Follow troponin Continue Plavix once confirmed Check echo in a.m. (9) Hyponatremia: Code(s): E87.1 - Hypo-osmolality and hyponatremia Status: Resolved Assessment and Plan: Severe hyponatremia with admission sodium level of 105 baseline normal sodium level prior to this. Does have history of hyponatremia back in July 2021 Nephrology has been consulted on n
[2021-12-04 11:15] VITALS: O2SAT 94
--- NOTE | 2021-12-04 11:22 | PCNWS ---
Weekly nutritional screen. Patient is tolerating current diet with adequate intake. No weight loss reported. No nutritional needs at this time.
[2021-12-04 12:29] VITALS: O2SAT 95
[2021-12-04 12:33] VITALS: BP 144/75; PULSE 92; RESP 20; TEMP 36.4; O2SAT 94
== END 2021-12-04 17:22 | disposition home health service (06) | DRG 641 ==
LOC: ANHED 21:55 → ANHIMU 22:44 → ANH3MED 12-01 08:30 → ANHIMU 12-07 15:06
PROVIDERS: Internal Medicine; Internal Medicine Nephrology; Physician Assistant; Admitting Provider Internal Medicine; Emergency Provider Emergency Medicine; PCP Family Medicine; Visit Provider Family Medicine
DX: E87.1 Hypo-osmolality and hyponatremia (principal); N17.9 Acute kidney failure, unspecified; J96.11 Chronic respiratory failure with hypoxia; I50.32 Chronic diastolic (congestive) heart failure; E86.0 Dehydration; I27.20 Pulmonary hypertension, unspecified; Z99.81 Dependence on supplemental oxygen; I95.9 Hypotension, unspecified; R19.5 Other fecal abnormalities; R19.7 Diarrhea, unspecified; I11.0 Hypertensive heart disease with heart failure; I25.10 Atherosclerotic heart disease of native coronary artery without angina pectoris; I48.91 Unspecified atrial fibrillation; E78.2 Mixed hyperlipidemia; J43.9 Emphysema, unspecified; J98.4 Other disorders of lung; R77.8 Other specified abnormalities of plasma proteins; R29.6 Repeated falls; W19.XXXA Unspecified fall, initial encounter; Z79.01 Long term (current) use of anticoagulants; Z79.02 Long term (current) use of antithrombotics/antiplatelets; Z79.899 Other long term (current) drug therapy; Z86.73 Personal history of transient ischemic attack (TIA), and cerebral infarction without residual deficits; Z87.891 Personal history of nicotine dependence; Z95.5 Presence of coronary angioplasty implant and graft; Z98.41 Cataract extraction status, right eye
CPT/HCPCS: 36415; 70450; 71045; 71046; 71250; 74018; 74176; 80053; 80069; 81001; 82274; 82533; 83605; 83735; 83880; 83935; 84155; 84165; 84295; 84300; 84443; 84484; 85025; 87040; 87045; 87177; 87209; 87269; 87272; 87427; 87493; 89055; 93005; 96360; 96361; 96365; 96366; 96368; 97110; 97162; 97165; 97530; 97535; 99285; A9270; C8929; G0378; J0696; J7030; J7060; Q9957

== ENCOUNTER 2022-01-24 06:26 | Inpatient (IN) | payer MEDICARE, SELFPAY ==
[2022-01-24] VITALS (19 sets, daily range): BP systolic 147–184; BP diastolic 65–123; PULSE 58–136; RESP 16–30; TEMP 36.6–36.9; O2SAT 84–98; BMI 32.8
--- NOTE | ~2022-01-24 | XR_ITS ---
EXAMINATION: XR chest 2V DATE: 01/29/2022 07:50 INDICATION: Shortness of breath with increased oxygen requirement. TECHNIQUE: Frontal and lateral views of the chest were obtained. COMPARISON: Chest single view 01/26/2022, CT abdomen and pelvis 01/24/2022 FINDINGS: Again seen is mild elevation of left hemidiaphragm. There are airspace opacities in the mid and lower lung zones. No pleural effusion or pneumothorax. Cardiomegaly is noted. IMPRESSION: 1. Improved airspace opacities in the mid and lower lung zones, consistent with atelectasis versus pn eumonia. 2. Cardiomegaly. Reviewed, dictated and finalized at location A. IMPRESSION: 1. Improved airspace opacities in the mid and lower lung zones, consistent with atelectasis versus pneumonia. 2. Cardiomegaly.
--- NOTE | ~2022-01-24 | XR_ITS ---
EXAMINATION: XR chest 1V portable DATE: 01/24/2022 07:24 INDICATION: Cough TECHNIQUE: frontal view of the chest was obtained. COMPARISON: Chest radiograph dated 11/28/2021 FINDINGS: Small lung volumes, particularly on the left there is unchanged elevation of the left hemidiaphragm. Persistent opacities in the bilateral lower lung zones. Relative increased lucency in the upper lung zones corresponding emphysema which is better appreciated on prior CT No pneumothorax. Small right pl eural effusion. Cardiomegaly. IMPRESSION: 1. Persistent opacities in the bilateral lower lung zones most likely atelectasis although differenti al includes pneumonia or mild pulmonary edema. 2. Emphysema. 3. Cardiomegaly. Reviewed, dictated and finalized at location A. IMPRESSION: 1. Persistent opacities in the bilateral lower lung zones most likely atelectas is although differential includes pneumonia or mild pulmonary edema. 2. Emphysema. 3. Cardiomegaly.
--- NOTE | ~2022-01-24 | XR_ITS ---
EXAMINATION: XR chest 1V portable DATE: 01/26/2022 10:36 INDICATION: Shortness of breath. TECHNIQUE: A single frontal view of the chest was obtained. COMPARISON: Chest single view 01/24/2022, CT abdomen and pelvis 01/24/2022 FINDINGS: Again seen is mild elevation of left hemidiaphragm. The lung volumes are small. There is a diffuse interstitial pattern in the lungs. There are mild airspace opacities in the mid and lower gloria g zones. No pleural effusion or pneumothorax. Cardiomegaly is noted. IMPRESSION: 1. Worsened diffuse lung disease, likely mild pulmonary edema with superimposed atelectasis versus pn eumonia. 2. Cardiomegaly. Reviewed, dictated and finalized at location A. IMPRESSION: 1. Worsened diffuse lung disease, likely mild pulmonary edema with superimposed atelectasis versus pneumonia. 2. Cardiomegaly.
--- NOTE | ~2022-01-24 | CT_ITS ---
EXAMINATION: CT abdomen pelvis wo con DATE: 01/24/2022 09:19 INDICATION: Abdominal pain TECHNIQUE: Computed tomography (CT) of the abdomen and pelvis was performed without intravenous contr ast. Automated exposure control and iterative reconstruction technique were employed. The dose-length product was 1314.88 mGy-cm. COMPARISON: 10/29/2021 FINDINGS: Respiratory motion and mild atelectasis at the bilateral lung bases. Elevation the left hemidiaphragm . Cardiomegaly. Atherosclerotic coronary artery calcifications and possible coronary artery stenting. No pericardial or pleural effusion. A low density gallstones in the nondependent aspect of the other haque normal-appearing gallbladder which is not dilated with no evident wall thickening or pericholecy stic inflammatory change to suggest acute cholecystitis. Liver, spleen, pancreas, bilateral adrenal g lands are normal. Multiple atherosclerotic calcifications at the bilateral renal alex. There are saldana scott a few 1 mm or smaller calcifications at the right kidney which are more equivocal for atheroscler otic calcific lesions versus nonobstructing urolithiasis. No ureteral stones or hydronephrosis. Bladd er is distended. There is prominent colonic diverticulosis with a sigmoid and descending colon predom inance. There is no adjacent inflammatory change to suggest diverticulitis. Small bowel and appendix are normal. Prostatomegaly. Small to moderate-sized fat-containing umbilical hernia. No free intrape ritoneal gas or fluid. No pathologically enlarged abdominal or pelvic lymphadenopathy. L5 spondylolys is with bilateral pars intra-articular is defects and 4 mm anterolisthesis on S1. Mild thoracolumbar spondylosis with bridging osteophytes at multiple levels consistent with diffuse idiopathic skeletal hyperostosis (DISH). IMPRESSION: 1. Cholelithiasis. 2. Prominent diverticulosis. 3. Possible nonobstructing right nephrolithiasis versus atherosclerotic calcification. 4. Cardiomegaly. 5. Chronic elevation of the left hemidiaphragm with bibasilar atelectasis. 6. Prostatomegaly. Reviewed, dictated and finalized at location A. IMPRESSION: 1. Cholelithiasis. 2. Prominent diverticulosis. 3. Possible nonobstructing right nephrolithiasis versus atherosclerotic calcifi cation. 4. Cardiomegaly. 5. Chronic elevation of the left hemidiaphragm with bibasilar atelectasis. 6. Prostatomegaly.
--- NOTE | 2022-01-24 06:29 | ECG_ITS ---
Measurements Intervals [place] Rate: 116 P: 206 NM: 203 QRS: 26 QRSD: 113 T: 55 QT: 317 QTc: 441 Interpretive Statements ATRIAL FLUTTER/TACHYCARDIA WITH RAPID VENTRICULAR RESPONSE INCOMPLETE RIGHT BUNDLE BRANCH BLOCK ABNORMAL ECG Electronically Signed On 01-24-2022 7:57:52 CDT by Santiago Machado D.O.
[2022-01-24 06:51] LABS: Alanine Aminotransferase 37 U/L (6-50); Albumin Level 4.1 g/dL (3.5-5.1); Alkaline Phosphatase 84 U/L (38-126); Anion Gap 9 mmol/L (8-16); Aspartate Amino Transferase 54 U/L (17-59); Bilirubin,Total 0.8 mg/dL (0.2-1.3); Blood Urea Nitrogen 8 mg/dL (9-20); Calcium 8.6 mg/dL (8.4-10.2); Carbon Dioxide 26 mmol/L (22-30); Chloride 97 mmol/L (98-107); Estimated CRCL calculation 95 ml/min; Estimated Glomerular Filt Rate > 60; Glucose 93 mg/dL (65-110); Potassium 4.1 mmol/L (3.4-5.0); Sodium 132 mmol/L (137-145)
--- NOTE | 2022-01-24 06:55 | PC.NURSE ---
Pt unable to provide urine sample at this time
[2022-01-24 07:01] LABS: Basophils Absolute Auto 0.1 K/mm3 (0.0-0.1); Basophils Percent Auto 1.5 % (0.2-1.2); Eosinophils Absolute Auto 0.5 K/mm3 (0-0.3); Eosinophils Percent Auto 5.9 % (0-4.4); Hematocrit 39.5 % (42.0-52.0); Hemoglobin 12.3 g/dL (14.0-18.0); Immature Granulocyte Absolute 0.02 K/mm3 (0.00-0.031); Immature Granulocyte Percent A 0.2 % (0-0.5); Lymphocytes Absolute Auto 0.97 K/mm3 (0.9-3.2); Lymphocytes Percent Auto 11.5 % (18.3-44.2); Mean Corpuscular HGB Conc 31.1 g/dl (32-36); Mean Corpuscular Hemoglobin 29.7 pg (26-34); Mean Corpuscular Volume 95.4 fl (80-100); Mean Platelet Volume 9.7 fl (7.4-10.4); Monocytes Percent Auto 12.1 % (2.6-8.5); Neutrophils Absolute Auto 5.8 K/mm3 (1.3-6.7); Neutrophils Percent Auto 68.8 % (45.5-73.1); Platelet Count Result 354 k/mm3 (150-375); Red Blood Count 4.14 M/mm3 (4.6-6.20); Red Cell Distribution Width 14.7 % (11.5-14.5); White Blood Count 8.4 K/mm3 (4.5-10.0)
--- NOTE | 2022-01-24 07:16 | ED.WEAKNESS ---
HPI - Weakness General Chief complaint: Weakness Stated complaint: weak and unwell Time Seen by Provider: 01/24/22 07:03 Source: RN notes reviewed History of Present Illness HPI Narrative: Patient presents emergency department from home via EMS for weakness. Patient states that yesterday he drank a lot more than he should drink approximately a pint of vodka he states he normally drinks approximately 4-5 times a week. He states that he has been feeling dehydrated he states yesterday he had several episodes of loose stools consistent with diarrhea and this contributed his dehydration. He denies any fevers or chills, chest pain shortness of breath abdominal pain nausea vomiting or any other symptoms patient states he does wear 2 L nasal cannula at all times Related Data Home Medications Medication Instructions Recorded Confirmed multivitamin 1 tablet PO DAILY 08/21/20 01/24/22 melatonin 10 mg tablet 10 mg PO QHS PRN 04/22/21 01/24/22 atorvastatin [Lipitor] 20 mg PO DAILY 07/23/21 01/24/22 clopidogrel 75 mg PO DAILY 01/24/22 01/24/22 ergocalciferol (vitamin D2) 1,250 mcg PO WEEKLY 01/24/22 01/24/22 [id number]-[id number] 1 inh INHALATION DAILY 01/24/22 01/24/22 [Trelegy Ellipta] nystatin [Nystop] 1 applic TOPICAL Q12H 01/24/22 01/24/22 spironolactone 100 mg PO DAILY 01/24/22 01/24/22 Allergies Allergy/AdvReac Type Severity Reaction Status Date / Time gadobenic acid Allergy Severe RASH, Verified 01/24/22 06:55 [From contrast - MRI] DIFFICULTY BREATHING, SHAKING Iodinated Contrast Media Allergy Severe RASH, Verified 01/24/22 06:55 DIFFICULTY BREATHING, SHAKING iodine Allergy Severe RASH, Verified 01/24/22 06:55 DIFFICULTY BREATHING, SHAKING iohexol Allergy Severe RASH, Verified 01/24/22 06:55 [From contrast - CT, X-RAY] DIFFICULTY BREATHING, SHAKING Review of Systems Review of Systems: Gen.: Denies fevers or chills Eyes: Denies eye pain or visual change ENT: Denies congestion Respiratory: Denies shortness of breath or cough CV: Denies chest pain or palpitations GI: Denies abdominal pain nausea, emesis reports diarrhea Musculoskeletal: Denies back pain or muscle pain Neuro: Reports generalized weakness Skin: Denies rash Except as documented, all other systems reviewed and negative [facility] Past Medical History Medical History (Updated 01/24/22 @ 16:30 by Olvin Gomez DO) Alcohol abuse Alcohol withdrawal seizure 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 Anxiety Cerebrovascular accident (03/31/17) Chronic obstructive pulmonary disease Chronic respiratory failure with hypoxia, on home oxygen therapy 3 L nasal cannula. Coronary artery disease Status post drug-eluting stent to RCA and left circumflex. Diastolic congestive heart failure 11/2021 echo: Abnormal diastolic dysfunction and normal LV systolic function with an EF of 65 to 70%. Diverticulosis Hiatal hernia Hypertension Iron deficiency anemia Mixed hyperlipidemia Moderate pulmonary hypertension Paroxysmal atrial fibrillation Restrictive lung disease Tobacco abuse Surgical History Surgical History (Updated 01/24/22 @ 13:20 by Gena Roman PA-C) History of cardiac catheterization History of cataract extraction History of colonoscopy with polypectomy (07/2021) History of coronary artery stent placement (11/2020) Drug-eluting stents to distal RCA and mid circumflex. History of esophagogastroduodenoscopy (07/2021) Gastritis. History of open reduction and internal fixation (ORIF) procedure Repair right ankle fracture. History of percutaneous endoscopic gastrostomy History of tonsillectomy Family History Family History Father Back pain, chronic Cataract Cerebrovascular accident Mother Arthritis Migraines Cataract Sibling No problems no
[2022-01-24] MEDS: THIAMINE HCL 200 MG/2 ML VIAL 100 MG IV PUSH (07:25)
[2022-01-24] MEDS: SODIUM CHLORIDE 0.9% IV 1,000 ML 999 ML IV CONT (07:25)
[2022-01-24 07:33] LABS: Lipase 98 U/L (23-300); Magnesium 1.6 mg/dL (1.6-2.3)
[2022-01-24 07:38] LABS: INR 1.3; Prothrombin Time 15.9 Seconds (11.1-14.7)
[2022-01-24 07:39] LABS: Partial Thromboplastin Time 32.7 SECONDS (22.3-36.8)
[2022-01-24 07:54] LABS: Appearance Urine Clear (Clear); Bilirubin Urine Negative (Negative); Blood Urine Trace-lysed (Negative); Color Urine Yellow (Yellow); Glucose Urine UA Negative (Negative); Ketones Urine Negative (Negative); Leukocyte Esterase Ur Negative LEU/UL (Negative); Nitrate Urine Negative (Negative); Protein Urine Negative (Negative); Urobilinogen Urine 0.2 mg/dL (<2.0)
[2022-01-24 07:55] LABS: Add Urine Microscopic? YES
[2022-01-24 07:57] LABS: RBC Urine 0-2 /hpf (0-2); WBC Urine 0-3 /hpf
[2022-01-24] MEDS: MAGNESIUM SULF 2 GM/WATER 50ML 2 GM/50 ML BAG IVPB (08:00)
[2022-01-24] MEDS: LORazepam INJ (*CRX) 2 MG/ML VIAL 0.5 MG IV PUSH (08:17)
[2022-01-24 08:30] LABS: Ethanol 58 mg/dL (<10)
--- NOTE | 2022-01-24 09:37 | ECG_ITS ---
Measurements Intervals [place] Rate: 134 P: [place]: 0 QRS: 22 QRSD: 118 T: 56 QT: 318 QTc: 475 Interpretive Statements ATRIAL FLUTTER/TACHYCARDIA WITH RAPID VENTRICULAR RESPONSE INCOMPLETE RIGHT BUNDLE BRANCH BLOCK ABNORMAL ECG Electronically Signed On 01-24-2022 11:03:40 CDT by Santiago Machado D.O.
[2022-01-24 09:44] LABS: SARS-CoV-2 RNA PCR Negative
[2022-01-24 10:22] LABS: Troponin I 0.041 ng/mL (0.000-0.034)
[2022-01-24] MEDS: APIXABAN 5 MG TABLET PO ×2 (10:23→23:47)
[2022-01-24] MEDS: dilTIAZem 100 MG/100 ML 100 MG/100 ML BAG IV CONT ×2 (10:23→22:01)
[2022-01-24] MEDS: dilTIAZem HCl INJ 25 MG/5 ML VIAL 5 MG IV PUSH (10:23)
--- NOTE | 2022-01-24 12:30 | ADMGEN ---
This patient, Prabhakar Godwin, was admitted to IMU Room [id number]. Patient/family oriented to hospital policies and general routines including ID bracelet, bed and alarms, visiting hours, pain management, procedures, bathroom and other care routines, personal items, smoking policy, room service/diet, and visiting hours. Information on how to activate the Rapid Response Team has been discussed. Patient/Family are encouraged to report perceived risks to care and to ask questions if they do not understand what they are told or what they should do.
--- NOTE | 2022-01-24 13:00 | PM.IMHP ---
H&P: HPI History of Present Illness Date/Time: 01/24/22 13:00 Chief Complaint: Weakness. Narrative: This is a 76-year-old male with history of alcohol abuse, alcohol withdrawal seizures, stroke, coronary artery disease, congestive heart failure, paroxysmal atrial fibrillation, and hypertension who presented to the emergency department via EMS from home for evaluation of weakness. He was very weak this morning when he got up and feels that is likely due to dehydration as yesterday he had several episodes of diarrhea and he drank a pt of vodka and had little else. This morning his stomach was upset with nausea and dry heaves but no emesis. On arrival to the emergency department he was in atrial flutter with rapid ventricular response and he was started on a Cardizem drip with improvement in his rate. He has a mild sensation of a racing heart but really no other significant symptoms. At the time my evaluation he is tremulous and anxious and he admits that if he were at home he would have a drink of alcohol to help with his symptoms. He denies fever, sweats, syncope, near syncope, chest pain, pleuritic pain, shortness of breath, nausea, vomiting, diarrhea, and dysuria. He also denies hallucinations. Review of Systems Review of Systems: Twelve systems were reviewed. No recent cold or flu symptoms. He complains of the room being cold. He is a bit hungry at this time and reports no nausea. He denies history of peptic ulcers and GERD. Except as documented, all other systems were reviewed and are negative. [facility] Past Medical History Medical History Alcohol abuse Alcohol withdrawal seizure 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 Anxiety Cerebrovascular accident (03/31/17) Chronic obstructive pulmonary disease Chronic respiratory failure with hypoxia, on home oxygen therapy 3 L nasal cannula. Coronary artery disease Status post drug-eluting stent to RCA and left circumflex. Diastolic congestive heart failure 11/2021 echo: Abnormal diastolic dysfunction and normal LV systolic function with an EF of 65 to 70%. Diverticulosis Hiatal hernia Hypertension Iron deficiency anemia Mixed hyperlipidemia Moderate pulmonary hypertension Paroxysmal atrial fibrillation Restrictive lung disease Tobacco abuse Surgical History Surgical History History of cardiac catheterization History of cataract extraction History of colonoscopy with polypectomy (07/2021) History of coronary artery stent placement (11/2020) Drug-eluting stents to distal RCA and mid circumflex. History of esophagogastroduodenoscopy (07/2021) Gastritis. History of open reduction and internal fixation (ORIF) procedure Repair right ankle fracture. History of percutaneous endoscopic gastrostomy History of tonsillectomy Family History Family History Father Back pain, chronic Cataract Cerebrovascular accident Mother Arthritis Migraines Cataract Sibling No problems noted. Sibling Hearing loss Alcoholism Social History Social History (Updated 01/24/22 @ 22:43 by Gena Roman PA-C) Social History: Surrogate decision maker: Sruthi Bedolla, sister. Code status: Full code. Smoking packs per day: 2 Smoking cigarettes per day: 40.0 Years smoked: 50 Smoking pack-years: 100.00 Smoking status: Former smoker Tobacco type: cigarettes Second hand tobacco smoke exposure: No Smoking end date: 03/05/17 Alcohol intake: current Drinks per week: 10 Alcohol use details: Long history of alcohol abuse with periods of sobriety. Does not qualify alcohol use though previously drank a pt of vodka a day. Substance use: never Substance use type: does not use Last use: 01/23/2022 Additional living arrange
[2022-01-24 13:27] LABS: Troponin I 0.055 ng/mL (0.000-0.034)
--- NOTE | 2022-01-24 15:33 | PC.NURSE ---
Confirmed medication list with Barbara at [facility] in [place], [place].
[2022-01-24 17:01] LABS: Troponin I 0.055 ng/mL (0.000-0.034)
[2022-01-24] MEDS: chlordiazePOXIDE (*CRX) 25 MG CAPSULE PO (17:14)
--- NOTE | 2022-01-24 17:37 | PC.NURSE ---
Notified STPEHANIE Altamirano that current bag of Cardizem is empty. Patient only had a one time bag ordered by ED MD. Pt's current rate is in the 60's but still in Afib/flutter. New order to decrease rate to 5mg/hr, and STEPHANIE Altamirano will reassess patient's heart rate and rhythm.
--- NOTE | 2022-01-24 17:49 | ECG_ITS ---
Measurements Intervals [place] Rate: 68 P: [place]: 0 QRS: 29 QRSD: 117 T: 79 QT: 397 QTc: 423 Interpretive Statements ATRIAL FLUTTER/TACHYCARDIA INCOMPLETE RIGHT BUNDLE BRANCH BLOCK BASELINE ARTIFACT- I, AVR, AVL, AVF, V1-V6 ABNORMAL ECG Electronically Signed On 01-25-2022 11:56:32 CDT by Santiago Machado D.O.
[2022-01-24] MEDS: LORazepam INJ (*CRX) 2 MG/ML VIAL 1 MG IV PUSH (18:35)
--- NOTE | 2022-01-24 18:57 | PC.NURSE ---
Patient became bradycardic, o2 sats in the 80's, blodd sugar 127. increased 02 to 8L high flow. turned cardizem drip off. patient is resting better now. doctor notified.
[2022-01-24 18:59] LABS: Glucose Point of Care 127 mg/dl (65-105)
--- NOTE | 2022-01-24 19:22 | PC.NURSE ---
Cardizem drip off at 18:50. Abraham 50's
[2022-01-24] MEDS: LORazepam INJ (*CRX) 2 MG/ML VIAL IV PUSH (20:09)
[2022-01-24] MEDS: chlordiazePOXIDE (*CRX) 25 MG CAPSULE 50 MG PO (22:57)
[2022-01-24] MEDS: SERTRALINE HCL 25 MG TABLET PO (23:47)
[2022-01-24] MEDS: lisinopriL 10 MG TABLET PO (23:47)
[2022-01-24] MEDS: AMITRIPTYLINE HCL 25 MG TABLET PO (23:48)
[2022-01-24 23:52] LABS: Glucose Point of Care 114 mg/dl (65-105)
[2022-01-25] VITALS (19 sets, daily range): BP systolic 99–166; BP diastolic 49–93; PULSE 68–107; RESP 18–24; TEMP 35.7–36.7; O2SAT 92–99
[2022-01-25] MEDS: chlordiazePOXIDE (*CRX) 25 MG CAPSULE 50 MG PO ×4 (05:14→21:51)
[2022-01-25 05:56] LABS: Basophils Absolute Auto 0.1 K/mm3 (0.0-0.1); Basophils Percent Auto 1.3 % (0.2-1.2); Eosinophils Absolute Auto 0.5 K/mm3 (0-0.3); Eosinophils Percent Auto 5.7 % (0-4.4); Hematocrit 40.7 % (42.0-52.0); Hemoglobin 12.1 g/dL (14.0-18.0); Immature Granulocyte Absolute 0.05 K/mm3 (0.00-0.031); Immature Granulocyte Percent A 0.5 % (0-0.5); Lymphocytes Absolute Auto 0.75 K/mm3 (0.9-3.2); Mean Corpuscular HGB Conc 29.7 g/dl (32-36); Mean Corpuscular Hemoglobin 29.4 pg (26-34); Mean Platelet Volume 9.7 fl (7.4-10.4); Monocytes Absolute Auto 1.1 K/mm3 (0.1-0.6); Monocytes Percent Auto 11.6 % (2.6-8.5); Neutrophils Absolute Auto 6.9 K/mm3 (1.3-6.7); Neutrophils Percent Auto 72.9 % (45.5-73.1); Platelet Count Result 306 k/mm3 (150-375); Red Blood Count 4.11 M/mm3 (4.6-6.20); Red Cell Distribution Width 14.8 % (11.5-14.5); White Blood Count 9.4 K/mm3 (4.5-10.0)
[2022-01-25 06:02] LABS: Alanine Aminotransferase 31 U/L (6-50); Albumin Level 3.6 g/dL (3.5-5.1); Alkaline Phosphatase 98 U/L (38-126); Anion Gap 3 mmol/L (8-16); Aspartate Amino Transferase 42 U/L (17-59); Bilirubin,Total 1.2 mg/dL (0.2-1.3); Blood Urea Nitrogen 7 mg/dL (9-20); Calcium 8.3 mg/dL (8.4-10.2); Carbon Dioxide 32 mmol/L (22-30); Chloride 101 mmol/L (98-107); Estimated CRCL calculation 84 ml/min; Estimated Glomerular Filt Rate > 60; Glucose 119 mg/dL (65-110); Magnesium 1.9 mg/dL (1.6-2.3); Potassium 4.2 mmol/L (3.4-5.0); Sodium 136 mmol/L (137-145)
[2022-01-25 07:03] LABS: Thyroid Stimulating Hormone Reflex 0.627 uIU/mL (0.465-4.68)
[2022-01-25] MEDS: FLUTICASONE/UMECLIDIN/VILANTER 100-62.5-25 MCG ELLIPTA 1 PUFF INHALATION (07:56)
--- NOTE | 2022-01-25 08:47 | PC.NURSE ---
Left message for Dr. Turcios. Patient has frequent urination. CT scans shows enlarged prostate and distended bladder. Patient urinated 100 MLs of urine and bladder scan immediately after shows 749 mls of retention.
--- NOTE | 2022-01-25 10:10 | PC.NURSE ---
Patient had 1300 MLs of retained urine. notified
[2022-01-25] MEDS: MULTIVITAMINS THERAPEUTIC TAB (*BKC) 1 TABLET PO (10:36)
[2022-01-25] MEDS: THERAPEUTIC MULTIVITAMINS/MINERALS TAB (*BKC) 1 TABLET PO (10:36)
[2022-01-25] MEDS: lisinopriL 10 MG TABLET PO ×2 (10:36→21:39)
[2022-01-25] MEDS: CLOPIDOGREL BISULFATE 75 MG TABLET PO (10:37)
[2022-01-25] MEDS: ATORVASTATIN 20 MG TABLET PO (10:37)
[2022-01-25] MEDS: APIXABAN 5 MG TABLET PO ×2 (10:37→21:39)
[2022-01-25] MEDS: THIAMINE HCL 100 MG TABLET PO (10:37)
[2022-01-25] MEDS: FOLIC ACID 1 MG TABLET PO (10:38)
[2022-01-25] MEDS: TOLNAFTATE 1% POWDER 45 GM BTL 1 APPLIC TOPICAL ×2 (10:38→21:39)
[2022-01-25] MEDS: SPIRONOLACTONE 50 MG TABLET 100 MG PO (10:47)
--- NOTE | 2022-01-25 11:23 | PM.IMPN ---
Progress Note: A&P Assessment and Plan (1) Atrial flutter with rapid ventricular response: Code(s): I48.92 - Unspecified atrial flutter Status: Resolved Assessment and Plan: Currently on a diltiazem drip. Continue apixaban for stroke prophylaxis. (2) Alcohol abuse: Code(s): F10.10 - Alcohol abuse, uncomplicated Status: Acute Assessment and Plan: History of alcohol withdrawal seizures. Will need close monitoring; initiate CIWA protocol. Start thiamine and folic acid. Schedule Librium 50 mg q.6 hours. (3) Elevated troponin: Code(s): R77.8 - Other specified abnormalities of plasma proteins Status: Acute Assessment and Plan: Likely related to atrial flutter/RVR. He is not having any chest pain to speak of. Cardiology consulted; input appreciated. (4) Generalized weakness: Code(s): R53.1 - Weakness Status: Acute Assessment and Plan: May be related to atrial flutter/RVR. Patient also seems a bit dry on exam. (5) Hypertension: Code(s): I10 - Essential (primary) hypertension Status: Chronic Assessment and Plan: Blood pressures are high, up to 184/120 in the ER. Improved on Cardizem drip and with Ativan for anxiety. (6) Chronic obstructive pulmonary disease: Code(s): J44.9 - Chronic obstructive pulmonary disease, unspecified Status: Chronic Assessment and Plan: No acute issues. Continue maintenance inhalers. (7) Coronary artery disease: Code(s): I25.10 - Atherosclerotic heart disease of [place] coronary artery without angina pectoris Status: Acute Assessment and Plan: Troponin is mildly elevated but flat. He has complains of no chest pain. Continue clopidogrel. (8) Diastolic congestive heart failure: Code(s): I50.30 - Unspecified diastolic (congestive) heart failure Status: Acute Assessment and Plan: Clinically compensated. Monitor volume status. (9) Urinary retention: Code(s): R33.9 - Retention of urine, unspecified Status: Acute Assessment and Plan: Perez catheter placed 01/25/2022 1300 cc out (10) Chronic respiratory failure with hypoxia, on home O2 therapy: Code(s): J96.11 - Chronic respiratory failure with hypoxia; Z99.81 - Dependence on supplemental oxygen Status: Chronic Assessment and Plan: on 3l oxygen continous at home. Subjective Date/time seen: 01/25/22 11:23 Interval history: HPI:This is a 76-year-old male with history of alcohol abuse, alcohol withdrawal seizures, stroke, coronary artery disease, congestive heart failure, paroxysmal atrial fibrillation, and hypertension who presented to the emergency department via EMS from home for evaluation of weakness. He was very weak this morning when he got up and feels that is likely due to dehydration as yesterday he had several episodes of diarrhea and he drank a pt of vodka and had little else. This morning his stomach was upset with nausea and dry heaves but no emesis. On arrival to the emergency department he was in atrial flutter with rapid ventricular response and he was started on a Cardizem drip with improvement in his rate. He has a mild sensation of a racing heart but really no other significant symptoms. At the time my evaluation he is tremulous and anxious and he admits that if he were at home he would have a drink of alcohol to help with his symptoms. He denies fever, sweats, syncope, near syncope, chest pain, pleuritic pain, shortness of breath, nausea, vomiting, diarrhea, and dysuria. He also denies hallucinations. 01/25/2022 feels a little better today. Had a urinary retention needing Perez catheter this morning. Denies any shortness of breath. Or chest pain. Denies any cough Review of Systems Review of Systems: All systems reviewed & are unremarkable except as noted in HPI and below (HPI) Exam Narrative: General: Well-develop
[2022-01-25 11:48] LABS: Glucose Point of Care 144 mg/dl (65-105)
--- NOTE | 2022-01-25 13:22 | PM.CNCAR ---
Assessment and Plan Additional Plan This is a 76-year-old man with chronic atrial fib/atrial flutter who also has coronary artery disease as described above. He enters the hospital with symptoms that are very hard for him to describe. He was having all variety of concerns but no obvious cardiac symptoms. In the setting of excessive drinking his ventricular response to his AFib was somewhat faster yesterday but I do not believe he was symptomatic with any of that. He has had AFib for a long time and generally has not required any rate controlling medication. He is not having any symptoms of myocardial ischemia since PCI of his right coronary and circumflex just over a year ago. I am going to stop his IV diltiazem in of observe his telemetry. If he does require rate-controlling medication will have to start him on something oral while he is in the hospital. My expectation is that we will not. For now his medication regimen as I mentioned above will be continued. Despite him being in actively drinking alcoholic he is still systemically anticoagulated. He has not had any hemorrhagic complications of anticoagulation. Kris Cantor MD [facility] History of Present Illness History of Present Illness Consult date/time: 01/25/22 13:22 Consult reason: atrial fibrillation Reason For Visit: Atrial Flutter with RVR, diarrhea, alcohol abuse Narrative: This is a 76-year-old man I am seeing at the request of the hospitalist today because he was admitted yesterday and it was noticed that his atrial fibrillation ventricular response was somewhat rapid. He was placed on intravenous diltiazem admitted to the IMU and I was asked to see him for that reason. The patient came to the hospital yesterday with complaints of generalized weakness. He is a very poor historian and states that he came to the hospital because he felt terrible. Asking him to be specify what was going on he states that he was having some abdominal discomfort he was weak he did have some diarrhea on occasion he says he has been drinking way too much alcohol and states that he was feeling hopeless and could not get it together. In the emergency department was noticed that he was in atrial fibrillation his heart rate was in the 120 range I he was placed on as I stated above IV total diltiazem he is in the IMU at this point his heart rate is in the 80s and he has no complaints. This patient has a history of atrial fibrillation and coronary artery disease. He has chronic atrial fib/flutter it looks like that is been a long time since there was an EKG on the chart that shows some sinus rhythm. He also has a history of coronary disease and [facility] the spring. He underwent catheterization here at [facility] with high-grade stenosis in the right coronary artery treated with stenting. The patient was extremely agitated and uncooperative with the procedure. He was admitted for staged PCI of his circumflex lesion that was done at [facility] because of the need to provide general anesthesia for that procedure. Since then he has done well he has not had any chest pain symptoms to report. He is in actively drinking alcoholic as mentioned above his home medications regarding his heart disease include atorvastatin, bumetanide, clopidogrel, apixaban, lisinopril and spironolactone. As stated above he has been drinking heavily lately he does not have any history of delirium tremens from what I see in the record or from what he tells me today. When I entered the room to see him he was eating his lunch watching television and did not have any other complaints to report Review of Systems Review of Systems: ROS unobtainable: Yes unobtainable due to mental status PMFSH Past Medical History Medical History Alcohol abuse Alcohol withdrawal seizure Hospitalized in 2009 with seizures related to alcohol wit
[2022-01-25] MEDS: SERTRALINE HCL 25 MG TABLET PO (21:39)
[2022-01-25] MEDS: AMITRIPTYLINE HCL 25 MG TABLET PO (21:39)
[2022-01-25] MEDS: LORazepam INJ (*CRX) 2 MG/ML VIAL 1 MG IV PUSH (22:26)
[2022-01-26] VITALS (27 sets, daily range): BP systolic 91–136; BP diastolic 50–73; PULSE 68–131; RESP 16–31; TEMP 36.2–36.9; O2SAT 92–100
[2022-01-26] MEDS: MELATONIN 5 MG TABLET 10 MG PO (01:46)
[2022-01-26] MEDS: chlordiazePOXIDE (*CRX) 25 MG CAPSULE 50 MG PO (04:05)
[2022-01-26] MEDS: dilTIAZem HCl INJ 25 MG/5 ML VIAL 10 MG IV PUSH (05:50)
[2022-01-26] MEDS: dilTIAZem 100 MG/100 ML 100 MG/100 ML BAG IV CONT (05:55)
[2022-01-26 06:13] LABS: Basophils Absolute Auto 0.1 K/mm3 (0.0-0.1); Basophils Percent Auto 0.7 % (0.2-1.2); Eosinophils Absolute Auto 0.6 K/mm3 (0-0.3); Eosinophils Percent Auto 4.5 % (0-4.4); Hematocrit 41.4 % (42.0-52.0); Immature Granulocyte Absolute 0.07 K/mm3 (0.00-0.031); Immature Granulocyte Percent A 0.5 % (0-0.5); Lymphocytes Absolute Auto 0.92 K/mm3 (0.9-3.2); Lymphocytes Percent Auto 6.6 % (18.3-44.2); Mean Corpuscular Hemoglobin 29.6 pg (26-34); Mean Corpuscular Volume 102.2 fl (80-100); Mean Platelet Volume 10.1 fl (7.4-10.4); Monocytes Absolute Auto 1.2 K/mm3 (0.1-0.6); Monocytes Percent Auto 8.8 % (2.6-8.5); Neutrophils Absolute Auto 10.9 K/mm3 (1.3-6.7); Neutrophils Percent Auto 78.9 % (45.5-73.1); Platelet Count Result 310 k/mm3 (150-375); Red Blood Count 4.05 M/mm3 (4.6-6.20); Red Cell Distribution Width 14.7 % (11.5-14.5); White Blood Count 13.9 K/mm3 (4.5-10.0)
[2022-01-26 06:14] LABS: Base Excess ABG 0.2 mEq/l (+/-2.0); HCO3 ABG 27.1 mEq/l (22.0-26.0); PCO2 ABG 53.6 mmHg (35.0-45.0); PO2 ABG 333.2 mmHg (80.0-100.0); pH ABG 7.322 (7.350-7.450)
[2022-01-26 06:15] LABS: Alveolar/Arterial O2 Gradient 326.2 mmHg; Oxygen Saturation ABG 99.7 % (95.0-100.0); Total Hemoglobin 12.9 g/dL (12.0-18.0)
[2022-01-26 06:16] LABS: Carboxyhemoglobin 0.8 % THb (0-2.0); Methemoglobin ABG 0.3 %THb (0-1.5); Oxyhemoglobin 98.2 % THb (90.0-100.0); Reduced Hemoglobin 0.7 %THb (0-5.0)
[2022-01-26 06:18] LABS: Modified Allen's Test Pass; Site Drawn RIGHT RADIAL
[2022-01-26 06:19] LABS: Device NON-INVASIVE VENT; Oxygen Content ABG 18.7 %vol (16.0-22.0); PO2 FiO2 Ratio Arterial Blood 3.33 %
[2022-01-26 06:24] LABS: Non-Invasive Expiratory Pressure 8 CMH2O; Non-Invasive Inspiratory Pressure 18 CMH2O; Non-Invasive Vent Rate 16 /MIN
[2022-01-26 06:39] LABS: Alanine Aminotransferase 24 U/L (6-50); Albumin Level 3.7 g/dL (3.5-5.1); Alkaline Phosphatase 91 U/L (38-126); Anion Gap 4 mmol/L (8-16); Aspartate Amino Transferase 33 U/L (17-59); Blood Urea Nitrogen 9 mg/dL (9-20); Carbon Dioxide 30 mmol/L (22-30); Chloride 101 mmol/L (98-107); Estimated CRCL calculation 84 ml/min; Estimated Glomerular Filt Rate > 60; Glucose 134 mg/dL (65-110); Potassium 4.2 mmol/L (3.4-5.0); Sodium 135 mmol/L (137-145)
[2022-01-26] MEDS: FLUTICASONE/UMECLIDIN/VILANTER 100-62.5-25 MCG ELLIPTA 1 PUFF INHALATION (08:27)
[2022-01-26] MEDS: FOLIC ACID 1 MG TABLET PO (09:38)
[2022-01-26] MEDS: THIAMINE HCL 100 MG TABLET PO (09:38)
[2022-01-26] MEDS: SPIRONOLACTONE 50 MG TABLET 100 MG PO (09:38)
[2022-01-26] MEDS: MULTIVITAMINS THERAPEUTIC TAB (*BKC) 1 TABLET PO (09:38)
[2022-01-26] MEDS: APIXABAN 5 MG TABLET PO ×2 (09:38→20:35)
[2022-01-26] MEDS: ATORVASTATIN 20 MG TABLET PO (09:38)
[2022-01-26] MEDS: THERAPEUTIC MULTIVITAMINS/MINERALS TAB (*BKC) 1 TABLET PO (09:38)
[2022-01-26] MEDS: CLOPIDOGREL BISULFATE 75 MG TABLET PO (09:38)
[2022-01-26] MEDS: TOLNAFTATE 1% POWDER 45 GM BTL 1 APPLIC TOPICAL ×2 (09:39→20:35)
[2022-01-26 10:26] LABS: Base Excess ABG 2.6 mEq/l (+/-2.0); Fractional Inspired Oxygen 56 %; Oxygen Content ABG 16.8 %vol (16.0-22.0); Oxygen Saturation ABG 94.5 % (95.0-100.0); Oxyhemoglobin 93.6 % THb (90.0-100.0); PCO2 ABG 52.7 mmHg (35.0-45.0); PO2 ABG 75.8 mmHg (80.0-100.0); PO2 FiO2 Ratio Arterial Blood 1.35 %; Total Hemoglobin 12.7 g/dL (12.0-18.0); pH ABG 7.359 (7.350-7.450)
[2022-01-26 10:28] LABS: Device HIGH FLOW NASAL CANN; Modified Allen's Test Pass; Site Drawn LEFT RADIAL
--- NOTE | 2022-01-26 11:10 | PM.PNCARD ---
Progress Note: A&P Assessment and Plan (1) Atrial flutter with rapid ventricular response: Code(s): I48.92 - Unspecified atrial flutter Status: Acute Assessment and Plan: Chronic atrial fib/atrial flutter for which he does not ordinarily require any rate controlling agents. Was round to be in afib/flutter when he entered the hospital and was placed on diltiazem. This was discontinued yesterday and restarted last night as he required some rate control. Currently rate controlled on a low dose of IV diltiazem. Will discontinue the IV diltiazem and start him on low dose metoprolol. In regards to anticoagulation, he is currently being systemically anticoagulated apixaban. He is also on Plavix because stenting to his RCA and circumflex in November of 2020. He is at high risk for bleeding because of his chronic alcohol abuse. Therefore, since there is not an indication for anti-platelet therapy at this time I will discontinue the Plavix and shift him to low-dose aspirin. Continue apixaban. (2) Diastolic congestive heart failure: Code(s): I50.30 - Unspecified diastolic (congestive) heart failure Status: Acute Assessment and Plan: He does not appear to be in decompensated heart failure at this time. Continue medical therapy with lisinopril, spironolactone. (3) Coronary artery disease: Code(s): I25.10 - Atherosclerotic heart disease of [place] coronary artery without angina pectoris Status: Acute Assessment and Plan: s/p PCI of his right coronary and circumflex in 2020. As above. Will discontinue Plavix and shift to low-dose aspirin at this time. (4) Alcohol abuse: Code(s): F10.10 - Alcohol abuse, uncomplicated Status: Acute Subjective Date/time seen: 01/26/22 11:10 cardiology follow-up for atrial flutter Patient reverted back to atrial fib/flutter with RVR last night was placed back on a diltiazem drip by the hospitalist. Currently, he is rate controlled on the IV diltiazem. He is very lethargic today. Does answer a few questions but generally is not interactive. Review of Systems Review of Systems: ROS unobtainable: Yes unobtainable due to mental status Exam Const: General: comfortable and no acute distress Other: Older gentleman lying in bed with nasal cannula oxygen in place. HENMT: Mouth: Yes moist mucous membranes Eyes: Sclera: sclerae normal Pupils: Equal, round and reactive pupils present Neck: Neck: supple and no JVD Carotids: normal carotid upstroke Resp: Effort & Inspection: normal respiratory effort Auscultation: not clear to auscultation bilaterally and wheezes expiratory wheezes Cardio: Rhythm: abnormal rhythm irregularly irregular GI: Auscultation: normal bowel sounds Skin: General skin exam: normal color Neuro: Cognition (Neuro): normal cognition Extrem: Other: No significant edema adequate pulses Objective Data Vital Signs Vital Signs: Vital Signs - 24 hr 01/25/22 11:50 01/25/22 12:00 01/25/22 14:00 Temperature 35.7 C L Pulse Rate 68 68 92 Pulse Rate [Bilateral Pedal (Dorsalis Pedis)] Respiratory Rate 24 H Blood Pressure 104/54 L Pulse Oximetry 99 Oxygen Delivery Oxygen Flow Rate 01/25/22 16:00 01/25/22 16:42 01/25/22 12:00 Temperature 36.0 C L Pulse Rate 76 94 Pulse Rate [Bilateral Pedal (Dorsalis Pedis)] Respiratory Rate 21 H Blood Pressure 123/67 Pulse Oximetry 95 95 Oxygen Delivery High Flow Nasal Cannula Oxygen Flow Rate 10 01/25/22 16:00 01/25/22 18:00 01/25/22 19:54 Temperature 36.6 C Pulse Rate 93 94 Pulse Rate [Bilateral Pedal (Dorsalis Pedis)] Respiratory Rate 20 Blood Pressure 136/79 Pulse Oximetry 95 97 Oxygen Delivery High Flow Nasal Cannula Oxygen Flow Rate 10 01/25/22 20:00 01/25/22 20:00 01/25/22 20:00 Temperature Pulse Rate 107 H Pulse Rate [Bilateral Pedal (Dorsalis Pedis)] 107 H Respiratory Rate Blood Pressu
[2022-01-26] MEDS: chlordiazePOXIDE (*CRX) 25 MG CAPSULE PO ×2 (12:00→20:35)
[2022-01-26 12:27] LABS: Glucose Point of Care 157 mg/dl (65-105)
--- NOTE | 2022-01-26 13:13 | PM.IMPN ---
Progress Note: A&P Assessment and Plan (1) Atrial flutter with rapid ventricular response: Code(s): I48.92 - Unspecified atrial flutter Status: Resolved Assessment and Plan: Was started on diltiazem and was tapered off. Restarted back again 01/25/2022 Continue apixaban for stroke prophylaxis. Cardiology on board. Her metoprolol and tapered of diltiazem (2) Alcohol abuse: Code(s): F10.10 - Alcohol abuse, uncomplicated Status: Acute Assessment and Plan: History of alcohol withdrawal seizures. Will need close monitoring; initiate CIWA protocol. Start thiamine and folic acid. Schedule Librium 50 mg q.6 hours. Will lower Librium to 25 mg as he looks more somnolent (3) Elevated troponin: Code(s): R77.8 - Other specified abnormalities of plasma proteins Status: Acute Assessment and Plan: Likely related to atrial flutter/RVR. He is not having any chest pain to speak of. Cardiology consulted; input appreciated. (4) Generalized weakness: Code(s): R53.1 - Weakness Status: Acute Assessment and Plan: May be related to atrial flutter/RVR. Patient also seems a bit dry on exam. (5) Hypertension: Code(s): I10 - Essential (primary) hypertension Status: Chronic Assessment and Plan: Blood pressures are high, up to 184/120 in the ER. Improved on Cardizem drip and with Ativan for anxiety. (6) Chronic obstructive pulmonary disease: Code(s): J44.9 - Chronic obstructive pulmonary disease, unspecified Status: Chronic Assessment and Plan: No acute issues. Continue maintenance inhalers. (7) Coronary artery disease: Code(s): I25.10 - Atherosclerotic heart disease of [place] coronary artery without angina pectoris Status: Acute Assessment and Plan: Troponin is mildly elevated but flat. He has complains of no chest pain. Continue clopidogrel. (8) Diastolic congestive heart failure: Code(s): I50.30 - Unspecified diastolic (congestive) heart failure Status: Acute Assessment and Plan: Clinically compensated. Monitor volume status. Chest x-ray with vascular congestion will give a dose of Lasix today (9) Urinary retention: Code(s): R33.9 - Retention of urine, unspecified Status: Acute Assessment and Plan: Perez catheter placed 01/25/2022 1300 cc out (10) Chronic respiratory failure with hypoxia, on home O2 therapy: Code(s): J96.11 - Chronic respiratory failure with hypoxia; Z99.81 - Dependence on supplemental oxygen Status: Chronic Assessment and Plan: on 3l oxygen continous at home. Acute on chronic with worsening hypoxia up to 8 L yesterday and needed BiPAP last night Part of it could be related to alcohol withdrawal and sedation Chest x-ray with pulmonary vascular congestion and/or pneumonia did Will order Zosyn for IV antibiotics A dose of Lasix today Remove BiPAP and placed on oxygen ABG repeated again today which showed resolution of hypercapnia Subjective Date/time seen: 01/26/22 13:13 Interval history: HPI:This is a 76-year-old male with history of alcohol abuse, alcohol withdrawal seizures, stroke, coronary artery disease, congestive heart failure, paroxysmal atrial fibrillation, and hypertension who presented to the emergency department via EMS from home for evaluation of weakness. He was very weak this morning when he got up and feels that is likely due to dehydration as yesterday he had several episodes of diarrhea and he drank a pt of vodka and had little else. This morning his stomach was upset with nausea and dry heaves but no emesis. On arrival to the emergency department he was in atrial flutter with rapid ventricular response and he was started on a Cardizem drip with improvement in his rate. He has a mild sensation of a racing heart but really no other significant symptoms. At the time my evaluation he is tremul
[2022-01-26] MEDS: FUROSEMIDE INJ 40 MG/4 ML VIAL IV PUSH (13:36)
[2022-01-26] MEDS: METOPROLOL TARTRATE 12.5 MG TABLET PO ×2 (14:55→20:34)
[2022-01-26 20:33] LABS: Glucose Point of Care 182 mg/dl (65-105)
[2022-01-26] MEDS: AMITRIPTYLINE HCL 25 MG TABLET PO (20:34)
[2022-01-26] MEDS: SERTRALINE HCL 25 MG TABLET PO (20:35)
[2022-01-27] VITALS (23 sets, daily range): BP systolic 100–118; BP diastolic 60–69; PULSE 67–96; RESP 16–25; TEMP 36.1–36.4; O2SAT 91–100
[2022-01-27] MEDS: LORazepam INJ (*CRX) 2 MG/ML VIAL 1 MG IV PUSH (02:05)
[2022-01-27 04:45] LABS: Basophils Absolute Auto 0.1 K/mm3 (0.0-0.1); Basophils Percent Auto 0.7 % (0.2-1.2); Eosinophils Absolute Auto 0.4 K/mm3 (0-0.3); Hematocrit 37.7 % (42.0-52.0); Immature Granulocyte Absolute 0.07 K/mm3 (0.00-0.031); Immature Granulocyte Percent A 0.5 % (0-0.5); Lymphocytes Absolute Auto 0.79 K/mm3 (0.9-3.2); Mean Corpuscular HGB Conc 29.2 g/dl (32-36); Mean Corpuscular Hemoglobin 29.4 pg (26-34); Mean Corpuscular Volume 100.8 fl (80-100); Mean Platelet Volume 10.2 fl (7.4-10.4); Monocytes Absolute Auto 1.2 K/mm3 (0.1-0.6); Monocytes Percent Auto 8.9 % (2.6-8.5); Neutrophils Absolute Auto 10.6 K/mm3 (1.3-6.7); Neutrophils Percent Auto 80.9 % (45.5-73.1); Platelet Count Result 269 k/mm3 (150-375); Red Blood Count 3.74 M/mm3 (4.6-6.20); Red Cell Distribution Width 14.7 % (11.5-14.5); White Blood Count 13.1 K/mm3 (4.5-10.0)
[2022-01-27 04:57] LABS: Alanine Aminotransferase 19 U/L (6-50); Albumin Level 3.6 g/dL (3.5-5.1); Alkaline Phosphatase 79 U/L (38-126); Anion Gap 3 mmol/L (8-16); Aspartate Amino Transferase 26 U/L (17-59); Bilirubin,Total 1.1 mg/dL (0.2-1.3); Blood Urea Nitrogen 19 mg/dL (9-20); Calcium 8.8 mg/dL (8.4-10.2); Carbon Dioxide 31 mmol/L (22-30); Chloride 100 mmol/L (98-107); Estimated CRCL calculation 68 ml/min; Estimated Glomerular Filt Rate > 60; Glucose 113 mg/dL (65-110); Magnesium 1.9 mg/dL (1.6-2.3); Potassium 4.2 mmol/L (3.4-5.0); Sodium 134 mmol/L (137-145)
[2022-01-27] MEDS: chlordiazePOXIDE (*CRX) 25 MG CAPSULE PO ×3 (05:31→20:15)
[2022-01-27] MEDS: METOPROLOL TARTRATE 12.5 MG TABLET PO (05:31)
[2022-01-27 08:21] LABS: Glucose Point of Care 122 mg/dl (65-105)
[2022-01-27] MEDS: SPIRONOLACTONE 50 MG TABLET 100 MG PO (08:59)
[2022-01-27] MEDS: FOLIC ACID 1 MG TABLET PO (08:59)
[2022-01-27] MEDS: ASPIRIN 81 MG ENTERIC TABLET PO (09:00)
[2022-01-27] MEDS: APIXABAN 5 MG TABLET PO ×2 (09:00→20:15)
[2022-01-27] MEDS: THIAMINE HCL 100 MG TABLET PO (09:00)
[2022-01-27] MEDS: ATORVASTATIN 20 MG TABLET PO (09:00)
[2022-01-27] MEDS: MULTIVITAMINS THERAPEUTIC TAB (*BKC) 1 TABLET PO (09:00)
[2022-01-27] MEDS: TOLNAFTATE 1% POWDER 45 GM BTL 1 APPLIC TOPICAL ×2 (09:01→20:15)
--- NOTE | 2022-01-27 10:33 | PM.PNCARD ---
Progress Note: A&P Assessment and Plan (1) Atrial flutter with rapid ventricular response: Code(s): I48.92 - Unspecified atrial flutter Status: Acute Plan 76-year-old man with history of coronary disease as well as chronic AFib/flutter. Clinically stable. He has been placed on short-acting metoprolol with good rate control. I am going to shift him to long-acting metoprolol today for dosing convenience. Other than this no new cardiac recommendations to make. We will continue to follow his telemetry with you while he is in the hospital Kris Cantor MD [facility] Subjective Date/time seen: Date of service: 01/27/22 10:33 Interval history: Follow-up visit in this 76-year-old man with: Chronic atrial fib/flutter and history of coronary disease with previous PCI. Patient admitted with weakness and alcohol withdrawal. His atrial flutter which up until now had not required any rate control medication was somewhat more rapid he is now on metoprolol with good rate control. This morning the patient appears to be sedated he ate his breakfast he is arousable but very lethargic Exam Const: General: comfortable and no acute distress Other: Elderly gentleman in no distress sleeping arousable but very lethargic HENMT: Mouth: Yes moist mucous membranes Eyes: Sclera: sclerae normal Neck: Neck: supple and no JVD Resp: Effort & Inspection: normal respiratory effort Other: Scattered rhonchi noted no rales Cardio: Rhythm: abnormal rhythm irregularly irregular Other: Rhythm irregular heart rate 60-70 GI: GI Palp: Yes Soft to palpation Auscultation: normal bowel sounds Skin: General skin exam: normal color Neuro: Other: Very lethargic Objective Data Vital Signs Vital Signs: Vital Signs - 24 hr 01/26/22 11:54 01/26/22 13:15 01/26/22 14:55 Temperature 36.4 C Pulse Rate 71 69 72 Pulse Rate [Monitor] Respiratory Rate 25 H 17 Blood Pressure 101/57 L Pulse Oximetry 99 100 Oxygen Delivery BiPAP Oxygen Flow Rate Fraction of Inspired Oxygen 01/26/22 15:03 01/26/22 12:00 01/26/22 12:00 Temperature Pulse Rate 72 Pulse Rate [Monitor] Respiratory Rate Blood Pressure Pulse Oximetry 92 Oxygen Delivery High Flow Nasal Cannula High Flow Therapy with Na Oxygen Flow Rate 8 8 Fraction of Inspired Oxygen 01/26/22 14:00 01/26/22 16:30 01/26/22 16:30 Temperature Pulse Rate 69 69 Pulse Rate [Monitor] Respiratory Rate Blood Pressure Pulse Oximetry 94 Oxygen Delivery High Flow Therapy with Na Oxygen Flow Rate 8 Fraction of Inspired Oxygen 01/26/22 16:00 01/26/22 18:00 01/26/22 18:00 Temperature 36.9 C Pulse Rate 70 69 Pulse Rate [Monitor] Respiratory Rate 20 Blood Pressure 97/55 L Pulse Oximetry 95 96 Oxygen Delivery High Flow Therapy with Na Oxygen Flow Rate 8 Fraction of Inspired Oxygen 01/26/22 20:00 01/26/22 20:34 01/26/22 20:56 Temperature 36.2 C L Pulse Rate 69 69 69 Pulse Rate [Monitor] Respiratory Rate 20 27 H Blood Pressure 100/62 Pulse Oximetry 95 100 Oxygen Delivery BiPAP Oxygen Flow Rate Fraction of Inspired Oxygen 01/26/22 20:57 01/26/22 20:00 01/26/22 20:00 Temperature Pulse Rate 69 Pulse Rate [Monitor] 69 Respiratory Rate Blood Pressure 100/62 Pulse Oximetry 100 Oxygen Delivery BiPAP Oxygen Flow Rate Fraction of Inspired Oxygen 50 01/26/22 20:00 01/26/22 21:44 01/26/22 23:37 Temperature Pulse Rate 69 69 68 Pulse Rate [Monitor] Respiratory Rate 27 H Blood Pressure Pulse Oximetry 100 Oxygen Delivery BiPAP Oxygen Flow Rate Fraction of Inspired Oxygen 50 01/26/22 23:37 01/26/22 23:37 01/27/22 00:00 Temperature 36.4 C Pulse Rate 68 69 Pulse Rate [Monitor] 68 Respiratory Rate 22 H 24 H Blood Pressure 100/62 103/67 Pulse Oximetry 100 99 Oxygen Delivery BiPAP Oxygen Flow Rate Fraction of
[2022-01-27] MEDS: FLUTICASONE/UMECLIDIN/VILANTER 100-62.5-25 MCG ELLIPTA 1 PUFF INHALATION (11:40)
[2022-01-27] MEDS: METOPROLOL SUCCINATE EXT REL 50 MG TABCR PO (11:58)
--- NOTE | 2022-01-27 12:13 | PCOTNOTE ---
Patient not seen for OT this date. Will continue plan of care.
[2022-01-27 12:16] LABS: Glucose Point of Care 137 mg/dl (65-105)
--- NOTE | 2022-01-27 15:18 | PM.IMPN ---
Progress Note: A&P Assessment and Plan (1) Atrial flutter with rapid ventricular response: Code(s): I48.92 - Unspecified atrial flutter Status: Resolved Assessment and Plan: Was started on diltiazem and was tapered off. Restarted back again 01/25/2022 Continue apixaban for stroke prophylaxis. Cardiology on board. Her metoprolol and tapered of diltiazem -Rate controlled with oral metoprolol. Will plan to discharge tomorrow with oral metoprolol (2) Alcohol abuse: Code(s): F10.10 - Alcohol abuse, uncomplicated Status: Acute Assessment and Plan: History of alcohol withdrawal seizures. Will need close monitoring; initiate CIWA protocol. Start thiamine and folic acid. Schedule Librium 50 mg q.6 hours. Will lower Librium to 25 mg as he looks more somnolent -More alert this morning. Will continue to taper librium. (3) Elevated troponin: Code(s): R77.8 - Other specified abnormalities of plasma proteins Status: Acute Assessment and Plan: Likely related to atrial flutter/RVR. He is not having any chest pain to speak of. Cardiology consulted; input appreciated. (4) Generalized weakness: Code(s): R53.1 - Weakness Status: Acute Assessment and Plan: May be related to atrial flutter/RVR. Patient also seems a bit dry on exam. (5) Hypertension: Code(s): I10 - Essential (primary) hypertension Status: Chronic Assessment and Plan: Blood pressures are high, up to 184/120 in the ER. Improved on Cardizem drip and with Ativan for anxiety. BP improved on metoprolol Will plan to continue for discharge tomorrow. (6) Chronic obstructive pulmonary disease: Code(s): J44.9 - Chronic obstructive pulmonary disease, unspecified Status: Chronic Assessment and Plan: No acute issues. Continue maintenance inhalers. Continue oxygen as needed. (7) Coronary artery disease: Code(s): I25.10 - Atherosclerotic heart disease of [place] coronary artery without angina pectoris Status: Acute Assessment and Plan: Troponin is mildly elevated but flat. He has complains of no chest pain. Continue clopidogrel. (8) Diastolic congestive heart failure: Code(s): I50.30 - Unspecified diastolic (congestive) heart failure Status: Acute Assessment and Plan: Clinically compensated. Monitor volume status. Chest x-ray with vascular congestion will give a dose of Lasix today (9) Urinary retention: Code(s): R33.9 - Retention of urine, unspecified Status: Acute Assessment and Plan: Garcia catheter placed 01/25/2022 1300 cc out. Will attempt void trial tomorrow but may require discharge with garcia and one week follow up with urology outpatient. (10) Chronic respiratory failure with hypoxia, on home O2 therapy: Code(s): J96.11 - Chronic respiratory failure with hypoxia; Z99.81 - Dependence on supplemental oxygen Status: Chronic Assessment and Plan: on 3l oxygen continous at home. Acute on chronic with worsening hypoxia up to 8 L yesterday and needed BiPAP last night Part of it could be related to alcohol withdrawal and sedation Chest x-ray with pulmonary vascular congestion and/or pneumonia did Will order Zosyn for IV antibiotics A dose of Lasix today Remove BiPAP and placed on oxygen ABG repeated again today which showed resolution of hypercapnia Subjective Date/time seen: 01/27/22 12:18 Patient says he uses BIPAP at home and also uses portable oxygen at home. Denies chest pain or shortness of breath. Says he feels better overall. Patient says he has afib. Review of Systems Cardiovascular: Cardiovascular: Denies chest pain and Reports palpitations Respiratory: Respiratory: Denies dyspnea Exam Narrative: GENERAL: NAD, cooperative HEENT: Normocephalic, atraumatic, anicteric, nares clear, oropharynx moist and clear, poor dentition NEC
[2022-01-27 16:46] LABS: Glucose Point of Care 138 mg/dl (65-105)
[2022-01-27] MEDS: SERTRALINE HCL 25 MG TABLET PO (20:15)
[2022-01-27] MEDS: AMITRIPTYLINE HCL 25 MG TABLET PO (20:15)
[2022-01-27 20:47] LABS: Glucose Point of Care 147 mg/dl (65-105)
[2022-01-28] VITALS (19 sets, daily range): BP systolic 100–121; BP diastolic 63–73; PULSE 52–110; RESP 16–26; TEMP 35.8–37.1; O2SAT 90–100
[2022-01-28 05:14] LABS: Basophils Absolute Auto 0.1 K/mm3 (0.0-0.1); Basophils Percent Auto 0.9 % (0.2-1.2); Eosinophils Absolute Auto 0.7 K/mm3 (0-0.3); Eosinophils Percent Auto 6.1 % (0-4.4); Hematocrit 36.5 % (42.0-52.0); Immature Granulocyte Absolute 0.05 K/mm3 (0.00-0.031); Immature Granulocyte Percent A 0.4 % (0-0.5); Lymphocytes Absolute Auto 0.92 K/mm3 (0.9-3.2); Lymphocytes Percent Auto 8.1 % (18.3-44.2); Mean Corpuscular HGB Conc 30.1 g/dl (32-36); Mean Corpuscular Hemoglobin 29.8 pg (26-34); Mean Corpuscular Volume 98.9 fl (80-100); Mean Platelet Volume 10.2 fl (7.4-10.4); Monocytes Absolute Auto 1.1 K/mm3 (0.1-0.6); Monocytes Percent Auto 9.6 % (2.6-8.5); Neutrophils Absolute Auto 8.5 K/mm3 (1.3-6.7); Neutrophils Percent Auto 74.9 % (45.5-73.1); Platelet Count Result 272 k/mm3 (150-375); Red Blood Count 3.69 M/mm3 (4.6-6.20); Red Cell Distribution Width 14.6 % (11.5-14.5); White Blood Count 11.4 K/mm3 (4.5-10.0)
[2022-01-28 05:22] LABS: Anion Gap 4 mmol/L (8-16); Blood Urea Nitrogen 21 mg/dL (9-20); Calcium 8.9 mg/dL (8.4-10.2); Carbon Dioxide 32 mmol/L (22-30); Chloride 101 mmol/L (98-107); Estimated CRCL calculation 75 ml/min; Estimated Glomerular Filt Rate > 60; Glucose 90 mg/dL (65-110); Potassium 3.8 mmol/L (3.4-5.0); Sodium 137 mmol/L (137-145)
[2022-01-28 05:31] LABS: NT Pro B Type Natriuretic Pept 433 pg/mL (5-100)
[2022-01-28] MEDS: chlordiazePOXIDE (*CRX) 25 MG CAPSULE PO (05:47)
[2022-01-28] MEDS: FLUTICASONE/UMECLIDIN/VILANTER 100-62.5-25 MCG ELLIPTA 1 PUFF INHALATION (08:05)
--- NOTE | 2022-01-28 08:34 | PM.PNCARD ---
Progress Note: A&P Assessment and Plan (1) Atrial flutter with rapid ventricular response: Code(s): I48.92 - Unspecified atrial flutter Status: Acute Assessment and Plan: Chronic atrial fib/atrial flutter for which he does not ordinarily require any rate controlling agents. Was found to be in afib/flutter when he entered the hospital and was placed on diltiazem. He has now been shifted to oral metoprolol which is providing good rate control. Continue Toprol XL 50mg daily Continue a/c with apixaban Continue telemetry (2) Diastolic congestive heart failure: Code(s): I50.30 - Unspecified diastolic (congestive) heart failure Status: Acute Assessment and Plan: He does not appear to be in decompensated heart failure at this time. Continue medical therapy with lisinopril, spironolactone. (3) Coronary artery disease: Code(s): I25.10 - Atherosclerotic heart disease of [place] coronary artery without angina pectoris Status: Acute Assessment and Plan: s/p PCI of his right coronary and circumflex in 2020. Stable. (4) Alcohol abuse: Code(s): F10.10 - Alcohol abuse, uncomplicated Status: Acute Subjective Date/time seen: 01/28/22 08:34 Interval history: Follow-up visit in this 76-year-old man with: Chronic atrial fib/flutter and history of coronary disease with previous PCI. Patient admitted with weakness and alcohol withdrawal. His atrial flutter which up until now had not required any rate control medication was somewhat more rapid he is now on metoprolol with good rate control. This morning the patient appears to be sedated he ate his breakfast he is arousable but very lethargic Date of service 01/28/2022: More alert this morning, remains confused. He denies any palpitations,chest pain, shortness of breath. HR mildly elevated presently but on telemetry review has been nicely controlled. Review of Systems Review of Systems: ROS unobtainable: Yes unobtainable due to mental status Exam Const: General: comfortable and no acute distress Other: Elderly gentleman in no distress sleeping arousable but very lethargic HENMT: Mouth: Yes moist mucous membranes Eyes: Sclera: sclerae normal Pupils: Equal, round and reactive pupils present Neck: Neck: supple and no JVD Carotids: normal carotid upstroke Other: No carotid bruits are audible Resp: Effort & Inspection: normal respiratory effort Auscultation: not clear to auscultation bilaterally Other: Scattered rhonchi, scant bibasilar rales Cardio: Rhythm: abnormal rhythm irregularly irregular Heart sounds: no murmurs GI: Auscultation: normal bowel sounds Skin: General skin exam: normal color Neuro: Cranial nerves: Yes Equal, round and reactive pupils present Cognition (Neuro): normal cognition Other: Very lethargic Extrem: General: normal to inspection and no edema Psych: Appearance: disheveled (somewhat disheveled) Objective Data Vital Signs Vital Signs: Vital Signs - 24 hr 01/27/22 08:50 01/27/22 08:50 01/27/22 08:50 Temperature Pulse Rate 68 Pulse Rate [Monitor] 68 Respiratory Rate Blood Pressure Pulse Oximetry 94 Oxygen Delivery High Flow Therapy with Na Oxygen Flow Rate 8 Fraction of Inspired Oxygen 01/27/22 10:00 01/27/22 11:43 01/27/22 11:58 Temperature Pulse Rate 70 91 Pulse Rate [Monitor] Respiratory Rate Blood Pressure Pulse Oximetry 91 Oxygen Delivery High Flow Nasal Cannula Oxygen Flow Rate 8 Fraction of Inspired Oxygen 01/27/22 12:00 01/27/22 12:30 01/27/22 12:30 Temperature 36.2 C L Pulse Rate 90 92 Pulse Rate [Monitor] 92 Respiratory Rate 24 H Blood Pressure 118/60 Pulse Oximetry 97 Oxygen Delivery Oxygen Flow Rate Fraction of Inspired Oxygen 01/27/22 12:30 01/27/22 14:00 01/27/22 16:00 Temperature 36.3 C L Pulse Rate 92 86 92 Pulse Rate [Monitor] Respiratory R
[2022-01-28 08:35] LABS: Glucose Point of Care 93 mg/dl (65-105)
[2022-01-28] MEDS: FOLIC ACID 1 MG TABLET PO (08:58)
[2022-01-28] MEDS: METOPROLOL SUCCINATE EXT REL 50 MG TABCR PO (08:58)
[2022-01-28] MEDS: ATORVASTATIN 20 MG TABLET PO (08:58)
[2022-01-28] MEDS: THIAMINE HCL 100 MG TABLET PO (08:59)
[2022-01-28] MEDS: SPIRONOLACTONE 50 MG TABLET 100 MG PO (08:59)
[2022-01-28] MEDS: APIXABAN 5 MG TABLET PO ×2 (08:59→20:32)
[2022-01-28] MEDS: ASPIRIN 81 MG ENTERIC TABLET PO (08:59)
[2022-01-28] MEDS: MULTIVITAMINS THERAPEUTIC TAB (*BKC) 1 TABLET PO (08:59)
[2022-01-28] MEDS: TOLNAFTATE 1% POWDER 45 GM BTL 1 APPLIC TOPICAL ×2 (08:59→20:32)
[2022-01-28] MEDS: ERGOCALCIFEROL 50,000 UNIT CAPSULE 50000 UNITS PO (08:59)
[2022-01-28 12:41] LABS: Glucose Point of Care 119 mg/dl (65-105)
--- NOTE | 2022-01-28 13:10 | PM.IMPN ---
Progress Note: A&P Assessment and Plan (1) Atrial flutter with rapid ventricular response: Code(s): I48.92 - Unspecified atrial flutter Status: Resolved Assessment and Plan: Was started on diltiazem and was tapered off. Restarted back again 01/25/2022 Continue apixaban for stroke prophylaxis. Cardiology on board. Her metoprolol and tapered of diltiazem -Rate controlled with oral metoprolol -Continue oral metoprolol (2) Alcohol abuse: Code(s): F10.10 - Alcohol abuse, uncomplicated Status: Acute Assessment and Plan: History of alcohol withdrawal seizures. Will need close monitoring; initiate CIWA protocol. Start thiamine and folic acid. Schedule Librium 50 mg q.6 hours. Will lower Librium to 25 mg as he looks more somnolent -01/28/22 changed librium to 25 mg q12h to start on 01/29/22 (3) Elevated troponin: Code(s): R77.8 - Other specified abnormalities of plasma proteins Status: Acute Assessment and Plan: Likely related to atrial flutter/RVR. Asymptomatic - denying chest pain, palpitations. Resolved. (4) Generalized weakness: Code(s): R53.1 - Weakness Status: Acute Assessment and Plan: May be related to atrial flutter/RVR on initial presentation. Improved but still has significant debility, which is likely baseline. (5) Hypertension: Code(s): I10 - Essential (primary) hypertension Status: Chronic Assessment and Plan: Blood pressures are high, up to 184/120 in the ER. Improved on Cardizem drip and with Ativan for anxiety. .BP improved on metoprolol -Continue metoprolol (6) Chronic obstructive pulmonary disease: Code(s): J44.9 - Chronic obstructive pulmonary disease, unspecified Status: Chronic Assessment and Plan: Wears 2-3L at rest and 4-5L NC at [place] and reports use of BIPAP at night. Currently on 8LNC with adequate saturation. BNP mildly elevated and lower than previous BNP. Turned down oxygen to 3LNC while in room and oxygen saturation ranged 92-96%. Discussed weaning oxygen with nursing -Repeat CXR in AM if unable to wean oxygen throughout the day -Wean oxygen as tolerated. (7) Coronary artery disease: Code(s): I25.10 - Atherosclerotic heart disease of [place] coronary artery without angina pectoris Status: Acute Assessment and Plan: Troponin is mildly elevated but flat. He has complains of no chest pain. Continue clopidogrel. (8) Diastolic congestive heart failure: Code(s): I50.30 - Unspecified diastolic (congestive) heart failure Status: Acute Assessment and Plan: Clinically compensated. BNP 433. Appears euvolemic. Will monitor. (9) Urinary retention: Code(s): R33.9 - Retention of urine, unspecified Status: Acute Assessment and Plan: Garcia catheter placed 01/25/2022 1300 cc out. Will attempt void trial tomorrow but may require discharge with garcia and one week follow up with urology outpatient. (10) Chronic respiratory failure with hypoxia, on home O2 therapy: Code(s): J96.11 - Chronic respiratory failure with hypoxia; Z99.81 - Dependence on supplemental oxygen Status: Chronic Assessment and Plan: On 3L oxygen continuous at home at rest and 4-5L with exertion. Acute on chronic with worsening hypoxia and has worn BIPAP overnight. Part of it could be related to alcohol withdrawal and sedation. Chest x-ray with pulmonary vascular congestion and/or pneumonia on 01/26/22. Zosyn started and a dose of furosemide given. -Continue zosyn -Will repeat CXR in AM if unable to wean oxygen today Subjective Date/time seen: Date of Service 01/28/22 1030 Patient says he feels much better. He is working with OT combing his hair. Says he uses oxygen continuously at home. Sitter and OT are present during the visit. OT reports patient uses 2-3L oxygen at rest and 4-5L w
[2022-01-28 17:26] LABS: Glucose Point of Care 104 mg/dl (65-105)
--- NOTE | 2022-01-28 17:41 | PC.NURSE ---
This patient, Prabhakar Godwin, was transferred to [facility] on 01/28/22 at 1741. Personal belongings sent with patient. Report given to ONEYDA Hewitt. Appropriate documentation sent with patient.
--- NOTE | 2022-01-28 17:45 | PC.NURSE ---
Patient transfered to room 244. Patient oriented to the room.
[2022-01-28] MEDS: AMITRIPTYLINE HCL 25 MG TABLET PO (20:32)
[2022-01-28] MEDS: SERTRALINE HCL 25 MG TABLET PO (20:32)
[2022-01-29] VITALS (14 sets, daily range): BP systolic 94–115; BP diastolic 48–70; PULSE 65–92; RESP 16–20; TEMP 36.1–37.3; O2SAT 93–100
[2022-01-29 01:01] LABS: Glucose Point of Care 135 mg/dl (65-105)
[2022-01-29 05:49] LABS: Basophils Absolute Auto 0.1 K/mm3 (0.0-0.1); Basophils Percent Auto 1.1 % (0.2-1.2); Eosinophils Absolute Auto 0.7 K/mm3 (0-0.3); Eosinophils Percent Auto 7.6 % (0-4.4); Hematocrit 37.8 % (42.0-52.0); Hemoglobin 11.6 g/dL (14.0-18.0); Immature Granulocyte Absolute 0.04 K/mm3 (0.00-0.031); Immature Granulocyte Percent A 0.4 % (0-0.5); Lymphocytes Absolute Auto 0.78 K/mm3 (0.9-3.2); Lymphocytes Percent Auto 8.4 % (18.3-44.2); Mean Corpuscular HGB Conc 30.7 g/dl (32-36); Mean Corpuscular Hemoglobin 30.4 pg (26-34); Monocytes Percent Auto 11.3 % (2.6-8.5); Neutrophils Absolute Auto 6.6 K/mm3 (1.3-6.7); Neutrophils Percent Auto 71.2 % (45.5-73.1); Platelet Count Result 276 k/mm3 (150-375); Red Blood Count 3.82 M/mm3 (4.6-6.20); Red Cell Distribution Width 14.6 % (11.5-14.5); White Blood Count 9.2 K/mm3 (4.5-10.0)
[2022-01-29 06:01] LABS: Anion Gap 4 mmol/L (8-16); Blood Urea Nitrogen 19 mg/dL (9-20); Calcium 9.1 mg/dL (8.4-10.2); Carbon Dioxide 31 mmol/L (22-30); Chloride 103 mmol/L (98-107); Estimated CRCL calculation 81 ml/min; Estimated Glomerular Filt Rate > 60; Glucose 97 mg/dL (65-110); Sodium 138 mmol/L (137-145)
--- NOTE | 2022-01-29 07:10 | PM.IMPN ---
Progress Note: A&P Assessment and Plan (1) Atrial flutter with rapid ventricular response: Code(s): I48.92 - Unspecified atrial flutter Status: Resolved Assessment and Plan: Was started on diltiazem and was tapered off. Restarted back again 01/25/2022 Continue apixaban for stroke prophylaxis. Cardiology on board. Her metoprolol and tapered of diltiazem -Rate controlled with oral metoprolol -Continue oral metoprolol (2) Alcohol abuse: Code(s): F10.10 - Alcohol abuse, uncomplicated Status: Acute Assessment and Plan: History of alcohol withdrawal seizures. Will need close monitoring; initiate CIWA protocol. Start thiamine and folic acid. Schedule Librium 50 mg q.6 hours. Will lower Librium to 25 mg as he looks more somnolent -01/28/22 changed librium to 25 mg q12h -01/29/22 working to taper librium, which may help sedation (3) Elevated troponin: Code(s): R77.8 - Other specified abnormalities of plasma proteins Status: Acute Assessment and Plan: Likely related to atrial flutter/RVR. Asymptomatic - denying chest pain, palpitations. Resolved. (4) Generalized weakness: Code(s): R53.1 - Weakness Status: Acute Assessment and Plan: May be related to atrial flutter/RVR on initial presentation. Improved but still has significant debility, which is likely baseline. (5) Hypertension: Code(s): I10 - Essential (primary) hypertension Status: Chronic Assessment and Plan: Blood pressures are high, up to 184/120 in the ER. Improved on Cardizem drip and with Ativan for anxiety. .BP improved on metoprolol -Continue metoprolol (6) Chronic obstructive pulmonary disease: Code(s): J44.9 - Chronic obstructive pulmonary disease, unspecified Status: Chronic Assessment and Plan: Wears 2-3L at rest and 4-5L NC at [place] and reports use of BIPAP at night. Currently on 8LNC with adequate saturation. BNP mildly elevated and lower than previous BNP. Turned down oxygen to 3LNC while in room and oxygen saturation ranged 92-96%. CXR with improvement of airspace opacities in the mid and lower lung zones. Discussed with nursing to titarate oxygen with goal of oxygen saturation in the low 90s given the patient COPD history. -Wean oxygen as tolerated (7) Coronary artery disease: Code(s): I25.10 - Atherosclerotic heart disease of [place] coronary artery without angina pectoris Status: Acute Assessment and Plan: Troponin is mildly elevated but flat. He has complains of no chest pain. Continue clopidogrel. (8) Diastolic congestive heart failure: Code(s): I50.30 - Unspecified diastolic (congestive) heart failure Status: Acute Assessment and Plan: Clinically compensated. BNP 433. Appears euvolemic. Will monitor. (9) Urinary retention: Code(s): R33.9 - Retention of urine, unspecified Status: Acute Assessment and Plan: Garcia catheter placed 01/25/2022 1300 cc out. Will attempt void trial tomorrow but may require discharge with garcia and one week follow up with urology outpatient. (10) Chronic respiratory failure with hypoxia, on home O2 therapy: Code(s): J96.11 - Chronic respiratory failure with hypoxia; Z99.81 - Dependence on supplemental oxygen Status: Chronic Assessment and Plan: On 3L oxygen continuous at home at rest and 4-5L with exertion. Acute on chronic with worsening hypoxia and has worn BIPAP overnight. Part of it could be related to alcohol withdrawal and sedation. Chest x-ray with pulmonary vascular congestion and/or pneumonia on 01/26/22. Zosyn started and a dose of furosemide given. 01/29/22. CXR improved today. -Wean oxygen as tolerated Subjective Date/time seen: Date of service 01/29/22 07:10 Patient says he feels fine. Patient is sitting in the chair working with occupational therapy. La
[2022-01-29 08:03] LABS: Glucose Point of Care 90 mg/dl (65-105)
--- NOTE | 2022-01-29 08:30 | PM.PNCARD ---
Progress Note: A&P Assessment and Plan (1) Atrial flutter with rapid ventricular response: Code(s): I48.92 - Unspecified atrial flutter Status: Acute Assessment and Plan: Chronic atrial fib/atrial flutter for which he does not ordinarily require any rate controlling agents. Was found to be in afib/flutter when he entered the hospital and was placed on diltiazem. He has now been shifted to oral metoprolol which is providing good rate control. Continue Toprol XL 50mg daily Continue a/c with apixaban (2) Diastolic congestive heart failure: Code(s): I50.30 - Unspecified diastolic (congestive) heart failure Status: Acute Assessment and Plan: He does not appear to be in decompensated heart failure at this time. Continue medical therapy with lisinopril, spironolactone. (3) Coronary artery disease: Code(s): I25.10 - Atherosclerotic heart disease of [place] coronary artery without angina pectoris Status: Acute Assessment and Plan: s/p PCI of his right coronary and circumflex in 2020. Stable. (4) Alcohol abuse: Code(s): F10.10 - Alcohol abuse, uncomplicated Status: Acute Subjective Date/time seen: 01/29/22 08:30 Interval history: Follow-up visit in this 76-year-old man with: Chronic atrial fib/flutter and history of coronary disease with previous PCI. Patient admitted with weakness and alcohol withdrawal. His atrial flutter which up until now had not required any rate control medication was somewhat more rapid he is now on metoprolol with good rate control. This morning the patient appears to be sedated he ate his breakfast he is arousable but very lethargic Date of service 01/28/2022: More alert this morning, remains confused. He denies any palpitations,chest pain, shortness of breath. HR mildly elevated presently but on telemetry review has been nicely controlled. Date of service 01/29/2022: Feels well this morning. No complaints. He has been taken off telemetry at this point but rate remains controlled. Reviewed plan of care and cardiac medication changes with him. Review of Systems Review of Systems: ROS unobtainable: Yes unobtainable due to mental status Exam Const: General: comfortable and no acute distress Other: Elderly gentleman in no distress sleeping arousable but very lethargic HENMT: Mouth: Yes moist mucous membranes Eyes: Sclera: sclerae normal Pupils: Equal, round and reactive pupils present Neck: Neck: supple and no JVD Carotids: normal carotid upstroke Other: No carotid bruits are audible Resp: Effort & Inspection: normal respiratory effort Auscultation: not clear to auscultation bilaterally and wheezes expiratory wheezes Other: Scattered rhonchi, scant bibasilar rales Cardio: Rhythm: abnormal rhythm irregularly irregular Heart sounds: no murmurs Other: Rhythm irregular heart rate 60-70 GI: Auscultation: normal bowel sounds Skin: General skin exam: normal color Neuro: Cranial nerves: Yes Equal, round and reactive pupils present Cognition (Neuro): normal cognition Other: Very lethargic Extrem: General: normal to inspection and no edema Other: No significant edema adequate pulses Psych: Appearance: disheveled (somewhat disheveled) Objective Data Vital Signs Vital Signs: Vital Signs - 24 hr 01/28/22 08:58 01/28/22 10:13 01/28/22 10:00 Temperature Pulse Rate 110 H 110 H Pulse Rate [Monitor] Respiratory Rate Blood Pressure Pulse Oximetry 94 Oxygen Delivery High Flow Nasal Cannula Oxygen Flow Rate 8 01/28/22 12:00 01/28/22 14:06 01/28/22 08:55 Temperature 37.1 C Pulse Rate 90 Pulse Rate [Monitor] Respiratory Rate 20 Blood Pressure 101/71 Pulse Oximetry 96 96 Oxygen Delivery Nasal Cannula High Flow Nasal Cannula Oxygen Flow Rate 8 8 01/28/22 12:00 01/28/22 12:00 01/28/22 14:00 Temperature Pulse Rate 107 H 98 Pulse Rate [Monitor] Resp
[2022-01-29] MEDS: METOPROLOL SUCCINATE EXT REL 50 MG TABCR PO (08:41)
[2022-01-29] MEDS: THIAMINE HCL 100 MG TABLET PO (08:44)
[2022-01-29] MEDS: ASPIRIN 81 MG ENTERIC TABLET PO (08:44)
[2022-01-29] MEDS: SPIRONOLACTONE 50 MG TABLET 100 MG PO (08:44)
[2022-01-29] MEDS: APIXABAN 5 MG TABLET PO ×2 (08:44→20:07)
[2022-01-29] MEDS: FOLIC ACID 1 MG TABLET PO (08:44)
[2022-01-29] MEDS: ATORVASTATIN 20 MG TABLET PO (08:44)
[2022-01-29] MEDS: MULTIVITAMINS THERAPEUTIC TAB (*BKC) 1 TABLET PO (08:44)
[2022-01-29] MEDS: TOLNAFTATE 1% POWDER 45 GM BTL 1 APPLIC TOPICAL ×2 (08:45→20:08)
[2022-01-29 11:30] LABS: Glucose Point of Care 135 mg/dl (65-105)
--- NOTE | 2022-01-29 12:19 | PC.NURSE ---
Sister, Sruthi (POA), requests to be called when/if he is discharged to notify her discharge plans and time.
[2022-01-29] MEDS: ACETAMINOPHEN 325 MG TABLET 650 MG PO (12:39)
[2022-01-29] MEDS: chlordiazePOXIDE (*CRX) 25 MG CAPSULE PO ×2 (12:45→23:24)
[2022-01-29 16:54] LABS: Glucose Point of Care 116 mg/dl (65-105)
[2022-01-29] MEDS: AMITRIPTYLINE HCL 25 MG TABLET PO (20:07)
[2022-01-29] MEDS: SERTRALINE HCL 25 MG TABLET PO (20:08)
[2022-01-29 20:26] LABS: Glucose Point of Care 118 mg/dl (65-105)
[2022-01-30 02:00] VITALS: PULSE 79; RESP 18; O2SAT 94
[2022-01-30 04:26] VITALS: BP 110/68; PULSE 65; RESP 20; TEMP 36.2; O2SAT 99
--- NOTE | 2022-01-30 07:19 | PM.DS ---
DS: Admitting Diagnosis Discharge Date 01/30/22 Admitting Diagnosis Atrial flutter DS: Discharge Diagnosis Discharge Diagnosis (1) Atrial flutter with rapid ventricular response: Code(s): I48.92 - Unspecified atrial flutter Status: Resolved Assessment and Plan: Was started on diltiazem and was tapered off. Restarted back again 01/25/2022 Continue apixaban for stroke prophylaxis. Cardiology on board. Her metoprolol and tapered of diltiazem -Rate controlled with oral metoprolol -Continue oral metoprolol (2) Alcohol abuse: Code(s): F10.10 - Alcohol abuse, uncomplicated Status: Acute Assessment and Plan: History of alcohol withdrawal seizures. Will need close monitoring; initiate CIWA protocol. Start thiamine and folic acid. Schedule Librium 50 mg q.6 hours. Will lower Librium to 25 mg as he looks more somnolent -01/28/22 changed librium to 25 mg q12h -01/29/22 working to taper librium, which may help sedation -01/30 Discharged with two more days of daily librium to complete taper (3) Elevated troponin: Code(s): R77.8 - Other specified abnormalities of plasma proteins Status: Acute Assessment and Plan: Likely related to atrial flutter/RVR. Asymptomatic - denying chest pain, palpitations. Resolved. (4) Generalized weakness: Code(s): R53.1 - Weakness Status: Acute Assessment and Plan: May be related to atrial flutter/RVR on initial presentation. Improved but still has significant debility, which is likely baseline. (5) Hypertension: Code(s): I10 - Essential (primary) hypertension Status: Chronic Assessment and Plan: Blood pressures are high, up to 184/120 in the ER. Improved on Cardizem drip and with Ativan for anxiety. .BP improved on metoprolol -Continue metoprolol (6) Chronic obstructive pulmonary disease: Code(s): J44.9 - Chronic obstructive pulmonary disease, unspecified Status: Chronic Assessment and Plan: Patient discharged on his baseline oxygen. (7) Coronary artery disease: Code(s): I25.10 - Atherosclerotic heart disease of [place] coronary artery without angina pectoris Status: Acute Assessment and Plan: Troponin is mildly elevated but flat. He has complains of no chest pain. For discharge, clopidogrel was discontinued and aspirin had been started during the hospitalization. Patient also on apxiaban. (8) Diastolic congestive heart failure: Code(s): I50.30 - Unspecified diastolic (congestive) heart failure Status: Acute Assessment and Plan: Clinically compensated. BNP 433. Appears euvolemic. Will monitor. (9) Urinary retention: Code(s): R33.9 - Retention of urine, unspecified Status: Acute Assessment and Plan: Garcia catheter placed 01/25/2022 1300 cc out. Will attempt void trial tomorrow but may require discharge with garcia and one week follow up with urology outpatient. (10) Chronic respiratory failure with hypoxia, on home O2 therapy: Code(s): J96.11 - Chronic respiratory failure with hypoxia; Z99.81 - Dependence on supplemental oxygen Status: Chronic Assessment and Plan: On 3L oxygen continuous at home at rest and 4-5L with exertion. Acute on chronic with worsening hypoxia and has worn BIPAP overnight. Part of it could be related to alcohol withdrawal and sedation. Chest x-ray with pulmonary vascular congestion and/or pneumonia on 01/26/22. Zosyn started and a dose of furosemide given. 01/29/22. CXR improved today. Discharged with one additional day of Augmentin. DS: Summary Hospital Course Reason for hospitalization: Atrial flutter Hospital Course: 76M with a past medical history of ETOH c/w withdrawal seizures, stroke, CAD, CHF, atrial fibrillation, hypertension, chronic respiratory failure on 2-3LNC at rest & 4-5L with exertion who presented to the ED from
[2022-01-30 07:34] LABS: Glucose Point of Care 100 mg/dl (65-105)
[2022-01-30] MEDS: FLUTICASONE/UMECLIDIN/VILANTER 100-62.5-25 MCG ELLIPTA 1 PUFF INHALATION (07:38)
[2022-01-30 07:43] VITALS: O2SAT 93
[2022-01-30 08:00] VITALS: BP 110/68; PULSE 65; PULSE 88; RESP 20; O2SAT 93
[2022-01-30] MEDS: ASPIRIN 81 MG ENTERIC TABLET PO (09:00)
[2022-01-30] MEDS: FOLIC ACID 1 MG TABLET PO (09:01)
[2022-01-30] MEDS: MULTIVITAMINS THERAPEUTIC TAB (*BKC) 1 TABLET PO (09:01)
[2022-01-30] MEDS: SPIRONOLACTONE 50 MG TABLET 100 MG PO (09:01)
[2022-01-30] MEDS: APIXABAN 5 MG TABLET PO (09:01)
[2022-01-30] MEDS: TOLNAFTATE 1% POWDER 45 GM BTL 1 APPLIC TOPICAL (09:01)
[2022-01-30] MEDS: METOPROLOL SUCCINATE EXT REL 50 MG TABCR PO (09:01)
[2022-01-30] MEDS: THIAMINE HCL 100 MG TABLET PO (09:01)
[2022-01-30] MEDS: ATORVASTATIN 20 MG TABLET PO (09:01)
[2022-01-30 11:43] LABS: Glucose Point of Care 123 mg/dl (65-105)
[2022-01-30] MEDS: chlordiazePOXIDE (*CRX) 25 MG CAPSULE PO (12:27)
[2022-01-30 14:05] VITALS: BP 100/66; PULSE 88; RESP 18; TEMP 36.6; O2SAT 94
[2022-01-30 16:26] LABS: Glucose Point of Care 117 mg/dl (65-105)
[2022-01-30 16:30] VITALS: PULSE 46; RESP 16; O2SAT 95
[2022-01-30 16:42] LABS: EDCOVIDSCREEN Negative (Negative)
--- NOTE | 2022-01-30 17:00 | PC.NURSE ---
Garcia out as ordered. Report to jail nurse that garcia removed at 1700.
== END 2022-01-30 17:20 | DRG 308 ==
LOC: ANHED 07:03 → ANHIMU 10:29 → ANH2MED 01-30 15:35 → ANHIMU 02-02 14:16
PROVIDERS: Emergency Medicine; Internal Medicine; Physician Assistant; Admitting Provider Family Medicine; Emergency Provider Emergency Medicine; PCP Family Medicine; Visit Provider Family Medicine
DX: I48.92 Unspecified atrial flutter (principal); J18.9 Pneumonia, unspecified organism; J96.11 Chronic respiratory failure with hypoxia; F10.139 Alcohol abuse with withdrawal, unspecified; I50.32 Chronic diastolic (congestive) heart failure; E78.2 Mixed hyperlipidemia; I48.91 Unspecified atrial fibrillation; R53.1 Weakness; R33.9 Retention of urine, unspecified; Z20.822 Contact with and (suspected) exposure to COVID-19; D50.9 Iron deficiency anemia, unspecified; F41.9 Anxiety disorder, unspecified; I11.0 Hypertensive heart disease with heart failure; I27.20 Pulmonary hypertension, unspecified; I25.10 Atherosclerotic heart disease of native coronary artery without angina pectoris; R19.7 Diarrhea, unspecified; J44.9 Chronic obstructive pulmonary disease, unspecified; K57.90 Diverticulosis of intestine, part unspecified, without perforation or abscess without bleeding; R77.8 Other specified abnormalities of plasma proteins; Y90.2 Blood alcohol level of 40-59 mg/100 ml; Z99.81 Dependence on supplemental oxygen; Z86.73 Personal history of transient ischemic attack (TIA), and cerebral infarction without residual deficits; Z79.01 Long term (current) use of anticoagulants; Z79.02 Long term (current) use of antithrombotics/antiplatelets; Z95.5 Presence of coronary angioplasty implant and graft; Z98.49 Cataract extraction status, unspecified eye; Z87.891 Personal history of nicotine dependence
CPT/HCPCS: 36415; 36600; 71045; 71046; 74176; 80048; 80053; 80307; 81001; 82375; 82805; 82948; 83050; 83690; 83735; 83880; 84443; 84484; 85025; 85610; 85730; 87426; 93005; 94002; 94003; 94640; 96361; 96365; 96366; 96367; 96375; 96376; 97110; 97116; 97162; 97165; 97530; 97535; 99285; A9270; C9803; G0378; J1940; J2060; J2543; J3411; J3475; J7030; U0003; U0005

== ENCOUNTER 2022-01-30 23:33 | Emergency (ER) | payer MEDICARE, SELFPAY ==
[2022-01-30 23:26] VITALS: BP 95/70; PULSE 104; RESP 20; TEMP 36.4; O2SAT 94
[2022-01-30 23:33] VITALS: PULSE 93; RESP 17; O2SAT 92
[2022-01-30 23:35] VITALS: O2SAT 95
[2022-01-30 23:36] VITALS: BP 97/57; PULSE 99; RESP 19; O2SAT 94
--- NOTE | 2022-01-30 23:51 | ED.RECABL ---
HPI - Recheck/Abnormal Lab/Rx General Chief Complaint: Recheck/Abnormal Lab/Rx Stated Complaint: low O2 sats d/c from here today Time Seen by Provider: 01/30/22 23:33 Source: patient History of Present Illness HPI narrative: Patient was sent over for evaluation of hypoxia. Patient was discharged from the hospital this morning was being treated for COPD exacerbation pneumonia. Patient reports he is normally on 2 to 3 L oxygen at rest and up to 4 L with physical activity. Tonight nursing staff noted oxygen levels in the 60s referred him to the ER for further evaluation. Patient stated he had no complaints was not feeling short of breath had no chest pain or lightheadedness no fevers no cough no congestion. He did not feel he needed to go to the emergency room however given the staff's concern for his oxygen levels EMS was called and he was transported to the ER. EMS noted oxygen of 95% on 4 L. Related Data Home Medications Medication Instructions Recorded Confirmed multivitamin 1 tablet PO DAILY 08/21/20 01/24/22 melatonin 10 mg tablet 10 mg PO QHS PRN Insomnia 04/22/21 01/24/22 atorvastatin 20 mg tablet (Lipitor) 20 mg PO DAILY 07/23/21 01/24/22 fluticasone fur. 100 mcg-umeclid 1 inh inhalation DAILY 01/24/22 01/24/22 62.5 mcg-vilant 25 mcg inhalat.powder (Trelegy Ellipta) nystatin 100,000 unit/gram topical 1 applic topical Q12H 01/24/22 01/24/22 powder (Nystop) spironolactone 100 mg tablet 100 mg PO DAILY 01/24/22 01/24/22 Allergies Allergy/AdvReac Type Severity Reaction Status Date / Time gadobenic acid Allergy Severe RASH, Verified 01/24/22 06:55 [From contrast - MRI] DIFFICULTY BREATHING, SHAKING Iodinated Contrast Media Allergy Severe RASH, Verified 01/24/22 06:55 DIFFICULTY BREATHING, SHAKING iodine Allergy Severe RASH, Verified 01/24/22 06:55 DIFFICULTY BREATHING, SHAKING iohexol Allergy Severe RASH, Verified 01/24/22 06:55 [From contrast - CT, X-RAY] DIFFICULTY BREATHING, SHAKING Review of Systems Review of Systems: CONSTITUTIONAL: Denies fever, chills, or sweats. EYES: Denies visual changes, redness, or discharge. ENT: Denies rhinorrhea, congestion, sore throat, or otalgia. CARDIOVASCULAR: Denies chest pain, palpitations, or edema. RESPIRATORY: Denies cough or acute change in chronic dyspnea. GASTROINTESTINAL: Denies abdominal pain, nausea, vomiting, or diarrhea. GENITOURINARY: Denies dysuria or hematuria. SKIN: Denies rash or itching. MUSCULOSKELETAL: Denies back pain, joint pain, or myalgia. NEUROLOGIC: Denies headache, numbness, dizziness, or weakness. PSYCHIATRIC: Denies anxiety or depression. All systems reviewed & are unremarkable except as noted in HPI and below PMFSH Past Medical History Medical History Alcohol abuse Alcohol withdrawal seizure 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 Anxiety Cerebrovascular accident (03/31/17) Chronic obstructive pulmonary disease Chronic respiratory failure with hypoxia, on home oxygen therapy 3 L nasal cannula. Coronary artery disease Status post drug-eluting stent to RCA and left circumflex. Diastolic congestive heart failure 11/2021 echo: Abnormal diastolic dysfunction and normal LV systolic function with an EF of 65 to 70%. Diverticulosis Hiatal hernia Hypertension Iron deficiency anemia Mixed hyperlipidemia Moderate pulmonary hypertension Paroxysmal atrial fibrillation Restrictive lung disease Tobacco abuse Surgical History Surgical History History of cardiac catheterization History of cataract extraction History of colonoscopy with polypectomy (07/2021) History of coronary artery stent placement (11/2020) Drug-eluting stents to distal RCA and mid circumflex. History of esophagogastroduodenoscopy (07/2021) Gastritis. History of
[2022-01-30 23:52] VITALS: PULSE 99; RESP 19
--- NOTE | 2022-01-30 23:59 | PC.NURSE ---
This RN called [facility] and gave report to Daija nurse at facility that had given report to this RN earlier. Will call [facility] for ride back to facility.
[2022-01-31] VITALS (25 sets, daily range): BP systolic 83–101; BP diastolic 56–66; PULSE 82–105; RESP 0–37; TEMP 36.9; O2SAT 86–95
--- NOTE | 2022-01-31 00:18 | PC.NURSE ---
VORB per , give 500ml bolus IV.
[2022-01-31] MEDS: SODIUM CHLORIDE 0.9% IV 500 ML 999 ML IV CONT (00:20)
== END 2022-01-31 05:24 ==
PROVIDERS: Emergency Provider Emergency Medicine; PCP Family Medicine
DX: J96.11 Chronic respiratory failure with hypoxia (principal); J44.9 Chronic obstructive pulmonary disease, unspecified; Z99.81 Dependence on supplemental oxygen; I25.10 Atherosclerotic heart disease of native coronary artery without angina pectoris; I50.30 Unspecified diastolic (congestive) heart failure; I11.0 Hypertensive heart disease with heart failure; D50.9 Iron deficiency anemia, unspecified; E78.2 Mixed hyperlipidemia; I48.0 Paroxysmal atrial fibrillation; Z87.01 Personal history of pneumonia (recurrent); Z86.73 Personal history of transient ischemic attack (TIA), and cerebral infarction without residual deficits; Z98.49 Cataract extraction status, unspecified eye; Z95.5 Presence of coronary angioplasty implant and graft; Z87.891 Personal history of nicotine dependence; Z79.01 Long term (current) use of anticoagulants
CPT/HCPCS: 96360; 99283; J7040

== ENCOUNTER 2022-02-03 03:48 | Inpatient (IN) | payer MEDICARE, SELFPAY ==
[2022-02-03] VITALS (24 sets, daily range): BP systolic 100–119; BP diastolic 66–76; PULSE 65–89; RESP 17–34; TEMP 35.9–36.5; O2SAT 90–100; BMI 31.9; BMI 31.4
--- NOTE | ~2022-02-03 | XR_ITS ---
MODIFIED ESOPHAGRAM HISTORY: Dysphagia. TECHNIQUE: Modified barium esophagram was performed on 02/19/2022. I administered fluoroscopy and perf ormed the exam with speech pathologist. Patient was seated for lateral fluoroscopic imaging for chel stion of thin liquids, pudding, solids and quantified amounts, followed by thin liquids in uncontroll ed amounts. This was recorded on tape. A single fluoroscopic spot image was also recorded. The DAP fo r this procedure was 2.18 Gycm2. The amount of fluoroscopy time used during this procedure was 3.4 mi nutes. FINDINGS: Oral stage: Adequate function. Pharyngeal stage: Pharyngeal dysphagia with residue in the vallecula and piriform sinuses and intermi ttent small amount laryngeal penetration without aspiration which elicited a cough reflex. Cervical/esophageal stage: Adequate function. IMPRESSION: Intermittent small amount of laryngeal penetration without aspiration and which elicited a productive cough reflex. Please correlate with speech pathologist findings and specific feeding re commendations. Reviewed, dictated and finalized at location A. IMPRESSION: Intermittent small amount of laryngeal penetration without aspirati on and which elicited a productive cough reflex. Please correlate with speech pathologist findings and specific feeding recommendations.
--- NOTE | ~2022-02-03 | CT_ITS ---
EXAMINATION: CT diagnostic chest wo con DATE: 02/09/2022 14:27 INDICATION: Pneumonia TECHNIQUE: Computed tomography (CT) of the chest was performed without intravenous contrast. Automate d exposure control and iterative reconstruction technique were employed. The dose-length product was 359.82 mGy-cm. COMPARISON: X-ray chest 02/06/2022, CT 11/26/2021. FINDINGS: CHEST: Thoracic aorta: No significant dilation or calcification. Lung parenchyma and airways: Segmental areas of consolidation in the right middle and bilateral lower lobes. Airway debris in the right mainstem bronchus. Emphysematous change. Persistent left hemidiaph ragm elevation. Thoracic inlet, axillae and chest wall: No thyroid or soft tissue mass. No axillary lymphadenopathy. Asymmetric subareolar soft tissue density, greater on the right. Mediastinum: No mass or lymphadenopathy. Heart and pericardium: Cardiomegaly. No pericardial effusion. Coronary artery calcifications: Moderate. Coronary artery stents. Pleura: No effusion or mass. Upper abdomen: Cholelithiasis. Left nonobstructive nephrolith. Thoracic bones: No acute osseous findi ng in the chest. IMPRESSION: Right middle and bilateral lower lobe consolidation, may reflect pneumonia in the appropriate clinica l context. A component of aspiration is present. Asymmetric subareolar soft tissue density, may refle ct asymmetric gynecomastia, consider outpatient mammography and breast ultrasound to exclude other ma ss, patient condition permitting. Reviewed, dictated and finalized at location K. IMPRESSION: Right middle and bilateral lower lobe consolidation, may reflect pneumonia in t he appropriate clinical context. A component of aspiration is present. Asymmetr ic subareolar soft tissue density, may reflect asymmetric gynecomastia, conside r outpatient mammography and breast ultrasound to exclude other mass, patient c ondition permitting.
--- NOTE | ~2022-02-03 | XR_ITS ---
XR chest 1V portable 02/18/2022 13:05 Indication: Cough Procedure: AP portable chest Comparison: Comparison to multiple prior studies sequentially, with oldest reviewed study dated 01/29. Findings: There is diffuse bilateral airspace disease. Small pleural effusions. No pneumothorax. Elev ated left diaphragm. No acute osseous abnormality. Impression: 1: Diffuse bilateral airspace disease which may represent edema or pneumonia. Reviewed, dictated and finalized at location A. Impression: 1: Diffuse bilateral airspace disease which may represent edema or pneumonia.
--- NOTE | ~2022-02-03 | XR_ITS ---
. EXAMINATION: XR barium swallow modified DATE: 02/04/2022 14:11 INDICATION: Aspiration. TECHNIQUE: The patient was given barium-containing material of multiple consistencies to swallow by t galilea speech pathologist while I performed fluoroscopy. Fluoroscopy exposure time was 3.2 minutes. The n umber of fluoroscopy images saved to the PACS was 1. Dose-area product was 2.85 Gy-cm^2. FINDINGS: There was reduced laryngeal elevation, reduced laryngeal adduction, reduced tongue base retraction, v allecular residue, pyriform sinus residue, and laryngeal penetration. IMPRESSION: 1. Laryngeal penetration. 2. Please refer to the speech therapy report for recommendations. Reviewed, dictated and finalized at location A.
--- NOTE | ~2022-02-03 | XR_ITS ---
EXAMINATION: XR chest 1V portable INDICATION: Fluid overload TECHNIQUE: Portable AP chest at 0556 hours COMPARISON: 02/03/2022 FINDINGS: Cardiomegaly is noted. There are persistent airspace opacities in the mid and lower lung zo david with worsening in the left lung base. Lung volumes are low. No pleural effusion or pneumothorax i s identified. IMPRESSION: 1. Airspace opacities of the mid and lower lung zones with interval worsening in the left lung base, consistent with atelectasis versus pneumonia. 2. Cardiomegaly. Reviewed, dictated and finalized at location A. IMPRESSION: 1. Airspace opacities of the mid and lower lung zones with interval worsening i n the left lung base, consistent with atelectasis versus pneumonia. 2. Cardiomegaly.
--- NOTE | ~2022-02-03 | US_ITS ---
EXAMINATION: US renal BI DATE: 02/11/2022 13:41 INDICATION: Acute kidney injury. TECHNIQUE: Multiple ultrasound grayscale images of the kidneys were obtained. COMPARISON: CT abdomen and pelvis 01/24/2022 FINDINGS: The right kidney measures 12.9 x 6.4 x 6.8 cm. The left kidney measures 12.4 x 6.6 x 6.7 cm. The kidn eys demonstrate normal parenchymal echogenicity. There is no hydronephrosis. The bladder is decompres sed by a Perez catheter. IMPRESSION: 1. Normal kidneys. No hydronephrosis. Reviewed, dictated and finalized at location A.
--- NOTE | ~2022-02-03 | XR_ITS ---
XR chest 2V 02/14/2022 08:00 Indication: Pneumonia Procedure: AP and lateral views of the chest Comparison: Comparison to multiple prior studies sequentially, with oldest reviewed study dated 01/26. Findings: There is bibasilar airspace consolidation. No significant effusion or pneumothorax. No acut e osseous abnormality. Size difficult to evaluate. Nonobstructive bowel gas pattern with residual con trast in the left colon. Impression: 1: Bibasilar airspace disease unchanged which may represent pneumonia or less likely edema. Reviewed, dictated and finalized at location A. Impression: 1: Bibasilar airspace disease unchanged which may represent pneumonia or less l ikely edema.
--- NOTE | ~2022-02-03 | XR_ITS ---
XR chest 2V 02/03/2022 05:02 Indication: Shortness of breath Procedure: AP and lateral views of the chest Comparison: Comparison to multiple prior studies sequentially, with oldest reviewed study dated 11/28. Findings: Persistent bibasilar airspace disease, edema versus pneumonia. Probable small pleural effus ions. No pneumothorax. No acute osseous abnormality. Impression: 1: No significant change to bilateral diffuse airspace disease, edema versus pneumonia. Reviewed, dictated and finalized at location A. Impression: 1: No significant change to bilateral diffuse airspace disease, edema versus pn eumonia.
--- NOTE | 2022-02-03 04:04 | ECG_ITS ---
Measurements Intervals [place] Rate: 88 P: 105 IA: 147 QRS: 12 QRSD: 119 T: 77 QT: 381 QTc: 463 Interpretive Statements ATRIAL FLUTTER WITH VARIABLE AV BLOCK INCOMPLETE RIGHT BUNDLE BRANCH BLOCK [90+ ms QRS DURATION, TERMINAL R IN V1/V2, 40+ ms S IN I/aVL/V4/V5/V6] ABNORMAL ECG COMPARED TO ECG 01/24/2022 17:54:51 NO SIGNIFICANT CHANGE Electronically Signed On 02-03-2022 11:32:18 CDT by Farhad Damon M.D.
[2022-02-03 04:20] LABS: Basophils Absolute Auto 0.1 K/mm3 (0.0-0.1); Basophils Percent Auto 1.5 % (0.2-1.2); Eosinophils Absolute Auto 0.5 K/mm3 (0-0.3); Hematocrit 43.6 % (42.0-52.0); Hemoglobin 12.5 g/dL (14.0-18.0); Immature Granulocyte Absolute 0.03 K/mm3 (0.00-0.031); Immature Granulocyte Percent A 0.3 % (0-0.5); Lymphocytes Absolute Auto 1.02 K/mm3 (0.9-3.2); Lymphocytes Percent Auto 10.9 % (18.3-44.2); Mean Corpuscular HGB Conc 28.7 g/dl (32-36); Mean Corpuscular Hemoglobin 29.3 pg (26-34); Mean Corpuscular Volume 102.1 fl (80-100); Mean Platelet Volume 9.8 fl (7.4-10.4); Monocytes Absolute Auto 1.3 K/mm3 (0.1-0.6); Monocytes Percent Auto 13.9 % (2.6-8.5); Neutrophils Absolute Auto 6.4 K/mm3 (1.3-6.7); Neutrophils Percent Auto 68.4 % (45.5-73.1); Platelet Count Result 329 k/mm3 (150-375); Red Blood Count 4.27 M/mm3 (4.6-6.20); Red Cell Distribution Width 14.7 % (11.5-14.5); White Blood Count 9.4 K/mm3 (4.5-10.0)
[2022-02-03 04:29] LABS: Alveolar/Arterial O2 Gradient 174.8 mmHg; Base Excess ABG 2.5 mEq/l (+/-2.0); Carboxyhemoglobin 0.9 % THb (0-2.0); Fractional Inspired Oxygen 40 %; HCO3 ABG 30.3 mEq/l (22.0-26.0); Methemoglobin ABG 0.3 %THb (0-1.5); Oxygen Content ABG 12.1 %vol (16.0-22.0); PO2 FiO2 Ratio Arterial Blood 0.97 %; Reduced Hemoglobin 29.9 %THb (0-5.0); Total Hemoglobin 12.5 g/dL (12.0-18.0); pH ABG 7.305 (7.350-7.450)
[2022-02-03 04:30] LABS: PCO2 ABG 62.2 mmHg (35.0-45.0)
[2022-02-03 04:31] LABS: Oxygen Saturation ABG 66.8 % (95.0-100.0); Oxyhemoglobin 68.9 % THb (90.0-100.0); PO2 ABG 38.9 mmHg (80.0-100.0)
--- NOTE | 2022-02-03 04:31 | ED.SOB ---
HPI - SOB/Dyspnea General Chief Complaint: Shortness of Breath/Dyspnea Stated Complaint: low o2 sat , low bp Time Seen by Provider: 02/03/22 03:58 History of Present Illness HPI Narrative: Patient 76-year-old male who presents ER with low O2 sat per group home. He has had to go up from his typical 2 to 3 L a minute to 5 L a minute. Patient endorses orthopnea. He has increased edema in his legs that he reports did not have a few days ago. Recently admitted to rehab. No chest pain or chest pressure. No fevers or chills or sweats. No productive cough. Related Data Home Medications Medication Instructions Recorded Confirmed multivitamin 1 tablet PO DAILY 08/21/20 01/24/22 melatonin 10 mg tablet 10 mg PO QHS PRN Insomnia 04/22/21 01/24/22 atorvastatin 20 mg tablet (Lipitor) 20 mg PO DAILY 07/23/21 01/24/22 fluticasone fur. 100 mcg-umeclid 1 inh inhalation DAILY 01/24/22 01/24/22 62.5 mcg-vilant 25 mcg inhalat.powder (Trelegy Ellipta) nystatin 100,000 unit/gram topical 1 applic topical Q12H 01/24/22 01/24/22 powder (Nystop) spironolactone 100 mg tablet 100 mg PO DAILY 01/24/22 01/24/22 Allergies Allergy/AdvReac Type Severity Reaction Status Date / Time gadobenic acid Allergy Severe RASH, Verified 02/03/22 03:58 [From contrast - MRI] DIFFICULTY BREATHING, SHAKING Iodinated Contrast Media Allergy Severe RASH, Verified 02/03/22 03:58 DIFFICULTY BREATHING, SHAKING iodine Allergy Severe RASH, Verified 02/03/22 03:58 DIFFICULTY BREATHING, SHAKING iohexol Allergy Severe RASH, Verified 02/03/22 03:58 [From contrast - CT, X-RAY] DIFFICULTY BREATHING, SHAKING Review of Systems Review of Systems: All systems reviewed & are unremarkable except as noted in HPI and below Constitutional: Constitutional: Denies chills, Denies fatigue and Denies fever(s) ENT: Denies nasal congestion and Denies sore throat Cardiovascular: Cardiovascular: Denies chest pain, Denies rapid heart rate and Denies radiating jaw, neck or arm pain Respiratory: Respiratory: Denies chest congestion, Denies cough and Reports dyspnea Comments: Orthopnea Gastrointestinal: Gastrointestinal: Denies abdominal pain, Denies diarrhea, Denies nausea and Denies vomiting PMFSH Past Medical History Medical History Alcohol abuse Alcohol withdrawal seizure 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 Anxiety Cerebrovascular accident (03/31/17) Chronic obstructive pulmonary disease Chronic respiratory failure with hypoxia, on home oxygen therapy 3 L nasal cannula. Coronary artery disease Status post drug-eluting stent to RCA and left circumflex. Diastolic congestive heart failure 11/2021 echo: Abnormal diastolic dysfunction and normal LV systolic function with an EF of 65 to 70%. Diverticulosis Hiatal hernia Hypertension Iron deficiency anemia Mixed hyperlipidemia Moderate pulmonary hypertension Paroxysmal atrial fibrillation Restrictive lung disease Tobacco abuse Surgical History Surgical History History of cardiac catheterization History of cataract extraction History of colonoscopy with polypectomy (07/2021) History of coronary artery stent placement (11/2020) Drug-eluting stents to distal RCA and mid circumflex. History of esophagogastroduodenoscopy (07/2021) Gastritis. History of open reduction and internal fixation (ORIF) procedure Repair right ankle fracture. History of percutaneous endoscopic gastrostomy History of tonsillectomy Family History Family History Father Back pain, chronic Cataract Cerebrovascular accident Mother Arthritis Migraines Cataract Sibling No problems noted. Sibling Hearing loss Alcoholism Soci
[2022-02-03 04:32] LABS: Alanine Aminotransferase 18 U/L (6-50); Albumin Level 4.3 g/dL (3.5-5.1); Alkaline Phosphatase 96 U/L (38-126); Anion Gap 6 mmol/L (8-16); Aspartate Amino Transferase 32 U/L (17-59); Bilirubin,Total 0.5 mg/dL (0.2-1.3); Blood Urea Nitrogen 22 mg/dL (9-20); Calcium 10.1 mg/dL (8.4-10.2); Carbon Dioxide 34 mmol/L (22-30); Chloride 103 mmol/L (98-107); Device NASAL CANNULA; Estimated CRCL calculation 75 ml/min; Estimated Glomerular Filt Rate > 60; Glucose 100 mg/dL (65-110); Modified Allen's Test Pass; Site Drawn RIGHT RADIAL; Sodium 143 mmol/L (137-145)
[2022-02-03 04:35] LABS: INR 1.4; Prothrombin Time 16.2 Seconds (11.1-14.7)
[2022-02-03 04:36] LABS: Partial Thromboplastin Time 37.6 SECONDS (22.3-36.8)
[2022-02-03 04:44] LABS: NT Pro B Type Natriuretic Pept 1410 pg/mL (5-100); Troponin I 0.031 ng/mL (0.000-0.034)
[2022-02-03 04:47] LABS: Alveolar/Arterial O2 Gradient 125.4 mmHg; Base Excess ABG 4.2 mEq/l (+/-2.0); Fractional Inspired Oxygen 40 %; HCO3 ABG 31.6 mEq/l (22.0-26.0); Methemoglobin ABG 0.2 %THb (0-1.5); Oxygen Content ABG 16.8 %vol (16.0-22.0); Oxygen Saturation ABG 96.1 % (95.0-100.0); PO2 ABG 89.5 mmHg (80.0-100.0); PO2 FiO2 Ratio Arterial Blood 2.24 %; Reduced Hemoglobin 3.8 %THb (0-5.0); Total Hemoglobin 12.5 g/dL (12.0-18.0); pH ABG 7.332 (7.350-7.450)
[2022-02-03 04:48] LABS: Device NASAL CANNULA; Modified Allen's Test Pass; PCO2 ABG 61.1 mmHg (35.0-45.0); Site Drawn LEFT RADIAL
[2022-02-03] MEDS: FUROSEMIDE INJ 40 MG/4 ML VIAL IV PUSH ×2 (05:05→18:59)
--- NOTE | 2022-02-03 08:08 | PM.IMHP ---
H&P: HPI History of Present Illness Date/Time: 02/03/22 08:08 Chief Complaint: Hypoxia Narrative: This is a 76-year-old male who presents to the ER with low oxygen saturation from assisted. He was recently discharged from the hospital similar presentation was diagnosed with congestive heart failure. He also underwent alcohol withdrawal treatment at the time. He was diuresed and improved in his hypoxia. Initial ER evaluation showed hypercapnia and has since was started on BiPAP. Is currently on BiPAP when evaluated this morning. He denies any chest pain. He denies any increased cough or wheezing. He reports lower extremity swelling. He denies any fever or chills. He was taken off of the BiPAP this morning and was placed on oxygen via nasal cannula. He is admitted for further evaluation and management Review of Systems Review of Systems: - CONSTITUTIONAL: Denies weight loss, fever and chills. - HEENT: Denies changes in vision and hearing - RESPIRATORY: Reports SOB and cough which is chronic - CV: Denies palpitations and CP. - GI: Denies abdominal pain, nausea, vomiting and diarrhea. - : Denies dysuria and urinary frequency. - MSK: Denies myalgia and joint pain. - SKIN: Denies rash and pruritus. - NEUROLOGICAL: Denies headache and syncope. - PSYCHIATRIC: Denies recent changes in mood. Denies anxiety and depression. All systems reviewed & are unremarkable except as noted in HPI and below PMFSH Past Medical History Medical History Alcohol abuse Alcohol withdrawal seizure 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 Anxiety Cerebrovascular accident (03/31/17) Chronic obstructive pulmonary disease Chronic respiratory failure with hypoxia, on home oxygen therapy 3 L nasal cannula. Coronary artery disease Status post drug-eluting stent to RCA and left circumflex. Diastolic congestive heart failure 11/2021 echo: Abnormal diastolic dysfunction and normal LV systolic function with an EF of 65 to 70%. Diverticulosis Hiatal hernia Hypertension Iron deficiency anemia Mixed hyperlipidemia Moderate pulmonary hypertension Paroxysmal atrial fibrillation Restrictive lung disease Tobacco abuse Surgical History Surgical History History of cardiac catheterization History of cataract extraction History of colonoscopy with polypectomy (07/2021) History of coronary artery stent placement (11/2020) Drug-eluting stents to distal RCA and mid circumflex. History of esophagogastroduodenoscopy (07/2021) Gastritis. History of open reduction and internal fixation (ORIF) procedure Repair right ankle fracture. History of percutaneous endoscopic gastrostomy History of tonsillectomy Family History Family History Father Back pain, chronic Cataract Cerebrovascular accident Mother Arthritis Migraines Cataract Sibling No problems noted. Sibling Hearing loss Alcoholism Social History Social History Social History: Surrogate decision maker: Sruthi Bedolla, sister. Code status: Full code. Smoking packs per day: 2 Smoking cigarettes per day: 40.0 Years smoked: 50 Smoking pack-years: 100.00 Smoking status: Former smoker Tobacco type: cigarettes Second hand tobacco smoke exposure: No Smoking end date: 03/05/17 Alcohol intake: current Drinks per week: 20 Alcohol use details: Long history of alcohol abuse with periods of sobriety. Does not qualify alcohol use though previously drank a pt of vodka a day. Substance use: never Substance use type: does not use Last use: 01/23/2022 Additional living arrangements comments: . Has a daughter. Spiritual care concerns: No Meds H
--- NOTE | 2022-02-03 08:17 | ADMGEN ---
This patient, Prabhakar Godwin, was admitted to IMU Room 204-01 @ 0715 Patient oriented to hospital policies and general routines including ID bracelet, bed and alarms, visiting hours, pain management, procedures, bathroom and other care routines, personal items, smoking policy, room service/diet, and visiting hours BIPAP on 08/10 rate 20 -40%. resp non-labored spo2 99% Information on how to activate the Rapid Response Team has been discussed. Patient encouraged to report perceived risks to care and to ask questions if they do not understand what they are told or what they should do.
[2022-02-03] MEDS: THIAMINE HCL 100 MG TABLET PO (09:42)
[2022-02-03] MEDS: MULTIVITAMINS THERAPEUTIC TAB (*BKC) 1 TABLET PO (09:42)
[2022-02-03] MEDS: METOPROLOL SUCCINATE EXT REL 50 MG TABCR PO (09:43)
[2022-02-03] MEDS: ASPIRIN 81 MG ENTERIC TABLET PO (09:44)
[2022-02-03] MEDS: ATORVASTATIN 20 MG TABLET PO (09:44)
[2022-02-03] MEDS: APIXABAN 5 MG TABLET PO ×2 (09:44→20:51)
[2022-02-03] MEDS: FOLIC ACID 1 MG TABLET PO (09:45)
[2022-02-03] MEDS: lisinopriL 10 MG TABLET PO ×2 (09:45→20:51)
[2022-02-03 12:59] LABS: Glucose Point of Care 120 mg/dl (65-105)
[2022-02-03 13:58] LABS: Alveolar/Arterial O2 Gradient 96.1 mmHg; Base Excess ABG 10.4 mEq/l (+/-2.0); Fractional Inspired Oxygen 40 %; Oxygen Content ABG 16.5 %vol (16.0-22.0); Oxygen Saturation ABG 95.8 % (95.0-100.0); Oxyhemoglobin 95.4 % THb (90.0-100.0); PO2 ABG 92.4 mmHg (80.0-100.0); PO2 FiO2 Ratio Arterial Blood 2.31 %; Total Hemoglobin 12.2 g/dL (12.0-18.0)
[2022-02-03 14:04] LABS: pH ABG 7.295 (7.350-7.450)
[2022-02-03 14:05] LABS: Device NON-INVASIVE VENT; Modified Allen's Test Pass; PCO2 ABG 84.1 mmHg (35.0-45.0); Site Drawn LEFT RADIAL
[2022-02-03 14:07] LABS: Non-Invasive Expiratory Pressure 6 CMH2O; Non-Invasive Inspiratory Pressure 12 CMH2O; Non-Invasive Vent Rate 20 /MIN
--- NOTE | 2022-02-03 15:49 | PM.CNPUL ---
Assessment and Plan Assessment and plan (1) Acute and chronic respiratory failure: Code(s): J96.20 - Acute and chronic respiratory failure, unspecified whether with hypoxia or hypercapnia Status: Acute Assessment and Plan: Patient with a history of GOLD grade 2 group B COPD with hypoxic respiratory failure with most recent home O2 assessment requiring no oxygen at rest and 1 L with exertion, presents with worsening orthopnea, pedal edema, elevated BNP at 2:10 p.m., with no evidence of a change in phlegm production or quality and no evidence of a pneumonia. He is already on eliquis making PE unlikely. The patient has had multiple blood gas is over his previous admissions some without hypercarbia such as 07/30/2021 pH of 7.4 12/01/1984 and some with hypercarbia for example 01/26/2021 in which he was admitted for fluid overload and pneumonia on 8 L nasal cannula with a pH of 7.36/53/76. Currently he presented with a blood gas of 7.31/62/40 on 5 L nasal cannula. His serum bicarbonates range from 34 presently to 26 previously. It is difficult to determine what his baseline PaCO2 is when his COPD is stable and he is euvolemic. Currently added not believe there is evidence of a COPD exacerbation and would continue to treat fluid overload with IV Lasix as aggressively as his cardiac and renal systems will tolerate. His last echocardiogram on 11/27/2021 demonstrated preserved LV systolic function 65-70% with abnormal diastolic dysfunction. patient was placed on BiPAP 14/6 and he still had hypercarbic respiratory failure with a pH of 7.34/69/90 and he stated that the air was uncomfortable for him. I switched him to an a VATS mode and titers the settings to his comfort and the final settings were respiratory rate 14, tidal volume 500, EPAP 6, Szatkowski minimal inspiratory pressure 7, maximal inspiratory pressure 25, inspiratory time 1.2, rise 5 which is are slow S and 30% FiO2. I will obtain an ABG in the morning prior to removal of the noninvasive ventilation and an overnight oximetry to assess his oxygenation on 30%. (2) Chronic obstructive pulmonary disease: Code(s): J44.9 - Chronic obstructive pulmonary disease, unspecified Status: Chronic Assessment and Plan: Patient has no wheezes And there were no wheezes documented in the emergency department. I spoke with respiratory therapy and they have heard no wheezes. Currently I do not feel the patient is having a COPD exacerbation and or pneumonia. I will maintain him on his trilogy 100-62.5 - 25 at 1 puff q.day. I will discontinue his albuterol and ipratropium at this time. Will follow with you History of Present Illness History of Present Illness Consult date: 02/03/22 Chief complaint: CHF exacerbation/hypercapnia Narrative: 02/03/2022: This is a new pulmonary consult for hypoxic and hypercarbic respiratory failure. 76-year-old with a history of atrial fibrillation, alcohol use, COPD on home oxygen, coronary artery disease who [facility] with [facility] saturations. Patient was last seen in the [facility] on 10/27/2021 and at that time is on 3 L nasal cannula saturations 97%. A home O2 assessment was ordered and he required no oxygen at rest and 1 L with exertion. The patient is maintained on trilogy inhaler. patient smoked for 50 years at 2 packs per day and quit in 2017. (100 pack years.) In the emergency department the patient stated he had some orthopnea, increased edema but denied fever chills. Patient had a white blood cell count of 9.4, eosinophils 5% equals 470 per micro L, BNP of 14 10, chest x-ray with an increased left hemidiaphragm which is chronic and bilateral pleural effusions. Blood gas on 5 L nasal cannula 7.31/ 62/39 and repeat blood gas on 5 L was 7.32/61/90. Patient was started on BiPAP and repeat blood gas on BiPAP 12/640% after 1 hour was 7.30/84/92. the patient was treated with IV Lasix. t
[2022-02-03 15:56] LABS: Alveolar/Arterial O2 Gradient 79.9 mmHg; Fractional Inspired Oxygen 35 %; HCO3 ABG 36.1 mEq/l (22.0-26.0); Oxygen Content ABG 16.4 %vol (16.0-22.0); Oxygen Saturation ABG 96.1 % (95.0-100.0); Oxyhemoglobin 95.2 % THb (90.0-100.0); PO2 ABG 89.8 mmHg (80.0-100.0); PO2 FiO2 Ratio Arterial Blood 2.57 %; Total Hemoglobin 12.2 g/dL (12.0-18.0); pH ABG 7.338 (7.350-7.450)
[2022-02-03 16:00] LABS: Device NON-INVASIVE VENT; PCO2 ABG 68.7 mmHg (35.0-45.0); Site Drawn LEFT RADIAL
[2022-02-03 16:01] LABS: Non-Invasive Expiratory Pressure 6 CMH2O; Non-Invasive Inspiratory Pressure 14 CMH2O; Non-Invasive Vent Rate 20 /MIN
[2022-02-03] MEDS: SPIRONOLACTONE 50 MG TABLET 100 MG PO (16:34)
[2022-02-03] MEDS: SERTRALINE HCL 25 MG TABLET PO (20:51)
[2022-02-03] MEDS: TOLNAFTATE 1% POWDER 45 GM BTL 1 APPLIC TOPICAL (20:52)
[2022-02-03] MEDS: AMITRIPTYLINE HCL 25 MG TABLET PO (20:52)
[2022-02-04] VITALS (25 sets, daily range): BP systolic 79–128; BP diastolic 44–74; PULSE 64–90; RESP 14–28; TEMP 36.1–36.6; O2SAT 92–100
--- NOTE | 2022-02-04 00:09 | PCRCNOTE ---
Window of time for administration has passed. See next scheduled administration.
[2022-02-04] MEDS: FUROSEMIDE INJ 40 MG/4 ML VIAL IV PUSH (05:14)
[2022-02-04 05:19] LABS: Base Excess ABG 7.1 mEq/l (+/-2.0); Fractional Inspired Oxygen 30 %; Oxygen Content ABG 18.7 %vol (16.0-22.0); Oxygen Saturation ABG 92.8 % (95.0-100.0); Oxyhemoglobin 91.4 % THb (90.0-100.0); PCO2 ABG 45.8 mmHg (35.0-45.0); PO2 ABG 62.1 mmHg (80.0-100.0); PO2 FiO2 Ratio Arterial Blood 2.07 %; Total Hemoglobin 14.6 g/dL (12.0-18.0); pH ABG 7.462 (7.350-7.450)
[2022-02-04 05:21] LABS: Device OTHER DEVICE; Site Drawn LEFT BRACHIAL
[2022-02-04] MEDS: FLUTICASONE/UMECLIDIN/VILANTER 100-62.5-25 MCG ELLIPTA 1 PUFF INHALATION (08:46)
--- NOTE | 2022-02-04 08:54 | PM.IMPN ---
Progress Note: A&P Assessment and Plan (1) Acute and chronic respiratory failure: Code(s): J96.20 - Acute and chronic respiratory failure, unspecified whether with hypoxia or hypercapnia Status: Acute (2) Acute exacerbation of CHF (congestive heart failure): Code(s): I50.9 - Heart failure, unspecified Status: Acute (3) Hypercapnia: Code(s): R06.89 - Other abnormalities of breathing Status: Acute (4) Weakness: Code(s): R53.1 - Weakness Status: Acute (5) Alcohol abuse: Code(s): F10.10 - Alcohol abuse, uncomplicated Status: Acute (6) Hypertension: Code(s): I10 - Essential (primary) hypertension Status: Chronic (7) Chronic obstructive pulmonary disease: Code(s): J44.9 - Chronic obstructive pulmonary disease, unspecified Status: Chronic (8) Coronary artery disease: Code(s): I25.10 - Atherosclerotic heart disease of minto coronary artery without angina pectoris Status: Acute (9) Paroxysmal atrial fibrillation: Code(s): I48.0 - Paroxysmal atrial fibrillation Status: Acute Plan # Acute Hypoxic and hypercapnic respiratory failure needing BiPAP placement. ABG with 7.30/62/66/30. BNP 1410. Previously was 433 last admission. Chest x-ray with no significant change to bilateral diffuse airspace disease edema versus pneumonia. # Congestive heart failure acute on chronic continue IV diuresis # Atrial fibrillation proximal currently sinus rhythm continue anticoagulation with apixaban # History of alcohol abuse and withdrawal seizures CIWA protocol # Chronic left hemidiaphragm elevation # BPH no urinary retention this admission. History of urine retention needing Perez catheter last admission. At urinary retention 02/03/2022 in re insertion of Perez catheter # Hypertension home medication # COPD does not seem to be in exacerbation. # Chronic respiratory failure on home oxygen 3 L continuous at rest and 4-5 L with exertion # Coronary artery disease status post PCI of his right coronary and circumflex in 2020 # Diastolic congestive heart failure # Urinary retention acute needing Perez catheter again # DVT prophylaxis on apixaban ABG reviewed. Patient more alert. Continue diuresis. Discussed with Pulmonary Subjective Date/time seen: 02/04/22 08:54 Interval history: HPI:This is a 76-year-old male who presents to the ER with low oxygen saturation from long term.? He was recently discharged from the hospital similar presentation was diagnosed with congestive heart failure.? He also underwent alcohol withdrawal treatment at the time.? He was diuresed and improved in his hypoxia.? Initial ER evaluation showed hypercapnia and has since was started on BiPAP.? Is currently on BiPAP when evaluated this morning.? He denies any chest pain.? He denies any increased cough or wheezing.? He reports lower extremity swelling.? He denies any fever or chills.? He was taken off of the BiPAP this morning and was placed on oxygen via nasal cannula.? He is admitted for further evaluation and management 02/04/2022 urine output 1100 cc yesterday 1900 cc so far Perez in place which was placed for urinary retention last evening had 1100 cc out the time. Patient seen and examined Review of Systems Review of Systems: All systems reviewed & are unremarkable except as noted in HPI and below Exam Narrative: GENERAL: The patient is well developed, more alert and awake, not in acute distress alert and oriented x3 HEENT: Nonicteric sclerae, PERRLA, EOMI. Oropharynx clear. Moist mucous membranes. Conjunctivae appear well perfused. CHEST: Chest wall is nontender. HEART: Regular rate and rhythm without murmur, rubs, or gallops LUNGS: Decreased breath sounds bilaterally. no respiratory distress on BiPAP initially ABDOMEN: Soft, positive bowel sounds, non-tender, no organomegaly. SKIN: No rash, no excessive bruising, petechiae, or purpura. NEUROLOGIC: Cran
--- NOTE | 2022-02-04 09:02 | PM.PNPUL ---
Progress Note: A&P Assessment and Plan (1) Acute and chronic respiratory failure: Code(s): J96.20 - Acute and chronic respiratory failure, unspecified whether with hypoxia or hypercapnia Status: Acute Assessment and Plan: Patient with a history of GOLD grade 2 group B COPD with hypoxic respiratory failure with most recent home O2 assessment requiring no oxygen at rest and 1 L with exertion, presents with worsening orthopnea, pedal edema, elevated BNP at 2:10 p.m., with no evidence of a change in phlegm production or quality and no evidence of a pneumonia. He is already on eliquis making PE unlikely. The patient has had multiple blood gas is over his previous admissions some without hypercarbia such as 07/30/2021 pH of 7.4 12/01/1984 and some with hypercarbia for example 01/26/2021 in which he was admitted for fluid overload and pneumonia on 8 L nasal cannula with a pH of 7.36/53/76. Currently he presented with a blood gas of 7.31/62/40 on 5 L nasal cannula. His serum bicarbonates range from 34 presently to 26 previously. It is difficult to determine what his baseline PaCO2 is when his COPD is stable and he is euvolemic. Currently I do not believe there is evidence of a COPD exacerbation and would continue to treat fluid overload with IV Lasix as aggressively as his cardiac and renal systems will tolerate. His last echocardiogram on 11/27/2021 demonstrated preserved LV systolic function 65-70% with abnormal diastolic dysfunction. patient was placed on BiPAP 16/02 and he still had hypercarbic respiratory failure with a pH of 7.34/69/90 and he stated that the air was uncomfortable for him. I switched him to an a VATS mode and titers the settings to his comfort and the final settings were respiratory rate 14, tidal volume 500, EPAP 6, minimal inspiratory pressure 7, maximal inspiratory pressure 25, inspiratory time 1.2, rise 5 which is are slowest and 30% FiO2. I will obtain an ABG in the morning prior to removal of the noninvasive ventilation and an overnight oximetry to assess his oxygenation on 30%. 02/04 Patient wore noninvasive ventilation last night with an Avaps mode with a rate of 14, tidal volume 500, EPAP 6, minimal an IPAP 7, maximal IPAP 25, inspiratory time 1.20 seconds, rise 5 which is the slowest and 30% FiO2. he he used a under the nose fullface mask. Patient had a blood gas at the end of the night with these settings with a pH of 7.46/46/62. Patient had an overnight oximetry on these settings with a average saturation of 96%, lowest saturation 75%, time with saturation less than or equal to 88% was 6 minutes. I believe these settings provide adequate ventilation and oxygenation. Will continue them p.r.n.. Currently patient is off the noninvasive ventilation on 5 L nasal cannula with saturations 95%. He has no respiratory complaints at rest. He has no wheezing. He has diuresed 2.2 L since admission. Once the patient is felt to be euvolemic will repeat resting room air blood gas during the day to determine if he has chronic hypercarbia. No evidence of COPD exacerbation or pneumonia. I will continue his trilogy inhaler. Diuresis per hospitalist and currently on Lasix 40 IV b.i.d.. (2) Chronic obstructive pulmonary disease: Code(s): J44.9 - Chronic obstructive pulmonary disease, unspecified Status: Chronic Assessment and Plan: 02/03 Patient has no wheezes And there were no wheezes documented in the emergency department. I spoke with respiratory therapy and they have heard no wheezes. Currently I do not feel the patient is having a COPD exacerbation and or pneumonia. I will maintain him on his trilogy 100-62.5 - 25 at 1 puff q.day. I will discontinue his albuterol and ipratropium at this time. 02/04 No respiratory complaints by the patient today. No wheezes. No evidence of COPD exacerbation or pneumonia. Continue trelegy for now. Will follow with you Subjective Date/karena
--- NOTE | 2022-02-04 09:16 | PCSTNOTE ---
Please refer to the Bedside Swallow Evaluation in the EMR. Please note, silent aspiration cannot be ruled out at bedside.
[2022-02-04 09:24] LABS: Basophils Absolute Auto 0.1 K/mm3 (0.0-0.1); Basophils Percent Auto 1.1 % (0.2-1.2); Eosinophils Absolute Auto 0.5 K/mm3 (0-0.3); Eosinophils Percent Auto 5.5 % (0-4.4); Hematocrit 41.1 % (42.0-52.0); Hemoglobin 12.6 g/dL (14.0-18.0); Immature Granulocyte Absolute 0.04 K/mm3 (0.00-0.031); Immature Granulocyte Percent A 0.5 % (0-0.5); Lymphocytes Absolute Auto 0.91 K/mm3 (0.9-3.2); Lymphocytes Percent Auto 10.4 % (18.3-44.2); Mean Corpuscular HGB Conc 30.7 g/dl (32-36); Mean Corpuscular Hemoglobin 29.4 pg (26-34); Mean Corpuscular Volume 95.8 fl (80-100); Mean Platelet Volume 9.8 fl (7.4-10.4); Monocytes Percent Auto 11.4 % (2.6-8.5); Neutrophils Absolute Auto 6.2 K/mm3 (1.3-6.7); Neutrophils Percent Auto 71.1 % (45.5-73.1); Platelet Count Result 304 k/mm3 (150-375); Red Blood Count 4.29 M/mm3 (4.6-6.20); Red Cell Distribution Width 14.6 % (11.5-14.5); White Blood Count 8.8 K/mm3 (4.5-10.0)
[2022-02-04 09:40] LABS: Alanine Aminotransferase 15 U/L (6-50); Albumin Level 4.1 g/dL (3.5-5.1); Alkaline Phosphatase 90 U/L (38-126); Aspartate Amino Transferase 29 U/L (17-59); Bilirubin,Total 0.8 mg/dL (0.2-1.3); Blood Urea Nitrogen 24 mg/dL (9-20); Calcium 9.9 mg/dL (8.4-10.2); Carbon Dioxide > 40 mmol/L (22-30); Chloride 96 mmol/L (98-107); Estimated CRCL calculation 67 ml/min; Estimated Glomerular Filt Rate > 60; Glucose 95 mg/dL (65-110); Magnesium 1.4 mg/dL (1.6-2.3); Potassium 3.4 mmol/L (3.4-5.0); Sodium 143 mmol/L (137-145)
[2022-02-04] MEDS: METOPROLOL SUCCINATE EXT REL 50 MG TABCR PO (10:51)
[2022-02-04] MEDS: SPIRONOLACTONE 50 MG TABLET 100 MG PO (10:51)
[2022-02-04] MEDS: APIXABAN 5 MG TABLET PO (10:51)
[2022-02-04] MEDS: THIAMINE HCL 100 MG TABLET PO (10:51)
[2022-02-04] MEDS: MULTIVITAMINS THERAPEUTIC TAB (*BKC) 1 TABLET PO (10:51)
[2022-02-04] MEDS: ATORVASTATIN 20 MG TABLET PO (10:51)
[2022-02-04] MEDS: ERGOCALCIFEROL 50,000 UNIT CAPSULE 50000 UNITS PO (10:52)
[2022-02-04] MEDS: FOLIC ACID 1 MG TABLET PO (10:52)
[2022-02-04] MEDS: lisinopriL 10 MG TABLET PO (10:53)
[2022-02-04] MEDS: SODIUM CHLORIDE 0.9% IV 250 ML IV CONT (15:11)
--- NOTE | 2022-02-04 16:32 | PCSTNOTE ---
Please refer to the Modified Barium Swallow Evaluation in the EMR.
[2022-02-04 18:35] LABS: Alveolar/Arterial O2 Gradient 132.5 mmHg; Base Excess ABG 11.1 mEq/l (+/-2.0); Fractional Inspired Oxygen 40 %; HCO3 ABG 39.3 mEq/l (22.0-26.0); Oxygen Content ABG 17.2 %vol (16.0-22.0); Oxygen Saturation ABG 93.3 % (95.0-100.0); Oxyhemoglobin 92.5 % THb (90.0-100.0); PO2 ABG 71.7 mmHg (80.0-100.0); PO2 FiO2 Ratio Arterial Blood 1.79 %; Total Hemoglobin 13.2 g/dL (12.0-18.0); pH ABG 7.365 (7.350-7.450)
[2022-02-04 18:36] LABS: Device NASAL CANNULA; Modified Allen's Test Pass; PCO2 ABG 70.4 mmHg (35.0-45.0); Site Drawn RIGHT RADIAL
[2022-02-04] MEDS: TOLNAFTATE 1% POWDER 45 GM BTL 1 APPLIC TOPICAL (21:00)
[2022-02-05] VITALS (19 sets, daily range): BP systolic 80–111; BP diastolic 48–74; PULSE 64–91; RESP 16–28; TEMP 36–37.1; O2SAT 93–98
[2022-02-05 05:08] LABS: Basophils Absolute Auto 0.1 K/mm3 (0.0-0.1); Basophils Percent Auto 1.4 % (0.2-1.2); Eosinophils Absolute Auto 0.5 K/mm3 (0-0.3); Hematocrit 40.1 % (42.0-52.0); Hemoglobin 12.2 g/dL (14.0-18.0); Immature Granulocyte Absolute 0.04 K/mm3 (0.00-0.031); Immature Granulocyte Percent A 0.5 % (0-0.5); Lymphocytes Absolute Auto 1.01 K/mm3 (0.9-3.2); Lymphocytes Percent Auto 11.5 % (18.3-44.2); Mean Corpuscular HGB Conc 30.4 g/dl (32-36); Mean Corpuscular Hemoglobin 29.4 pg (26-34); Mean Corpuscular Volume 96.6 fl (80-100); Mean Platelet Volume 9.8 fl (7.4-10.4); Monocytes Absolute Auto 0.9 K/mm3 (0.1-0.6); Monocytes Percent Auto 10.6 % (2.6-8.5); Neutrophils Absolute Auto 6.1 K/mm3 (1.3-6.7); Platelet Count Result 298 k/mm3 (150-375); Red Blood Count 4.15 M/mm3 (4.6-6.20); Red Cell Distribution Width 14.6 % (11.5-14.5); White Blood Count 8.8 K/mm3 (4.5-10.0)
[2022-02-05 05:24] LABS: Alanine Aminotransferase 14 U/L (6-50); Albumin Level 3.7 g/dL (3.5-5.1); Alkaline Phosphatase 82 U/L (38-126); Aspartate Amino Transferase 30 U/L (17-59); Bilirubin,Total 0.7 mg/dL (0.2-1.3); Blood Urea Nitrogen 28 mg/dL (9-20); Calcium 9.5 mg/dL (8.4-10.2); Carbon Dioxide > 40 mmol/L (22-30); Chloride 95 mmol/L (98-107); Estimated CRCL calculation 73 ml/min; Estimated Glomerular Filt Rate > 60; Glucose 94 mg/dL (65-110); Magnesium 1.5 mg/dL (1.6-2.3); Potassium 3.3 mmol/L (3.4-5.0); Sodium 138 mmol/L (137-145)
--- NOTE | 2022-02-05 08:04 | PM.PNPUL ---
Progress Note: A&P Assessment and Plan (1) Acute and chronic respiratory failure: Code(s): J96.20 - Acute and chronic respiratory failure, unspecified whether with hypoxia or hypercapnia Status: Acute Assessment and Plan: Patient with a history of GOLD grade 2 group B COPD with hypoxic respiratory failure with most recent home O2 assessment requiring no oxygen at rest and 1 L with exertion, presents with worsening orthopnea, pedal edema, elevated BNP at 2:10 p.m., with no evidence of a change in phlegm production or quality and no evidence of a pneumonia. He is already on eliquis making PE unlikely. The patient has had multiple blood gas is over his previous admissions some without hypercarbia such as 07/30/2021 pH of 7.4 12/01/1984 and some with hypercarbia for example 01/26/2021 in which he was admitted for fluid overload and pneumonia on 8 L nasal cannula with a pH of 7.36/53/76. Currently he presented with a blood gas of 7.31/62/40 on 5 L nasal cannula. His serum bicarbonates range from 34 presently to 26 previously. It is difficult to determine what his baseline PaCO2 is when his COPD is stable and he is euvolemic. Currently I do not believe there is evidence of a COPD exacerbation and would continue to treat fluid overload with IV Lasix as aggressively as his cardiac and renal systems will tolerate. His last echocardiogram on 11/27/2021 demonstrated preserved LV systolic function 65-70% with abnormal diastolic dysfunction. patient was placed on BiPAP 16/02 and he still had hypercarbic respiratory failure with a pH of 7.34/69/90 and he stated that the air was uncomfortable for him. I switched him to an a VATS mode and titers the settings to his comfort and the final settings were respiratory rate 14, tidal volume 500, EPAP 6, minimal inspiratory pressure 7, maximal inspiratory pressure 25, inspiratory time 1.2, rise 5 which is are slowest and 30% FiO2. I will obtain an ABG in the morning prior to removal of the noninvasive ventilation and an overnight oximetry to assess his oxygenation on 30%. 02/04 Patient wore noninvasive ventilation last night with an Avaps mode with a rate of 14, tidal volume 500, EPAP 6, minimal an IPAP 7, maximal IPAP 25, inspiratory time 1.20 seconds, rise 5 which is the slowest and 30% FiO2. he he used a under the nose fullface mask. Patient had a blood gas at the end of the night with these settings with a pH of 7.46/46/62. Patient had an overnight oximetry on these settings with a average saturation of 96%, lowest saturation 75%, time with saturation less than or equal to 88% was 6 minutes. I believe these settings provide adequate ventilation and oxygenation. Will continue them p.r.n.. Currently patient is off the noninvasive ventilation on 5 L nasal cannula with saturations 95%. He has no respiratory complaints at rest. He has no wheezing. He has diuresed 2.2 L since admission. No evidence of COPD exacerbation or pneumonia. I will continue his trilogy inhaler. Diuresis per hospitalist and currently on Lasix 40 IV b.i.d.. 02/05 Patient diuresed yesterday with Lasix 40 IV b.i.d. and cumulative he is -2.6 L. swallow study yesterday showed immediate trace penetration with thin liquids but otherwise tolerated regular food in the recommendation was regular food with mildly thick liquids. No wheezes on exam. Agree with aggressive diuresis. (2) Chronic obstructive pulmonary disease: Code(s): J44.9 - Chronic obstructive pulmonary disease, unspecified Status: Chronic Assessment and Plan: 02/03 Patient has no wheezes And there were no wheezes documented in the emergency department. I spoke with respiratory therapy and they have heard no wheezes. Currently I do not feel the patient is having a COPD exacerbation and or pneumonia. I will maintain him on his trilogy 100-62.5 - 25 at 1 puff q.day. I will discontinue his albuterol and ipratropium at this time.
[2022-02-05] MEDS: FLUTICASONE/UMECLIDIN/VILANTER 100-62.5-25 MCG ELLIPTA 1 PUFF INHALATION (08:33)
[2022-02-05] MEDS: METOPROLOL SUCCINATE EXT REL 50 MG TABCR PO (08:43)
[2022-02-05] MEDS: lisinopriL 10 MG TABLET PO (08:44)
[2022-02-05] MEDS: MULTIVITAMINS THERAPEUTIC TAB (*BKC) 1 TABLET PO (08:45)
[2022-02-05] MEDS: APIXABAN 5 MG TABLET PO ×2 (08:45→21:12)
[2022-02-05] MEDS: ASPIRIN 81 MG ENTERIC TABLET PO (08:45)
[2022-02-05] MEDS: FOLIC ACID 1 MG TABLET PO (08:45)
[2022-02-05] MEDS: SPIRONOLACTONE 50 MG TABLET 100 MG PO (08:45)
[2022-02-05] MEDS: ATORVASTATIN 20 MG TABLET PO (08:45)
[2022-02-05] MEDS: THIAMINE HCL 100 MG TABLET PO (08:45)
[2022-02-05] MEDS: FUROSEMIDE INJ 40 MG/4 ML VIAL 20 MG IV PUSH (08:45)
[2022-02-05] MEDS: TOLNAFTATE 1% POWDER 45 GM BTL 1 APPLIC TOPICAL (08:46)
[2022-02-05] MEDS: POTASSIUM CHLORIDE 20 MEQ TABLET 40 MEQ PO (08:51)
[2022-02-05] MEDS: MAGNESIUM SULF 2 GM/WATER 50ML 2 GM/50 ML BAG IVPB (08:51)
[2022-02-05 09:34] LABS: Alveolar/Arterial O2 Gradient 159.8 mmHg; Base Excess ABG 9.6 mEq/l (+/-2.0); Fractional Inspired Oxygen 40 %; HCO3 ABG 36.1 mEq/l (22.0-26.0); Oxygen Content ABG 17.8 %vol (16.0-22.0); Oxygen Saturation ABG 91.4 % (95.0-100.0); Oxyhemoglobin 90.6 % THb (90.0-100.0); PCO2 ABG 56.1 mmHg (35.0-45.0); PO2 ABG 60.9 mmHg (80.0-100.0); PO2 FiO2 Ratio Arterial Blood 1.52 %; pH ABG 7.426 (7.350-7.450)
[2022-02-05 09:36] LABS: Device NASAL CANNULA; Modified Allen's Test Pass; Site Drawn LEFT RADIAL
--- NOTE | 2022-02-05 13:02 | PM.IMPN ---
Progress Note: A&P Assessment and Plan (1) Acute and chronic respiratory failure: Code(s): J96.20 - Acute and chronic respiratory failure, unspecified whether with hypoxia or hypercapnia Status: Acute (2) Acute exacerbation of CHF (congestive heart failure): Code(s): I50.9 - Heart failure, unspecified Status: Acute (3) Hypercapnia: Code(s): R06.89 - Other abnormalities of breathing Status: Acute (4) Weakness: Code(s): R53.1 - Weakness Status: Acute (5) Alcohol abuse: Code(s): F10.10 - Alcohol abuse, uncomplicated Status: Acute (6) Hypertension: Code(s): I10 - Essential (primary) hypertension Status: Chronic (7) Chronic obstructive pulmonary disease: Code(s): J44.9 - Chronic obstructive pulmonary disease, unspecified Status: Chronic (8) Coronary artery disease: Code(s): I25.10 - Atherosclerotic heart disease of [place] coronary artery without angina pectoris Status: Acute (9) Paroxysmal atrial fibrillation: Code(s): I48.0 - Paroxysmal atrial fibrillation Status: Acute Plan # Acute Hypoxic and hypercapnic respiratory failure needing BiPAP placement. ABG with 7.30/62/66/30. BNP 1410. Previously was 433 last admission. Chest x-ray with no significant change to bilateral diffuse airspace disease edema versus pneumonia. discussed with Pulmonary. Recurrent episode of hypercarbia. Plans to arrange for home trilogy/BiPAP. # Congestive heart failure acute on chronic continue IV diuresis [place] Lasix today recheck chest x-ray in a.m. # Atrial fibrillation proximal currently sinus rhythm continue anticoagulation with apixaban # History of alcohol abuse and withdrawal seizures [facility] protocol # Chronic left hemidiaphragm elevation # BPH no urinary retention this admission. History of urine retention needing Perez catheter last admission. At urinary retention 02/03/2022 in re insertion of Perez catheter # Hypertension home medication # COPD does not seem to be in exacerbation. # Chronic respiratory failure on home oxygen 3 L continuous at rest and 4-5 L with exertion # Coronary artery disease status post PCI of his right coronary and circumflex in 2020 # Diastolic congestive heart failure # Urinary retention acute needing Perez catheter again # DVT prophylaxis on apixaban Subjective Date/time seen: 02/05/22 13:02 Interval history: HPI:This is a 76-year-old male who presents to the ER with low oxygen saturation from [facility].? He was recently discharged from the hospital similar presentation was diagnosed with congestive heart failure.? He also underwent alcohol withdrawal treatment at the time.? He was diuresed and improved in his hypoxia.? Initial ER evaluation showed hypercapnia and has since was started on BiPAP.? Is currently on BiPAP when evaluated this morning.? He denies any chest pain.? He denies any increased cough or wheezing.? He reports lower extremity swelling.? He denies any fever or chills.? He was taken off of the BiPAP this morning and was placed on oxygen via nasal cannula.? He is admitted for further evaluation and management 02/04/2022 urine output 1100 cc yesterday 1900 cc so far Perez in place which was placed for urinary retention last evening had 1100 cc out the time. Patient seen and examined 02/05/2022 he went somnolent in the evening yesterday with ABG with worsening hypercarbia. Placed on BiPAP again. Discussed with Pulmonary this morning. Denies any other new complaints. Lasix restarted with smaller dose. Leg swelling is improving discussed with nursing staff Review of Systems Review of Systems: All systems reviewed & are unremarkable except as noted in HPI and below Exam Narrative: GENERAL: The patient is well developed, more alert and awake, not in acute distress alert and oriented x3 HEENT: Nonicteric sclerae, PERRLA, EOMI. Oropharynx clear. Moist mucous membranes. Conjunctivae
--- NOTE | 2022-02-05 14:13 | PCRCNOTE ---
Addendum entered by Ghazala Valdivia, DISTRICT ATTORNEY 02/08/22 15:26: TRILOGY APPROVED AND READY TO GO WHEN PT. IS DISCHARGED. [facility] IN CARE COORDINATION AWARE AND WILL CONTACT [facility] WHEN PT. IS READY FOR DISCHARGE. Addendum entered by Valentina Hobbs, DISTRICT ATTORNEY 02/05/22 14:16: benedict phone Original Note: Trilogy arrangements being arranged with [facility] for set-up at [place].
--- NOTE | 2022-02-05 15:02 | PCOTNOTE ---
Attempted OT evaluation. Patient declines working with therapy at this time due to being too tired and just laying down for a nap. Will continue to attempt.
[2022-02-05] MEDS: AMITRIPTYLINE HCL 25 MG TABLET PO (21:12)
[2022-02-05] MEDS: SERTRALINE HCL 25 MG TABLET PO (21:12)
[2022-02-06] VITALS (19 sets, daily range): BP systolic 87–106; BP diastolic 49–60; PULSE 57–80; RESP 20–28; TEMP 35.6–36.5; O2SAT 94–100
[2022-02-06 04:54] LABS: Basophils Absolute Auto 0.1 K/mm3 (0.0-0.1); Basophils Percent Auto 1.2 % (0.2-1.2); Eosinophils Absolute Auto 0.7 K/mm3 (0-0.3); Eosinophils Percent Auto 6.8 % (0-4.4); Hematocrit 39.4 % (42.0-52.0); Hemoglobin 12.1 g/dL (14.0-18.0); Immature Granulocyte Absolute 0.06 K/mm3 (0.00-0.031); Immature Granulocyte Percent A 0.6 % (0-0.5); Lymphocytes Absolute Auto 1.06 K/mm3 (0.9-3.2); Lymphocytes Percent Auto 10.9 % (18.3-44.2); Mean Corpuscular HGB Conc 30.7 g/dl (32-36); Mean Corpuscular Hemoglobin 29.5 pg (26-34); Mean Corpuscular Volume 96.1 fl (80-100); Mean Platelet Volume 9.9 fl (7.4-10.4); Monocytes Absolute Auto 0.9 K/mm3 (0.1-0.6); Monocytes Percent Auto 9.6 % (2.6-8.5); Neutrophils Absolute Auto 6.9 K/mm3 (1.3-6.7); Neutrophils Percent Auto 70.9 % (45.5-73.1); Platelet Count Result 290 k/mm3 (150-375); Red Cell Distribution Width 14.7 % (11.5-14.5); White Blood Count 9.7 K/mm3 (4.5-10.0)
[2022-02-06 05:32] LABS: Alanine Aminotransferase 14 U/L (6-50); Albumin Level 3.5 g/dL (3.5-5.1); Alkaline Phosphatase 85 U/L (38-126); Anion Gap 1 mmol/L (8-16); Aspartate Amino Transferase 26 U/L (17-59); Bilirubin,Total 0.4 mg/dL (0.2-1.3); Blood Urea Nitrogen 29 mg/dL (9-20); Calcium 9.4 mg/dL (8.4-10.2); Carbon Dioxide 37 mmol/L (22-30); Chloride 100 mmol/L (98-107); Estimated CRCL calculation 73 ml/min; Estimated Glomerular Filt Rate > 60; Glucose 98 mg/dL (65-110); Magnesium 1.8 mg/dL (1.6-2.3); Potassium 3.5 mmol/L (3.4-5.0); Sodium 138 mmol/L (137-145)
--- NOTE | 2022-02-06 05:53 | PCRCNOTE ---
Patient only wore AVAPS for approximately 4 hours last night. Patient requested to be taken off due to being unable to rest with it on. Placed on 5 lpm nasal cannula.
[2022-02-06] MEDS: FLUTICASONE/UMECLIDIN/VILANTER 100-62.5-25 MCG ELLIPTA 1 PUFF INHALATION (08:22)
[2022-02-06] MEDS: APIXABAN 5 MG TABLET PO ×2 (08:34→20:35)
[2022-02-06] MEDS: METOPROLOL SUCCINATE EXT REL 50 MG TABCR PO (08:35)
[2022-02-06] MEDS: ASPIRIN 81 MG ENTERIC TABLET PO (08:35)
[2022-02-06] MEDS: THIAMINE HCL 100 MG TABLET PO (08:35)
[2022-02-06] MEDS: MULTIVITAMINS THERAPEUTIC TAB (*BKC) 1 TABLET PO (08:35)
[2022-02-06] MEDS: ATORVASTATIN 20 MG TABLET PO (08:35)
[2022-02-06] MEDS: FOLIC ACID 1 MG TABLET PO (08:35)
--- NOTE | 2022-02-06 15:11 | PM.PNPUL ---
Progress Note: A&P Assessment and Plan (1) Acute and chronic respiratory failure: Code(s): J96.20 - Acute and chronic respiratory failure, unspecified whether with hypoxia or hypercapnia Status: Acute Assessment and Plan: Patient with a history of GOLD grade 2 group B COPD with hypoxic respiratory failure with most recent home O2 assessment requiring no oxygen at rest and 1 L with exertion,? presents with worsening orthopnea, pedal edema, elevated BNP at 210, with no evidence of a change in phlegm production or quality and no evidence of a pneumonia.? He is already on eliquis making PE unlikely. The patient has had multiple blood gas over his previous admissions some without hypercarbia such as 07/30/2021 pH of 7.4 12/01/1984 and some with hypercarbia for example 01/26/2021 in which he was admitted for fluid overload and pneumonia? on 8 L nasal cannula with a pH of 7.36/53/76. ? Currently he presented with a blood gas of 7.31/62/40 on 5 L nasal cannula. ? His serum bicarbonates range from 34 presently to 26 previously. ? It is difficult to determine what his baseline PaCO2 is when his COPD? is stable and he is euvolemic. No evidence of a COPD exacerbation; would continue to treat fluid overload with IV Lasix as aggressively as his cardiac and renal systems will tolerate. His last echocardiogram on 11/27/2021 demonstrated preserved LV systolic function 65-70% with abnormal diastolic dysfunction. Ppatient was placed on BiPAP 16/02 and he still had hypercarbic respiratory failure with a pH of 7.34/69/90 and he stated that the air was uncomfortable for him.? I switched him to an a VATS mode and titers the settings to his comfort and the final settings were respiratory rate 14, tidal volume 500, EPAP 6, minimal inspiratory pressure 7, maximal inspiratory pressure 25, inspiratory time 1.2, rise 5 which is are slowest and 30% FiO2.? I will obtain an ABG in the morning prior to removal of the noninvasive ventilation and an overnight oximetry to assess his oxygenation on 30%. 02/04 ? Patient wore noninvasive ventilation last night with an Avaps mode with a rate of 14, tidal volume 500, EPAP 6, minimal an IPAP 7, maximal IPAP 25, inspiratory time 1.20 seconds, rise 5 which is the slowest and 30% FiO2.? he he used a under the nose fullface mask.? Patient had a blood gas at the end of the night with these settings with a pH of 7.46/46/62.? Patient had an overnight oximetry on these settings with a average saturation of 96%, lowest saturation 75%, time with saturation less than or equal to 88% was 6 minutes. ? I believe these settings provide adequate ventilation and oxygenation.? Will continue them p.r.n.. Currently patient is off the noninvasive ventilation on 5 L nasal cannula with saturations 95%.? He has no respiratory complaints at rest. ? He has no wheezing.? He has diuresed 2.2 L since admission. ? No evidence of COPD exacerbation or pneumonia.? I will continue his trilogy inhaler.? Diuresis per hospitalist and currently on Lasix 40 IV b.i.d.. 02/05? ? Patient diuresed yesterday with Lasix 40 IV b.i.d. and cumulative he is -2.6 L.? swallow study yesterday showed immediate trace penetration with thin liquids but otherwise tolerated regular food in the recommendation was regular food with mildly thick liquids. ? No wheezes on exam. ? Agree with aggressive diuresis. 02/06 Weight continues to decrease consistent with effective diuresis, 97.6 kg, admitted with wt 102.06 kg. He is saturating better on same O2, 5 L/min--> 98%; I lowered the O2 to 3 L/min. Continue thickener with liquids. He may benefit from AVAPS adjustments. (2) Chronic obstructive pulmonary disease: Code(s): J44.9 - Chronic obstructive pulmonary disease, unspecified Status: Chronic Assessment and Plan: 02/03 ? Patient has no wheezes ? And there were no wheezes documented in the emergency department.? I spoke wi
--- NOTE | 2022-02-06 16:44 | PM.IMPN ---
Progress Note: A&P Assessment and Plan (1) Acute and chronic respiratory failure: Code(s): J96.20 - Acute and chronic respiratory failure, unspecified whether with hypoxia or hypercapnia Status: Acute (2) Acute exacerbation of CHF (congestive heart failure): Code(s): I50.9 - Heart failure, unspecified Status: Acute (3) Hypercapnia: Code(s): R06.89 - Other abnormalities of breathing Status: Acute (4) Weakness: Code(s): R53.1 - Weakness Status: Acute (5) Alcohol abuse: Code(s): F10.10 - Alcohol abuse, uncomplicated Status: Acute (6) Hypertension: Code(s): I10 - Essential (primary) hypertension Status: Chronic (7) Chronic obstructive pulmonary disease: Code(s): J44.9 - Chronic obstructive pulmonary disease, unspecified Status: Chronic (8) Coronary artery disease: Code(s): I25.10 - Atherosclerotic heart disease of [place] coronary artery without angina pectoris Status: Acute (9) Paroxysmal atrial fibrillation: Code(s): I48.0 - Paroxysmal atrial fibrillation Status: Acute Plan # Acute Hypoxic and hypercapnic respiratory failure needing BiPAP placement. ABG with 7.30/62/66/30. BNP 1410. Previously was 433 last admission. Chest x-ray with no significant change to bilateral diffuse airspace disease edema versus pneumonia. discussed with Pulmonary. Recurrent episode of hypercarbia. Plans to arrange for home trilogy/BiPAP. # hypotension adjustment of her blood pressure medication. Currently on hold # Congestive heart failure acute on chronic continue IV diuresis. Lasix currently on hold due to hypotension # Atrial fibrillation proximal currently sinus rhythm continue anticoagulation with apixaban # History of alcohol abuse and withdrawal seizures [facility] protocol # Chronic left hemidiaphragm elevation # BPH no urinary retention this admission. History of urine retention needing Perez catheter last admission. At urinary retention 02/03/2022 in re insertion of Perez catheter # Hypertension home medication # COPD does not seem to be in exacerbation. # Chronic respiratory failure on home oxygen 3 L continuous at rest and 4-5 L with exertion # Coronary artery disease status post PCI of his right coronary and circumflex in 2020 # Diastolic congestive heart failure # Urinary retention acute needing Perez catheter again # DVT prophylaxis on apixaban Subjective Date/time seen: 02/06/22 16:44 Interval history: HPI:This is a 76-year-old male who presents to the ER with low oxygen saturation from [facility].? He was recently discharged from the hospital similar presentation was diagnosed with congestive heart failure.? He also underwent alcohol withdrawal treatment at the time.? He was diuresed and improved in his hypoxia.? Initial ER evaluation showed hypercapnia and has since was started on BiPAP.? Is currently on BiPAP when evaluated this morning.? He denies any chest pain.? He denies any increased cough or wheezing.? He reports lower extremity swelling.? He denies any fever or chills.? He was taken off of the BiPAP this morning and was placed on oxygen via nasal cannula.? He is admitted for further evaluation and management 02/04/2022 urine output 1100 cc yesterday 1900 cc so far Perez in place which was placed for urinary retention last evening had 1100 cc out the time. Patient seen and examined 02/05/2022 he went somnolent in the evening yesterday with ABG with worsening hypercarbia. Placed on BiPAP again. Discussed with Pulmonary this morning. Denies any other new complaints. Lasix restarted with smaller dose. Leg swelling is improving discussed with nursing staff 02/06/2022 no overnight events. Patient Quite sleepy this morning on BiPAP. Denies any chest pain or shortness of breath. Discussed with nursing staff Review of Systems Review of Systems: All systems reviewed & are unremarkable except as noted in
[2022-02-06] MEDS: AMITRIPTYLINE HCL 25 MG TABLET PO (20:35)
[2022-02-06] MEDS: SERTRALINE HCL 25 MG TABLET PO (20:35)
[2022-02-07] VITALS (18 sets, daily range): BP systolic 91–109; BP diastolic 53–63; PULSE 45–88; RESP 14–30; TEMP 36.2–37.1; O2SAT 93–98
[2022-02-07 05:33] LABS: Basophils Absolute Auto 0.2 K/mm3 (0.0-0.1); Basophils Percent Auto 1.3 % (0.2-1.2); Eosinophils Absolute Auto 0.9 K/mm3 (0-0.3); Eosinophils Percent Auto 7.7 % (0-4.4); Hematocrit 39.4 % (42.0-52.0); Hemoglobin 11.9 g/dL (14.0-18.0); Immature Granulocyte Absolute 0.04 K/mm3 (0.00-0.031); Immature Granulocyte Percent A 0.3 % (0-0.5); Lymphocytes Absolute Auto 1.06 K/mm3 (0.9-3.2); Lymphocytes Percent Auto 8.7 % (18.3-44.2); Mean Corpuscular HGB Conc 30.2 g/dl (32-36); Mean Corpuscular Hemoglobin 29.2 pg (26-34); Mean Corpuscular Volume 96.6 fl (80-100); Mean Platelet Volume 10.1 fl (7.4-10.4); Monocytes Absolute Auto 1.1 K/mm3 (0.1-0.6); Monocytes Percent Auto 8.8 % (2.6-8.5); Neutrophils Absolute Auto 8.9 K/mm3 (1.3-6.7); Neutrophils Percent Auto 73.2 % (45.5-73.1); Platelet Count Result 283 k/mm3 (150-375); Red Blood Count 4.08 M/mm3 (4.6-6.20); Red Cell Distribution Width 14.7 % (11.5-14.5); White Blood Count 12.1 K/mm3 (4.5-10.0)
[2022-02-07 05:47] LABS: Alanine Aminotransferase 13 U/L (6-50); Albumin Level 3.4 g/dL (3.5-5.1); Alkaline Phosphatase 92 U/L (38-126); Anion Gap 3 mmol/L (8-16); Aspartate Amino Transferase 28 U/L (17-59); Bilirubin,Total 0.6 mg/dL (0.2-1.3); Blood Urea Nitrogen 26 mg/dL (9-20); Calcium 9.2 mg/dL (8.4-10.2); Carbon Dioxide 35 mmol/L (22-30); Chloride 100 mmol/L (98-107); Estimated CRCL calculation 82 ml/min; Estimated Glomerular Filt Rate > 60; Glucose 91 mg/dL (65-110); Magnesium 1.7 mg/dL (1.6-2.3); Potassium 3.6 mmol/L (3.4-5.0); Sodium 138 mmol/L (137-145)
[2022-02-07] MEDS: ASPIRIN 81 MG ENTERIC TABLET PO (09:08)
[2022-02-07] MEDS: APIXABAN 5 MG TABLET PO ×2 (09:09→22:08)
[2022-02-07] MEDS: METOPROLOL SUCCINATE EXT REL 25 MG TABCR PO (09:09)
[2022-02-07] MEDS: ATORVASTATIN 20 MG TABLET PO (09:09)
[2022-02-07] MEDS: MULTIVITAMINS THERAPEUTIC TAB (*BKC) 1 TABLET PO (09:09)
[2022-02-07] MEDS: FOLIC ACID 1 MG TABLET PO (09:09)
[2022-02-07] MEDS: THIAMINE HCL 100 MG TABLET PO (09:09)
[2022-02-07] MEDS: FLUTICASONE/UMECLIDIN/VILANTER 100-62.5-25 MCG ELLIPTA 1 PUFF INHALATION (09:27)
--- NOTE | 2022-02-07 11:31 | PCOTNOTE ---
Pt was not appropriate for OT tx session this AM due to low bp at 78/49. RN states to hold therapy today. Will continue per poc duration/frequency tomorrow.
[2022-02-07] MEDS: TOLNAFTATE 1% POWDER 45 GM BTL 1 APPLIC TOPICAL ×2 (13:34→21:00)
--- NOTE | 2022-02-07 15:31 | PM.PNPUL ---
Progress Note: A&P Assessment and Plan (1) Acute and chronic respiratory failure: Code(s): J96.20 - Acute and chronic respiratory failure, unspecified whether with hypoxia or hypercapnia Status: Acute Assessment and Plan: He has acute and chronic hypercapnic hypoxemic respiratory failure, history of congestive heart failure atrial fibrillation,? with evidence of elevated pulmonary artery systolic pressure on echocardiogram also severely enlarged left atrium, ?moderate obstructive airway disease, mild centrilobular emphysema on chest CT, chronically elevated left hemidiaphragm, a chronically elevated eosinophilic count on CBC, history of alcohol abuse, evidence of dysphagia with aspiration on recent study, ?elevated BMI greater than 30 kg per sq meter.? His COPD does not fully explain the hypercapnic respiratory failure by itself;? may have hypercapnic respiratory failure related to other issues such as obesity with possible sleep disordered breathing,? left diaphragm paralysis given the chronically elevated left hemidiaphragm with nocturnal hypoxemia, LV dysfunction, severely enlarged left atrium, elevated pulmonary artery systolic pressure on previous echocardiogram. The patient has responded to nocturnal ventilatory support via AVAPS with the last pCO2? being lower than before.? It is unclear whether the elevated eosinophil count is related to hyperreactive airway disease.?Will? continue with current regimen consisting with ventilatory support at night via AVAPS. We will continue to monitor ABGs. The patient will benefit from? home ventilatory support at night given his chronic hypercapnic respiratory failure, lack of response to BiPAP. ? He may need a sleep study to exclude sleep apnea. Subjective Date/time seen: 02/07/22 15:31 Interval history: HPI:This is a 76-year-old male who presents to the ER with low oxygen saturation from [facility].? He was recently discharged from the hospital similar presentation was diagnosed with congestive heart failure.? He also underwent alcohol withdrawal treatment at the time.? He was diuresed and improved in his hypoxia.? Initial ER evaluation showed hypercapnia and has since was started on BiPAP.? Is currently on BiPAP when evaluated this morning.? He denies any chest pain.? He denies any increased cough or wheezing.? He reports lower extremity swelling.? He denies any fever or chills.? He was taken off of the BiPAP this morning and was placed on oxygen via nasal cannula.? He is admitted for further evaluation and management 02/04/2022 urine output 1100 cc yesterday 1900 cc so far Perez in place which was placed for urinary retention last evening had 1100 cc out the time. Patient seen and examined 02/05/2022 he went somnolent in the evening yesterday with ABG with worsening hypercarbia. Placed on BiPAP again. Discussed with Pulmonary this morning. Denies any other new complaints. Lasix restarted with smaller dose. Leg swelling is improving discussed with nursing staff 02/06/2022 no overnight events. Patient Quite sleepy this morning on BiPAP. Denies any chest pain or shortness of breath. Discussed with nursing staff Review of Systems Review of Systems: All systems reviewed & are unremarkable except as noted in HPI and below Exam Narrative: GENERAL: The patient is well developed, somnolent this morning on BiPAP not in acute distress HEENT: Nonicteric sclerae, PERRLA, EOMI CHEST: Chest wall is nontender. HEART: Regular rate and rhythm without murmur, rubs, or gallops LUNGS: Decreased breath sounds bilaterally. no respiratory distress on BiPAP ABDOMEN: Soft, positive bowel sounds, non-tender, no organomegaly. SKIN: No rash, no excessive bruising, petechiae, or purpura. NEUROLOGIC: Cranial nerves II-XII intact, opens his eyes on verbal commands, no gross motor deficits EXTREMITIES: Bilateral trace lower extremity edema, cyanosis or clubbing Objective Data Vital Signs Rosario
--- NOTE | 2022-02-07 15:32 | PM.IMPN ---
Progress Note: A&P Assessment and Plan (1) Acute and chronic respiratory failure: Code(s): J96.20 - Acute and chronic respiratory failure, unspecified whether with hypoxia or hypercapnia Status: Acute (2) Acute exacerbation of CHF (congestive heart failure): Code(s): I50.9 - Heart failure, unspecified Status: Acute (3) Hypercapnia: Code(s): R06.89 - Other abnormalities of breathing Status: Acute (4) Weakness: Code(s): R53.1 - Weakness Status: Acute (5) Alcohol abuse: Code(s): F10.10 - Alcohol abuse, uncomplicated Status: Acute (6) Hypertension: Code(s): I10 - Essential (primary) hypertension Status: Chronic (7) Chronic obstructive pulmonary disease: Code(s): J44.9 - Chronic obstructive pulmonary disease, unspecified Status: Chronic (8) Coronary artery disease: Code(s): I25.10 - Atherosclerotic heart disease of [place] coronary artery without angina pectoris Status: Acute (9) Paroxysmal atrial fibrillation: Code(s): I48.0 - Paroxysmal atrial fibrillation Status: Acute Plan # Acute Hypoxic and hypercapnic respiratory failure needing BiPAP placement. ABG with 7.30/62/66/30. BNP 1410. Previously was 433 last admission. Chest x-ray with no significant change to bilateral diffuse airspace disease edema versus pneumonia. discussed with Pulmonary. Recurrent episode of hypercarbia. Plans to arrange for home trilogy/BiPAP. # hypotension adjustment of her blood pressure medication. Currently on hold. # Congestive heart failure acute on chronic continue IV diuresis. Lasix currently on hold due to hypotension. well compesanted currently. weight is down and leg swelling has improving. # Atrial fibrillation proximal currently sinus rhythm continue anticoagulation with apixaban. bradycardic at night. will stop his metoprolol. # History of alcohol abuse and withdrawal seizures [facility] protocol # Chronic left hemidiaphragm elevation # BPH no urinary retention this admission. History of urine retention needing Perez catheter last admission. At urinary retention 02/03/2022 in re insertion of Perez catheter # Hypertension home medication # COPD does not seem to be in exacerbation. # Chronic respiratory failure on home oxygen 3 L continuous at rest and 4-5 L with exertion # Coronary artery disease status post PCI of his right coronary and circumflex in 2020 # Diastolic congestive heart failure # Urinary retention acute needing Perez catheter again # DVT prophylaxis on apixaban Subjective Date/time seen: 02/07/22 15:32 Interval history: HPI:This is a 76-year-old male who presents to the ER with low oxygen saturation from [facility].? He was recently discharged from the hospital similar presentation was diagnosed with congestive heart failure.? He also underwent alcohol withdrawal treatment at the time.? He was diuresed and improved in his hypoxia.? Initial ER evaluation showed hypercapnia and has since was started on BiPAP.? Is currently on BiPAP when evaluated this morning.? He denies any chest pain.? He denies any increased cough or wheezing.? He reports lower extremity swelling.? He denies any fever or chills.? He was taken off of the BiPAP this morning and was placed on oxygen via nasal cannula.? He is admitted for further evaluation and management 02/04/2022 urine output 1100 cc yesterday 1900 cc so far Perez in place which was placed for urinary retention last evening had 1100 cc out the time. Patient seen and examined 02/05/2022 he went somnolent in the evening yesterday with ABG with worsening hypercarbia. Placed on BiPAP again. Discussed with Pulmonary this morning. Denies any other new complaints. Lasix restarted with smaller dose. Leg swelling is improving discussed with nursing staff 02/06/2022 no overnight events. Patient Quite sleepy this morning on BiPAP. Denies any chest pain or shor
[2022-02-07] MEDS: ALBUTEROL SULFATE NEB 2.5 MG/0.5 ML INH INHALATION (20:20)
[2022-02-07] MEDS: IPRATROPIUM BR 0.02% INH SOLN 0.5 MG/2.5 ML VIAL INHALATION (20:20)
[2022-02-07] MEDS: DORNASE ALFA INH SOLN 1 MG/ML 2.5 ML AMP 2.5 MG INHALATION (20:20)
[2022-02-07] MEDS: SERTRALINE HCL 25 MG TABLET PO (22:08)
[2022-02-07] MEDS: AMITRIPTYLINE HCL 25 MG TABLET PO (22:11)
[2022-02-08] VITALS (24 sets, daily range): BP systolic 94–116; BP diastolic 54–69; PULSE 43–100; RESP 14–28; TEMP 36.2–36.6; O2SAT 93–99
[2022-02-08 05:02] LABS: Basophils Absolute Auto 0.1 K/mm3 (0.0-0.1); Basophils Percent Auto 0.7 % (0.2-1.2); Eosinophils Absolute Auto 0.9 K/mm3 (0-0.3); Eosinophils Percent Auto 7.2 % (0-4.4); Hematocrit 40.4 % (42.0-52.0); Hemoglobin 12.3 g/dL (14.0-18.0); Immature Granulocyte Absolute 0.08 K/mm3 (0.00-0.031); Immature Granulocyte Percent A 0.6 % (0-0.5); Lymphocytes Absolute Auto 1.03 K/mm3 (0.9-3.2); Lymphocytes Percent Auto 7.9 % (18.3-44.2); Mean Corpuscular HGB Conc 30.4 g/dl (32-36); Mean Corpuscular Hemoglobin 29.2 pg (26-34); Mean Platelet Volume 10.2 fl (7.4-10.4); Monocytes Percent Auto 7.4 % (2.6-8.5); Neutrophils Absolute Auto 9.9 K/mm3 (1.3-6.7); Neutrophils Percent Auto 76.2 % (45.5-73.1); Platelet Count Result 280 k/mm3 (150-375); Red Blood Count 4.21 M/mm3 (4.6-6.20); Red Cell Distribution Width 14.6 % (11.5-14.5)
[2022-02-08 05:15] LABS: Alanine Aminotransferase 14 U/L (6-50); Albumin Level 3.7 g/dL (3.5-5.1); Alkaline Phosphatase 90 U/L (38-126); Anion Gap 3 mmol/L (8-16); Aspartate Amino Transferase 25 U/L (17-59); Bilirubin,Total 0.6 mg/dL (0.2-1.3); Blood Urea Nitrogen 23 mg/dL (9-20); Calcium 9.3 mg/dL (8.4-10.2); Carbon Dioxide 37 mmol/L (22-30); Chloride 100 mmol/L (98-107); Estimated CRCL calculation 73 ml/min; Estimated Glomerular Filt Rate > 60; Glucose 109 mg/dL (65-110); Magnesium 1.9 mg/dL (1.6-2.3); Phosphorus 3.3 mg/dL (2.5-4.5); Potassium 3.6 mmol/L (3.4-5.0); Sodium 140 mmol/L (137-145)
[2022-02-08] MEDS: DORNASE ALFA INH SOLN 1 MG/ML 2.5 ML AMP 2.5 MG INHALATION ×2 (07:57→20:21)
[2022-02-08] MEDS: FLUTICASONE/UMECLIDIN/VILANTER 100-62.5-25 MCG ELLIPTA 1 PUFF INHALATION (07:57)
[2022-02-08] MEDS: ASPIRIN 81 MG ENTERIC TABLET PO (08:42)
[2022-02-08] MEDS: MULTIVITAMINS THERAPEUTIC TAB (*BKC) 1 TABLET PO (08:42)
[2022-02-08] MEDS: THIAMINE HCL 100 MG TABLET PO (08:42)
[2022-02-08] MEDS: APIXABAN 5 MG TABLET PO ×2 (08:42→20:37)
[2022-02-08] MEDS: ATORVASTATIN 20 MG TABLET PO (08:42)
[2022-02-08] MEDS: FOLIC ACID 1 MG TABLET PO (08:42)
[2022-02-08] MEDS: TOLNAFTATE 1% POWDER 45 GM BTL 1 APPLIC TOPICAL ×2 (08:42→20:37)
--- NOTE | 2022-02-08 09:58 | PM.PNPUL ---
Progress Note: A&P Assessment and Plan (1) Acute and chronic respiratory failure: Code(s): J96.20 - Acute and chronic respiratory failure, unspecified whether with hypoxia or hypercapnia Status: Acute Assessment and Plan: This 76-year-old man has had chronic hypercapnic hypoxemic respiratory failure, history of congestive heart failure atrial fibrillation, with evidence of elevated pulmonary artery systolic pressure on echocardiogram also severely enlarged left atrium, moderate obstructive airway disease with FEV1 in the range of 1.7 measured 3 months ago, with evidence of mild centrilobular emphysema on chest CT, chronically elevated left hemidiaphragm, a chronically elevated eosinophilic count on CBC, history of alcohol abuse, evidence of dysphagia with aspiration on recent study, Obesity with a BMI greater than 30 kg per sq meter. It appears as though the patient's COPD with FEV1 in the range of 1.7 L does not fully explain the hypercapnic respiratory failure by itself; I suspect the patient has hypercapnic respiratory failure related to other factors such as obesity with possible sleep disordered breathing, left diaphragm paralysis given the chronically elevated left hemidiaphragm with nocturnal hypoxemia. In addition the patient has history of left ventricular diastolic dysfunction with severely enlarged left atrium, elevated pulmonary artery systolic pressure on previous echocardiogram. On physical exam there is evidence of diminished abdominal wall displacement in the supine position related to weak left diaphragm. It is unclear whether he has generalized respiratory muscle weakness, that may also contribute to hypercapnic respiratory failure along with his left hemidiaphragm paralysis. The patient has responded to nocturnal ventilatory support via AVAPS with the last pCO2 being lower than before. It is unclear whether the elevated eosinophil count is related to hyperreactive airway disease. Plan: will continue with current regimen consisting of ventilatory support at night via o AVAPS. We will continue to monitor ABGs. The patient will benefit from home ventilatory support at night given his chronic hypercapnic respiratory failure, lack of response to BiPAP. He will need a sleep study to exclude sleep apnea. (2) Acute exacerbation of CHF (congestive heart failure): Code(s): I50.9 - Heart failure, unspecified Status: Acute (3) Atrial flutter with rapid ventricular response: Code(s): I48.92 - Unspecified atrial flutter Status: Acute (4) Diastolic congestive heart failure: Code(s): I50.30 - Unspecified diastolic (congestive) heart failure Status: Acute (5) Chronic obstructive pulmonary disease: Code(s): J44.9 - Chronic obstructive pulmonary disease, unspecified Status: Chronic (6) Alcohol abuse: Code(s): F10.10 - Alcohol abuse, uncomplicated Status: Acute Subjective Date/time seen: 02/08/22 09:58 This 76-year-old man has been treated for acute on chronic hypercapnic respiratory failure. He has got history of congestive heart failure, obesity, chronically elevated left hemidiaphragm. The patient also has a history of moderate COPD with the last FEV1 measured 3 months ago in the range of 1.7 L. Patient has had persistent hypercapnic respiratory failure. Previous echocardiogram showed normal left ventricular systolic function, evidence of elevated pulmonary artery systolic pressure and severely enlarged left atrium. Patient was recently started on AVAPS with some improvement of his hypercapnic failure. He was also found to have abnormal video swallow study with a larger penetration. Review of Systems Review of Systems: All system review is unremarkable except as noted in H&P and below Exam Narrative: GENERAL APPEARANCE: Well developed, well nourished, appearing in mild respiratory distress while lying flat in bed. SKIN: Inspection of
[2022-02-08 10:13] LABS: Creatine Kinase 36 U/L (55-170)
--- NOTE | 2022-02-08 12:58 | PM.IMPN ---
Progress Note: A&P Assessment and Plan (1) Acute and chronic respiratory failure: Code(s): J96.20 - Acute and chronic respiratory failure, unspecified whether with hypoxia or hypercapnia Status: Acute (2) Acute exacerbation of CHF (congestive heart failure): Code(s): I50.9 - Heart failure, unspecified Status: Acute (3) Hypercapnia: Code(s): R06.89 - Other abnormalities of breathing Status: Acute (4) Weakness: Code(s): R53.1 - Weakness Status: Acute (5) Alcohol abuse: Code(s): F10.10 - Alcohol abuse, uncomplicated Status: Acute (6) Hypertension: Code(s): I10 - Essential (primary) hypertension Status: Chronic (7) Chronic obstructive pulmonary disease: Code(s): J44.9 - Chronic obstructive pulmonary disease, unspecified Status: Chronic (8) Coronary artery disease: Code(s): I25.10 - Atherosclerotic heart disease of [place] coronary artery without angina pectoris Status: Acute (9) Paroxysmal atrial fibrillation: Code(s): I48.0 - Paroxysmal atrial fibrillation Status: Acute Plan # Acute Hypoxic and hypercapnic respiratory failure needing BiPAP placement. ABG with 7.30/62/66/30. BNP 1410. Previously was 433 last admission. Chest x-ray with no significant change to bilateral diffuse airspace disease edema versus pneumonia. discussed with Pulmonary. Recurrent episode of hypercarbia. Plans to arrange for home trilogy/BiPAP in process. Pulmonary following # hypotension adjustment of her blood pressure medication. Currently on hold. Blood pressure is improved today # Congestive heart failure acute on chronic continue IV diuresis. Lasix currently on hold due to hypotension. well compesanted currently. weight is down and leg swelling has improving. Looks well compensated clinically not on any diuresis limited due to hypotension # Atrial fibrillation proximal currently sinus rhythm continue anticoagulation with apixaban. bradycardic at night. Stopped his metoprolol due to bradycardia # History of alcohol abuse and withdrawal seizures [facility] protocol # Chronic left hemidiaphragm elevation # BPH no urinary retention this admission. History of urine retention needing Perez catheter last admission. At urinary retention 02/03/2022 in re insertion of Perez catheter # Hypertension home medication # COPD does not seem to be in exacerbation. # Chronic respiratory failure on home oxygen 3 L continuous at rest and 4-5 L with exertion # Coronary artery disease status post PCI of his right coronary and circumflex in 2020 # Diastolic congestive heart failure # Urinary retention acute needing Perez catheter again # DVT prophylaxis on apixaban Subjective Date/time seen: 02/08/22 12:58 Interval history: HPI:This is a 76-year-old male who presents to the ER with low oxygen saturation from group home.? He was recently discharged from the hospital similar presentation was diagnosed with congestive heart failure.? He also underwent alcohol withdrawal treatment at the time.? He was diuresed and improved in his hypoxia.? Initial ER evaluation showed hypercapnia and has since was started on BiPAP.? Is currently on BiPAP when evaluated this morning.? He denies any chest pain.? He denies any increased cough or wheezing.? He reports lower extremity swelling.? He denies any fever or chills.? He was taken off of the BiPAP this morning and was placed on oxygen via nasal cannula.? He is admitted for further evaluation and management 02/04/2022 urine output 1100 cc yesterday 1900 cc so far Perez in place which was placed for urinary retention last evening had 1100 cc out the time. Patient seen and examined 02/05/2022 he went somnolent in the evening yesterday with ABG with worsening hypercarbia. Placed on BiPAP again. Discussed with Pulmonary this morning. Denies any other new complaints. Lasix restarted with smaller dose. Leg s
--- NOTE | 2022-02-08 15:28 | PCRCNOTE ---
TRILOGY APPROVED AND READY TO GO WHEN PT. IS DISCHARGED. BRYON IN CARE COORDINATION AWARE AND WILL CONTACT JEFF WHEN PT. IS READY FOR DISCHARGE.
[2022-02-08] MEDS: AMITRIPTYLINE HCL 25 MG TABLET PO (20:36)
[2022-02-08] MEDS: SERTRALINE HCL 25 MG TABLET PO (20:37)
--- NOTE | 2022-02-08 23:22 | PCRCNOTE ---
Pt removed BIPAP stating it is uncomfortable, he is irritated, anxious, and he cannot sleep with the BIPAP on. Pt advised that BIPAP decreases his work of breathing and improves his quality of health. Pt stated he is concerned about money and does not want to use all of his money being here and using equipment. RT explained that the BIPAP is detrimental to his health and if he feels short of breath to call and it will be put back on. RT will try again to have pt put BIPAP back on later in the evening.
[2022-02-09] VITALS (28 sets, daily range): BP systolic 94–130; BP diastolic 52–89; PULSE 60–139; RESP 14–30; TEMP 36.1–37.1; O2SAT 82–99
[2022-02-09] MEDS: ACETAMINOPHEN 325 MG TABLET 650 MG PO (03:12)
[2022-02-09 07:43] LABS: Basophils Absolute Auto 0.1 K/mm3 (0.0-0.1); Basophils Percent Auto 0.7 % (0.2-1.2); Eosinophils Absolute Auto 0.6 K/mm3 (0-0.3); Eosinophils Percent Auto 3.5 % (0-4.4); Hematocrit 41.5 % (42.0-52.0); Hemoglobin 12.4 g/dL (14.0-18.0); Immature Granulocyte Absolute 0.08 K/mm3 (0.00-0.031); Immature Granulocyte Percent A 0.5 % (0-0.5); Lymphocytes Absolute Auto 0.57 K/mm3 (0.9-3.2); Lymphocytes Percent Auto 3.6 % (18.3-44.2); Mean Corpuscular HGB Conc 29.9 g/dl (32-36); Mean Corpuscular Hemoglobin 29.2 pg (26-34); Mean Corpuscular Volume 97.9 fl (80-100); Mean Platelet Volume 10.3 fl (7.4-10.4); Monocytes Absolute Auto 1.2 K/mm3 (0.1-0.6); Monocytes Percent Auto 7.4 % (2.6-8.5); Neutrophils Absolute Auto 13.5 K/mm3 (1.3-6.7); Neutrophils Percent Auto 84.3 % (45.5-73.1); Platelet Count Result 263 k/mm3 (150-375); Red Blood Count 4.24 M/mm3 (4.6-6.20); Red Cell Distribution Width 14.6 % (11.5-14.5); White Blood Count 16.1 K/mm3 (4.5-10.0)
[2022-02-09 07:47] LABS: Alanine Aminotransferase 13 U/L (6-50); Albumin Level 3.8 g/dL (3.5-5.1); Alkaline Phosphatase 102 U/L (38-126); Anion Gap 5 mmol/L (8-16); Aspartate Amino Transferase 25 U/L (17-59); Bilirubin,Total 0.9 mg/dL (0.2-1.3); Blood Urea Nitrogen 19 mg/dL (9-20); Calcium 9.2 mg/dL (8.4-10.2); Carbon Dioxide 32 mmol/L (22-30); Chloride 102 mmol/L (98-107); Estimated CRCL calculation 82 ml/min; Estimated Glomerular Filt Rate > 60; Glucose 107 mg/dL (65-110); Magnesium 1.6 mg/dL (1.6-2.3); Potassium 4.2 mmol/L (3.4-5.0); Sodium 139 mmol/L (137-145)
[2022-02-09] MEDS: ALBUTEROL SULFATE NEB 2.5 MG/0.5 ML INH INHALATION (08:48)
[2022-02-09] MEDS: IPRATROPIUM BR 0.02% INH SOLN 0.5 MG/2.5 ML VIAL INHALATION (08:48)
[2022-02-09] MEDS: DORNASE ALFA INH SOLN 1 MG/ML 2.5 ML AMP 2.5 MG INHALATION ×2 (08:51→22:45)
[2022-02-09] MEDS: FLUTICASONE/UMECLIDIN/VILANTER 100-62.5-25 MCG ELLIPTA 1 PUFF INHALATION (08:57)
--- NOTE | 2022-02-09 09:32 | PM.PNPUL ---
Progress Note: A&P Assessment and Plan (1) Acute and chronic respiratory failure: Code(s): J96.20 - Acute and chronic respiratory failure, unspecified whether with hypoxia or hypercapnia Status: Acute Assessment and Plan: respiratory status essentially unchanged over the last 24 hours. The patient used BiPAP support at night and appears more awake this a.m.. Leukocytosis persists on today's exam which in conjunction with a new infiltrates on a chest x-ray done couple days ago may suggest a hospital-acquired pneumonia. Will proceed with chest CT and antibiotic coverage. repeat ABGs, MRSA screening. (2) Acute exacerbation of CHF (congestive heart failure): Code(s): I50.9 - Heart failure, unspecified Status: Acute (3) Diastolic congestive heart failure: Code(s): I50.30 - Unspecified diastolic (congestive) heart failure Status: Acute (4) COPD (chronic obstructive pulmonary disease): Qualifiers: COPD type: unspecified COPD Qualified Code(s): J44.9 - Chronic obstructive pulmonary disease, unspecified Code(s): J44.9 - Chronic obstructive pulmonary disease, unspecified Status: Chronic (5) Diaphragmatic disorder: Code(s): J98.6 - Disorders of diaphragm Status: Acute Subjective Date/time seen: 02/09/22 09:32 patient has no new respiratory symptoms. I used BiPAP support last night. He slept well. He continues to have leukocytosis. He denied having shortness of breath or chills. Review of Systems Review of Systems: All system review is unremarkable except as noted in H&P and below Exam Narrative: GENERAL APPEARANCE: Well developed, well nourished, alert and cooperative, and appears to be in no acute distress while on BiPAP support SKIN: Inspection of the skin reveals no rashes, ulcerations or petechiae. HEENT: Sclerae anicteric and conjunctivae pink and moist. Extraocular movements were intact and pupils were equal. NECK: Supple. There was no thyroid enlargement, and no tenderness, or masses were felt. CHEST: Normal AP diameter and normal contour without any kyphoscoliosis. LUNGS: Auscultation of the lungs revealed clear breath sounds anteriorly, no wheezing CARDIAC: There was a regular rate and rhythm without any murmurs. ABDOMEN: Soft and nontender with normal bowel sounds. There was no organomegaly. LYMPH NODES: No lymphadenopathy was appreciated in the neck. EXTREMITIES: No cyanosis, clubbing. NEUROLOGIC: Alert and oriented x 3. Normal affect. Objective Data Vital Signs Vital Signs: Vital Signs - 24 hr 02/08/22 10:00 02/08/22 12:00 02/08/22 12:00 Temperature 36.6 C Pulse Rate 82 43 L Respiratory Rate 24 H Blood Pressure 107/69 Pulse Oximetry 95 94 Oxygen Delivery Nasal Cannula Oxygen Flow Rate 4 Fraction of Inspired Oxygen 02/08/22 12:00 02/08/22 14:00 02/08/22 16:00 Temperature 36.3 C L Pulse Rate 88 73 86 Respiratory Rate 28 H Blood Pressure 94/54 L Pulse Oximetry 99 Oxygen Delivery Oxygen Flow Rate Fraction of Inspired Oxygen 02/08/22 16:00 02/08/22 18:00 02/08/22 16:00 Temperature Pulse Rate 74 65 Respiratory Rate Blood Pressure Pulse Oximetry 94 Oxygen Delivery Nasal Cannula Oxygen Flow Rate 4 Fraction of Inspired Oxygen 02/08/22 20:21 02/08/22 20:22 02/08/22 20:32 Temperature Pulse Rate 66 67 Respiratory Rate 16 16 Blood Pressure Pulse Oximetry 96 Oxygen Delivery Nasal Cannula Oxygen Flow Rate 4 Fraction of Inspired Oxygen 02/08/22 20:00 02/08/22 21:26 02/08/22 20:00 Temperature 36.4 C Pulse Rate 97 74 87 Respiratory Rate 20 20 Blood Pressure 112/63 Pulse Oximetry 96 97 Oxygen Delivery BiPAP Oxygen Flow Rate Fraction of Inspired Oxygen 02/08/22 20:00 02/08/22 22:00 02/08/22 23:03 Temperature 36.3 C L Pulse Rate 74 79 76 Respiratory Rate 20 20 Blood Pressure 116/62 Pulse Oximetry 97 97 Oxygen
--- NOTE | 2022-02-09 09:50 | ECG_ITS ---
Measurements Intervals [place] Rate: 121 P: 52 VT: 231 QRS: 3 QRSD: 130 T: 56 QT: 319 QTc: 453 Interpretive Statements ATRIAL FLUTTER WITH RAPID VENTRICULAR RESPONSE INTRAVENTRICULAR CONDUCTION DELAY NONSPECIFIC ST & T-WAVE ABNORMALITY Electronically Signed On 02-09-2022 11:16:26 CDT by Dell Soliman M.D.
--- NOTE | 2022-02-09 10:05 | PM.IMPN ---
Progress Note: A&P Assessment and Plan (1) Acute and chronic respiratory failure: Code(s): J96.20 - Acute and chronic respiratory failure, unspecified whether with hypoxia or hypercapnia Status: Acute (2) Acute exacerbation of CHF (congestive heart failure): Code(s): I50.9 - Heart failure, unspecified Status: Acute (3) Hypotension: Code(s): I95.9 - Hypotension, unspecified Status: Acute (4) Paroxysmal atrial fibrillation: Code(s): I48.0 - Paroxysmal atrial fibrillation Status: Acute (5) Alcohol abuse: Code(s): F10.10 - Alcohol abuse, uncomplicated Status: Acute (6) Weakness: Code(s): R53.1 - Weakness Status: Acute (7) Hypertension: Code(s): I10 - Essential (primary) hypertension Status: Chronic (8) BPH NOS w ur obs/LUTS: Code(s): N40.1 - Benign prostatic hyperplasia with lower urinary tract symptoms Status: Acute (9) Chronic obstructive pulmonary disease: Code(s): J44.9 - Chronic obstructive pulmonary disease, unspecified Status: Chronic (10) Coronary artery disease: Code(s): I25.10 - Atherosclerotic heart disease of [place] coronary artery without angina pectoris Status: Acute Plan # Acute Hypoxic and hypercapnic respiratory failure needing BiPAP. He does have chronic hypoxic respiratory failure requiring 3 L continuous at rest and 4-5 L with exertion. ABG with 7.30/62/66/30. BNP 1410. Previously was 433 last admission. Chest x-ray with no significant change to bilateral diffuse airspace disease edema versus pneumonia. Recurrent episode of hypercarbia. Plans to arrange for home trilogy/BiPAP in process. Pulmonary following and appreciate their input. CT chest ordered. WBC higher. Abx started for possible hospital associated pneumonia (consider aspiration) Follow-up on CT scan report. Check BCx and UCx. # Acute on chronic diastolic CHF. Was on IV diuresis but held due to HoTN. Weight is down and leg swelling has improving. Looks well compensated clinically. Follow CT scan to further assess. # Hypotension -blood pressure medications are on hold. Patient tachycardic appears more sinus. Blood pressure better controlled. Will resume metoprolol. # paroxysmal Atrial fibrillation - currently sinus tachycardia. Continue anticoagulation with apixaban. No longer bradycardic at night. Resume metoprolol at lower dose. # History of alcohol abuse and withdrawal seizures - [facility] protocol stopped 02/04/22. Follow. Continue thiamine and folate # Weakness - Continue PT/OT. Continue speech therapy. TSH normal. Check B12 folate. # Hypertension - as above # BPH with urinary retention this admission. History of urine retention needing Perez catheter last admission. At urinary retention 02/03/2022 in re insertion of Perez catheter. Add Flomax at night # COPD does not seem to be in exacerbation. # CAD status post PCI of his right coronary and circumflex in 2020 # Chronic left hemidiaphragm elevation DVT prophylaxis: on apixaban Code Status: Full Subjective Date/time seen: 02/09/22 10:05 Interval history: 76yo male with pAFib, alcohol abuse, dCHF and CAD who presents to the ER with low oxygen saturation from longterm. He was recently discharged from the hospital similar presentation was diagnosed with congestive heart failure.?He also underwent alcohol withdrawal treatment at the time.? Assuming care. Chart reviewed. He is sleepy but oriented. He 'feels good'. Denies SOB. No CP. No n/v. Last alcoholic drink was about 2 weeks ago. He states he normal drinks 1 drink/day. Exam Narrative: AF 98.7 113/66 137 18 95% 4L Gen - NARD lying semirecumbent in bed Chest - decreased BS bibasialr, nml RR CV - tachycardic, regular. Tele showing mostly sinus tach Abd - Soft, NT/ND, Positive BS - Perez secured draining clear yellow urine Ext - No pedal edema, 2+ DP bilaterally Neuro - awake and o
[2022-02-09] MEDS: APIXABAN 5 MG TABLET PO ×2 (10:22→20:13)
[2022-02-09] MEDS: TOLNAFTATE 1% POWDER 45 GM BTL 1 APPLIC TOPICAL ×2 (10:23→20:13)
[2022-02-09] MEDS: ASPIRIN 81 MG ENTERIC TABLET PO (10:23)
[2022-02-09] MEDS: FOLIC ACID 1 MG TABLET PO (10:25)
[2022-02-09] MEDS: MULTIVITAMINS THERAPEUTIC TAB (*BKC) 1 TABLET PO (10:26)
[2022-02-09] MEDS: THIAMINE HCL 100 MG TABLET PO (10:26)
[2022-02-09] MEDS: ATORVASTATIN 20 MG TABLET PO (10:26)
[2022-02-09] MEDS: METOPROLOL TARTRATE 12.5 MG TABLET PO ×2 (10:39→20:14)
[2022-02-09 10:43] LABS: Alveolar/Arterial O2 Gradient 116.5 mmHg; Base Excess ABG 5.2 mEq/l (+/-2.0); Fractional Inspired Oxygen 36 %; HCO3 ABG 32.6 mEq/l (22.0-26.0); Oxygen Content ABG 17.4 %vol (16.0-22.0); Oxygen Saturation ABG 92.8 % (95.0-100.0); Oxyhemoglobin 91.5 % THb (90.0-100.0); PO2 ABG 69.8 mmHg (80.0-100.0); PO2 FiO2 Ratio Arterial Blood 1.94 %; Total Hemoglobin 13.5 g/dL (12.0-18.0); pH ABG 7.348 (7.350-7.450)
[2022-02-09 10:46] LABS: Device NASAL CANNULA; Modified Allen's Test Pass; PCO2 ABG 60.7 mmHg (35.0-45.0); Site Drawn RIGHT RADIAL
--- NOTE | 2022-02-09 10:53 | PCOTNOTE ---
Attempted to see patient this am, however RN advised not to see stating patient is on BIPAP and is tachycardic.
[2022-02-09] MEDS: MAGNESIUM SULF 2 GM/WATER 50ML 2 GM/50 ML BAG IVPB (14:34)
[2022-02-09] MEDS: PIPERACILLIN/TAZOBACTAM SOD 4.5 GM in SODIUM CHLORIDE 0.9% IV 100 ML 200 ML IVPB ×3 (14:34→23:48)
[2022-02-09 18:12] LABS: Appearance Urine Clear (Clear); Bilirubin Urine Negative (Negative); Color Urine Yellow (Yellow); Glucose Urine UA Negative (Negative); Ketones Urine Trace mg/dL (Negative); Leukocyte Esterase Ur Negative LEU/UL (Negative); Nitrate Urine Negative (Negative); Protein Urine Negative (Negative)
[2022-02-09 18:17] LABS: Add Urine Microscopic? YES; Blood Urine Trace (Negative)
[2022-02-09 18:27] LABS: Amorphous Sediment Urine Few; Mucus Urine Rare /lpf
[2022-02-09] MEDS: SERTRALINE HCL 25 MG TABLET PO (20:14)
[2022-02-09] MEDS: AMITRIPTYLINE HCL 25 MG TABLET PO (20:14)
[2022-02-09] MEDS: TAMSULOSIN HCL 0.4 MG CAPSULE PO (20:14)
[2022-02-10] VITALS (25 sets, daily range): BP systolic 97–124; BP diastolic 63–73; PULSE 60–135; RESP 16–33; TEMP 36.1–37.7; O2SAT 90–100
[2022-02-10] MEDS: PIPERACILLIN/TAZOBACTAM SOD 4.5 GM in SODIUM CHLORIDE 0.9% IV 100 ML 200 ML IVPB ×4 (05:02→23:23)
[2022-02-10 05:07] LABS: Basophils Absolute Auto 0.1 K/mm3 (0.0-0.1); Basophils Percent Auto 0.8 % (0.2-1.2); Eosinophils Absolute Auto 0.7 K/mm3 (0-0.3); Eosinophils Percent Auto 5.3 % (0-4.4); Hematocrit 40.1 % (42.0-52.0); Hemoglobin 11.8 g/dL (14.0-18.0); Immature Granulocyte Absolute 0.07 K/mm3 (0.00-0.031); Immature Granulocyte Percent A 0.5 % (0-0.5); Lymphocytes Absolute Auto 0.43 K/mm3 (0.9-3.2); Lymphocytes Percent Auto 3.1 % (18.3-44.2); Mean Corpuscular HGB Conc 29.4 g/dl (32-36); Mean Corpuscular Hemoglobin 29.1 pg (26-34); Mean Corpuscular Volume 98.8 fl (80-100); Mean Platelet Volume 10.6 fl (7.4-10.4); Monocytes Percent Auto 6.9 % (2.6-8.5); Neutrophils Absolute Auto 11.5 K/mm3 (1.3-6.7); Neutrophils Percent Auto 83.4 % (45.5-73.1); Platelet Count Result 254 k/mm3 (150-375); Red Blood Count 4.06 M/mm3 (4.6-6.20); Red Cell Distribution Width 14.6 % (11.5-14.5); White Blood Count 13.8 K/mm3 (4.5-10.0)
[2022-02-10 05:21] LABS: Albumin Level 3.7 g/dL (3.5-5.1); Anion Gap 5 mmol/L (8-16); Blood Urea Nitrogen 23 mg/dL (9-20); Calcium 8.8 mg/dL (8.4-10.2); Carbon Dioxide 34 mmol/L (22-30); Chloride 98 mmol/L (98-107); Estimated CRCL calculation 61 ml/min; Estimated Glomerular Filt Rate > 60; Glucose 93 mg/dL (65-110); Magnesium 2.1 mg/dL (1.6-2.3); Phosphorus 3.3 mg/dL (2.5-4.5); Potassium 3.8 mmol/L (3.4-5.0); Sodium 137 mmol/L (137-145)
[2022-02-10 06:22] LABS: Folic Acid 19.7 ng/mL (2.76->20)
[2022-02-10] MEDS: DORNASE ALFA INH SOLN 1 MG/ML 2.5 ML AMP 2.5 MG INHALATION ×2 (08:06→20:52)
[2022-02-10] MEDS: ALBUTEROL SULFATE NEB 2.5 MG/0.5 ML INH INHALATION (08:06)
[2022-02-10] MEDS: FLUTICASONE/UMECLIDIN/VILANTER 100-62.5-25 MCG ELLIPTA 1 PUFF INHALATION (08:07)
--- NOTE | 2022-02-10 09:00 | PC.NURSE ---
Contacted Dr. Campbell to advise rapid heart rate, 135 bpm. Discussed events overnight, 4 second pause and bradycardia. No additional orders at this time, will continue to monitor closely. Patient denies chest pain/shortness of breath at this time. Will continue to monitor closely.
[2022-02-10] MEDS: TOLNAFTATE 1% POWDER 45 GM BTL 1 APPLIC TOPICAL ×2 (09:59→20:43)
[2022-02-10] MEDS: APIXABAN 5 MG TABLET PO ×2 (09:59→20:43)
[2022-02-10] MEDS: FOLIC ACID 1 MG TABLET PO (09:59)
[2022-02-10] MEDS: THIAMINE HCL 100 MG TABLET PO (09:59)
[2022-02-10] MEDS: MULTIVITAMINS THERAPEUTIC TAB (*BKC) 1 TABLET PO (09:59)
[2022-02-10] MEDS: ATORVASTATIN 20 MG TABLET PO (10:00)
[2022-02-10] MEDS: ASPIRIN 81 MG ENTERIC TABLET PO (10:00)
--- NOTE | 2022-02-10 10:03 | PM.PNPUL ---
Progress Note: A&P Assessment and Plan (1) Acute and chronic respiratory failure: Code(s): J96.20 - Acute and chronic respiratory failure, unspecified whether with hypoxia or hypercapnia Status: Acute Assessment and Plan: patient with chronic hypercapnic respiratory failure, history of moderate COPD, chronic left diaphragm weakness, history of dysphagia with aspiration has had bilateral lower lobe infiltrates, leukocytosis most likely related to bilateral aspiration pneumonia. Patient has been on antibiotics for hospital-acquired pneumonia. Plan will continue with current antibiotic regimen. MRSA screening pending. Continue with BiPAP support at night. Case was discussed with Dr. Campbell the hospitalist. 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 Sitting in bed. Denied having new respiratory symptoms. He stated that his respiratory status has improved. He is on antibiotics for bilateral lower lobe pneumonia. Review of Systems Review of Systems: System review is unremarkable except as noted in H&P and below Exam Narrative: GENERAL APPEARANCE: Well developed, well nourished, alert and cooperative, and appears to be in no acute distress while on supplemental oxygen via nasal cannula at 4 liters/minute SKIN: Inspection of the skin reveals no rashes, ulcerations or petechiae. HEENT: Sclerae anicteric and conjunctivae pink and moist. Extraocular movements were intact and pupils were equal, round. NECK: Supple. There was no thyroid enlargement, and no tenderness, or masses were felt. CHEST: Normal AP diameter and normal contour without any kyphoscoliosis. LUNGS: Auscultation of the lungs revealed crackles at bases posteriorly no wheezing CARDIAC: There was a regular rate and rhythm without any murmurs. ABDOMEN: Soft and nontender with normal bowel sounds. There was no organomegaly. LYMPH NODES: No lymphadenopathy was appreciated in the neck. EXTREMITIES: No cyanosis, clubbing or edema. NEUROLOGIC: Alert and oriented x 3. Normal affect. Objective Data Vital Signs Vital Signs: Vital Signs - 24 hr 02/09/22 10:32 02/09/22 10:39 02/09/22 11:47 Temperature 36.6 C Pulse Rate 118 H 114 H 60 Respiratory Rate 28 H 14 Blood Pressure 110/63 Pulse Oximetry 97 98 Oxygen Delivery BiPAP Oxygen Flow Rate Fraction of Inspired Oxygen 02/09/22 14:56 02/09/22 12:00 02/09/22 12:00 Temperature Pulse Rate 91 65 Respiratory Rate 21 H Blood Pressure Pulse Oximetry 99 99 Oxygen Delivery BiPAP BiPAP Oxygen Flow Rate Fraction of Inspired Oxygen 50 02/09/22 14:00 02/09/22 16:00 02/09/22 16:00 Temperature 36.4 C Pulse Rate 63 63 Respiratory Rate 28 H Blood Pressure 98/63 L Pulse Oximetry 99 99 Oxygen Delivery BiPAP Oxygen Flow Rate Fraction of Inspired Oxygen 50 02/09/22 16:00 02/09/22 18:00 02/09/22 20:00 Temperature 36.1 C L Pulse Rate 64 63 68 Respiratory Rate 22 H Blood Pressure 94/52 L Pulse Oximetry 96 Oxygen Delivery Oxygen Flow Rate Fraction of Inspired Oxygen 02/09/22 20:14 02/09/22 21:03 02/09/22 21:30 Temperature Pulse Rate 64 88 83 Respiratory Rate 25 H Blood Pressure Pulse Oximetry 96 97 Oxygen Delivery Nasal Cannula BiPAP Oxygen Flow Rate 4 Fraction of Inspired Oxygen 02/09/22 20:0
--- NOTE | 2022-02-10 14:40 | PM.IMPN ---
Progress Note: A&P Assessment and Plan (1) Acute and chronic respiratory failure: Code(s): J96.20 - Acute and chronic respiratory failure, unspecified whether with hypoxia or hypercapnia Status: Acute (2) Pneumonia: Code(s): J18.9 - Pneumonia, unspecified organism Status: Acute (3) Sinus pause: Code(s): I45.5 - Other specified heart block Status: Acute (4) Acute exacerbation of CHF (congestive heart failure): Code(s): I50.9 - Heart failure, unspecified Status: Acute (5) Hypotension: Code(s): I95.9 - Hypotension, unspecified Status: Acute (6) Paroxysmal atrial fibrillation: Code(s): I48.0 - Paroxysmal atrial fibrillation Status: Acute (7) Alcohol abuse: Code(s): F10.10 - Alcohol abuse, uncomplicated Status: Acute (8) Weakness: Code(s): R53.1 - Weakness Status: Acute (9) Hypertension: Code(s): I10 - Essential (primary) hypertension Status: Chronic (10) BPH NOS w ur obs/LUTS: Code(s): N40.1 - Benign prostatic hyperplasia with lower urinary tract symptoms Status: Acute (11) Chronic obstructive pulmonary disease: Code(s): J44.9 - Chronic obstructive pulmonary disease, unspecified Status: Chronic (12) Coronary artery disease: Code(s): I25.10 - Atherosclerotic heart disease of [place] coronary artery without angina pectoris Status: Acute Plan # Acute Hypoxic and hypercapnic respiratory failure needing BiPAP. He does have chronic hypoxic respiratory failure requiring 3 L continuous at rest and 4-5 L with exertion. ABG with 7.30/62/66/30. BNP 1410. Previously was 433 last admission. Chest x-ray with no significant change to bilateral diffuse airspace disease edema versus pneumonia. Recurrent episode of hypercarbia. Plans to arrange for home trilogy. Pulmonary following and appreciate their input. # Pneumonia - CT chest performed 02/09 showing RML/RLL consolidation. Cultures obtained and abx started. WBC better. Consider aspiration. Speech therapy following. Add CPT. # Cardiac pauses - [place] related to the metoprolol and suspect sick sinus syndrome. These did occur with patient on the BiPAP. Flomax can cause arrythmias so will stop this; hold Elavil for the same reason. Mag and potassium normal. Stop metoprolol. Extra potassium today. Check EKG. Cardiology consult. # Acute on chronic diastolic CHF. Was on IV diuresis but held due to HoTN. Weight is down and leg swelling has resolved. Looks well compensated clinically. # Hypotension -blood pressure medications remain on hold. Patient tachycardic related to AFlutter. Stop metoprolol given the cardiac pauses # Paroxysmal Afib/flutter - currently tachycardic. Continue anticoagulation with apixaban. As above. # Hx of alcohol abuse and withdrawal seizures - CIWA protocol stopped 02/04/22. Follow. Continue thiamine and folate # Weakness - TSH, B12 and folate normal. Continue PT/OT and speech therapy. # Hypertension - as above # BPH with urinary retention this admission. History of urine retention needing Perez catheter last admission. Patient had urinary retention requiring re-insertion of Perez catheter. Flomax added but can cause arrhythmias so will hold this. # COPD does not seem to be in exacerbation. # CAD status post PCI of his right coronary and circumflex in 2020 # Chronic left hemidiaphragm elevation DVT prophylaxis: on apixaban Code Status: Full Subjective Date/time seen: 02/10/22 14:40 Interval history: 76yo male with pAFib, alcohol abuse, dCHF and CAD who presents to the ER with hypoxia from alf. He was recently discharged from the hospital similar presentation was diagnosed with congestive heart failure.?He also underwent alcohol withdrawal treatment at the time.? Patient feels better. He had cardiac pauses last night. He did sleep with the NIV. No CP. Became hypoxic this afternoon requiri
--- NOTE | 2022-02-10 15:34 | ECG_ITS ---
Measurements Intervals [place] Rate: 111 P: OR: 0 QRS: 26 QRSD: 115 T: 103 QT: 366 QTc: 498 Interpretive Statements ATRIAL FIBRILLATION WITH RAPID VENTRICULAR RESPONSE MODERATE INTRAVENTRICULAR CONDUCTION DELAY [110+ ms QRS DURATION] NONSPECIFIC ST & T-WAVE ABNORMALITY COMPARED TO ECG 02/09/2022 08:59:11 ATRIAL FIBRILLATION NOW PRESENT Electronically Signed On 02-10-2022 22:18:56 CDT by Erika Rivas M.D.
[2022-02-10] MEDS: POTASSIUM CHLORIDE 20 MEQ TABLET PO (17:23)
--- NOTE | 2022-02-10 19:14 | PC.NURSE ---
Postive blood cultures, gram negative bacilli anaerobic, called Gena to advise. Left message, and will inform oncoming RNEunice to advise.
--- NOTE | 2022-02-10 20:15 | PM.CNCAR ---
Assessment and Plan Assessment and plan (1) Tachy-milagros syndrome: Code(s): I49.5 - Sick sinus syndrome Status: Acute Assessment and Plan: Patient with paroxysmal atypical atrial flutter, often with rapid ventricular response Now is having some nocturnal pauses of up to 5 seconds Metoprolol and finasteride have been discontinued Will provide p.r.n. oral metoprolol for AFib RVR which generally occurs during the daytime hours Hopefully a transient event; will follow (2) Paroxysmal atrial flutter: Code(s): I48.92 - Unspecified atrial flutter Status: Acute Assessment and Plan: History of atypical paroxysmal atrial flutter chronically anticoagulated with Eliquis (3) Coronary artery disease: Code(s): I25.10 - Atherosclerotic heart disease of [place] coronary artery without angina pectoris Status: Acute Assessment and Plan: CAD status post drug-eluting stents in 2020 Stable, no angina Continue anticoagulation and statin therapy; aspirin is optional. (4) Acute and chronic respiratory failure: Code(s): J96.20 - Acute and chronic respiratory failure, unspecified whether with hypoxia or hypercapnia Status: Acute Assessment and Plan: Chronic respiratory problems admitted with acute exacerbation. CPAP at night History of Present Illness History of Present Illness Consult date/time: 02/10/22 20:15 Reason For Visit: CHF exacerbation/hypercapnia Narrative: Prabhakar Godwin is a 76-year-old male whom I was asked to see at the request of Dr. Campbell for my advice and opinion regarding his atrial flutter and pauses, in consultation. The patient resides at [facility]. He has a history of CHF, chronic respiratory failure, hypertension, COPD, CAD (status post PCI and stenting of the RCA and later this circumflex in 2020, Dr. Patel? paroxysmal atrial fibrillation/flutter and alcohol abuse. The patient was admitted with acute hypoxic hypercarbic respiratory failure requiring BiPAP. Had mild CHF with a proBNP of 1400 and was initially given some IV diuretics. He has had some problems with hypotension and some medications have been held. He has been getting metoprolol succinate 50 mg daily, later changed to metoprolol tartrate 12.5 mg b.i.d. due to bradycardia. Last night the patient had several pauses, generally less than 3 seconds but some more in the 3-4 second range and a couple were nearly [address] Patel has just started finasteride and wondered if that may contribute so he stopped that as well as the metoprolol. Patient states he was compliant with the CPAP last night. The patient has chronic BRYANT. No recent angina. He states that he has had falls and lightheadedness and that is 1 of the reasons he moved into [facility], independent living Review of Systems Constitutional: Constitutional: Reports fatigue Eyes: Eyes: Reports no additional eye complaints ENT: Denies epistaxis Cardiovascular: Cardiovascular: Denies chest pain, Denies leg edema, Denies lightheadedness and Denies palpitations Respiratory: Respiratory: Reports dyspnea and Reports dyspnea on exertion (Patient feels he is at baseline) Gastrointestinal: Gastrointestinal: Denies abdominal pain and Denies hematochezia Musculoskeletal: Musculoskeletal: Reports no additional musculoskeletal complaints Integumentary/Breasts: Skin/Breast: Denies rash Neurologic: Denies confusion Psychiatric: Psychiatric: Reports no additional psychiatric complaints PMFSH Past Medical History Medical History Alcohol abuse Alcohol withdrawal seizure 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 Anxiety Cerebrovascular accident (03/31/17) Chronic obstructive pulmonary disease Chronic respiratory
[2022-02-10] MEDS: SERTRALINE HCL 25 MG TABLET PO (20:43)
[2022-02-10 21:51] LABS: Vancomycin Trough 29.5 ug/mL (10.0-20.0)
[2022-02-11] VITALS (22 sets, daily range): BP systolic 93–99; BP diastolic 59–76; PULSE 77–134; RESP 19–31; TEMP 36.4–37.1; O2SAT 92–100; BMI 30.7
[2022-02-11 05:01] LABS: Basophils Absolute Auto 0.1 K/mm3 (0.0-0.1); Eosinophils Absolute Auto 0.8 K/mm3 (0-0.3); Eosinophils Percent Auto 6.4 % (0-4.4); Hematocrit 36.2 % (42.0-52.0); Hemoglobin 11.2 g/dL (14.0-18.0); Immature Granulocyte Absolute 0.06 K/mm3 (0.00-0.031); Immature Granulocyte Percent A 0.5 % (0-0.5); Lymphocytes Absolute Auto 0.52 K/mm3 (0.9-3.2); Lymphocytes Percent Auto 4.1 % (18.3-44.2); Mean Corpuscular HGB Conc 30.9 g/dl (32-36); Mean Corpuscular Hemoglobin 29.3 pg (26-34); Mean Corpuscular Volume 94.8 fl (80-100); Mean Platelet Volume 10.8 fl (7.4-10.4); Monocytes Absolute Auto 1.2 K/mm3 (0.1-0.6); Monocytes Percent Auto 9.8 % (2.6-8.5); Neutrophils Absolute Auto 9.8 K/mm3 (1.3-6.7); Neutrophils Percent Auto 78.2 % (45.5-73.1); Platelet Count Result 278 k/mm3 (150-375); Red Blood Count 3.82 M/mm3 (4.6-6.20); Red Cell Distribution Width 14.6 % (11.5-14.5); White Blood Count 12.6 K/mm3 (4.5-10.0)
[2022-02-11 05:14] LABS: Anion Gap 4 mmol/L (8-16); Blood Urea Nitrogen 32 mg/dL (9-20); Calcium 8.6 mg/dL (8.4-10.2); Carbon Dioxide 33 mmol/L (22-30); Chloride 100 mmol/L (98-107); Estimated CRCL calculation 34 ml/min; Estimated Glomerular Filt Rate 33; Glucose 104 mg/dL (65-110); Potassium 3.6 mmol/L (3.4-5.0); Sodium 137 mmol/L (137-145)
[2022-02-11] MEDS: PIPERACILLIN/TAZOBACTAM SOD 4.5 GM in SODIUM CHLORIDE 0.9% IV 100 ML 200 ML IVPB (05:43)
[2022-02-11] MEDS: DORNASE ALFA INH SOLN 1 MG/ML 2.5 ML AMP 2.5 MG INHALATION ×2 (08:18→20:00)
[2022-02-11] MEDS: FLUTICASONE/UMECLIDIN/VILANTER 100-62.5-25 MCG ELLIPTA 1 PUFF INHALATION (08:20)
--- NOTE | 2022-02-11 08:26 | PCOTNOTE ---
Pt. frequency reduced to 2-3x/ wk, as pt. agrees to limited participation in functional activities and is not physically tolerating well
[2022-02-11 08:41] LABS: CRP 8.5 mg/dL (<1.0); Creatine Kinase 20 U/L (55-170)
[2022-02-11 08:49] LABS: Complement C3 120 mg/dL (88-165)
[2022-02-11] MEDS: APIXABAN 5 MG TABLET PO ×2 (09:27→20:18)
[2022-02-11] MEDS: ASPIRIN 81 MG ENTERIC TABLET PO (09:27)
[2022-02-11] MEDS: THIAMINE HCL 100 MG TABLET PO (09:27)
[2022-02-11] MEDS: FOLIC ACID 1 MG TABLET PO (09:27)
[2022-02-11] MEDS: ATORVASTATIN 20 MG TABLET PO (09:27)
[2022-02-11] MEDS: TOLNAFTATE 1% POWDER 45 GM BTL 1 APPLIC TOPICAL ×2 (09:27→20:19)
[2022-02-11] MEDS: MULTIVITAMINS THERAPEUTIC TAB (*BKC) 1 TABLET PO (09:27)
[2022-02-11] MEDS: ERGOCALCIFEROL 50,000 UNIT CAPSULE 50000 UNITS PO (09:27)
--- NOTE | 2022-02-11 10:23 | PM.PNCARD ---
Progress Note: A&P Assessment and Plan (1) Tachy-milagros syndrome: Code(s): I49.5 - Sick sinus syndrome Status: Acute Assessment and Plan: Patient with paroxysmal atypical atrial flutter, often with rapid ventricular response Some nocturnal pauses of up to 5 seconds noted on telemetry Metoprolol and finasteride have been discontinued Had several pauses on telemetry but none of significant length Will provide p.r.n. oral metoprolol for AFib RVR which generally occurs during the daytime hours Hopefully a transient event; will follow (2) Paroxysmal atrial flutter: Code(s): I48.92 - Unspecified atrial flutter Status: Acute Assessment and Plan: History of atypical paroxysmal atrial flutter chronically anticoagulated with Eliquis (3) Coronary artery disease: Code(s): I25.10 - Atherosclerotic heart disease of [place] coronary artery without angina pectoris Status: Acute Assessment and Plan: CAD status post drug-eluting stents in 2020 Stable, no angina Continue anticoagulation and statin therapy; aspirin is optional. (4) Acute and chronic respiratory failure: Code(s): J96.20 - Acute and chronic respiratory failure, unspecified whether with hypoxia or hypercapnia Status: Acute Assessment and Plan: Chronic respiratory problems admitted with acute exacerbation. CPAP at night Subjective Date/time seen: 02/11/22 10:24 Cardiology follow up for atrial flutter, pauses Feels fine. Alert and oriented. Wants to get out of bed and get to the chair. Denies any chest pain, palpitations, shortness of breath. Review of Systems Constitutional: Constitutional: Reports fatigue Eyes: Eyes: Reports no additional eye complaints ENT: Denies epistaxis Cardiovascular: Cardiovascular: Denies chest pain, Denies leg edema, Denies lightheadedness, Denies palpitations, Reports dyspnea and Reports dyspnea on exertion (Patient feels he is at baseline) Respiratory: Respiratory: Reports dyspnea and Reports dyspnea on exertion (Patient feels he is at baseline) Gastrointestinal: Gastrointestinal: Denies abdominal pain and Denies hematochezia Musculoskeletal: Musculoskeletal: Reports no additional musculoskeletal complaints Integumentary/Breasts: Skin/Breast: Denies rash Neurologic: Denies confusion Psychiatric: Psychiatric: Reports no additional psychiatric complaints and Denies confusion Endocrine: Endocrine: Reports fatigue and Denies palpitations Exam Const: General: comfortable and in distress; No confusion Orientation/consciousness: No confusion HENMT: Mouth: Yes moist mucous membranes Eyes: EOM: EOMs intact bilaterally Neck: Neck: supple Resp: Effort & Inspection: normal respiratory effort Auscultation: clear to auscultation bilaterally Cardio: Rate: regular rate Rhythm: abnormal rhythm irregularly irregular Heart sounds: no murmurs Skin: General skin exam: no rashes or lesions noted Neuro: General: No confusion Speech: normal speech Extrem: General: no edema and no pedal edema Psych: Mental Status: mental status grossly normal Affect: normal affect Objective Data Vital Signs Vital Signs: Vital Signs - 24 hr 02/10/22 12:00 02/10/22 12:00 02/10/22 12:00 Temperature 37.6 C H Pulse Rate 115 H 134 H Respiratory Rate 20 26 H Blood Pressure 97/65 L Pulse Oximetry 95 90 Oxygen Delivery Nasal Cannula Oxygen Flow Rate 4 Fraction of Inspired Oxygen 02/10/22 13:50 02/10/22 13:52 02/10/22 14:00 Temperature Pulse Rate 117 H 117 H 113 H Respiratory Rate 30 H 28 H Blood Pressure Pulse Oximetry 95 95 Oxygen Delivery BiPAP BiPAP Oxygen Flow Rate Fraction of Inspired Oxygen 45 02/10/22 14:44 02/10/22 16:00 02/10/22 16:00 Temperature 36.7 C Pulse Rate 106 H 103 H Respiratory Rate 16 Blood Pressure 100/71 Pulse Oximetry 95 Oxygen Delivery High Flow Nasal Cannula Oxygen Flow Rate 4
--- NOTE | 2022-02-11 13:13 | PCNSR ---
On 02/11/22, the student, Yaquelin Olivares, provided care and completed [facility] documentation on this patient. I have reviewed the student's documentation and agree with the findings.
--- NOTE | 2022-02-11 15:27 | PM.IMPN ---
Progress Note: A&P Assessment and Plan (1) Acute and chronic respiratory failure: Code(s): J96.20 - Acute and chronic respiratory failure, unspecified whether with hypoxia or hypercapnia Status: Acute Assessment and Plan: Acute Hypoxic and hypercapnic respiratory failure needing BiPAP. He does have chronic hypoxic respiratory failure requiring 3 L continuous at rest and 4-5 L with exertion. ABG with 7.30/62/66/30. BNP 1410; 433 last admission. Chest x-ray with no significant change to bilateral diffuse airspace disease edema versus pneumonia with Chest CT showing bibasilar consolidation. Plan to arrange for home trilogy. Pulmonary following and appreciate their input. Wean O2 as tolerated. (2) ROSALIO (acute kidney injury): Code(s): N17.9 - Acute kidney failure, unspecified Status: Acute Assessment and Plan: Cr jumped to 2.0 today. Suspect ATN from his soft BP and cardiac dysrhythmias. Consider AIN from the abx. UA noted from 02/09. Urine eos pending. Renal US showing no acute process. Urine studies ordered. Continue to monitor. UOP decreased past few days. CT was done without contrast. Follow. Not eating much so will give small amount of IV fluids and monitor (3) Pneumonia: Code(s): J18.9 - Pneumonia, unspecified organism Status: Acute Assessment and Plan: Pneumonia - CT chest performed 02/09 showing RML/RLL consolidation. Cultures obtained and abx started. WBC trending down. He feels better. We considered aspiration. Patient had a recent speech evaluation and Speech therapy is following. Continue CPT. MRSA nasal swab negative so will stop Vancomycin. Continue Zosyn (4) Sinus pause: Code(s): I45.5 - Other specified heart block Status: Acute Assessment and Plan: Cardiac pauses - [place] related to the metoprolol and suspect sick sinus syndrome. These did occur with patient on the BiPAP. Metoprolol stopped. Flomax and Elavil can cause arrythmias so these were stopped as well. Mag and potassium normal. Cardiology consulted and appreciate their input. Minimal cardiac pauses now. Has metoprolol prn but has not required any dosing. He may be able to tolerate metoprolol tartrate once in in morning. (5) Acute exacerbation of CHF (congestive heart failure): Code(s): I50.9 - Heart failure, unspecified Status: Acute Assessment and Plan: Acute on chronic diastolic CHF. Was on IV diuresis but held due to HoTN. Weight is down and leg swelling has resolved. Looks well compensated clinically. Continue to follow. (6) Hypotension: Code(s): I95.9 - Hypotension, unspecified Status: Acute Assessment and Plan: Hypotension -blood pressure medications remain on hold. Patient tachycardic related to AFlutter. Metoprolol available as needed. His BP remains soft so add IV fluids as above. (7) Paroxysmal atrial fibrillation: Code(s): I48.0 - Paroxysmal atrial fibrillation Status: Acute Assessment and Plan: Paroxysmal Afib/flutter - Tachycardic at times. Continue anticoagulation with apixaban. As above. (8) Alcohol abuse: Code(s): F10.10 - Alcohol abuse, uncomplicated Status: Acute Assessment and Plan: Hx of alcohol abuse and withdrawal seizures - CIWA protocol stopped 02/04/22. Continue thiamine and folate. Continue to follow. (9) Weakness: Code(s): R53.1 - Weakness Status: Acute Assessment and Plan: Weakness - TSH, B12 and folate normal. Continue PT/OT and speech therapy. (10) Hypertension: Code(s): I10 - Essential (primary) hypertension Status: Chronic Assessment and Plan: As above (11) BPH NOS w ur obs/LUTS: Code(s): N40.1 - Benign prostatic hyperplasia with lower urinary tract symptoms Status: Acute Assessment and Plan: BPH with urinary retention this admission. History of urine retention needing Perez catheter las
[2022-02-11 16:10] LABS: Appearance Urine Clear (Clear); Bilirubin Urine Negative (Negative); Blood Urine 1+ (Negative); Color Urine Yellow (Yellow); Glucose Urine UA Negative (Negative); Ketones Urine Negative (Negative); Leukocyte Esterase Ur Trace LEU/UL (Negative); Nitrate Urine Negative (Negative); Protein Urine Trace mg/dL (Negative); pH Urine 5.5 (5.0-9.0)
[2022-02-11 16:13] LABS: Creatinine Urine 143.4 mg/dL
[2022-02-11 16:18] LABS: Bacteria Urine Trace /hpf; Mucus Urine Rare /lpf
[2022-02-11 16:19] LABS: Sodium Urine Random 27 meq/L
[2022-02-11 16:44] LABS: Add Urine Microscopic? YES
[2022-02-11 16:58] LABS: Eosinophil Urine None Seen % (None Seen)
[2022-02-11] MEDS: SODIUM CHLORIDE 0.9% IV 1,000 ML 100 ML IV CONT (17:19)
[2022-02-11 18:12] LABS: Anion Gap 8 mmol/L (8-16); Blood Urea Nitrogen 37 mg/dL (9-20); Calcium 8.7 mg/dL (8.4-10.2); Carbon Dioxide 31 mmol/L (22-30); Chloride 97 mmol/L (98-107); Estimated CRCL calculation 32 ml/min; Estimated Glomerular Filt Rate 31; Glucose 110 mg/dL (65-110); Potassium 3.8 mmol/L (3.4-5.0); Sodium 136 mmol/L (137-145)
[2022-02-11] MEDS: SERTRALINE HCL 25 MG TABLET PO (20:18)
[2022-02-11 22:46] LABS: Creatinine Urine 149.6 mg/dL
[2022-02-11 22:50] LABS: Sodium Urine Random 38 meq/L
[2022-02-12] VITALS (22 sets, daily range): BP systolic 92–112; BP diastolic 55–80; PULSE 76–106; RESP 16–31; TEMP 36.3–37.1; O2SAT 91–100
[2022-02-12 04:59] LABS: Basophils Absolute Auto 0.1 K/mm3 (0.0-0.1); Eosinophils Absolute Auto 0.9 K/mm3 (0-0.3); Eosinophils Percent Auto 8.6 % (0-4.4); Hematocrit 36.3 % (42.0-52.0); Hemoglobin 10.7 g/dL (14.0-18.0); Immature Granulocyte Absolute 0.07 K/mm3 (0.00-0.031); Immature Granulocyte Percent A 0.6 % (0-0.5); Lymphocytes Absolute Auto 0.51 K/mm3 (0.9-3.2); Lymphocytes Percent Auto 4.7 % (18.3-44.2); Mean Corpuscular HGB Conc 29.5 g/dl (32-36); Mean Corpuscular Hemoglobin 28.6 pg (26-34); Mean Corpuscular Volume 97.1 fl (80-100); Mean Platelet Volume 10.8 fl (7.4-10.4); Monocytes Absolute Auto 1.1 K/mm3 (0.1-0.6); Monocytes Percent Auto 10.2 % (2.6-8.5); Neutrophils Absolute Auto 8.1 K/mm3 (1.3-6.7); Neutrophils Percent Auto 74.9 % (45.5-73.1); Platelet Count Result 294 k/mm3 (150-375); Red Blood Count 3.74 M/mm3 (4.6-6.20); Red Cell Distribution Width 14.6 % (11.5-14.5); White Blood Count 10.9 K/mm3 (4.5-10.0)
[2022-02-12 05:08] LABS: Albumin Level 3.2 g/dL (3.5-5.1); Anion Gap 5 mmol/L (8-16); Blood Urea Nitrogen 37 mg/dL (9-20); Calcium 8.7 mg/dL (8.4-10.2); Carbon Dioxide 32 mmol/L (22-30); Chloride 100 mmol/L (98-107); Estimated CRCL calculation 32 ml/min; Estimated Glomerular Filt Rate 31; Glucose 93 mg/dL (65-110); Magnesium 2.1 mg/dL (1.6-2.3); Phosphorus 3.3 mg/dL (2.5-4.5); Potassium 3.4 mmol/L (3.4-5.0); Sodium 137 mmol/L (137-145)
[2022-02-12] MEDS: ATORVASTATIN 20 MG TABLET PO (08:11)
[2022-02-12] MEDS: APIXABAN 5 MG TABLET PO ×2 (08:11→20:51)
[2022-02-12] MEDS: TOLNAFTATE 1% POWDER 45 GM BTL 1 APPLIC TOPICAL ×2 (08:11→20:51)
[2022-02-12] MEDS: THIAMINE HCL 100 MG TABLET PO (08:11)
[2022-02-12] MEDS: FOLIC ACID 1 MG TABLET PO (08:11)
[2022-02-12] MEDS: ASPIRIN 81 MG ENTERIC TABLET PO (08:12)
[2022-02-12] MEDS: MULTIVITAMINS THERAPEUTIC TAB (*BKC) 1 TABLET PO (08:12)
[2022-02-12] MEDS: DORNASE ALFA INH SOLN 1 MG/ML 2.5 ML AMP 2.5 MG INHALATION ×2 (09:37→21:35)
--- NOTE | 2022-02-12 09:51 | PM.PNPUL ---
Progress Note: A&P Assessment and Plan (1) Acute and chronic respiratory failure: Code(s): J96.20 - Acute and chronic respiratory failure, unspecified whether with hypoxia or hypercapnia Status: Acute Assessment and Plan: patient with chronic hypercapnic respiratory failure, history of moderate COPD, chronic left diaphragm weakness,? history of dysphagia with aspiration has had bilateral lower lobe infiltrates, leukocytosis most likely related to bilateral aspiration pneumonia.? Patient has been on antibiotics for hospital-acquired pneumonia.? Plan will continue with current antibiotic regimen.? leukocyte count trending down. MRSA screening pending.? Continue with BiPAP support at night. ? 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 - Disorders of diaphragm Status: Acute (3) Acute and chronic respiratory failure: Code(s): J96.20 - Acute and chronic respiratory failure, unspecified whether with hypoxia or hypercapnia Status: Acute (4) Acute exacerbation of CHF (congestive heart failure): Code(s): I50.9 - Heart failure, unspecified Status: Acute (5) Acute kidney failure: Code(s): N17.9 - Acute kidney failure, unspecified Status: Acute (6) History of tobacco abuse: Code(s): Z87.891 - Personal history of nicotine dependence Status: Acute (7) Pneumonia: Code(s): J18.9 - Pneumonia, unspecified organism Status: Acute Subjective Date/time seen: 02/12/22 09:51 patient has no new respiratory symptoms. Tolerating BiPAP support at night with no complaints. Currently on antibiotic for bilateral pneumonia question aspiration pneumonia. Leukocyte count trending down. Appears fully awake cooperative this a.m. afebrile. Creatinine remains elevated. Review of Systems Review of Systems: All system review is unremarkable except as noted he in H&P and below. Exam Narrative: GENERAL APPEARANCE: Well developed, well nourished, alert and cooperative, and appears to be in no acute distress While on supplemental oxygen SKIN: Inspection of the skin reveals no rashes, ulcerations or petechiae. HEENT: Sclerae anicteric and conjunctivae pink and moist. Extraocular movements were intact and pupils were equal. NECK: Supple. There was no thyroid enlargement, and no tenderness, or masses were felt. CHEST: Normal AP diameter and normal contour without any kyphoscoliosis. LUNGS: Auscultation of the lungs revealed decreased breath sounds and crackles at bases posteriorly CARDIAC: There was a irregular rate and rhythm without any murmurs. ABDOMEN: Soft and nontender with normal bowel sounds. There was no organomegaly. LYMPH NODES: No lymphadenopathy was appreciated in the neck. EXTREMITIES: No cyanosis, clubbing or edema. NEUROLOGIC: Alert and oriented x 3. Normal affect. Objective Data Vital Signs Vital Signs: Vital Signs - 24 hr 02/11/22 10:00 02/11/22 12:00 02/11/22 12:00 Temperature Pulse Rate 106 H 99 Respiratory Rate Blood Pressure Pulse Oximetry 93 Oxygen Delivery Nasal Cannula Oxygen Flow Rate 4 Fraction of Inspired Oxygen 02/11/22 12:19 02/11/22 14:00 02/11/22 14:59 Temperature 36.5 C Pulse Rate 94 98 Respiratory Rate 20 Blood Pressure 93/61 L Pulse Oximetry 94 Oxygen Delivery Nasal Cannula Oxygen Flow Rate 4 Fraction of Inspired Oxygen 02/11/22 16:00 02/11/22 16:00 02/11/22 16:09 Temperature 36.4 C L Pulse Rate 97 110 H Respiratory Rate 20 Blood Pressure 95/64 L Pulse Oximetry 93 100 Oxygen Delivery Nasal Cannula Oxygen Flow Rate 4 Fraction of Inspired Oxygen 02/11/22 18:00 02/11/22 20:01 02/11/22 20:02 Temperature Pulse Rate 89 84 96 Respiratory Rate 30 H 30 H Blood Pressure Pulse Oximetry 99 Oxygen Delivery BiPAP Oxygen Flow Rate Fraction of Inspired Oxygen 02/11/22 20:09 02/11/22 20:12 02/11/22 20:00 Temperature 36.9 C Pu
--- NOTE | 2022-02-12 10:07 | PM.PNCARD ---
Progress Note: A&P Assessment and Plan (1) Tachy-milagros syndrome: Code(s): I49.5 - Sick sinus syndrome Status: Acute Assessment and Plan: Patient with paroxysmal atypical atrial flutter, often with rapid ventricular response Some nocturnal pauses of up to 5 seconds noted on telemetry Metoprolol and finasteride have been discontinued No pauses on telemetry in last 24 hours Can consider low dose metoprolol tartrate to be given in the a.m. if rate becomes uncontrolled during the day (this is generally when he has RVR and pauses were happening nocturnally) Will provide p.r.n. oral metoprolol for AFib RVR Will follow on an as needed basis at this point. (2) Paroxysmal atrial flutter: Code(s): I48.92 - Unspecified atrial flutter Status: Acute Assessment and Plan: History of atypical paroxysmal atrial flutter chronically anticoagulated with Eliquis (3) Coronary artery disease: Code(s): I25.10 - Atherosclerotic heart disease of [place] coronary artery without angina pectoris Status: Acute Assessment and Plan: CAD status post drug-eluting stents in 2020 Stable, no angina Continue anticoagulation and statin therapy; aspirin is optional. (4) Acute and chronic respiratory failure: Code(s): J96.20 - Acute and chronic respiratory failure, unspecified whether with hypoxia or hypercapnia Status: Acute Assessment and Plan: Chronic respiratory problems admitted with acute exacerbation. CPAP at night Subjective Date/time seen: 02/12/22 10:07 Interval history: Feels fine. Alert and oriented. Wants to get out of bed and get to the chair. Denies any chest pain, palpitations, shortness of breath. Date of service 02/12/2022: Feels okay. No palpitations. Breathing is okay today. No further pauses noted on telemetry. Remains in atrial flutter rate controlled. Review of Systems Constitutional: Constitutional: Reports fatigue Eyes: Eyes: Reports no additional eye complaints ENT: Denies epistaxis Cardiovascular: Cardiovascular: Denies chest pain, Denies leg edema, Denies lightheadedness, Denies palpitations, Reports dyspnea and Reports dyspnea on exertion (Patient feels he is at baseline) Respiratory: Respiratory: Reports dyspnea and Reports dyspnea on exertion (Patient feels he is at baseline) Gastrointestinal: Gastrointestinal: Denies abdominal pain and Denies hematochezia Musculoskeletal: Musculoskeletal: Reports no additional musculoskeletal complaints Integumentary/Breasts: Skin/Breast: Denies rash Neurologic: Denies confusion Psychiatric: Psychiatric: Reports no additional psychiatric complaints and Denies confusion Endocrine: Endocrine: Reports fatigue and Denies palpitations Exam Const: General: comfortable and in distress; No confusion Orientation/consciousness: No confusion HENMT: Mouth: Yes moist mucous membranes Eyes: EOM: EOMs intact bilaterally Neck: Neck: supple Resp: Effort & Inspection: normal respiratory effort Auscultation: clear to auscultation bilaterally Cardio: Rate: regular rate Rhythm: abnormal rhythm irregularly irregular Heart sounds: no murmurs Skin: General skin exam: no rashes or lesions noted Neuro: General: No confusion Speech: normal speech Extrem: General: no edema and no pedal edema Psych: Mental Status: mental status grossly normal Affect: normal affect Objective Data Vital Signs Vital Signs: Vital Signs - 24 hr 02/11/22 12:00 02/11/22 12:00 02/11/22 12:19 Temperature 36.5 C Pulse Rate 99 94 Respiratory Rate 20 Blood Pressure 93/61 L Pulse Oximetry 93 94 Oxygen Delivery Nasal Cannula Oxygen Flow Rate 4 Fraction of Inspired Oxygen 02/11/22 14:00 02/11/22 14:59 02/11/22 16:00 Temperature Pulse Rate 98 97 Respiratory Rate Blood Pressure Pulse Oximetry Oxygen Delivery Nasal Cannula Oxygen Flow Rate 4 Fraction of Inspired Oxyge
[2022-02-12 14:00] LABS: Anion Gap 7 mmol/L (8-16); Blood Urea Nitrogen 40 mg/dL (9-20); Carbon Dioxide 31 mmol/L (22-30); Chloride 99 mmol/L (98-107); Estimated CRCL calculation 33 ml/min; Estimated Glomerular Filt Rate 31; Glucose 117 mg/dL (65-110); Potassium 3.7 mmol/L (3.4-5.0); Sodium 137 mmol/L (137-145)
[2022-02-12] MEDS: FLUTICASONE/UMECLIDIN/VILANTER 100-62.5-25 MCG ELLIPTA 1 PUFF INHALATION (14:33)
--- NOTE | 2022-02-12 15:03 | PM.IMPN ---
Progress Note: A&P Assessment and Plan (1) Acute and chronic respiratory failure: Code(s): J96.20 - Acute and chronic respiratory failure, unspecified whether with hypoxia or hypercapnia Status: Acute Assessment and Plan: Acute hypoxic and hypercapnic respiratory failure needing BiPAP. He does have chronic hypoxic respiratory failure requiring 3 L continuous at rest and 4-5 L with exertion. ABG with 7.33/61/89 on 5L. BNP 1410; 433 last admission. Chest x-ray with no significant change to bilateral diffuse airspace disease edema versus pneumonia with Chest CT showing bibasilar consolidation. Concern for PNA then edema. We continued BiPAP and weaned this off during the day. Pulmonary following and appreciate their input. Wean O2 as tolerated. (2) ROSALIO (acute kidney injury): Code(s): N17.9 - Acute kidney failure, unspecified Status: Acute Assessment and Plan: Cr jumped to 2.0. Suspect ATN from his soft BP and cardiac dysrhythmias. Consider AIN from the abx. UA noted from 02/09. Urine eos negative. Renal US showing no acute process. Cr about the same. Continue to monitor. UOP decreased past few days. CT was done without contrast. Hopefully this has plateaued. Follow. (3) Pneumonia: Code(s): J18.9 - Pneumonia, unspecified organism Status: Acute Assessment and Plan: CT chest performed 02/09 showing RML/RLL consolidation. Cultures obtained and abx started. WBC continues to trend down. He feels better. Being treated for aspiration. Patient had a recent speech evaluation and Speech therapy is following. BCx positive with gram negative bacilli in anaerobic bottle. Continue CPT. MRSA nasal swab negative so Vancomycin stopped. Continue Zosyn. Follow up on BCx results. Sputum pending. (4) Sinus pause: Code(s): I45.5 - Other specified heart block Status: Acute Assessment and Plan: Cardiac pauses - [place] related to the metoprolol and suspect sick sinus syndrome. These did occur with patient on the BiPAP. Metoprolol was stopped. Flomax and Elavil can cause arrythmias so these were stopped as well. Mag and potassium normal. Cardiology consulted and appreciate their input. Cardiac pauses resolved. Has metoprolol prn but has not required any dosing. Follow (5) Acute exacerbation of CHF (congestive heart failure): Code(s): I50.9 - Heart failure, unspecified Status: Acute Assessment and Plan: Acute on chronic diastolic CHF. Was on IV diuresis but held due to HoTN. Weight is down and leg swelling has resolved. Looks well compensated clinically. Continue to follow. (6) Hypotension: Code(s): I95.9 - Hypotension, unspecified Status: Acute Assessment and Plan: Still hypotensive at times. Blood pressure medications remain on hold. Tachycardia is improved. His BP remains soft so will add low dose IV fluids. (7) Paroxysmal atrial fibrillation: Code(s): I48.0 - Paroxysmal atrial fibrillation Status: Acute Assessment and Plan: Paroxysmal Afib/flutter - Tachycardic at times but overall his HR is better. Continue anticoagulation with apixaban. As above. (8) Alcohol abuse: Code(s): F10.10 - Alcohol abuse, uncomplicated Status: Acute Assessment and Plan: Hx of alcohol abuse and withdrawal seizures - CIWA protocol stopped 02/04/22. Continue thiamine and folate. Continue to follow. (9) Weakness: Code(s): R53.1 - Weakness Status: Acute Assessment and Plan: TSH, B12 and folate normal. Continue PT/OT and speech therapy. (10) Hypertension: Code(s): I10 - Essential (primary) hypertension Status: Chronic Assessment and Plan: As above (11) BPH NOS w ur obs/LUTS: Code(s): N40.1 - Benign prostatic hyperplasia with lower urinary tract symptoms Status: Acute Assessment and Plan: BPH with urinary retention this admission. History of u
[2022-02-12] MEDS: SODIUM CHLORIDE 0.9% IV 1,000 ML 60 ML IV CONT (17:24)
[2022-02-12] MEDS: SERTRALINE HCL 25 MG TABLET PO (20:51)
[2022-02-13] VITALS (22 sets, daily range): BP systolic 101–135; BP diastolic 63–99; PULSE 51–107; RESP 20–42; TEMP 36.3–37; O2SAT 85–99
[2022-02-13 05:49] LABS: Basophils Absolute Auto 0.1 K/mm3 (0.0-0.1); Basophils Percent Auto 1.3 % (0.2-1.2); Eosinophils Absolute Auto 1.1 K/mm3 (0-0.3); Eosinophils Percent Auto 10.7 % (0-4.4); Hematocrit 36.7 % (42.0-52.0); Hemoglobin 11.1 g/dL (14.0-18.0); Immature Granulocyte Absolute 0.05 K/mm3 (0.00-0.031); Immature Granulocyte Percent A 0.5 % (0-0.5); Lymphocytes Absolute Auto 0.53 K/mm3 (0.9-3.2); Lymphocytes Percent Auto 5.2 % (18.3-44.2); Mean Corpuscular HGB Conc 30.2 g/dl (32-36); Mean Corpuscular Hemoglobin 28.8 pg (26-34); Mean Corpuscular Volume 95.1 fl (80-100); Mean Platelet Volume 10.3 fl (7.4-10.4); Monocytes Absolute Auto 1.2 K/mm3 (0.1-0.6); Monocytes Percent Auto 11.4 % (2.6-8.5); Neutrophils Absolute Auto 7.2 K/mm3 (1.3-6.7); Neutrophils Percent Auto 70.9 % (45.5-73.1); Platelet Count Result 327 k/mm3 (150-375); Red Blood Count 3.86 M/mm3 (4.6-6.20); Red Cell Distribution Width 14.4 % (11.5-14.5); White Blood Count 10.2 K/mm3 (4.5-10.0)
[2022-02-13 06:06] LABS: Alanine Aminotransferase 20 U/L (6-50); Albumin Level 3.4 g/dL (3.5-5.1); Alkaline Phosphatase 96 U/L (38-126); Anion Gap 8 mmol/L (8-16); Aspartate Amino Transferase 30 U/L (17-59); Bilirubin,Total 0.6 mg/dL (0.2-1.3); Blood Urea Nitrogen 39 mg/dL (9-20); CRP 7.5 mg/dL (<1.0); Calcium 8.6 mg/dL (8.4-10.2); Carbon Dioxide 29 mmol/L (22-30); Chloride 101 mmol/L (98-107); Estimated CRCL calculation 33 ml/min; Estimated Glomerular Filt Rate 31; Glucose 90 mg/dL (65-110); Potassium 3.2 mmol/L (3.4-5.0); Sodium 138 mmol/L (137-145)
[2022-02-13] MEDS: FLUTICASONE/UMECLIDIN/VILANTER 100-62.5-25 MCG ELLIPTA 1 PUFF INHALATION (07:56)
[2022-02-13] MEDS: DORNASE ALFA INH SOLN 1 MG/ML 2.5 ML AMP 2.5 MG INHALATION ×2 (07:56→20:18)
[2022-02-13] MEDS: ACETAMINOPHEN 325 MG TABLET 650 MG PO (08:56)
[2022-02-13] MEDS: POTASSIUM CHLORIDE 20 MEQ PACKET (FOR LIQUID) 40 MEQ PO (08:58)
[2022-02-13] MEDS: SODIUM CHLORIDE 0.9% IV 1,000 ML 60 ML IV CONT (08:59)
[2022-02-13] MEDS: ASPIRIN 81 MG ENTERIC TABLET PO (08:59)
[2022-02-13] MEDS: ATORVASTATIN 20 MG TABLET PO (09:00)
[2022-02-13] MEDS: APIXABAN 5 MG TABLET PO ×2 (09:01→21:44)
[2022-02-13] MEDS: THIAMINE HCL 100 MG TABLET PO (09:01)
[2022-02-13] MEDS: MULTIVITAMINS THERAPEUTIC TAB (*BKC) 1 TABLET PO (09:02)
[2022-02-13] MEDS: TOLNAFTATE 1% POWDER 45 GM BTL 1 APPLIC TOPICAL ×2 (09:02→21:44)
[2022-02-13] MEDS: FOLIC ACID 1 MG TABLET PO (09:02)
--- NOTE | 2022-02-13 11:39 | PM.IMPN ---
Progress Note: A&P Assessment and Plan (1) Acute and chronic respiratory failure: Code(s): J96.20 - Acute and chronic respiratory failure, unspecified whether with hypoxia or hypercapnia Status: Acute Assessment and Plan: Acute hypoxic and hypercapnic respiratory failure needing BiPAP. He does have chronic hypoxic respiratory failure requiring 3 L continuous at rest and 4-5 L with exertion. ABG with 7.33/61/89 on 5L. BNP 1410. Chest x-ray with no significant change to bilateral diffuse airspace disease edema versus pneumonia with Chest CT showing bibasilar consolidation. Concern more for PNA then edema. He was on IV Lasix but this has been held. Abx started. We continued BiPAP and weaned this off during the day. Pulmonary following and appreciate their input. Wean O2 as tolerated. (2) Pneumonia: Code(s): J18.9 - Pneumonia, unspecified organism Status: Acute Assessment and Plan: CT chest performed 02/09 showing RML/RLL consolidation. Cultures obtained and abx started. WBC continues to trend down. He feels better. Being treated for aspiration. Patient had a recent speech evaluation and Speech therapy is following. BCx positive with gram negative bacilli in anaerobic bottle (1of2) with results still pending. Continue CPT. MRSA nasal swab negative so Vancomycin stopped. Continue Zosyn. Follow up on BCx results. Sputum pending. (3) ROSALIO (acute kidney injury): Code(s): N17.9 - Acute kidney failure, unspecified Status: Acute Assessment and Plan: Cr jumped to 2.0. Suspect ATN from his soft BP and cardiac dysrhythmias. Consider AIN from the abx. UA noted from 02/09. Urine eos negative. Renal US showing no acute process. Cr about the same. Continue to monitor. UOP decreased past few days. CT was done without contrast. Hopefully this has plateaued and will improve soon. Follow. (4) Sinus pause: Code(s): I45.5 - Other specified heart block Status: Acute Assessment and Plan: Cardiac pauses - [place] related to the metoprolol and suspect sick sinus syndrome. These did occur with patient on the BiPAP. Metoprolol was stopped. Flomax and Elavil can cause arrythmias so these were stopped as well. Cardiology consulted and appreciate their input. Cardiac pauses resolved. He has metoprolol prn but has not required any dosing. Replace potassium. Mag normal yesterday. Follow (5) Acute exacerbation of CHF (congestive heart failure): Code(s): I50.9 - Heart failure, unspecified Status: Acute Assessment and Plan: Acute on chronic diastolic CHF. Was on IV lasix but held due to HoTN. Weight is down and leg swelling has resolved. Looks well compensated clinically. Continue to follow. (6) Hypotension: Code(s): I95.9 - Hypotension, unspecified Status: Acute Assessment and Plan: Still hypotensive at times but overall better. Blood pressure medications remain on hold. Tachycardia has improved. His BP is better and Cr has not changed so will stop IV fluids. (7) Paroxysmal atrial fibrillation: Code(s): I48.0 - Paroxysmal atrial fibrillation Status: Acute Assessment and Plan: Paroxysmal Afib/flutter - Tachycardic at times but overall his HR is better. Continue anticoagulation with apixaban. As above. (8) BPH NOS w ur obs/LUTS: Code(s): N40.1 - Benign prostatic hyperplasia with lower urinary tract symptoms Status: Acute Assessment and Plan: BPH with urinary retention this admission. History of urine retention needing Perez catheter last admission. Patient had urinary retention requiring re-insertion of Perez catheter. Flomax was added but can cause arrhythmias so this was held. (9) Alcohol abuse: Code(s): F10.10 - Alcohol abuse, uncomplicated Status: Acute Assessment and Plan: Hx of alcohol abuse and withdrawal seizures - CIWA protocol stopped 02/04/22. Continue thiamine and folate. Co
--- NOTE | 2022-02-13 15:42 | PM.PNPUL ---
Progress Note: A&P Assessment and Plan (1) Acute and chronic respiratory failure: Code(s): J96.20 - Acute and chronic respiratory failure, unspecified whether with hypoxia or hypercapnia Status: Acute (2) Pneumonia: Code(s): J18.9 - Pneumonia, unspecified organism Status: Acute Assessment and Plan: there has been no significant change in respiratory status. patient is currently afebrile with WBC down. Creatinine has stabilized around 2. Will continue with BiPAP support at night and current antibiotic. Out of bed to chair. 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 Patient receiving BiPAP support at night still on antibiotic for bilateral pneumonia. WBC did trending down. Creatinine still elevated. Review of Systems Review of Systems: All system review is unremarkable except as noted in H&P and below. Exam Narrative: GENERAL APPEARANCE: Well developed, well nourished, alert and cooperative, and appears to be in no acute distress While on supplemental oxygen SKIN: Inspection of the skin reveals no rashes, ulcerations or petechiae. HEENT: Sclerae anicteric and conjunctivae pink and moist. Extraocular movements were intact and pupils were equal, round. NECK: Supple. There was no thyroid enlargement, and no tenderness, or masses were felt. CHEST: Normal AP diameter and normal contour without any kyphoscoliosis. LUNGS: Auscultation of the lungs revealed decreased breath sounds and crackles at bases posteriorly no wheezing. CARDIAC: There was a regular rate and rhythm without any murmurs.. ABDOMEN: Soft and nontender with normal bowel sounds. There was no organomegaly. LYMPH NODES: No lymphadenopathy was appreciated in the neck. EXTREMITIES: No cyanosis, clubbing or edema. NEUROLOGIC: Alert and oriented x 3. Normal affect. Objective Data Vital Signs Vital Signs: Vital Signs - 24 hr 02/12/22 16:00 02/12/22 16:00 02/12/22 16:00 Temperature 36.8 C Pulse Rate 79 86 Respiratory Rate 16 Blood Pressure 99/56 L Pulse Oximetry 95 100 Oxygen Delivery Nasal Cannula Oxygen Flow Rate 4 Fraction of Inspired Oxygen 02/12/22 18:00 02/12/22 20:00 02/12/22 21:36 Temperature 36.3 C L Pulse Rate 81 89 90 Respiratory Rate 22 H 20 Blood Pressure 112/80 Pulse Oximetry 91 Oxygen Delivery Oxygen Flow Rate Fraction of Inspired Oxygen 02/12/22 21:37 02/12/22 20:00 02/12/22 20:00 Temperature Pulse Rate 87 90 Respiratory Rate 21 H Blood Pressure Pulse Oximetry 97 95 Oxygen Delivery BiPAP Nasal Cannula Oxygen Flow Rate 4 Fraction of Inspired Oxygen 02/12/22 22:00 02/12/22 23:33 02/13/22 00:00 Temperature 36.4 C Pulse Rate 89 90 87 Respiratory Rate 25 H Blood Pressure 107/67 Pulse Oximetry 100 Oxygen Delivery Oxygen Flow Rate Fraction of Inspired Oxygen 02/13/22 00:00 02/13/22 02:00 02/13/22 02:29 Temperature Pulse Rate 85 82 Respiratory Rate 20 Blood Pressure Pulse Oximetry 97 97 Oxygen Delivery BiPAP Oxygen Flow Rate Fraction of Inspired Oxygen 45 02/13/22 04:00 02/13/22 04:00 02/13/22 04:00 Temperature 36.4 C Pulse Rate 102 H 97 Respiratory Rate 42 H Blood Pressure 132/69 Pulse Oximetry 96 96 Oxygen Delivery BiPAP Oxygen Flow Rate Fraction of Inspired Oxygen 45 02/13/22
[2022-02-13] MEDS: SERTRALINE HCL 25 MG TABLET PO (21:44)
[2022-02-14] VITALS (23 sets, daily range): BP systolic 98–125; BP diastolic 57–81; PULSE 60–97; RESP 12–34; TEMP 36.3–36.9; O2SAT 84–100
[2022-02-14 05:32] LABS: Albumin Level 3.2 g/dL (3.5-5.1); Anion Gap 8 mmol/L (8-16); Blood Urea Nitrogen 36 mg/dL (9-20); Calcium 8.5 mg/dL (8.4-10.2); Carbon Dioxide 24 mmol/L (22-30); Chloride 106 mmol/L (98-107); Estimated CRCL calculation 36 ml/min; Estimated Glomerular Filt Rate 35; Glucose 82 mg/dL (65-110); Magnesium 2.2 mg/dL (1.6-2.3); Phosphorus 3.7 mg/dL (2.5-4.5); Potassium 3.4 mmol/L (3.4-5.0); Sodium 138 mmol/L (137-145)
[2022-02-14] MEDS: DORNASE ALFA INH SOLN 1 MG/ML 2.5 ML AMP 2.5 MG INHALATION (07:35)
[2022-02-14] MEDS: FLUTICASONE/UMECLIDIN/VILANTER 100-62.5-25 MCG ELLIPTA 1 PUFF INHALATION (07:36)
[2022-02-14] MEDS: APIXABAN 5 MG TABLET PO ×2 (08:35→20:13)
[2022-02-14] MEDS: ACETAMINOPHEN 325 MG TABLET 650 MG PO (08:35)
[2022-02-14] MEDS: MULTIVITAMINS THERAPEUTIC TAB (*BKC) 1 TABLET PO (08:36)
[2022-02-14] MEDS: ASPIRIN 81 MG ENTERIC TABLET PO (08:36)
[2022-02-14] MEDS: FOLIC ACID 1 MG TABLET PO (08:36)
[2022-02-14] MEDS: ATORVASTATIN 20 MG TABLET PO (08:36)
[2022-02-14] MEDS: THIAMINE HCL 100 MG TABLET PO (08:36)
[2022-02-14] MEDS: TOLNAFTATE 1% POWDER 45 GM BTL 1 APPLIC TOPICAL ×2 (09:50→20:13)
--- NOTE | 2022-02-14 13:10 | PM.IMPN ---
Progress Note: A&P Assessment and Plan (1) Acute and chronic respiratory failure: Code(s): J96.20 - Acute and chronic respiratory failure, unspecified whether with hypoxia or hypercapnia Status: Acute Assessment and Plan: Acute hypoxic and hypercapnic respiratory failure needing BiPAP. He does have chronic hypoxic respiratory failure requiring 3 L continuous at rest and 4-5 L with exertion. BNP 1410. Chest x-ray with no significant change to bilateral diffuse airspace disease edema versus pneumonia with Chest CT showing bibasilar consolidation. Concern more for PNA then edema. He was on IV Lasix but this has been held. Abx started. Continue BiPAP at night with sleep and with naps. Pulmonary following and appreciate their input. Wean O2 as tolerated. (2) Pneumonia: Code(s): J18.9 - Pneumonia, unspecified organism Status: Acute Assessment and Plan: CT chest performed 02/09 showing RML/RLL consolidation. Cultures obtained and abx started. WBC continues to trend down. He feels better. Being treated for aspiration. Patient had a recent speech evaluation and Speech therapy is following. BCx positive with gram negative bacilli in anaerobic bottle (1of2) with results still pending. Continue CPT. MRSA nasal swab negative so Vancomycin stopped. Continue Zosyn. Follow up on BCx results. Sputum showing growth of normal juana. (3) ROSALIO (acute kidney injury): Code(s): N17.9 - Acute kidney failure, unspecified Status: Acute Assessment and Plan: Cr jumped to 2.0. Suspect ATN from his soft BP and cardiac dysrhythmias. Consider AIN from the abx. UA noted from 02/09. Urine eos negative. Renal US showing no acute process. UOP much better yesterday. CT was done without contrast. Cr slightly better at 1.9. Continue to monitor. Hopefully this will continue to improve. Follow. (4) Sinus pause: Code(s): I45.5 - Other specified heart block Status: Acute Assessment and Plan: Cardiac pauses - [place] related to the metoprolol and suspect sick sinus syndrome. These did occur with patient on the BiPAP. Metoprolol was stopped. Flomax and Elavil can cause arrythmias so these were stopped as well. Cardiology consulted and appreciate their input. Cardiac pauses resolved initially but now have recurred but not to significant periods. He has metoprolol prn but has not required any dosing. Replace potassium again. Mag normal. (5) Acute exacerbation of CHF (congestive heart failure): Code(s): I50.9 - Heart failure, unspecified Status: Acute Assessment and Plan: Acute on chronic diastolic CHF. Was on IV lasix but held due to HoTN. Weight is down and leg swelling has resolved. Looks well compensated clinically. Continue to follow. (6) Hypotension: Code(s): I95.9 - Hypotension, unspecified Status: Acute Assessment and Plan: BP much better controlled. Blood pressure medications remain on hold. Tachycardia has improved. Follow (7) Paroxysmal atrial fibrillation: Code(s): I48.0 - Paroxysmal atrial fibrillation Status: Acute Assessment and Plan: HR better controlled. metoprolol available as needed but not required. Continue anticoagulation with apixaban. As above. (8) BPH NOS w ur obs/LUTS: Code(s): N40.1 - Benign prostatic hyperplasia with lower urinary tract symptoms Status: Acute Assessment and Plan: BPH with urinary retention this admission. History of urine retention needing Perez catheter last admission. Patient had urinary retention requiring re-insertion of Perez catheter. Flomax was added but can cause arrhythmias so this was held. (9) Alcohol abuse: Code(s): F10.10 - Alcohol abuse, uncomplicated Status: Acute Assessment and Plan: Hx of alcohol abuse and withdrawal seizures - CIWA protocol stopped 02/04/22. Continue thiamine and folate. Continue to follow. (10) Weakness: Co
--- NOTE | 2022-02-14 13:54 | PM.PNPUL ---
Progress Note: A&P Assessment and Plan (1) Acute and chronic respiratory failure: Code(s): J96.20 - Acute and chronic respiratory failure, unspecified whether with hypoxia or hypercapnia Status: Acute Assessment and Plan: 76-year-old man with hypercapnic respiratory failure related to sleep disordered breathing left hemidiaphragm paralysis currently on a BiPAP support at night and on treatment for bilateral lower lobe pneumonia, likely aspiration pneumonia. White cell count has returned to near normal range. The patient has had no new respiratory symptoms. Chest x-ray done today still showing bilateral lower lobe consolidations. creatinine trending down. Plan: continue with current IV antibiotic regimen for bilateral lower lobe pneumonia. Patient will be discharged on home ventilatory support and supplemental oxygen following treatment of pneumonia. will find out what the status of home ventilator is. case was discussed with Dr. 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 Using BiPAP support at night. Receiving antibiotics for bilateral lower lobe pneumonia. Review of Systems Review of Systems: All system review is unremarkable except as noted in H&P and below Exam Narrative: GENERAL APPEARANCE: Well developed, well nourished, alert and cooperative, and appears to be in no acute distress? While on supplemental oxygen SKIN: Inspection of the skin reveals no rashes, ulcerations or petechiae. HEENT: Sclerae anicteric and conjunctivae? pink and moist. Extraocular movements were intact and pupils were equal, round. NECK: Supple. There was no thyroid enlargement, and no tenderness, or masses were felt. CHEST: Normal AP diameter and normal contour without any kyphoscoliosis. LUNGS: Auscultation of the lungs revealed? decreased breath sounds and crackles at bases posteriorly no wheezing. CARDIAC: There was a regular rate and rhythm without any murmurs.. ABDOMEN: Soft and nontender with normal bowel sounds. There was no organomegaly. LYMPH NODES: No lymphadenopathy was appreciated in the neck. EXTREMITIES: No cyanosis, clubbing or edema. NEUROLOGIC: Alert and oriented x 3. Normal affect. Objective Data Vital Signs Vital Signs: Vital Signs - 24 hr 02/13/22 14:00 02/13/22 16:00 02/13/22 16:00 Temperature Pulse Rate 76 54 L Respiratory Rate Blood Pressure Pulse Oximetry 92 Oxygen Delivery Nasal Cannula Oxygen Flow Rate 4 Fraction of Inspired Oxygen 02/13/22 16:00 02/13/22 18:00 02/13/22 20:10 Temperature 36.3 C L Pulse Rate 79 75 77 Respiratory Rate 26 H 21 H Blood Pressure 101/65 Pulse Oximetry 85 L Oxygen Delivery Oxygen Flow Rate Fraction of Inspired Oxygen 02/13/22 20:20 02/13/22 20:21 02/13/22 20:22 Temperature Pulse Rate 79 Respiratory Rate 21 H 20 Blood Pressure Pulse Oximetry 98 98 Oxygen Delivery BiPAP BiPAP Oxygen Flow Rate Fraction of Inspired Oxygen 35 02/13/22 20:00 02/13/22 23:06 02/13/22 23:38 Temperature 36.4 C 36.8 C Pulse Rate 62 86 Respiratory Rate 24 H 24 H 20 Blood Pressure 131/99 H 135/81 Pulse Oximetry 98 97 96 Oxygen Delivery BiPAP Oxygen Flow Rate Fraction of Inspired Oxygen 02/13/22 20:00 02/13/22 20:00 02/13/22 22:00 Temperature Pulse Rate 70 68 Respiratory Rate
[2022-02-14] MEDS: ALBUTEROL SULFATE NEB 2.5 MG/0.5 ML INH INHALATION ×2 (14:21→19:22)
[2022-02-14] MEDS: POTASSIUM CHLORIDE 20 MEQ PACKET (FOR LIQUID) 40 MEQ PO (14:37)
[2022-02-14] MEDS: SERTRALINE HCL 25 MG TABLET PO (20:13)
--- NOTE | 2022-02-14 22:26 | PC.NURSE ---
This patient, Prabhakar Godwin, was transferred to [[id number] ] on 02/14/22 at 2110 via bed. Personal belongings sent with patient. Report given to [ Los]. Appropriate documentation sent with patient.
[2022-02-15] VITALS (23 sets, daily range): BP systolic 103–123; BP diastolic 43–83; PULSE 72–100; RESP 12–28; TEMP 36.2–37.2; O2SAT 80–98
[2022-02-15] MEDS: ALBUTEROL SULFATE NEB 2.5 MG/0.5 ML INH INHALATION ×4 (01:47→21:01)
[2022-02-15] MEDS: ACETAMINOPHEN 325 MG TABLET 650 MG PO (03:36)
[2022-02-15 05:44] LABS: Basophils Absolute Auto 0.1 K/mm3 (0.0-0.1); Basophils Percent Auto 1.5 % (0.2-1.2); Eosinophils Percent Auto 10.3 % (0-4.4); Hematocrit 32.2 % (42.0-52.0); Hemoglobin 9.6 g/dL (14.0-18.0); Immature Granulocyte Absolute 0.04 K/mm3 (0.00-0.031); Immature Granulocyte Percent A 0.4 % (0-0.5); Lymphocytes Absolute Auto 0.64 K/mm3 (0.9-3.2); Lymphocytes Percent Auto 6.7 % (18.3-44.2); Mean Corpuscular HGB Conc 29.8 g/dl (32-36); Mean Corpuscular Hemoglobin 28.7 pg (26-34); Mean Corpuscular Volume 96.1 fl (80-100); Mean Platelet Volume 10.4 fl (7.4-10.4); Monocytes Percent Auto 10.6 % (2.6-8.5); Neutrophils Absolute Auto 6.8 K/mm3 (1.3-6.7); Neutrophils Percent Auto 70.5 % (45.5-73.1); Platelet Count Result 335 k/mm3 (150-375); Red Blood Count 3.35 M/mm3 (4.6-6.20); Red Cell Distribution Width 14.4 % (11.5-14.5); White Blood Count 9.6 K/mm3 (4.5-10.0)
[2022-02-15 05:56] LABS: Anion Gap 6 mmol/L (8-16); Blood Urea Nitrogen 34 mg/dL (9-20); Calcium 8.6 mg/dL (8.4-10.2); Carbon Dioxide 27 mmol/L (22-30); Chloride 106 mmol/L (98-107); Estimated CRCL calculation 30 ml/min; Estimated Glomerular Filt Rate 33; Glucose 92 mg/dL (65-110); Sodium 139 mmol/L (137-145)
[2022-02-15 07:01] LABS: Anisocytosis 1+ (NORMAL); Hypochromasia 1+ (NORMAL); Microcytosis 1+ (NORMAL); Platelet Estimate Adequate (Adequate); Poikilocytosis 1+ (NORMAL)
[2022-02-15 07:02] LABS: Crenated RBC 1+ (NORMAL)
[2022-02-15 07:03] LABS: Burr Cells 1+ (NORMAL)
[2022-02-15] MEDS: POTASSIUM CHLORIDE 20 MEQ PACKET (FOR LIQUID) 40 MEQ PO (08:43)
[2022-02-15] MEDS: APIXABAN 5 MG TABLET PO ×2 (08:44→21:23)
[2022-02-15] MEDS: MULTIVITAMINS THERAPEUTIC TAB (*BKC) 1 TABLET PO (08:44)
[2022-02-15] MEDS: ATORVASTATIN 20 MG TABLET PO (08:44)
[2022-02-15] MEDS: ASPIRIN 81 MG ENTERIC TABLET PO (08:44)
[2022-02-15] MEDS: FOLIC ACID 1 MG TABLET PO (08:44)
[2022-02-15] MEDS: SALINE 0.65% NAS SOLN 44 ML BTL 1 SPRAY NASAL (08:44)
[2022-02-15] MEDS: THIAMINE HCL 100 MG TABLET PO (08:45)
[2022-02-15] MEDS: TOLNAFTATE 1% POWDER 45 GM BTL 1 APPLIC TOPICAL ×2 (08:45→21:23)
--- NOTE | 2022-02-15 14:15 | PM.IMPN ---
Progress Note: A&P Assessment and Plan (1) Acute and chronic respiratory failure: Code(s): J96.20 - Acute and chronic respiratory failure, unspecified whether with hypoxia or hypercapnia Status: Acute Assessment and Plan: Acute hypoxic and hypercapnic respiratory failure needing BiPAP. He does have chronic hypoxic respiratory failure requiring 3 L continuous at rest and 4-5 L with exertion. BNP 1410. Chest x-ray with no significant change to bilateral diffuse airspace disease edema versus pneumonia with Chest CT showing bibasilar consolidation. [place] to have both PNA and CHF exacerbation. He was on IV Lasix but this has been held. Abx started for PNA. Continue BiPAP at night with sleep and with naps. Pulmonary following and appreciate their input. Wean O2 as tolerated. (2) Pneumonia: Code(s): J18.9 - Pneumonia, unspecified organism Status: Acute Assessment and Plan: CT chest performed 02/09 showing RML/RLL consolidation. Cultures obtained and abx started. WBC was elevated but normal now. Being treated for aspiration. Patient had a recent speech evaluation and Speech therapy is following. MRSA nasal swab negative so Vancomycin stopped. Sputum showing growth scant yeast. UCx negative. BCx positive (1of2) with clostridium clostridioforme that is beta-lactamase negative. Continue CPT. Continue Zosyn Day 6. (3) ROSALIO (acute kidney injury): Code(s): N17.9 - Acute kidney failure, unspecified Status: Acute Assessment and Plan: Cr jumped to 2.0. Suspect ATN from his soft BP and cardiac dysrhythmias. Consider AIN from the abx. UA noted from 02/09. Urine eos negative. Ben 38 with FENa 0.4%. Renal US showing no acute process. Treated with IV fluids but without much benefit. UOP 1100 yesterday. Cumulative I/O +2.8L. CT was done without contrast. Cr unchanged at 2.0. Continue to monitor. (4) Sinus pause: Code(s): I45.5 - Other specified heart block Status: Acute Assessment and Plan: Cardiac pauses up to 6sec. [place] related to the metoprolol and suspect sick sinus syndrome. These did occur with patient on the BiPAP. Metoprolol was stopped. Flomax and Elavil can cause arrythmias so these were stopped as well. Cardiology consulted and appreciate their input. Cardiac pauses resolved initially but now have recurred but not to significant periods. He has metoprolol prn but has not required any dosing. Replace potassium again. Mag normal yesterday. (5) Acute exacerbation of CHF (congestive heart failure): Code(s): I50.9 - Heart failure, unspecified Status: Acute Assessment and Plan: Acute on chronic diastolic CHF. Echo in November 2021 with EF 65-70% and abnormal diastolic dysfunction. Was on IV lasix but held due to HoTN. Weight is down and leg swelling has resolved. Looks well compensated clinically. Continue to follow. (6) Hypotension: Code(s): I95.9 - Hypotension, unspecified Status: Acute Assessment and Plan: BP much better controlled. Blood pressure medications remain on hold. Tachycardia has improved. Follow (7) Paroxysmal atrial fibrillation: Code(s): I48.0 - Paroxysmal atrial fibrillation Status: Acute Assessment and Plan: HR better controlled. Metoprolol available as needed but not required. Continue anticoagulation with apixaban. As above. (8) BPH NOS w ur obs/LUTS: Code(s): N40.1 - Benign prostatic hyperplasia with lower urinary tract symptoms Status: Acute Assessment and Plan: BPH with urinary retention this admission. History of urine retention needing Perez catheter last admission. Patient had urinary retention requiring re-insertion of Perez catheter. Flomax was added but can cause arrhythmias so this was held. Voiding trial once he is more ambulatory. (9) Alcohol abuse: Code(s): F10.10 - Alcohol abuse, uncomplicated Status: Acute Assessment and Plan: Hx o
[2022-02-15 16:19] LABS: Hematocrit 35.3 % (42.0-52.0); Hemoglobin 10.5 g/dL (14.0-18.0)
[2022-02-15] MEDS: POTASSIUM CHLORIDE 20 MEQ TABLET 40 MEQ PO (16:55)
[2022-02-15] MEDS: FAMOTIDINE 20 MG TABLET PO ×2 (16:56→21:23)
[2022-02-15] MEDS: SERTRALINE HCL 25 MG TABLET PO (21:23)
[2022-02-16] VITALS (24 sets, daily range): BP systolic 113–138; BP diastolic 64–82; PULSE 75–96; RESP 16–32; TEMP 35.9–36.6; O2SAT 84–96
[2022-02-16] MEDS: ALBUTEROL SULFATE NEB 2.5 MG/0.5 ML INH INHALATION ×4 (02:12→20:03)
[2022-02-16 05:48] LABS: Basophils Absolute Auto 0.2 K/mm3 (0.0-0.1); Basophils Percent Auto 1.4 % (0.2-1.2); Eosinophils Percent Auto 9.6 % (0-4.4); Hematocrit 34.2 % (42.0-52.0); Hemoglobin 10.2 g/dL (14.0-18.0); Immature Granulocyte Absolute 0.07 K/mm3 (0.00-0.031); Immature Granulocyte Percent A 0.7 % (0-0.5); Lymphocytes Percent Auto 6.6 % (18.3-44.2); Mean Corpuscular HGB Conc 29.8 g/dl (32-36); Mean Corpuscular Hemoglobin 28.6 pg (26-34); Mean Corpuscular Volume 95.8 fl (80-100); Mean Platelet Volume 10.3 fl (7.4-10.4); Monocytes Absolute Auto 1.1 K/mm3 (0.1-0.6); Monocytes Percent Auto 10.1 % (2.6-8.5); Neutrophils Absolute Auto 7.7 K/mm3 (1.3-6.7); Neutrophils Percent Auto 71.6 % (45.5-73.1); Platelet Count Result 359 k/mm3 (150-375); Red Blood Count 3.57 M/mm3 (4.6-6.20); Red Cell Distribution Width 14.4 % (11.5-14.5); White Blood Count 10.7 K/mm3 (4.5-10.0)
[2022-02-16 06:06] LABS: Albumin Level 3.1 g/dL (3.5-5.1); Anion Gap 7 mmol/L (8-16); Blood Urea Nitrogen 27 mg/dL (9-20); Calcium 8.8 mg/dL (8.4-10.2); Carbon Dioxide 28 mmol/L (22-30); Chloride 109 mmol/L (98-107); Estimated CRCL calculation 38 ml/min; Estimated Glomerular Filt Rate 37; Glucose 101 mg/dL (65-110); Phosphorus 2.8 mg/dL (2.5-4.5); Potassium 3.1 mmol/L (3.4-5.0); Sodium 144 mmol/L (137-145)
[2022-02-16 06:37] LABS: Hypochromasia 1+ (NORMAL); Platelet Estimate Adequate (Adequate)
[2022-02-16 06:38] LABS: Anisocytosis 1+ (NORMAL); Poikilocytosis 1+ (NORMAL)
[2022-02-16] MEDS: MULTIVITAMINS THERAPEUTIC TAB (*BKC) 1 TABLET PO (10:25)
[2022-02-16] MEDS: METOPROLOL TARTRATE 12.5 MG TABLET PO (10:25)
[2022-02-16] MEDS: THIAMINE HCL 100 MG TABLET PO (10:26)
[2022-02-16] MEDS: ASPIRIN 81 MG ENTERIC TABLET PO (10:26)
[2022-02-16] MEDS: ATORVASTATIN 20 MG TABLET PO (10:26)
[2022-02-16] MEDS: APIXABAN 5 MG TABLET PO ×2 (10:26→21:56)
[2022-02-16] MEDS: FOLIC ACID 1 MG TABLET PO (10:26)
[2022-02-16] MEDS: FAMOTIDINE 20 MG TABLET PO ×2 (10:26→21:56)
[2022-02-16] MEDS: TOLNAFTATE 1% POWDER 45 GM BTL 1 APPLIC TOPICAL ×2 (10:34→21:56)
[2022-02-16] MEDS: POTASSIUM CHLORIDE 20 MEQ TABLET 40 MEQ PO (10:48)
--- NOTE | 2022-02-16 11:27 | PCPTNOTE ---
Attempted to see patient for PT, however patient was going to get a bed bath.
--- NOTE | 2022-02-16 11:43 | PCNFU ---
Nutrition Follow-Up Complete: Inadequate oral intake related to hospitalization and decreased appetite as evidenced by average meal intake of around 30%. Goal: Increased oral intake to 75% or more along with Ensure Compact BID ([id number], Pro 9gm each) with meals Patient has limited progress towards. We will continue current goal. Pt current nutrition is Heart Healthy/Mild Thick liquids, Level 2. Last recorded weight is 100.6 kg, up from 97.2 kg on admit. Bowel Motility:+BM reported 02/15 Labs Reviewed:Cr 1.8,GFR 37, BUN 27, K 3.1,Hct 34.2,Hgb 10.2 Meds Noted:MVI, Vit B, Folic Acid,Eliquis Skin: WNL Additional Notes: Spoke with nursing today, patient has been on Bipap. Bipap currently off and on 5 Liters O2. Oral Intake has been fair. 10,25,50% of meals. Diet supplements of Ensure compact have been added for additional 220 kcals and 9 gms protein. Agree with diet orders. Monitor changes in weight, oral intake %, and labs every 3 days.
--- NOTE | 2022-02-16 12:33 | PM.PNPUL ---
Progress Note: A&P Assessment and Plan (1) Acute and chronic respiratory failure: Code(s): J96.20 - Acute and chronic respiratory failure, unspecified whether with hypoxia or hypercapnia Status: Acute Assessment and Plan: 76-year-old man with hypercapnic respiratory failure related to sleep disordered breathing left hemidiaphragm paralysis currently on a BiPAP support at night and on treatment for bilateral lower lobe pneumonia, likely aspiration pneumonia. White cell count has returned to near normal range. The patient has had no new respiratory symptoms. Chest x-ray done recently showing bilateral lower lobe consolidations. creatinine trending down, 1.80 today Plan: patient will be discharged to half-way facility where he will be on ventilator at night. Arrangements have already been made for nocturnal ventilatory support. The patient will also require supplemental oxygen 4 liters/minute at night and also during the day. Patient will remain on maintenance bronchodilator Trelegy inhaler daily and short-acting bronchodilators for p.r.n. use. He will have to return to [facility] for evaluation of his respiratory failure with pulmonary function testing. Will sign off please call with any questions. 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 Using BiPAP support every night. Has been on antibiotics for bilateral aspiration pneumonia. He Review of Systems Review of Systems: All system review is unremarkable except as noted in H&P and below. Exam Narrative: GENERAL APPEARANCE: Well developed, well nourished, alert and cooperative, and appears to be in no acute distress? While on supplemental oxygen SKIN: Inspection of the skin reveals no rashes, ulcerations or petechiae. HEENT: Sclerae anicteric and conjunctivae? pink and moist. Extraocular movements were intact and pupils were equal, round. NECK: Supple. There was no thyroid enlargement, and no tenderness, or masses were felt. CHEST: Normal AP diameter and normal contour without any kyphoscoliosis. LUNGS: Auscultation of the lungs revealed? decreased breath sounds and crackles at bases posteriorly no wheezing. CARDIAC: There was a regular rate and rhythm without any murmurs.. ABDOMEN: Soft and nontender with normal bowel sounds. There was no organomegaly. LYMPH NODES: No lymphadenopathy was appreciated in the neck. EXTREMITIES: No cyanosis, clubbing or edema. NEUROLOGIC: Alert and oriented x 3. Normal affect. Objective Data Vital Signs Vital Signs: Vital Signs - 24 hr 02/15/22 13:25 02/15/22 13:30 02/15/22 14:35 Temperature 36.6 C Pulse Rate 98 94 86 Respiratory Rate 12 12 14 Blood Pressure 109/69 Pulse Oximetry 97 Oxygen Delivery Oxygen Flow Rate Fraction of Inspired Oxygen 02/15/22 16:00 02/15/22 18:00 02/15/22 19:56 Temperature 36.6 C 36.3 C L Pulse Rate 99 77 99 Respiratory Rate 16 20 Blood Pressure 116/64 123/83 Pulse Oximetry 95 80 L Oxygen Delivery Oxygen Flow Rate Fraction of Inspired Oxygen 02/15/22 21:01 02/15/22 20:50 02/15/22 21:03 Temperature Pulse Rate 84 86 Respiratory Rate 28 H 24 H 22 H Blood Pressure Pulse Oximetry 94 Oxygen Delivery BiPAP Oxygen Flow Rate Fraction of Inspired Oxygen 02/15/22 20:15 02/15/22 23:21 02/16/22 00:04 Temperature 36.3 C L Pulse Rate
--- NOTE | 2022-02-16 15:58 | PM.IMPN ---
Progress Note: A&P Assessment and Plan (1) Acute and chronic respiratory failure: Code(s): J96.20 - Acute and chronic respiratory failure, unspecified whether with hypoxia or hypercapnia Status: Acute Assessment and Plan: Acute hypoxic and hypercapnic respiratory failure needing BiPAP. He does have chronic hypoxic respiratory failure requiring 3 L continuous at rest and 4-5 L with exertion. BNP 1410. [place] to have both PNA and CHF exacerbation. He was on IV Lasix but this was held. Chest CT showing bibasilar consolidation. Abx started for PNA. Continue BiPAP at night with sleep and with naps. Pulmonary following and appreciate their input. Wean O2 as tolerated. Insurance denied SNF and this has been appealed. Family aware that if SNF denied again, then will need to private pay. (2) Pneumonia: Code(s): J18.9 - Pneumonia, unspecified organism Status: Acute Assessment and Plan: CT chest performed 02/09 showing RML/RLL consolidation. Cultures obtained and abx started. WBC was elevated but essentially normal now. Being treated for aspiration. Patient had a recent speech evaluation and Speech therapy is following. MRSA nasal swab negative so Vancomycin stopped. Sputum showing growth scant yeast. UCx negative. BCx positive (1of2) with clostridium clostridioforme that is beta-lactamase negative. Continue CPT. Continue Zosyn Day 7. (3) ROSALIO (acute kidney injury): Code(s): N17.9 - Acute kidney failure, unspecified Status: Acute Assessment and Plan: Cr jumped to 2.0. Suspect ATN from his soft BP and cardiac dysrhythmias. No contrast exposure. Consider AIN from the abx. UA noted from 02/09. Urine eos negative. Ben 38 with FENa 0.4%. Renal US showing no acute process. Treated with IV fluids but without much benefit. UOP 450 yesterday but Cr better at 1.8. Cumulative I/O +2.8L. Continue to monitor. (4) Sinus pause: Code(s): I45.5 - Other specified heart block Status: Acute Assessment and Plan: Cardiac pauses up to 6 sec. [place] related to the metoprolol and suspect sick sinus syndrome. These did occur with patient on the BiPAP. Metoprolol was stopped. Flomax and Elavil can cause arrhythmias so these were stopped as well. Cardiology consulted and appreciate their input. Cardiac pauses have essentially resolved. He has metoprolol prn. Replace potassium again. (5) Acute exacerbation of CHF (congestive heart failure): Code(s): I50.9 - Heart failure, unspecified Status: Acute Assessment and Plan: Acute on chronic diastolic CHF. Echo in November 2021 with EF 65-70% and abnormal diastolic dysfunction. Was on IV lasix but held due to HoTN. On Spironolactone but not Lasix at home. Weight is down and leg swelling has resolved. Looks well compensated clinically. Continue to follow. (6) Hypotension: Code(s): I95.9 - Hypotension, unspecified Status: Acute Assessment and Plan: BP much better controlled. Blood pressure medications remain on hold. Tachycardia has improved. Follow (7) Paroxysmal atrial fibrillation: Code(s): I48.0 - Paroxysmal atrial fibrillation Status: Acute Assessment and Plan: HR better controlled. Metoprolol available as needed. Continue anticoagulation with apixaban. As above. (8) BPH NOS w ur obs/LUTS: Code(s): N40.1 - Benign prostatic hyperplasia with lower urinary tract symptoms Status: Acute Assessment and Plan: BPH with urinary retention this admission. History of urine retention needing Perez catheter last admission. Patient had urinary retention requiring re-insertion of Perez catheter. Flomax was added but can cause arrhythmias so this was held. Voiding trial once he is more ambulatory. (9) Alcohol abuse: Code(s): F10.10 - Alcohol abuse, uncomplicated Status: Acute Assessment and Plan: Hx of alcohol abuse and withdrawal seizures - [facility] protocol stopp
--- NOTE | 2022-02-16 16:09 | PCSTNOTE ---
Patient was asleep and did not arouse for therapy.
[2022-02-16] MEDS: SERTRALINE HCL 25 MG TABLET PO (21:56)
[2022-02-17] VITALS (30 sets, daily range): BP systolic 109–153; BP diastolic 65–85; PULSE 70–118; RESP 16–31; TEMP 36.1–36.7; O2SAT 90–98
[2022-02-17] MEDS: ALBUTEROL SULFATE NEB 2.5 MG/0.5 ML INH INHALATION ×4 (02:08→20:40)
[2022-02-17 05:55] LABS: Albumin Level 3.7 g/dL (3.5-5.1); Anion Gap 8 mmol/L (8-16); Blood Urea Nitrogen 24 mg/dL (9-20); Carbon Dioxide 26 mmol/L (22-30); Chloride 109 mmol/L (98-107); Estimated CRCL calculation 40 ml/min; Estimated Glomerular Filt Rate 39; Glucose 97 mg/dL (65-110); Magnesium 1.8 mg/dL (1.6-2.3); Phosphorus 3.2 mg/dL (2.5-4.5); Potassium 3.5 mmol/L (3.4-5.0); Sodium 143 mmol/L (137-145)
[2022-02-17] MEDS: APIXABAN 5 MG TABLET PO ×2 (08:43→19:43)
[2022-02-17] MEDS: MULTIVITAMINS THERAPEUTIC TAB (*BKC) 1 TABLET PO (08:43)
[2022-02-17] MEDS: THIAMINE HCL 100 MG TABLET PO (08:43)
[2022-02-17] MEDS: FAMOTIDINE 20 MG TABLET PO ×2 (08:43→19:44)
[2022-02-17] MEDS: ATORVASTATIN 20 MG TABLET PO (08:43)
[2022-02-17] MEDS: FOLIC ACID 1 MG TABLET PO (08:43)
[2022-02-17] MEDS: ASPIRIN 81 MG ENTERIC TABLET PO (08:44)
[2022-02-17] MEDS: TOLNAFTATE 1% POWDER 45 GM BTL 1 APPLIC TOPICAL ×2 (08:44→19:43)
--- NOTE | 2022-02-17 13:11 | P.PNIM_ITS ---
Progress Note: A&P Assessment and Plan (1) Acute and chronic respiratory failure: Code(s): J96.20 - Acute and chronic respiratory failure, unspecified whether with hypoxia or hypercapnia Status: Acute Assessment and Plan: Acute hypoxic and hypercapnic respiratory failure needing BiPAP. He does have chronic hypoxic respiratory failure requiring 3 L continuous at rest and 4-5 L with exertion. BNP 1410. [place] to have both PNA and CHF exacerbation. He was on IV Lasix but this was held. Chest CT showing bibasilar consolidation. Abx started for PNA. Continue BiPAP at night with sleep and with naps. Pulmonary following and appreciate their input. Wean O2 as tolerated. Insurance denied SNF and this has been appealed. Family aware that if SNF denied again, then will need to private pay. (2) Pneumonia: Code(s): J18.9 - Pneumonia, unspecified organism Status: Acute Assessment and Plan: CT chest performed 02/09 showing RML/RLL consolidation. Cultures obtained and abx started. WBC was elevated but essentially normal now. Being treated for aspiration. Patient had a recent speech evaluation and Speech therapy is following. MRSA nasal swab negative so Vancomycin stopped. Sputum showing growth scant yeast. UCx negative. BCx positive (1of2) with clostridium clostridioforme that is beta-lactamase negative. Continue CPT. Continue Zosyn Day 7. Will switch to Augmentin at the time of discharge (3) ROSALIO (acute kidney injury): Code(s): N17.9 - Acute kidney failure, unspecified Status: Acute Assessment and Plan: Cr jumped to 2.0. Suspect ATN from his soft BP and cardiac dysrhythmias. No contrast exposure. Consider AIN from the abx. UA noted from 02/09. Urine eos negative. Ben 38 with FENa 0.4%. Renal US showing no acute process. Treated with IV fluids but without much benefit. UOP 450 yesterday but Cr better at 1.8. Cumulative I/O +2.8L. Continue to monitor. Recheck in (4) Sinus pause: Code(s): I45.5 - Other specified heart block Status: Acute Assessment and Plan: Cardiac pauses up to 6 sec. [place] related to the metoprolol and suspect sick sinus syndrome. These did occur with patient on the BiPAP. Metoprolol was stopped. Flomax and Elavil can cause arrhythmias so these were stopped as well. Cardiology consulted and appreciate their input. Cardiac pauses have essentially resolved. He has metoprolol prn. Replace potassium again. He has intermittent AFib with RVR during the day. Will add metoprolol tartrate 12.5 mg daily in morning (5) Acute exacerbation of CHF (congestive heart failure): Code(s): I50.9 - Heart failure, unspecified Status: Acute Assessment and Plan: Acute on chronic diastolic CHF. Echo in November 2021 with EF 65-70% and abnormal diastolic dysfunction. Was on IV lasix but held due to HoTN. On Spironolactone but not Lasix at home. Weight is down and leg swelling has resolved. Looks well compensated clinically. Continue to follow. (6) Hypotension: Code(s): I95.9 - Hypotension, unspecified Status: Acute Assessment and Plan: BP much better controlled. Blood pressure medications remain on hold. Tachycar kelly has improved. Follow (7) Paroxysmal atrial fibrillation: Code(s): I48.0 - Paroxysmal atrial fibrillation Status: Acute Assessment and Plan: HR better controlled. Metoprolol available as needed. Continue anticoagulation with apixaban. As above. Place on metoprolol tartrate 12.5 mg schedule in the morning (8) BPH NOS w ur obs/LUTS: Code(s): N40.1 - Benign prostatic hyperplasi
[2022-02-17] MEDS: SERTRALINE HCL 25 MG TABLET PO (19:43)
[2022-02-17] MEDS: ACETAMINOPHEN 325 MG TABLET 650 MG PO (19:44)
[2022-02-18] VITALS (26 sets, daily range): BP systolic 110–133; BP diastolic 58–83; PULSE 60–98; RESP 18–28; TEMP 36.2–36.9; O2SAT 92–99
[2022-02-18] MEDS: ALBUTEROL SULFATE NEB 2.5 MG/0.5 ML INH INHALATION ×4 (02:42→19:42)
[2022-02-18] MEDS: FLUTICASONE/UMECLIDIN/VILANTER 100-62.5-25 MCG ELLIPTA 1 PUFF INHALATION (08:29)
[2022-02-18] MEDS: METOPROLOL TARTRATE 12.5 MG TABLET PO (08:58)
[2022-02-18] MEDS: ATORVASTATIN 20 MG TABLET PO (08:59)
[2022-02-18] MEDS: APIXABAN 5 MG TABLET PO ×2 (08:59→20:16)
[2022-02-18] MEDS: ERGOCALCIFEROL 50,000 UNIT CAPSULE 50000 UNITS PO (08:59)
[2022-02-18] MEDS: THIAMINE HCL 100 MG TABLET PO (08:59)
[2022-02-18] MEDS: FOLIC ACID 1 MG TABLET PO (08:59)
[2022-02-18] MEDS: FAMOTIDINE 20 MG TABLET PO ×2 (08:59→20:16)
[2022-02-18] MEDS: ASPIRIN 81 MG ENTERIC TABLET PO (08:59)
[2022-02-18] MEDS: MULTIVITAMINS THERAPEUTIC TAB (*BKC) 1 TABLET PO (08:59)
[2022-02-18] MEDS: SALINE 0.65% NAS SOLN 44 ML BTL 1 SPRAY NASAL (09:00)
[2022-02-18] MEDS: TOLNAFTATE 1% POWDER 45 GM BTL 1 APPLIC TOPICAL ×2 (09:01→20:16)
--- NOTE | 2022-02-18 12:14 | PM.IMPN ---
Progress Note: A&P Assessment and Plan (1) Acute and chronic respiratory failure: Code(s): J96.20 - Acute and chronic respiratory failure, unspecified whether with hypoxia or hypercapnia Status: Acute Assessment and Plan: Acute hypoxic and hypercapnic respiratory failure needing BiPAP. He does have chronic hypoxic respiratory failure requiring 3 L continuous at rest and 4-5 L with exertion. BNP 1410. [place] to have both PNA and CHF exacerbation. He was on IV Lasix but this was held. Chest CT showing bibasilar consolidation. Abx started for PNA. Continue BiPAP at night with sleep and with naps. Pulmonary following and appreciate their input. Wean O2 as tolerated. Insurance denied SNF and this has been appealed. Family aware that if SNF denied again, then will need to private pay. (2) Pneumonia: Code(s): J18.9 - Pneumonia, unspecified organism Status: Acute Assessment and Plan: CT chest performed 02/09 showing RML/RLL consolidation. Cultures obtained and abx started. WBC was elevated but essentially normal now. Being treated for aspiration. Patient had a recent speech evaluation and Speech therapy is following. MRSA nasal swab negative so Vancomycin stopped. Sputum showing growth scant yeast. UCx negative. BCx positive (1of2) with clostridium clostridioforme that is beta-lactamase negative. Continue CPT. Continue Zosyn Day 8. Will switch to Augmentin at the time of discharge (3) ROSALIO (acute kidney injury): Code(s): N17.9 - Acute kidney failure, unspecified Status: Acute Assessment and Plan: Cr jumped to 2.0. Suspect ATN from his soft BP and cardiac dysrhythmias. No contrast exposure. Consider AIN from the abx. UA noted from 02/09. Urine eos negative. Ben 38 with FENa 0.4%. Renal US showing no acute process. Treated with IV fluids but without much benefit. UOP 450 yesterday but Cr better at 1.8. Cumulative I/O +2.8L. Continue to monitor. Recheck in (4) Sinus pause: Code(s): I45.5 - Other specified heart block Status: Acute Assessment and Plan: Cardiac pauses up to 6 sec. [place] related to the metoprolol and suspect sick sinus syndrome. These did occur with patient on the BiPAP. Metoprolol was stopped. Flomax and Elavil can cause arrhythmias so these were stopped as well. Cardiology consulted and appreciate their input. Cardiac pauses have essentially resolved. He has metoprolol prn. Replace potassium again. He has intermittent AFib with RVR during the day. Add metoprolol tartrate 12.5 mg daily in morning (5) Acute exacerbation of CHF (congestive heart failure): Code(s): I50.9 - Heart failure, unspecified Status: Acute Assessment and Plan: Acute on chronic diastolic CHF. Echo in November 2021 with EF 65-70% and abnormal diastolic dysfunction. Was on IV lasix but held due to HoTN. On Spironolactone but not Lasix at home. Weight is down and leg swelling has resolved. Looks well compensated clinically. Continue to follow. (6) Hypotension: Code(s): I95.9 - Hypotension, unspecified Status: Acute Assessment and Plan: BP much better controlled. Blood pressure medications remain on hold. Tachycardia has improved. Follow (7) Paroxysmal atrial fibrillation: Code(s): I48.0 - Paroxysmal atrial fibrillation Status: Acute Assessment and Plan: HR better controlled. Metoprolol available as needed. Continue anticoagulation with apixaban. As above. Place on metoprolol tartrate 12.5 mg schedule in the morning (8) BPH NOS w ur obs/LUTS: Code(s): N40.1 - Benign prostatic hyperplasia with lower urinary tract symptoms Status: Acute Assessment and Plan: BPH with urinary retention this admission. History of urine retention needing Perez catheter last admission. Patient had urinary retention requiring re-insertion of Perez catheter. Flomax was added but can cause arrhythmias so this was held. Voiding trial
[2022-02-18] MEDS: SERTRALINE HCL 25 MG TABLET PO (20:16)
[2022-02-19] VITALS (17 sets, daily range): BP systolic 131–155; BP diastolic 73–89; PULSE 77–99; RESP 18–24; TEMP 36–36.9; O2SAT 90–98
[2022-02-19] MEDS: ALBUTEROL SULFATE NEB 2.5 MG/0.5 ML INH INHALATION ×3 (02:00→14:41)
--- NOTE | 2022-02-19 04:44 | PC.NURSE ---
PATIENT HAS NOT VOIDED SINCE CATHETER REMOVED AT 1830 02/18/22. THIS NURSE HAS BLADDER SCANNED X2 WITH LARGEST AMOUNT SHOWING 299CC PRESENTLY. PATIENT STATES HE JUST HASNT DRANK ENOUGH WATER. BIPAP REMOVED, WATER WITH MILD THICKEN GIVEN AND PATIENT DRINKING NOW. STATES HE THINKS HE CAN VOID GIVEN MORE TIME. DOES NOT WANT TO BE STRAIGHT CATHED AT THIS TIME.
[2022-02-19] MEDS: METOPROLOL TARTRATE 12.5 MG TABLET PO (08:05)
[2022-02-19] MEDS: FOLIC ACID 1 MG TABLET PO (08:06)
[2022-02-19] MEDS: APIXABAN 5 MG TABLET PO (08:06)
[2022-02-19] MEDS: FAMOTIDINE 20 MG TABLET PO (08:06)
[2022-02-19] MEDS: ASPIRIN 81 MG ENTERIC TABLET PO (08:06)
[2022-02-19] MEDS: MULTIVITAMINS THERAPEUTIC TAB (*BKC) 1 TABLET PO (08:06)
[2022-02-19] MEDS: TOLNAFTATE 1% POWDER 45 GM BTL 1 APPLIC TOPICAL (08:06)
[2022-02-19] MEDS: ATORVASTATIN 20 MG TABLET PO (08:06)
[2022-02-19] MEDS: THIAMINE HCL 100 MG TABLET PO (08:06)
[2022-02-19] MEDS: FLUTICASONE/UMECLIDIN/VILANTER 100-62.5-25 MCG ELLIPTA 1 PUFF INHALATION (09:10)
[2022-02-19 09:27] LABS: EDCOVIDSCREEN Negative (Negative)
--- NOTE | 2022-02-19 10:49 | PCSTNOTE ---
Please refer to the Modified Barium Swallow Evaluation in the EMR.
--- NOTE | 2022-02-19 11:44 | PCNFU ---
Nutrition Follow-Up Complete: Inadequate oral intake related to hospitalization and decreased appetite as evidenced by average meal intake of around 30%. Goal: Increased oral intake to 75% or more along with Ensure Compact BID ([id number], Pro 9gm each) with meals - Pt is not meeting goal, continue with current goal. Pt current nutrition is heart healthy, thickened liquids level 2. Last recorded weight is 100.8 kg, pt gained 3.6kg compared to initial wt on 02/11/2022. Bowel Motility: +BM (02/18/2022). Labs Reviewed: No new labs reported. Meds Noted: Vitamin B1, Zofran, Multivitamin, Folic Acid. Skin: Bruising on lower legs. Additional Notes: Pt reports food tastes okay, but he simply has no appetite. He is eating around 50% of his meals, about a 20% improvement from initial visit. Pt also reports he has been drinking his ensure compact drinks with meals. Pt was weighed in at 100.8kg, a gain of about 3.6kg from initial visit. Monitor changes in weight, oral intake %, and labs every 5 days.
--- NOTE | 2022-02-19 12:14 | PCNSR ---
On 02/19/22, the student, Yaquelin Cifuentes, provided care and completed [facility] documentation on this patient. I have reviewed the student's documentation and agree with the findings.
--- NOTE | 2022-02-19 13:03 | PM.DS ---
DS: Admitting Diagnosis Discharge Date 02/19/2022 Admitting Diagnosis Shortness of breath DS: Discharge Diagnosis Discharge Diagnosis (1) Acute and chronic respiratory failure: Code(s): J96.20 - Acute and chronic respiratory failure, unspecified whether with hypoxia or hypercapnia Status: Acute Assessment and Plan: Acute hypoxic and hypercapnic respiratory failure needing BiPAP. He does have chronic hypoxic respiratory failure requiring 3 L continuous at rest and 4-5 L with exertion. BNP 1410. [place] to have both PNA and CHF exacerbation. He was on IV Lasix but this was held. Chest CT showing bibasilar consolidation. Abx started for PNA. Continue BiPAP at night with sleep and with naps. Pulmonary following and appreciate their input. Wean O2 as tolerated. Insurance denied SNF and this has been appealed. Family aware that if SNF denied again, then will need to private pay. insurance authorization was later received and was transferred to the facility for rehabilitation (2) Pneumonia: Code(s): J18.9 - Pneumonia, unspecified organism Status: Acute Assessment and Plan: CT chest performed 02/09 showing RML/RLL consolidation. Cultures obtained and abx started. WBC was elevated but essentially normal now. Being treated for aspiration. Patient had a recent speech evaluation and Speech therapy is following. MRSA nasal swab negative so Vancomycin stopped. Sputum showing growth scant yeast. UCx negative. BCx positive (1of2) with clostridium clostridioforme that is beta-lactamase negative. Continue CPT. patient started on zosyn. Switched to Augmentin complete 2 weeks course of antibiotics Follow-up with Pulmonary as an outpatient basis (3) ROSALIO (acute kidney injury): Code(s): N17.9 - Acute kidney failure, unspecified Status: Acute Assessment and Plan: Cr jumped to 2.0. Suspect ATN from his soft BP and cardiac dysrhythmias. No contrast exposure. Consider AIN from the abx. UA noted from 02/09. Urine eos negative. Ben 38 with FENa 0.4%. Renal US showing no acute process. Treated with IV fluids but without much benefit. UOP 450 yesterday but Cr better at 1.8. Cumulative I/O +2.8L. Continue to monitor. this is resolved in the hospital stay (4) Sinus pause: Code(s): I45.5 - Other specified heart block Status: Acute Assessment and Plan: Cardiac pauses up to 6 sec. [place] related to the metoprolol and suspect sick sinus syndrome. These did occur with patient on the BiPAP. Metoprolol was stopped. Flomax and Elavil can cause arrhythmias so these were stopped as well. Cardiology consulted and appreciate their input. Cardiac pauses have essentially resolved. He has metoprolol prn. Replace potassium again. He has intermittent AFib with RVR during the day. added metoprolol tartrate 12.5 mg daily in morning with hold parameters (5) Acute exacerbation of CHF (congestive heart failure): Code(s): I50.9 - Heart failure, unspecified Status: Acute Assessment and Plan: Acute on chronic diastolic CHF. Echo in November 2021 with EF 65-70% and abnormal diastolic dysfunction. Was on IV lasix but held due to HoTN. On Spironolactone but not Lasix at home. Weight is down and leg swelling has resolved. Looks well compensated clinically. Continue to follow. (6) Hypotension: Code(s): I95.9 - Hypotension, unspecified Status: Acute Assessment and Plan: BP much better controlled. Blood pressure medications remain on hold. Tachycardia has improved. Follow (7) Paroxysmal atrial fibrillation: Code(s): I48.0 - Paroxysmal atrial fibrillation Status: Acute Assessment and Plan: HR better controlled. Metoprolol available as needed. Continue anticoagulation with apixaban. As above. Place on metoprolol tartrate 12.5 mg scheduled in the morning (8) BPH NOS w ur obs/LUTS: Code(s): N40.1 - Benign prostatic hyperplasia with lower urinary tract sym
== END 2022-02-19 19:15 | DRG 291 ==
LOC: ANHED 06:21 → ANHIMU 06:54 → ANH2MED 02-14 21:50
PROVIDERS: Internal Medicine; Internal Medicine Pulmonary Disease; Admitting Provider Internal Medicine; Emergency Provider Emergency Medicine; PCP Family Medicine; Visit Provider Internal Medicine
DX: I11.0 Hypertensive heart disease with heart failure (principal); I50.33 Acute on chronic diastolic (congestive) heart failure; J96.21 Acute and chronic respiratory failure with hypoxia; J96.02 Acute respiratory failure with hypercapnia; J18.9 Pneumonia, unspecified organism; N17.0 Acute kidney failure with tubular necrosis; J69.0 Pneumonitis due to inhalation of food and vomit; J44.0 Chronic obstructive pulmonary disease with (acute) lower respiratory infection; I48.92 Unspecified atrial flutter; Z20.822 Contact with and (suspected) exposure to COVID-19; Z86.73 Personal history of transient ischemic attack (TIA), and cerebral infarction without residual deficits; Z99.81 Dependence on supplemental oxygen; I25.10 Atherosclerotic heart disease of native coronary artery without angina pectoris; Z95.5 Presence of coronary angioplasty implant and graft; E78.2 Mixed hyperlipidemia; I48.0 Paroxysmal atrial fibrillation; I27.20 Pulmonary hypertension, unspecified; Z87.891 Personal history of nicotine dependence; F10.10 Alcohol abuse, uncomplicated; Y90.9 Presence of alcohol in blood, level not specified; N40.1 Benign prostatic hyperplasia with lower urinary tract symptoms; R33.8 Other retention of urine; I95.9 Hypotension, unspecified; I45.5 Other specified heart block; J98.6 Disorders of diaphragm; D64.9 Anemia, unspecified; R13.10 Dysphagia, unspecified; I49.5 Sick sinus syndrome
CPT/HCPCS: 36415; 36600; 71045; 71046; 71250; 76775; 80048; 80053; 80069; 80202; 81001; 82375; 82550; 82570; 82607; 82746; 82805; 82948; 83050; 83735; 83880; 84100; 84300; 84484; 85014; 85018; 85025; 85610; 85730; 85999; 86140; 86160; 87040; 87070; 87076; 87081; 87086; 87185; 87205; 87426; 92526; 92610; 92611; 93005; 94002; 94003; 94640; 94667; 94668; 94762; 96374; 96376; 97110; 97116; 97162; 97164; 97165; 97530; 97535; 99285; A9270; C9803; G0378; J1940; J2543; J3370; J3475; J7030; J7050

== ENCOUNTER 2022-06-02 19:20 | Inpatient (IN) | payer MEDICARE, SELFPAY ==
[2022-06-02] VITALS (17 sets, daily range): BP systolic 115–135; BP diastolic 53–106; PULSE 76–109; RESP 16–29; TEMP 36–36.6; O2SAT 73–93; BMI 30.7
--- NOTE | ~2022-06-02 | CT_ITS ---
EXAMINATION: CT cervical spine wo con DATE: 06/02/2022 20:07 INDICATION: Fall with head injury TECHNIQUE: Computed tomography (CT) of the cervical spine was performed without intravenous contrast. Automated exposure control and iterative reconstruction technique were employed. The dose-length pro duct was 449.69 mGy-cm. COMPARISON: None FINDINGS: Alignment is normal. Severe osteoarthritis at the atlantoaxial articulation with small amount surroun ding calcified pannus. Vertebral body heights are normal. No fracture. Moderate disc height loss at C 2-C3 and C3-C4. Mild disc height loss at C4-C5. Anterior endplate osteophytes throughout the cervical spine. Multilevel moderate to severe uncovertebral osteoarthritis with prominent bilaterally at and C2-C3 and C3-C4 and on the right at C5-C6. Multilevel mild to moderate bilateral cervical facet osteo arthritis. Together this contributes to neural foraminal stenosis, mild to moderate severity at the p revious noted is most severe uncovertebral osteoarthritis and mild at many of the remaining neural fo ramina. Posterior disc osteophyte complex resulting in mild to moderate central canal stenosis at C3- C4. Additional mild central canal stenosis related to small disc bulges at C2-C3, C4-C5 and C5-C6. [place] bcutaneous lipoma measuring 3.9 x 3.0 x 2.7 cm posterior and slightly to the left of the spinous proc esses of C4-C7. Small amount of atherosclerotic calcific location at the bilateral carotid bifurcatio ns. Cervical soft tissues are otherwise unremarkable. Crazy paving pattern with groundglass opacities and smooth septal line thickening at the bilateral apices consistent with pulmonary edema. Small ple ural effusion evident at the posterior right apex. IMPRESSION: 1. Moderate cervical spondylosis. No acute osseous abnormality. 2. Moderate pulmonary edema at the visualized apices of lungs with at least small right pleural effus ion. Reviewed, dictated and finalized at location A. IMPRESSION: 1. Moderate cervical spondylosis. No acute osseous abnormality. 2. Moderate pulmonary edema at the visualized apices of lungs with at least sma ll right pleural effusion.
--- NOTE | ~2022-06-02 | NM_ITS ---
EXAMINATION: NM pulmonary perfusion DATE: 06/04/2022 10:55 INDICATION: Acute on chronic respiratory failure with hypoxia TECHNIQUE: 6.0 mCi Tc-99m MAA by intravenous route. Scintigraphic images of the chest were obtained. COMPARISON: Chest radiograph dated 06/04/2022 FINDINGS: Decreased left lung volume with elevation the left hemidiaphragm. Large relatively well-defined thick oblique band of absent perfusion extending along the course of the major fissure suggesting the pres ence of a right pleural effusion which is also suggested by the opacities on the prior radiograph. Ad ditional thinner and more subtle horizontal band of decreased perfusion extending across the more ant erior right lower lung zone potentially additional fluid along the minor fissure. Similar moderate-si zed oblique bandlike perfusion defect extending along the course of the left major fissure. Relativel y homogeneous mild decreased perfusion in the bilateral lower lobes of which. Decrease in size powder mixer ior to the major fissures. IMPRESSION: 1. Intermediate probability for pulmonary embolism. Reviewed, dictated and finalized at location A.
--- NOTE | ~2022-06-02 | US_ITS ---
EXAMINATION: US venous doppler [facility] DATE: 06/04/2022 09:44 INDICATION: Shortness of breath TECHNIQUE: Zimmerman scale images without and with compression and Doppler images of the bilateral lower e xtremity veins were obtained. COMPARISON: None FINDINGS: The right common femoral vein, profunda femoral vein, femoral vein, popliteal vein, peroneal trunk, p osterior tibial veins, and greater saphenous vein are patent. The left common femoral vein, profunda femoral vein, femoral vein, popliteal vein, peroneal trunk, po sterior tibial veins, and greater saphenous vein are patent. IMPRESSION: 1. Patent bilateral lower extremity veins. No evidence of deep venous thrombosis. Reviewed, dictated and finalized at location A. IMPRESSION: 1. Patent bilateral lower extremity veins. No evidence of deep venous thrombosi s.
--- NOTE | ~2022-06-02 | US_ITS ---
EXAMINATION: US venous doppler [facility] DATE: 06/04/2022 09:44 INDICATION: Acute chronic respiratory failure with hypoxia. TECHNIQUE: Grayscale images without and with compression and Doppler images of the bilateral upper ex tremity veins were obtained. COMPARISON: None. FINDINGS: The right internal jugular vein, subclavian vein, axillary vein, brachial vein, basilic vein, cephali c vein, radial vein, and ulnar vein are patent. The left internal jugular vein, subclavian vein, axillary vein, brachial vein, basilic vein, cephalic vein, radial vein, and ulnar vein are patent. IMPRESSION: 1. Patent bilateral upper extremity veins. No evidence of venous thrombosis. Reviewed, dictated and finalized at location A.
--- NOTE | ~2022-06-02 | CT_ITS ---
EXAMINATION: CT brain wo con DATE: 06/06/2022 02:01 INDICATION: Neurologic changes TECHNIQUE: Computed tomography (CT) of the head was performed without intravenous contrast. Sagittal and coronal reconstructions were performed. The mA was adjusted according to patient size. Iterative reconstruction technique was employed. The dose-length product was 681.00 mGy-cm. COMPARISON: head CT dated 06/02/22 FINDINGS: Large subdural hematoma overlying the left cerebral convexity measuring up to 2 cm in thickness and r esulting in up to 1.6 cm [id number] midline shift with subfalcine and uncal herniation. In additio n there is subarachnoid hemorrhage in the suprasellar cistern, intraparenchymal hemorrhage in the agnieszka s with intraventricular extension in the fourth ventricle. Effacement of the third and fourth ventric les and partial effacement of the left lateral ventricle. Increase in size of the right lateral ventr icle consistent with entrapment. Loss of stovall-white matter differentiation in the left cerebral hemis phere suspicious for infarct. Changes of bilateral intraocular lens replacement. No calvarial fractur e. IMPRESSION: 1. Intracranial hemorrhage with large left subdural hematoma, intraparenchymal hemorrhage at the imelda with intraventricular extension to the fourth ventricle and small amount of subarachnoid hemorrhage in the suprasellar cisterns. Secondary subfalcine and left uncal herniation. Reviewed, dictated and finalized at location A. IMPRESSION: 1. Intracranial hemorrhage with large left subdural hematoma, intraparenchymal hemorrhage at the imelda with intraventricular extension to the fourth ventricle and small amount of subarachnoid hemorrhage in the suprasellar cisterns. Second john subfalcine and left uncal herniation.
--- NOTE | ~2022-06-02 | XR_ITS ---
EXAMINATION: XR chest 1V portable Exam Date/Time: 06/05/2022 16:37 CDT HISTORY: worsening respiratory failure;hx of HTN, CVA, prev smoker Comparison: 06/04/2022. RESULT: Lines, tubes, and devices: None. Lungs and pleura: Persistent severely decreased lung volumes. Stable diffuse bilateral reticular amelie undglass opacities. Slightly improved bibasilar aeration. Cardiomediastinal silhouette: Stable. Other: No acute osseous or upper abdominal finding. Gas distended stomach. IMPRESSION: Slightly improved bibasilar aeration, otherwise stable pulmonary opacities which most likely represen t edema, pneumonia, or a combination. Reviewed, dictated and finalized at location K. IMPRESSION: Slightly improved bibasilar aeration, otherwise stable pulmonary opacities whic h most likely represent edema, pneumonia, or a combination.
--- NOTE | ~2022-06-02 | XR_ITS ---
EXAMINATION: XR pelvis 1-2V DATE: 06/02/2022 20:00 INDICATION: Fall TECHNIQUE: An anteroposterior view of the pelvis was obtained. COMPARISON: CT abdomen and pelvis dated 01/24/2022 FINDINGS: Bone alignment is normal. No fracture. Moderate lower lumbar spondylosis. Mild osteoarthritis at the bilateral hip and sacroiliac joints. IMPRESSION: 1. No acute osseous abnormality. Reviewed, dictated and finalized at location A.
--- NOTE | ~2022-06-02 | XR_ITS ---
EXAM: XR abdomen NG/feed tube insert DATE: 06/05/2022 18:40 HISTORY: og insertion . COMPARISON: None available. FINDINGS: New NG tube, tip projecting over the stomach, side port likely just distal to the GE junct ion. The tip of endotracheal tube is incidentally noted in the midthoracic trachea Persistent gastric distention. Low lung volumes with bilateral reticular opacities, unchanged. IMPRESSION: NG tube, likely in good position. However, there is persistent gastric distention. Correl ate with tube function. Reviewed, dictated and finalized at location K. IMPRESSION: NG tube, likely in good position. However, there is persistent cherelle marv distention. Correlate with tube function.
--- NOTE | ~2022-06-02 | XR_ITS ---
EXAMINATION: XR chest 1V DATE: 06/02/2022 20:00 INDICATION: Fall TECHNIQUE: frontal view of the chest was obtained. COMPARISON: Chest radiograph dated 02/18/2022 FINDINGS: Unchanged elevation the left hemidiaphragm. Increasing interstitial and airspace opacities throughout both lungs. Small right pleural effusion likely along the major fissure at the costophrenic angle. N o pneumothorax. Cardiomegaly. Right coronary artery stenting. Mild thoracic with bridging osteophytes at multiple levels consistent with diffuse idiopathic skeletal hyperostosis (DISH). IMPRESSION: 1. Worsening diffuse bilateral lung disease most likely congestive heart failure related mild to mode rate pulmonary edema with differential including pneumonia. 2. Cardiomegaly. 3. Small right pleural effusion. Reviewed, dictated and finalized at location A. IMPRESSION: 1. Worsening diffuse bilateral lung disease most likely congestive heart failur e related mild to moderate pulmonary edema with differential including pneumoni a. 2. Cardiomegaly. 3. Small right pleural effusion.
--- NOTE | ~2022-06-02 | CT_ITS ---
EXAMINATION: CT brain wo con DATE: 06/02/2022 20:04 INDICATION: Anticoagulated patient post fall TECHNIQUE: Computed tomography (CT) of the head was performed without intravenous contrast. Sagittal and coronal reconstructions were performed. The mA was adjusted according to patient size. Iterative reconstruction technique was employed. The dose-length product was 605.33 mGy-cm. COMPARISON: head CT dated 11/26/21 FINDINGS: Right parietal scalp hematoma. No fracture. No acute intracranial hemorrhage, acute infarction or abn ormal extra axial fluid collection. Small old lacunar infarct at the right lentiform nucleus. There i s mild to moderate scattered white matter hypoattenuation consistent with chronic small vessel ischem ic disease. Symmetric prominence of the sulci consistent with mild to moderate age-appropriate diffus e cerebral volume loss. Ventricles are normal and symmetric. No mass/mass effect. Changes of bilater al intraocular lens replacement. The orbits, paranasal sinuses and mastoid air cells are normal. IMPRESSION: 1. Small right parietal scalp hematoma. No fracture or acute intracranial process. 2. Small old lacunar infarct at the right lentiform nucleus. 3. Age-related changes including mild to moderate diffuse volume loss and mild to moderate scattered white matter hypoattenuation. Reviewed, dictated and finalized at location A. IMPRESSION: 1. Small right parietal scalp hematoma. No fracture or acute intracranial proce ss. 2. Small old lacunar infarct at the right lentiform nucleus. 3. Age-related changes including mild to moderate diffuse volume loss and mild to moderate scattered white matter hypoattenuation.
--- NOTE | ~2022-06-02 | XR_ITS ---
XR chest 1V 06/04/2022 10:55 Indication: Shortness of breath Procedure: AP view of the chest Comparison: Comparison to multiple prior studies sequentially, with oldest reviewed study dated 12/2021. Findings: There is diffuse bilateral airspace disease which may represent edema and/or pneumonia. Low lung volumes. Probable small effusions. No pneumothorax. Impression: 1: Diffuse bilateral airspace disease may represent edema or pneumonia. Reviewed, dictated and finalized at location B. Impression: 1: Diffuse bilateral airspace disease may represent edema or pneumonia.
--- NOTE | ~2022-06-02 | XR_ITS ---
EXAMINATION: XR chest ET placement Exam Date/Time: 06/05/2022 18:35 CDT HISTORY: intubation; ET tube placement Comparison: Same date at 4:41 PM. RESULT: Lines, tubes, and devices: Endotracheal tube terminating in the mid thoracic trachea. NG tube, side port at the GE junction, tip not in the [id number]. Lungs and pleura: Stable pulmonary opacities. Cardiomediastinal silhouette: Stable. Other: No acute osseous finding. Worsening gastric distention. IMPRESSION: Endotracheal tube, in good position. Incompletely visualized NG tube. Worsening gastric distention. Reviewed, dictated and finalized at location K.
--- NOTE | 2022-06-02 19:45 | ECG_ITS ---
Measurements Intervals [place] Rate: 79 P: 112 MO: 135 QRS: 39 QRSD: 157 T: 120 QT: 335 QTc: 386 Interpretive Statements SINUS RHYTHM ATRIAL PREMATURE COMPLEXES RIGHT BUNDLE BRANCH BLOCK BASELINE ARTIFACT- I, II, III, AVR, AVF, V1-V2 ABNORMAL ECG COMPARED TO ECG 02/10/2022 16:22:49 SINUS RHYTHM NOW PRESENT RIGHT BUNDLE-BRANCH BLOCK NOW PRESENT Electronically Signed On 06-03-2022 6:35:27 CDT by Santiago Machado D.O.
--- NOTE | 2022-06-02 19:51 | PC.NURSE ---
Called and left message for RN at [facility] to see about pts 02 sats
--- NOTE | 2022-06-02 19:57 | PC.NURSE ---
Called and spoke with Mj at [facility] reports sats 85-92% O2 4-5 liters. Unable to reports sats of 83% on paperwork sent to ED.
--- NOTE | 2022-06-02 20:13 | PC.NURSE ---
O2 increased to 6 liters via nasal cannula and 02 sats 81%
--- NOTE | 2022-06-02 20:17 | PC.NURSE ---
Nonrebreather placed on pt and RT called. O2 sats 92% with good waveform on non rebreather
[2022-06-02 20:32] LABS: Basophils Absolute Auto 0.1 K/mm3 (0.0-0.1); Basophils Percent Auto 0.9 % (0.2-1.2); Eosinophils Absolute Auto 0.2 K/mm3 (0-0.3); Hemoglobin 10.8 g/dL (14.0-18.0); Immature Granulocyte Absolute 0.03 K/mm3 (0.00-0.031); Immature Granulocyte Percent A 0.4 % (0-0.5); Lymphocytes Absolute Auto 0.66 K/mm3 (0.9-3.2); Lymphocytes Percent Auto 7.8 % (18.3-44.2); Mean Corpuscular HGB Conc 29.2 g/dl (32-36); Mean Corpuscular Hemoglobin 26.8 pg (26-34); Mean Corpuscular Volume 91.8 fl (80-100); Mean Platelet Volume 9.8 fl (7.4-10.4); Monocytes Percent Auto 11.4 % (2.6-8.5); Neutrophils Absolute Auto 6.6 K/mm3 (1.3-6.7); Neutrophils Percent Auto 77.5 % (45.5-73.1); Platelet Count Result 388 k/mm3 (150-375); Red Blood Count 4.03 M/mm3 (4.6-6.20); Red Cell Distribution Width 16.5 % (11.5-14.5); White Blood Count 8.5 K/mm3 (4.5-10.0)
[2022-06-02 20:46] LABS: INR 1.8; Prothrombin Time 20.1 Seconds (11.1-14.7)
[2022-06-02 20:47] LABS: Anion Gap 12 mmol/L (8-16); Blood Urea Nitrogen 25 mg/dL (9-20); Calcium 9.2 mg/dL (8.4-10.2); Carbon Dioxide 35 mmol/L (22-30); Chloride 95 mmol/L (98-107); Estimated CRCL calculation 54 ml/min; Estimated Glomerular Filt Rate > 60; Glucose 112 mg/dL (65-110); Hypochromasia 1+ (NORMAL); Magnesium 1.8 mg/dL (1.6-2.3); Ovalocytes 1+ (NORMAL); Partial Thromboplastin Time 41.2 SECONDS (22.3-36.8); Platelet Estimate Increased (Adequate); Potassium 3.1 mmol/L (3.4-5.0); Schistocytes None Seen (NORMAL); Sodium 142 mmol/L (137-145); Stomatocytes 1+ (NORMAL)
--- NOTE | 2022-06-02 20:52 | ED.GENADULT ---
HPI - General Adult General Chief complaint: Fall Stated complaint: FALL History of Present Illness HPI narrative: This is a 76-year-old retirement patient with a history of chronic hypoxic respiratory failure presenting ED after a fall. Patient is using his bed headache get up to go to the bathroom. Usually he takes his time and stands up slowly but he rushed this time. He then lost his balance and fell. Patient struck his headThe patient is on Eliquis for paroxysmal a flutter. he denies headache, numbness tingling weakness in extremity. He is A&O x4. the patient denies respiratory distress although his pulse ox is in the high 70s on his home O2 of 4L. Typically the patient is on 4 L of oxygen and sats between 83-85%. The patient denies respiratory distress outside of his baseline. He denies chest pain, difficulty breathing, fever, chills or productive cough. Patient has edema of the lower extremities. Related Data Home Medications Medication Instructions Recorded Confirmed multivitamin 1 tablet PO DAILY 08/21/20 02/03/22 melatonin 10 mg tablet 10 mg PO QHS PRN Insomnia 04/22/21 02/03/22 atorvastatin 20 mg tablet (Lipitor) 20 mg PO DAILY 07/23/21 02/03/22 fluticasone fur. 100 mcg-umeclid 1 inh inhalation DAILY 01/24/22 02/03/22 62.5 mcg-vilant 25 mcg inhalat.powder (Trelegy Ellipta) nystatin 100,000 unit/gram topical 1 applic topical Q12H 01/24/22 02/03/22 powder (Nystop) ipratropium 0.5 mg-albuterol 3 mg 3 ml inhalation QID 02/03/22 02/03/22 (2.5 mg base)/3 mL nebulization soln Allergies Allergy/AdvReac Type Severity Reaction Status Date / Time gadobenic acid Allergy Severe RASH, Verified 03/10/22 11:35 [From contrast - MRI] DIFFICULTY BREATHING, SHAKING Iodinated Contrast Media Allergy Severe RASH, Verified 03/10/22 11:35 DIFFICULTY BREATHING, SHAKING iodine Allergy Severe RASH, Verified 03/10/22 11:35 DIFFICULTY BREATHING, SHAKING iohexol Allergy Severe RASH, Verified 03/10/22 11:35 [From contrast - CT, X-RAY] DIFFICULTY BREATHING, SHAKING Review of Systems Review of Systems: CONSTITUTIONAL: Denies night sweats. EYES: No eye pain ENT: Denies rhinorrhea CARDIOVASCULAR: Denies palpitations RESPIRATORY: Denies hemoptysis GASTROINTESTINAL: Denies hematemesis GENITOURINARY: Denies hematuria. SKIN: Denies rash MUSCULOSKELETAL: Denies myalgia. NEUROLOGIC: Denies weakness. PSYCHIATRIC: Denies delusions PMFSH Past Medical History Medical History Alcohol abuse Alcohol withdrawal seizure 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 Anxiety Cerebrovascular accident (03/31/17) Chronic obstructive pulmonary disease Chronic respiratory failure with hypoxia, on home oxygen therapy 3 L nasal cannula. Coronary artery disease Status post drug-eluting stent to RCA and left circumflex. Diastolic congestive heart failure 11/2021 echo: Abnormal diastolic dysfunction and normal LV systolic function with an EF of 65 to 70%. Diverticulosis Hiatal hernia Hypertension Iron deficiency anemia Mixed hyperlipidemia Moderate pulmonary hypertension Paroxysmal atrial fibrillation Restrictive lung disease Tobacco abuse Surgical History Surgical History History of cardiac catheterization History of cataract extraction History of colonoscopy with polypectomy (07/2021) History of coronary artery stent placement (11/2020) Drug-eluting stents to distal RCA and mid circumflex. History of esophagogastroduodenoscopy (07/2021) Gastritis. History of open reduction and internal fixation (ORIF) procedure Repair right ankle fracture. History of percutaneous endoscopic gastrostomy History of tonsillectomy Family History Family History Father Ba
[2022-06-02 20:55] LABS: NT Pro B Type Natriuretic Pept 4550 pg/mL (5-100)
[2022-06-02 21:01] LABS: Troponin I 0.075 ng/mL (0.000-0.034)
[2022-06-02] MEDS: FUROSEMIDE INJ 40 MG/4 ML VIAL IV PUSH (21:02)
--- NOTE | 2022-06-02 21:09 | PC.NURSE ---
[facility] here.
--- NOTE | 2022-06-02 21:25 | PM.IMHP ---
H&P: HPI History of Present Illness Date/Time: 06/02/22 21:25 Chief Complaint: Fall Narrative: This is a 76-year-old male with past medical history significant for chronic hypoxic respiratory failure on 4 L of oxygen supplemental [facility] resides at [facility], Congestive heart failure, atrial fibrillation rate controlled anticoagulated, COPD/emphysema, alcohol dependence, coronary artery disease, hypertension: Restrictive lung disease. Patient was brought to the emergency room for evaluation after he had a fall according to patient he got up from bed to use the bathroom when he fell lobe there was no loss of consciousness he did strike his head. At the time of my visit patient denied any discomfort however did complain about shortness of breath he has worsening bilateral lower extremity edema for the last several days or so denied any chest pain, cough, sputum production, no nausea, no vomiting, no diarrhea no abdominal pain, no fevers, no rigors, no chills. in emergency room patient required high-flow oxygen to keep saturations at 93%. Preliminary workup was significant for brain atretic peptide 4550, troponins x2 0.075/0.081, hemoglobin 10.8 hematocrit 37 MCV 91 creatinine 1.1, sodium 142 chloride 95 bicarb 35 potassium 3.1. a chest x-ray was reported as: IMPRESSION: 1. Worsening diffuse bilateral lung disease most likely congestive heart failure related mild to moderate pulmonary edema with differential including pneumonia. 2. Cardiomegaly. 3. Small right pleural effusion. CT of the head were supported as: IMPRESSION: 1. Small right parietal scalp hematoma. No fracture or acute intracranial process. 2. Small old lacunar infarct at the right lentiform nucleus. 3. Age-related changes including mild to moderate diffuse volume loss and mild to moderate scattered white matter hypoattenuation. pelvis x-ray was reported as: IMPRESSION: 1. No acute osseous abnormality. cervical spine and CT was reported as: IMPRESSION: 1. Moderate cervical spondylosis. No acute osseous abnormality. 2. Moderate pulmonary edema at the visualized apices of lungs with at least small right pleural effusion. Review of Systems Review of Systems: ROS unobtainable: Yes unobtainable due to medical condition ( obtundation, lethargy, respiratory distress) PMFSH Past Medical History Medical History Alcohol abuse Alcohol withdrawal seizure 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 Anxiety Cerebrovascular accident (03/31/17) Chronic obstructive pulmonary disease Chronic respiratory failure with hypoxia, on home oxygen therapy 3 L nasal cannula. Coronary artery disease Status post drug-eluting stent to RCA and left circumflex. Diastolic congestive heart failure 11/2021 echo: Abnormal diastolic dysfunction and normal LV systolic function with an EF of 65 to 70%. Diverticulosis Hiatal hernia Hypertension Iron deficiency anemia Mixed hyperlipidemia Moderate pulmonary hypertension Paroxysmal atrial fibrillation Restrictive lung disease Tobacco abuse Surgical History Surgical History History of cardiac catheterization History of cataract extraction History of colonoscopy with polypectomy (07/2021) History of coronary artery stent placement (11/2020) Drug-eluting stents to distal RCA and mid circumflex. History of esophagogastroduodenoscopy (07/2021) Gastritis. History of open reduction and internal fixation (ORIF) procedure Repair right ankle fracture. History of percutaneous endoscopic gastrostomy History of tonsillectomy Family History Family History Father Back pain, chronic Cataract Cerebrovascular accident Mother Arthritis Migraines Cataract Sibling No problems noted. Sibling
[2022-06-02] MEDS: POTASSIUM CHLORIDE 20 MEQ TABLET 40 MEQ PO (21:30)
[2022-06-02 22:09] LABS: Appearance Urine Clear (Clear); Bilirubin Urine Negative (Negative); Blood Urine Negative (Negative); Color Urine Yellow (Yellow); Glucose Urine UA Negative (Negative); Ketones Urine Negative (Negative); Leukocyte Esterase Ur Negative LEU/UL (Negative); Nitrate Urine Negative (Negative); Protein Urine Negative (Negative); Specific Grav Ur 1.015 (1.001-1.035)
[2022-06-02 22:12] LABS: Add Urine Microscopic? NO
--- NOTE | 2022-06-02 23:12 | ADMGEN ---
This patient, Prabhakar Godwin, was admitted to IMU Room 214-01 06/02/22 at 2250. Patient/family oriented to hospital policies and general routines including ID bracelet, bed and alarms, visiting hours, pain management, procedures, bathroom and other care routines, personal items, smoking policy, room service/diet, and visiting hours. Information on how to activate the Rapid Response Team has been discussed. Patient/Family are encouraged to report perceived risks to care and to ask questions if they do not understand what they are told or what they should do.
[2022-06-02 23:51] LABS: Troponin I 0.081 ng/mL (0.000-0.034)
[2022-06-03] VITALS (38 sets, daily range): BP systolic 107–126; BP diastolic 56–74; PULSE 70–117; RESP 24–55; TEMP 36.2–36.7; O2SAT 83–100; BMI 30.7
--- NOTE | 2022-06-03 | ECHO_ITS ---
Patient Info Name: Prabhakar Godwin Age: 76 years : 1945 Gender: Male Ht: 70 in Wt: 213 lbs BSA: 2.21 m2 HR: 85 bpm BP: 125 / 74 mmHg Heart Rhythm: Atrial Fibrillation Technical Quality: Poor Exam Date: 06/03/2022 11:54 AM Exam Location: [facility] Pulmonary Exam Room: 214 Patient Status: Inpatient Admit Date: 06/02/2022 Staff Ordering Physician: Lorenzo Acharya MD Chemical Packager: Bety Petty RDCS Attending Provider: Lorenzo Acharya MD Referring Physician: Patrizia SONG; Exam Type: CA echo dop color flow w con Study Info Indications - decompensated chf Complete two-dimensional, color flow and Doppler transthoracic echocardiogram is performed with contrast to opacify the left ventricle and to improve the deliniation of the left ventricle endocardial borders. Contrast/Agitated Saline Contrast/Ag. Saline: Definity Amount: 2.00 ml Administered By: Bety Petty [facility] Existing IV Access: Yes IV Access Condition: patent with no signs of infiltration Reason for Poor Study: patient body habitus Summary 1. Left ventricular systolic function is hyperdynamic, estimated at >70%. 2. Left atrial chamber dimension is moderately enlarged. 3. No significant valvular disease. Left Ventricle Left ventricular systolic function is hyperdynamic, estimated at >70%. The left ventricular diastolic function is abnormal. Right Ventricle Right ventricular chamber dimension is normal. Right ventricular systolic function is normal. Left Atria Left atrial chamber dimension is moderately enlarged. Right Atria Right atrial chamber dimension is normal. Atrial Septum Intact interatrial septum visualized by color flow imaging. Aortic Valve The aortic valve is not well visualized. There is no aortic valve stenosis. There is trace aortic valve regurgitation. Pulmonic Valve The pulmonic valve is not well visualized. Mitral Valve The mitral valve has not well visualized. There is no mitral valve stenosis. There is no mitral valve regurgitation. Tricuspid Valve The tricuspid valve leaflets are not well visualized. There is no significant tricuspid valve stenosis. There is trace tricuspid valve regurgitation. Pericardium/Pleural There is no pericardial effusion. Inferior Vena Cava Normal inferior vena cava with >50% collapse upon inspiration consistent with Empty right atrial pressure, Empty. Aorta The aortic root size at the sinus of Valsalva is normal. Left Ventricular Outflow Tract Name Value Normal LVOT 2D LVOT Diameter 2.11 cm LVOT Doppler LVOT Peak Gradient 6 mmHg LVOT Mean Gradient 3 mmHg LVOT VTI 21.05 cm LVOT VTI/AV VTI Ratio 0.73 LVOT Stroke Volume 73.73 ml LVOT CO 17.35 l/min LVOT CI 7.85 L/min/m2 Pulmonic Valve Name
[2022-06-03] MEDS: SERTRALINE HCL 25 MG TABLET PO ×2 (00:26→21:56)
[2022-06-03] MEDS: methylPREDNISolone SOD SUCC 125 MG VIAL IV PUSH ×2 (00:26→09:28)
[2022-06-03] MEDS: APIXABAN 5 MG TABLET PO ×2 (00:26→21:56)
[2022-06-03 00:51] LABS: Alveolar/Arterial O2 Gradient 546.3 mmHg; Base Excess ABG 9.3 mEq/l (+/-2.0); Carboxyhemoglobin 0.1 % THb (0-2.0); Fractional Inspired Oxygen 100 %; Methemoglobin ABG 0.4 %THb (0-1.5); Oxyhemoglobin 92.8 % THb (90.0-100.0); PO2 ABG 81.8 mmHg (80.0-100.0); PO2 FiO2 Ratio Arterial Blood 0.82 %; Reduced Hemoglobin 6.7 %THb (0-5.0); Total Hemoglobin 12.2 g/dL (12.0-18.0)
[2022-06-03 00:53] LABS: Device NON-INVASIVE VENT; Modified Allen's Test Unable to perform; Non-Invasive Expiratory Pressure 5 CMH2O; Non-Invasive Inspiratory Pressure 12 CMH2O; Non-Invasive Vent Rate 18 /MIN; PCO2 ABG 84.9 mmHg (35.0-45.0); Site Drawn RIGHT BRACHIAL
[2022-06-03 01:50] LABS: Alveolar/Arterial O2 Gradient 315.4 mmHg; Base Excess ABG 6.2 mEq/l (+/-2.0); Carboxyhemoglobin 0.1 % THb (0-2.0); Fractional Inspired Oxygen 65 %; HCO3 ABG 35.2 mEq/l (22.0-26.0); Methemoglobin ABG 0.5 %THb (0-1.5); Oxygen Content ABG 14.9 %vol (16.0-22.0); Oxygen Saturation ABG 89.1 % (95.0-100.0); PO2 ABG 64.9 mmHg (80.0-100.0); Total Hemoglobin 12.1 g/dL (12.0-18.0)
[2022-06-03 01:51] LABS: pH ABG 7.281 (7.350-7.450)
[2022-06-03 01:52] LABS: Oxyhemoglobin 87.4 % THb (90.0-100.0); PCO2 ABG 76.5 mmHg (35.0-45.0)
[2022-06-03 01:53] LABS: Device NON-INVASIVE VENT; Modified Allen's Test Unable to perform; Non-Invasive Expiratory Pressure 5 CMH2O; Non-Invasive Inspiratory Pressure 12 CMH2O; Non-Invasive Vent Rate 18 /MIN; Site Drawn RIGHT BRACHIAL
[2022-06-03 03:25] LABS: Alveolar/Arterial O2 Gradient 342.7 mmHg; Base Excess ABG 5.7 mEq/l (+/-2.0); Carboxyhemoglobin 0.4 % THb (0-2.0); Fractional Inspired Oxygen 70 %; Methemoglobin ABG 0.4 %THb (0-1.5); Oxygen Content ABG 15.6 %vol (16.0-22.0); Oxygen Saturation ABG 91.8 % (95.0-100.0); Oxyhemoglobin 90.9 % THb (90.0-100.0); PO2 ABG 72.7 mmHg (80.0-100.0); PO2 FiO2 Ratio Arterial Blood 1.04 %; Reduced Hemoglobin 8.3 %THb (0-5.0); Total Hemoglobin 12.2 g/dL (12.0-18.0)
[2022-06-03 03:28] LABS: Device NON-INVASIVE VENT; Modified Allen's Test Unable to perform; Non-Invasive Expiratory Pressure 8 CMH2O; Non-Invasive Inspiratory Pressure 16 CMH2O; Non-Invasive Vent Rate 18 /MIN; PCO2 ABG 77.9 mmHg (35.0-45.0); Site Drawn RIGHT RADIAL
[2022-06-03] MEDS: IPRATROPIUM BR 0.02% INH SOLN 0.5 MG/2.5 ML VIAL INHALATION ×3 (04:12→19:50)
[2022-06-03] MEDS: ALBUTEROL SULFATE NEB 2.5 MG/3 ML INH INHALATION ×3 (04:12→19:50)
[2022-06-03 07:30] LABS: Alveolar/Arterial O2 Gradient 295.3 mmHg; Base Excess ABG 6.5 mEq/l (+/-2.0); Carboxyhemoglobin 0.3 % THb (0-2.0); Fractional Inspired Oxygen 70 %; Methemoglobin ABG 0.4 %THb (0-1.5); Oxygen Content ABG 16.6 %vol (16.0-22.0); Oxygen Saturation ABG 97.5 % (95.0-100.0); Oxyhemoglobin 96.5 % THb (90.0-100.0); PO2 ABG 116.4 mmHg (80.0-100.0); PO2 FiO2 Ratio Arterial Blood 1.66 %; Reduced Hemoglobin 2.8 %THb (0-5.0); Total Hemoglobin 12.1 g/dL (12.0-18.0)
[2022-06-03 07:33] LABS: pH ABG 7.264 (7.350-7.450)
[2022-06-03 07:34] LABS: Device NON-INVASIVE VENT; Modified Allen's Test Unable to perform; PCO2 ABG 81.3 mmHg (35.0-45.0); Site Drawn LEFT RADIAL
[2022-06-03 07:35] LABS: Non-Invasive Expiratory Pressure 8 CMH2O; Non-Invasive Inspiratory Pressure 16 CMH2O; Non-Invasive Vent Rate 18 /MIN
[2022-06-03 08:25] LABS: Basophils Percent Auto 0.4 % (0.2-1.2); Eosinophils Percent Auto 0.1 % (0-4.4); Hematocrit 38.3 % (42.0-52.0); Immature Granulocyte Absolute 0.05 K/mm3 (0.00-0.031); Immature Granulocyte Percent A 0.6 % (0-0.5); Lymphocytes Absolute Auto 0.32 K/mm3 (0.9-3.2); Lymphocytes Percent Auto 3.9 % (18.3-44.2); Mean Corpuscular HGB Conc 28.7 g/dl (32-36); Mean Corpuscular Hemoglobin 26.6 pg (26-34); Mean Corpuscular Volume 92.7 fl (80-100); Mean Platelet Volume 9.5 fl (7.4-10.4); Monocytes Absolute Auto 0.1 K/mm3 (0.1-0.6); Monocytes Percent Auto 1.3 % (2.6-8.5); Neutrophils Absolute Auto 7.6 K/mm3 (1.3-6.7); Neutrophils Percent Auto 93.7 % (45.5-73.1); Platelet Count Result 333 k/mm3 (150-375); Red Blood Count 4.13 M/mm3 (4.6-6.20); Red Cell Distribution Width 16.3 % (11.5-14.5); White Blood Count 8.2 K/mm3 (4.5-10.0)
[2022-06-03] MEDS: ALBUTEROL SULFATE NEB 2.5 MG/3 ML INH 15 MG INHALATION (08:25)
[2022-06-03 08:40] LABS: Alanine Aminotransferase 19 U/L (6-50); Albumin Level 3.2 g/dL (3.5-5.1); Alkaline Phosphatase 93 U/L (38-126); Anion Gap 10 mmol/L (8-16); Aspartate Amino Transferase 35 U/L (17-59); Bilirubin,Total 0.7 mg/dL (0.2-1.3); Blood Urea Nitrogen 24 mg/dL (9-20); Carbon Dioxide 34 mmol/L (22-30); Chloride 98 mmol/L (98-107); Estimated CRCL calculation 66 ml/min; Estimated Glomerular Filt Rate > 60; Glucose 130 mg/dL (65-110); Magnesium 1.9 mg/dL (1.6-2.3); Potassium 4.3 mmol/L (3.4-5.0); Sodium 142 mmol/L (137-145)
--- NOTE | 2022-06-03 08:54 | PM.CNCAR ---
Assessment and Plan Assessment and plan (1) Diastolic congestive heart failure: Code(s): I50.30 - Unspecified diastolic (congestive) heart failure Status: Acute Assessment and Plan: Acute on chronic diastolic heart failure Agree with IV diuresis. Continue furosemide 40mg IV b.i.d. for now. Respiratory support with BiPAP Daily BMP while diuresing. Renal function, electrolytes o.k. today Daily weight Strict I&O Low Na diet Will add SLGT 2 inhibitor to his medical regimen in the form of Jardiance 10mg daily. (2) Paroxysmal atrial flutter: Code(s): I48.92 - Unspecified atrial flutter Status: Acute Assessment and Plan: In atrial fibrillation at the time of my exam, rate controlled. Continue systemic a/c with apixaban Continue low dose metoprolol for rate control. Monitor closely for bradycardia, has hx of this and pauses (3) Acute and chronic respiratory failure: Code(s): J96.20 - Acute and chronic respiratory failure, unspecified whether with hypoxia or hypercapnia Status: Acute Assessment and Plan: Hypercapnic and hypoxemic respiratory failure secondary to CHF, COPD exacerbation. On BiPAP. Pulmonology following. History of Present Illness History of Present Illness Consult date/time: 06/03/22 08:54 Requesting physician: Lorenzo Acharya MD Consult reason: congestive heart failure Reason For Visit: CHF Narrative: Mr. Godwin is a 76-year-old male with a medical history significant for coronary artery disease (PCI to the RCA and circ in 2020), paroxysmal atrial fibrillation/flutter, CHF, chronic respiratory failure, and alcohol abuse. This is a patient who presented to the emergency department after sustaining a fall. According to his record he was complaining of some shortness of breath upon arrival and apparently his respiratory status worsened overnight to the point of requiring BiPAP. Initial ABG 7.27/77.9/72.7 on 70% FiO2. Chest XR with evidence of CHF. We are being asked to see him for CHF. At the time of my interview unable to obtain history from patient as he is on BiPAP and somnolent. He does open his eyes to stimulation but is not alert enough to answer questions or follow commands. Per RN this is not a change in his mental status. Above history obtained from medical record. Review of Systems Review of Systems: ROS unobtainable: Yes unobtainable due to mental status PMFSH Past Medical History Medical History Alcohol abuse Alcohol withdrawal seizure 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 Anxiety Cerebrovascular accident (03/31/17) Chronic obstructive pulmonary disease Chronic respiratory failure with hypoxia, on home oxygen therapy 3 L nasal cannula. Coronary artery disease Status post drug-eluting stent to RCA and left circumflex. Diastolic congestive heart failure 11/2021 echo: Abnormal diastolic dysfunction and normal LV systolic function with an EF of 65 to 70%. Diverticulosis Hiatal hernia Hypertension Iron deficiency anemia Mixed hyperlipidemia Moderate pulmonary hypertension Paroxysmal atrial fibrillation Restrictive lung disease Tobacco abuse Surgical History Surgical History History of cardiac catheterization History of cataract extraction History of colonoscopy with polypectomy (07/2021) History of coronary artery stent placement (11/2020) Drug-eluting stents to distal RCA and mid circumflex. History of esophagogastroduodenoscopy (07/2021) Gastritis. History of open reduction and internal fixation (ORIF) procedure Repair right ankle fracture. History of percutaneous endoscopic gastrostomy History of tonsillectomy Family History Family History Father Back pain, chronic Cataract Cerebrovascular ac
[2022-06-03 08:56] LABS: Troponin I 0.066 ng/mL (0.000-0.034)
[2022-06-03] MEDS: FUROSEMIDE INJ 40 MG/4 ML VIAL IV PUSH ×3 (08:57→16:44)
[2022-06-03 10:26] LABS: Alveolar/Arterial O2 Gradient 127.8 mmHg; Fractional Inspired Oxygen 40 %; HCO3 ABG 32.4 mEq/l (22.0-26.0); Oxygen Content ABG 16.3 %vol (16.0-22.0); Oxygen Saturation ABG 95.7 % (95.0-100.0); Oxyhemoglobin 94.5 % THb (90.0-100.0); PO2 ABG 86.3 mmHg (80.0-100.0); PO2 FiO2 Ratio Arterial Blood 2.16 %; Total Hemoglobin 12.2 g/dL (12.0-18.0); pH ABG 7.337 (7.350-7.450)
[2022-06-03 10:27] LABS: Device NON-INVASIVE VENT; PCO2 ABG 61.8 mmHg (35.0-45.0); Site Drawn LEFT RADIAL
[2022-06-03 10:28] LABS: Non-Invasive Expiratory Pressure 8 CMH2O; Non-Invasive Inspiratory Pressure 18 CMH2O; Non-Invasive Vent Rate 12 /MIN
[2022-06-03 10:58] LABS: Ethanol < 10 mg/dL (<10)
[2022-06-03] MEDS: PERFLUTREN LIPID MICROSPHERES 1.5 ML VIAL DILUTED TO 10 ML TOTAL VOLUME IV PUSH (11:30)
[2022-06-03 11:34] LABS: Barbiturate Screen Urine Negative (Negative); Benzodiazepines Screen Urine Negative (Negative)
[2022-06-03 11:40] LABS: Amphetamine Screen Urine Negative (Negative); Cannabinoid Screen Urine Negative (Negative); Cocaine Screen Urine Negative (Negative); Methadone Screen Urine Negative (Negative); Opiate Screen Urine Negative (Negative); Phencyclidine Screen Urine Negative (Negative)
--- NOTE | 2022-06-03 11:57 | PM.CNPUL ---
Assessment and Plan Assessment and plan (1) COPD with exacerbation: Code(s): J44.1 - Chronic obstructive pulmonary disease with (acute) exacerbation Status: Acute Assessment and Plan: 76-year-old man with a history of GOLD grade 2 group B COPD (100 PY, quit 2017) on 4 L nasal cannula and noninvasive ventilation with an AVAPS mode initiated last admission on 02/19/2022, chronically elevated left hemidiaphragm, On 11/17/2021 patient's FEV1 was 1.67 L, 55% predicted, FEV1: FVC ratio was 68%, there is no bronchodilator response, lung volumes were normal and a moderately decreased DLCO that normalized when corrected for alveolar volume. CT scan 02/09/2022 with moderate apical predominant centrilobular emphysema, echocardiogram 11/27/2021 with normal LV function with an EF of 65-70%, abnormal diastolic dysfunction, trace tricuspid regurg with a estimated PASP of 50. Patient is maintained on trelegy 100 inhaler. At baseline the patient states he can walk to the cafeteria with his wheeled walker on a good day. patient presents to the emergency room after a fall but tells me that yesterday he developed shortness of breath and wheezing with no fever, chills, change in phlegm production. Patient is on Eliquis for atrial fibrillation. Chest x-ray showed congestion, there is no leukocytosis and no fever. This may represent a COPD exacerbation. 06/03 At this time I will treat the patient with IV Solu-Medrol 40 q.6, albuterol 2.5 mg nebs q.4 hours, ipratropium 0.5 mg nebs Q 4 hours. I see no focal infiltrates on his chest x-ray. Patient is placed on Zosyn per the hospitalist team and I will continue this for now. Will follow with you. (2) Acute and chronic respiratory failure: Code(s): J96.20 - Acute and chronic respiratory failure, unspecified whether with hypoxia or hypercapnia Status: Acute Assessment and Plan: noninvasive ventilation with an AVAPS mode initiated last admission on 02/19/2022, on 02/04/2022 at the end of the night on his AVAPS rate of 14, tidal volume 500, EPAP 6, minimal inspiratory pressure 7, maximal inspiratory pressure 25, 30% FIO2 and his blood gas was 7.46/46/62. His overnight oximetry on 30% FiO2 demonstrated time of saturation less than or equal to 88% at 6 minutes. He was discharged on AVAPS-AE rate of 14, tidal volume 500, minimal EPAP 5, maximal EPAP 15, minimal inspiratory pressure 7, maximal inspiratory pressure 25, 3 L bleed in. Currently the patient presented with acute on chronic hypercarbic and hypoxemic respiratory failure with a pH of 7.28/85/82 on BiPAP 12/5 and 100% FiO2. This was after a fall with head trauma, possible COPD exacerbation and a chest x-ray with congestion and BNP 4550. He has improved overnight on BiPAP with a blood gas of 7.34/62/86. At this time I have placed him on settings that are similar to his home noninvasive ventilator settings. I am attempting to obtain a download to assess his compliance through [employer]. currently patient is stating that he is feeling better and breathing easier. I have talked to the nurse and he can wear the noninvasive ventilation on a p.r.n. basis during the day and should wear the noninvasive every night. History of Present Illness History of Present Illness Consult date: 06/03/22 Chief complaint: CHF Narrative: 76-year-old man with a history of GOLD grade 2 group B COPD (100 PY, quit 2016) on 4 L nasal cannula, chronically elevated left hemidiaphragm, and noninvasive ventilation with an AVAPS mode initiated last admission on 02/19/2022, on 02/04/2022 at the end of the night on his AVAPS rate of 14, tidal volume 500, EPAP 6, minimal inspiratory pressure 7, maximal inspiratory pressure 25, 30% FIO2 and his blood gas was 7.46/46/62. His overnight oximetry on 30% FiO2 demonstrated time of saturation less than or equal to 88% at 6 minutes. He was discharged on AVAPS-AE rate of 14, tidal volume 500, minimal EPAP 5,
[2022-06-03 11:58] LABS: SARS-CoV-2 RNA PCR Negative
--- NOTE | 2022-06-03 13:05 | PCNSR ---
On 06/03/22, the student, Nixon Davison, provided care and completed [facility] documentation on this patient. I have reviewed the student's documentation and agree with the findings.
--- NOTE | 2022-06-03 14:13 | PC.NURSE ---
On 06/03/22, the student, [Karen Parks], provided care and completed [facility] documentation on this patient. I have reviewed the student's documentation and agree with the findings.
--- NOTE | 2022-06-03 14:59 | PM.IMPN ---
Progress Note: A&P Assessment and Plan (1) Fall: Code(s): W19.XXXA - Unspecified fall, initial encounter Status: Acute Assessment and Plan: patient sustained ground level fall no loss of consciousness close head trauma CT of the head with no bleeds continue to monitor fall precautions bed rest (2) Acute and chronic respiratory failure with hypoxia: Code(s): J96.21 - Acute and chronic respiratory failure with hypoxia Status: Acute Assessment and Plan: patient is currently on BiPAP breathing treatments ABG reviewed continue to monitor supportive care continuous pulse ox continuous telemetry 06/03/2022 interval history: patient with history of chronic hypoxic hypercarbic respiratory failure on BIPAP, and 4L oxygen presented with SOB and ABG showed persistent hypercarbia, and patient was somnolent however answer appropriately, was seen by coding coordinator ordered Lasix 80mg IV, x1, and Solu-medrol 125mg x1, and continous albuterol neb, after treatment patient did improve and repeat ABG showed improvement in his CO2, there was concern that patient may aspirated started patient on zosyn, will continue, lasix 40mg IV BID and methylprednisone 6omg q8, will consult production gear cutter for further recommendation, will monitor, (3) Acute on chronic combined systolic (congestive) and diastolic (congestive) heart failure: Code(s): I50.43 - Acute on chronic combined systolic (congestive) and diastolic (congestive) heart failure Status: Acute Assessment and Plan: aggressive diuresis last echocardiogram is from on November ejection fraction 65% will repeat a echocardiogram Perez in Strict input and output daily fluid restriction to 1500 cc daily daily weight cardiology consult (4) Diastolic congestive heart failure: Code(s): I50.30 - Unspecified diastolic (congestive) heart failure Status: Acute Assessment and Plan: as above (5) Generalized weakness: Code(s): R53.1 - Weakness Status: Acute Assessment and Plan: PT OT when clinically able to do so (6) COPD (chronic obstructive pulmonary disease): Code(s): J44.9 - Chronic obstructive pulmonary disease, unspecified Status: Acute Assessment and Plan: breathing treatments received Solu-Medrol not actively wheezing diminished breath sounds throughout (7) Alcohol dependence: Code(s): F10.20 - Alcohol dependence, uncomplicated Status: Acute Assessment and Plan: CIWA as needed (8) Chronic anemia: Code(s): D64.9 - Anemia, unspecified Status: Acute Assessment and Plan: continue to monitor transfuse for hemoglobin below 7 Subjective Date/time seen: 06/03/22 14:59 Fall HPI-Narrative: This is a 76-year-old male with past medical history significant for chronic hypoxic respiratory failure on 4 L of oxygen supplemental patient resides at residential, ? Congestive heart failure, atrial fibrillation rate controlled anticoagulated, COPD/emphysema, alcohol dependence, coronary artery disease, hypertension:? Restrictive lung disease.? Patient was brought to the emergency room for evaluation after he had a fall according to patient he got up from bed to use the bathroom when he fell lobe there was no loss of consciousness he did strike his head.? At the time of my visit patient denied any discomfort however did complain about shortness of breath he has worsening bilateral lower extremity edema for the last several days or so denied any chest pain, cough, sputum production, no nausea, no vomiting, no diarrhea no abdominal pain, no fevers, no rigors, no chills.? in emergency room patient required high-flow oxygen to keep saturations at 93%. Preliminary workup was significant for brain atretic peptide 4550,? troponins x2 0.075/0.081,? hemoglobin 10.8 hematocrit 37? MCV 91 creatinine 1.1,? sodium 142 chloride 95 bicarb 35 potassium 3.1. a chest x
[2022-06-03 15:36] LABS: Anion Gap 14 mmol/L (8-16); Blood Urea Nitrogen 25 mg/dL (9-20); Calcium 9.2 mg/dL (8.4-10.2); Carbon Dioxide 35 mmol/L (22-30); Chloride 95 mmol/L (98-107); Estimated CRCL calculation 66 ml/min; Estimated Glomerular Filt Rate > 60; Glucose 155 mg/dL (65-110); Potassium 3.4 mmol/L (3.4-5.0); Sodium 144 mmol/L (137-145)
[2022-06-03] MEDS: ATORVASTATIN 20 MG TABLET PO (16:43)
[2022-06-03] MEDS: MULTIVITAMINS THERAPEUTIC TAB (*BKC) 1 TABLET PO (16:43)
[2022-06-03] MEDS: FERROUS SULFATE 324 MG TABLET PO (16:43)
[2022-06-03] MEDS: ASPIRIN 81 MG ENTERIC TABLET PO (16:43)
[2022-06-03] MEDS: FOLIC ACID 1 MG TABLET PO (16:43)
[2022-06-03] MEDS: METOPROLOL TARTRATE 12.5 MG TABLET PO (16:43)
[2022-06-03] MEDS: THIAMINE HCL 100 MG TABLET PO (16:43)
[2022-06-03] MEDS: methylPREDNISolone SOD SUCC 40 MG VIAL IV PUSH (16:44)
[2022-06-04] VITALS (28 sets, daily range): BP systolic 109–129; BP diastolic 63–78; PULSE 62–118; RESP 16–42; TEMP 36.1–36.8; O2SAT 85–100
[2022-06-04] MEDS: methylPREDNISolone SOD SUCC 40 MG VIAL IV PUSH ×2 (00:26→06:35)
[2022-06-04] MEDS: MELATONIN 5 MG TABLET 10 MG PO ×2 (01:56→21:46)
[2022-06-04] MEDS: ACETAMINOPHEN 325 MG TABLET 650 MG PO ×3 (01:58→21:45)
[2022-06-04] MEDS: ALBUTEROL SULFATE NEB 2.5 MG/3 ML INH INHALATION ×4 (02:50→20:40)
[2022-06-04] MEDS: IPRATROPIUM BR 0.02% INH SOLN 0.5 MG/2.5 ML VIAL INHALATION ×4 (02:50→20:40)
[2022-06-04 05:13] LABS: Hematocrit 35.5 % (42.0-52.0); Hemoglobin 10.3 g/dL (14.0-18.0); Mean Corpuscular Hemoglobin 26.3 pg (26-34); Mean Corpuscular Volume 90.8 fl (80-100); Mean Platelet Volume 9.8 fl (7.4-10.4); Platelet Count Result 350 k/mm3 (150-375); Red Blood Count 3.91 M/mm3 (4.6-6.20); Red Cell Distribution Width 16.5 % (11.5-14.5); White Blood Count 13.1 K/mm3 (4.5-10.0)
[2022-06-04 05:25] LABS: Alanine Aminotransferase 17 U/L (6-50); Albumin Level 3.3 g/dL (3.5-5.1); Alkaline Phosphatase 86 U/L (38-126); Anion Gap 12 mmol/L (8-16); Aspartate Amino Transferase 32 U/L (17-59); Bilirubin,Total 0.5 mg/dL (0.2-1.3); Blood Urea Nitrogen 31 mg/dL (9-20); Calcium 9.1 mg/dL (8.4-10.2); Carbon Dioxide 37 mmol/L (22-30); Chloride 95 mmol/L (98-107); Estimated CRCL calculation 60 ml/min; Estimated Glomerular Filt Rate > 60; Glucose 175 mg/dL (65-110); Magnesium 1.9 mg/dL (1.6-2.3); Potassium 3.2 mmol/L (3.4-5.0); Sodium 144 mmol/L (137-145)
--- NOTE | 2022-06-04 08:46 | PM.PNPUL ---
Progress Note: A&P Assessment and Plan (1) COPD with exacerbation: Code(s): J44.1 - Chronic obstructive pulmonary disease with (acute) exacerbation Status: Acute Assessment and Plan: 76-year-old man with a history of GOLD grade 2 group B COPD (100 PY, quit 2016) on 4 L nasal cannula and noninvasive ventilation with an AVAPS mode initiated last admission on 02/19/2022, chronically elevated left hemidiaphragm, On 11/17/2021 patient's FEV1 was 1.67 L, 55% predicted, FEV1: FVC ratio was 68%, there is no bronchodilator response, lung volumes were normal and a moderately decreased DLCO that normalized when corrected for alveolar volume. CT scan 02/09/2022 with moderate apical predominant centrilobular emphysema, echocardiogram 11/27/2021 with normal LV function with an EF of 65-70%, abnormal diastolic dysfunction, trace tricuspid regurg with a estimated PASP of 50. Patient is maintained on trelegy 100 inhaler. At baseline the patient states he can walk to the cafeteria with his wheeled walker on a good day. patient presents to the emergency room after a fall but tells me that yesterday he developed shortness of breath and wheezing with no fever, chills, change in phlegm production. Patient is on Eliquis for atrial fibrillation. Chest x-ray showed congestion, there is no leukocytosis and no fever. This may represent a COPD exacerbation. 06/03 At this time I will treat the patient with IV Solu-Medrol 40 q.6, albuterol 2.5 mg nebs q.4 hours, ipratropium 0.5 mg nebs Q 4 hours. I see no focal infiltrates on his chest x-ray. Patient is placed on Zosyn per the hospitalist team for possible aspiration with altered mental status and I will continue this for now. 06/04 Patient tells me he slept well on the hospital noninvasive ventilator with the AVAPS mode. States he is breathing back at his baseline. He has no wheezing. White blood cell count 13.1, creatinine 1.10, patient remains on 45% FiO2 on AVAPS mode. patient's oxygen demands are much higher than baseline and he has a D dimer positive and dye allergy so I ordered perfusion scan and upper and lower extremity dopplers (already on eliquis). Continue diuresis. Will change him to prednisone 40 mg p.o. q.day today, continue albuterol and ipratroprium nebs Q 6 hours. Continue Zosyn (day 2). Inpatient Pulmonary Services will resume on 06/06/2022. Call the on-call physician with questions. (2) Acute and chronic respiratory failure: Code(s): J96.20 - Acute and chronic respiratory failure, unspecified whether with hypoxia or hypercapnia Status: Acute Assessment and Plan: noninvasive ventilation with an AVAPS mode initiated last admission on 02/19/2022, on 02/04/2022 at the end of the night on his AVAPS rate of 14, tidal volume 500, EPAP 6, minimal inspiratory pressure 7, maximal inspiratory pressure 25, 30% FIO2 and his blood gas was 7.46/46/62. His overnight oximetry on 30% FiO2 demonstrated time of saturation less than or equal to 88% at 6 minutes. He was discharged on AVAPS-AE rate of 14, tidal volume 500, minimal EPAP 5, maximal EPAP 15, minimal inspiratory pressure 7, maximal inspiratory pressure 25, 3 L bleed in. Currently the patient presented with acute on chronic hypercarbic and hypoxemic respiratory failure with a pH of 7.28/85/82 on BiPAP 12/5 and 100% FiO2. This was after a fall with head trauma, possible COPD exacerbation and a chest x-ray with congestion and BNP 4550. He has improved overnight on BiPAP with a blood gas of 7.34/62/86. At this time I have placed him on settings that are similar to his home noninvasive ventilator settings. I am attempting to obtain a download to assess his compliance through [employer]. currently patient is stating that he is feeling better and breathing easier. I have talked to the nurse and he can wear the noninvasive ventilation on a p.r.n. basis during the day and should wear the noninvasive every night. 06/04
[2022-06-04] MEDS: FOLIC ACID 1 MG TABLET PO (11:58)
[2022-06-04] MEDS: FERROUS SULFATE 324 MG TABLET PO (11:58)
[2022-06-04] MEDS: ATORVASTATIN 20 MG TABLET PO (11:58)
[2022-06-04] MEDS: THIAMINE HCL 100 MG TABLET PO (11:58)
[2022-06-04] MEDS: METOPROLOL TARTRATE 12.5 MG TABLET PO (11:58)
[2022-06-04] MEDS: EMPAGLIFLOZIN 10 MG TABLET PO (11:58)
[2022-06-04] MEDS: MULTIVITAMINS THERAPEUTIC TAB (*BKC) 1 TABLET PO (11:59)
[2022-06-04] MEDS: APIXABAN 5 MG TABLET PO ×2 (11:59→20:55)
[2022-06-04] MEDS: ASPIRIN 81 MG ENTERIC TABLET PO (11:59)
[2022-06-04] MEDS: predniSONE 20 MG TABLET 40 MG PO (11:59)
[2022-06-04] MEDS: FUROSEMIDE INJ 40 MG/4 ML VIAL IV PUSH ×2 (11:59→16:00)
[2022-06-04] MEDS: TOLNAFTATE 1% POWDER 45 GM BTL 1 APPLIC TOPICAL ×2 (12:01→20:55)
--- NOTE | 2022-06-04 14:53 | PM.PNCARD ---
Progress Note: A&P Assessment and Plan (1) Diastolic congestive heart failure: Code(s): I50.30 - Unspecified diastolic (congestive) heart failure Status: Acute Assessment and Plan: Acute on chronic diastolic heart failure Agree with IV diuresis. Continue furosemide 40mg IV b.i.d. for now. Respiratory support with BiPAP Daily BMP while diuresing. Renal function, electrolytes o.k. today Continue IV furosemide. He is hypokalemic, will give an additional 40 mEq of p.o. potassium x1. Will add SLGT 2 inhibitor to his medical regimen in the form of Jardiance 10mg daily. (2) Paroxysmal atrial flutter: Code(s): I48.92 - Unspecified atrial flutter Status: Acute Assessment and Plan: In atrial fibrillation at the time of my exam, rate controlled. Continue systemic a/c with apixaban Continue low dose metoprolol for rate control. Monitor closely for bradycardia, has hx of this and pauses (3) Acute and chronic respiratory failure: Code(s): J96.20 - Acute and chronic respiratory failure, unspecified whether with hypoxia or hypercapnia Status: Acute Assessment and Plan: Hypercapnic and hypoxemic respiratory failure secondary to CHF, COPD exacerbation. On BiPAP. Pulmonology following. Subjective Date/time seen: 06/04/22 14:53 Interval history: This 67-year-old man presented with shortness of breath.? The patient has a significant cardiac history consisting of cardiac myopathy, chronic systolic congestive heart failure with last EF in the range of 29%, status post biventricular ICD, history of aortic valve replacement, aortic root dilatation hyperlipidemia hypertension and history of coronary artery disease. Date of service 06/04/2022: Does not complain of significant shortness of breath at rest. He denies any chest pain. Review of Systems Constitutional: Constitutional: Reports no additional constitutional complaints Eyes: Eyes: Reports no additional eye complaints ENT: Reports system reviewed and no additional complaints, except as documented Cardiovascular: Cardiovascular: Reports no additional cardiovascular complaints Respiratory: Respiratory: Reports no additional respiratory complaints Gastrointestinal: Gastrointestinal: Reports no additional gastrointestinal complaints Musculoskeletal: Musculoskeletal: Reports no additional musculoskeletal complaints Neurologic: Reports system reviewed and no additional complaints, except as documented Psychiatric: Psychiatric: Reports no additional psychiatric complaints Endocrine: Endocrine: Reports no additional endocrine complaints Hematologic/Lymphatic: Hematologic/Lymphatic: Reports no additional hematologic/lymphatic complaints Allergic/Immunologic: Allergic/Immunologic: Reports no additional allergic/immunologic complaints Exam Narrative: Frail, elderly, chronically-ill appearing male lying in bed with BiPAP mask in place Const: General: cooperative, healthy appearing and comfortable Orientation/consciousness: oriented to person, oriented to place and oriented to time HENMT: Head: normal to inspection Ears: hearing grossly normal bilaterally Eyes: General: appearance normal, both eyes and all related structures Pupils: Equal, round and reactive pupils present Neck: Neck: normal visual inspection Chest: Chest palpation & inspection: normal inspection of the chest Resp: Effort & Inspection: normal respiratory effort and able to speak in complete sentences Auscultation: crackles (few in bases), no rales, no rhonchi, no wheezes and lung sounds not diminished Cardio: Jugular venous distension: no JVD Rate: regular rate Rhythm: abnormal rhythm irregularly irregular Heart sounds: S1 normal heart sound present, S2 normal heart sound present and no murmurs GI: Inspection: normal to inspection Auscultation: normal bowel sounds Skin: General skin exam: normal color Neuro: General: oriented to person, orien
[2022-06-04 15:28] LABS: Anion Gap 7 mmol/L (8-16); Blood Urea Nitrogen 36 mg/dL (9-20); Calcium 9.1 mg/dL (8.4-10.2); Carbon Dioxide 39 mmol/L (22-30); Chloride 94 mmol/L (98-107); Estimated CRCL calculation 66 ml/min; Estimated Glomerular Filt Rate > 60; Glucose 128 mg/dL (65-110); Potassium 3.5 mmol/L (3.4-5.0); Sodium 140 mmol/L (137-145)
[2022-06-04] MEDS: POTASSIUM CHLORIDE 20 MEQ TABLET 40 MEQ PO (15:44)
--- NOTE | 2022-06-04 16:11 | PM.IMPN ---
Progress Note: A&P Assessment and Plan (1) Fall: Code(s): W19.XXXA - Unspecified fall, initial encounter Status: Acute Assessment and Plan: patient sustained ground level fall no loss of consciousness close head trauma CT of the head with no bleeds continue to monitor fall precautions bed rest 06/04/2022 interval history: patient with history of chronic hypoxic hypercarbic respiratory failure on BIPAP, and 4L oxygen presented with SOB and ABG showed persistent hypercarbia, and patient was somnolent however answer appropriately, was seen by ground source heat pump technician ordered Lasix 80mg IV, x1, and Solu-medrol 125mg x1, and continous albuterol neb, after treatment patient did improve and repeat ABG showed improvement in his CO2, there was concern that patient may aspirated started patient on zosyn, patient is seen by central office inspector recommended to continue lasix 40mg IV BID and taper methylprednisone 6omg q8, to prednisone 40mg PO qdaily, today patient is on Airvo more alert and oriented, denies any chest pain or shortness, will monitor and further recommendation to follow. (2) Acute and chronic respiratory failure with hypoxia: Code(s): J96.21 - Acute and chronic respiratory failure with hypoxia Status: Acute Assessment and Plan: patient is currently on BiPAP breathing treatments ABG reviewed continue to monitor supportive care continuous pulse ox continuous telemetry (3) Acute on chronic combined systolic (congestive) and diastolic (congestive) heart failure: Code(s): I50.43 - Acute on chronic combined systolic (congestive) and diastolic (congestive) heart failure Status: Acute Assessment and Plan: aggressive diuresis last echocardiogram is from on November ejection fraction 65% will repeat a echocardiogram Perez in Strict input and output daily fluid restriction to 1500 cc daily daily weight cardiology consult (4) Diastolic congestive heart failure: Code(s): I50.30 - Unspecified diastolic (congestive) heart failure Status: Acute Assessment and Plan: as above (5) Generalized weakness: Code(s): R53.1 - Weakness Status: Acute Assessment and Plan: PT OT when clinically able to do so (6) COPD (chronic obstructive pulmonary disease): Code(s): J44.9 - Chronic obstructive pulmonary disease, unspecified Status: Acute Assessment and Plan: breathing treatments received Solu-Medrol not actively wheezing diminished breath sounds throughout (7) Alcohol dependence: Code(s): F10.20 - Alcohol dependence, uncomplicated Status: Acute Assessment and Plan: CIWA as needed (8) Chronic anemia: Code(s): D64.9 - Anemia, unspecified Status: Acute Assessment and Plan: continue to monitor transfuse for hemoglobin below 7 Subjective Date/time seen: 06/04/22 16:11 06/04/2022 interval history: patient with history of chronic hypoxic hypercarbic respiratory failure on BIPAP, and 4L oxygen presented with SOB and ABG showed persistent hypercarbia, and patient was somnolent however answer appropriately, was seen by ground source heat pump technician ordered Lasix 80mg IV, x1, and Solu-medrol 125mg x1, and continous albuterol neb, after treatment patient did improve and repeat ABG showed improvement in his CO2, there was concern that patient may aspirated started patient on zosyn, patient is seen by central office inspector recommended to continue lasix 40mg IV BID and taper methylprednisone 6omg q8, to prednisone 40mg PO qdaily, today patient is on Airvo more alert and oriented, denies any chest pain or shortness, will monitor and further recommendation to follow. Exam Narrative: Patient is comfortable, NAD HEENT: BiPAP in place LUNGS: bilateral fair entry with harsh breath sounds and rales HEART: RR S1S2 ABD: distended Lower extremities: no edema SKIN: nonjaundiced Neuro: grossly intact. Objective
[2022-06-04] MEDS: SERTRALINE HCL 25 MG TABLET PO (20:55)
[2022-06-05] VITALS (56 sets, daily range): BP systolic 69–170; BP diastolic 49–95; PULSE 77–122; RESP 16–31; TEMP 36.3–40.2; O2SAT 90–100
[2022-06-05] MEDS: ACETAMINOPHEN 325 MG TABLET 650 MG PO (02:32)
[2022-06-05] MEDS: IPRATROPIUM BR 0.02% INH SOLN 0.5 MG/2.5 ML VIAL INHALATION ×4 (02:36→20:54)
[2022-06-05] MEDS: ALBUTEROL SULFATE NEB 2.5 MG/3 ML INH INHALATION ×4 (02:36→20:54)
[2022-06-05 04:45] LABS: Hemoglobin 11.3 g/dL (14.0-18.0); Mean Corpuscular Hemoglobin 26.6 pg (26-34); Mean Corpuscular Volume 91.8 fl (80-100); Mean Platelet Volume 9.8 fl (7.4-10.4); Platelet Count Result 498 k/mm3 (150-375); Red Blood Count 4.25 M/mm3 (4.6-6.20); Red Cell Distribution Width 16.7 % (11.5-14.5); White Blood Count 26.9 K/mm3 (4.5-10.0)
[2022-06-05 05:02] LABS: Alanine Aminotransferase 21 U/L (6-50); Albumin Level 3.7 g/dL (3.5-5.1); Alkaline Phosphatase 92 U/L (38-126); Anion Gap 14 mmol/L (8-16); Aspartate Amino Transferase 41 U/L (17-59); Bilirubin,Total 0.7 mg/dL (0.2-1.3); Blood Urea Nitrogen 40 mg/dL (9-20); Calcium 9.7 mg/dL (8.4-10.2); Carbon Dioxide 38 mmol/L (22-30); Chloride 93 mmol/L (98-107); Estimated CRCL calculation 55 ml/min; Estimated Glomerular Filt Rate 59; Glucose 170 mg/dL (65-110); Magnesium 2.1 mg/dL (1.6-2.3); Potassium 3.6 mmol/L (3.4-5.0); Sodium 145 mmol/L (137-145)
[2022-06-05 05:09] LABS: Alveolar/Arterial O2 Gradient 311.4 mmHg; Base Excess ABG 12.2 mEq/l (+/-2.0); Carboxyhemoglobin 0.1 % THb (0-2.0); Fractional Inspired Oxygen 60 %; HCO3 ABG 38.6 mEq/l (22.0-26.0); Methemoglobin ABG 0.2 %THb (0-1.5); Oxygen Content ABG 14.8 %vol (16.0-22.0); PCO2 ABG 58.2 mmHg (35.0-45.0); PO2 ABG 52.4 mmHg (80.0-100.0); PO2 FiO2 Ratio Arterial Blood 0.87 %; Reduced Hemoglobin 14.1 %THb (0-5.0); Total Hemoglobin 12.3 g/dL (12.0-18.0); pH ABG 7.439 (7.350-7.450)
[2022-06-05 05:14] LABS: Oxygen Saturation ABG 87.3 % (95.0-100.0); Oxyhemoglobin 85.6 % THb (90.0-100.0)
[2022-06-05] MEDS: FUROSEMIDE INJ 40 MG/4 ML VIAL IV PUSH ×2 (10:13→16:08)
[2022-06-05] MEDS: TOLNAFTATE 1% POWDER 45 GM BTL 1 APPLIC TOPICAL ×2 (10:14→21:14)
--- NOTE | 2022-06-05 10:20 | PC.NURSE ---
Multiple attempts made to administer patients morning PO doses of medications. Patient currently on bipap. Patient does not answer or follow commands at this time. Physician notified and updated on patient condition.
[2022-06-05 15:10] LABS: Blood Urea Nitrogen 38 mg/dL (9-20); Carbon Dioxide > 40 mmol/L (22-30); Chloride 99 mmol/L (98-107); Estimated CRCL calculation 60 ml/min; Estimated Glomerular Filt Rate > 60; Glucose 98 mg/dL (65-110); Potassium 3.8 mmol/L (3.4-5.0); Sodium 145 mmol/L (137-145)
--- NOTE | 2022-06-05 15:44 | PM.PNPUL ---
Progress Note: A&P Assessment and Plan (1) COPD with exacerbation: Code(s): J44.1 - Chronic obstructive pulmonary disease with (acute) exacerbation Status: Acute Assessment and Plan: 76-year-old man with a history of GOLD grade 2 group B COPD (100 PY, quit 2016) on 4 L nasal cannula and noninvasive ventilation with an AVAPS mode initiated last admission on 02/19/2022, chronically elevated left hemidiaphragm, On 11/17/2021 patient's FEV1 was 1.67 L, 55% predicted, FEV1: FVC ratio was 68%, there is no bronchodilator response, lung volumes were normal and a moderately decreased DLCO that normalized when corrected for alveolar volume. CT scan 02/09/2022 with moderate apical predominant centrilobular emphysema, echocardiogram 11/27/2021 with normal LV function with an EF of 65-70%, abnormal diastolic dysfunction, trace tricuspid regurg with a estimated PASP of 50. Patient is maintained on trelegy 100 inhaler. At baseline the patient states he can walk to the cafeteria with his wheeled walker on a good day. Patient presents to the emergency room after a fall but tells me that yesterday he developed shortness of breath and wheezing with no fever, chills, change in phlegm production. Patient is on Eliquis for atrial fibrillation. Chest x-ray showed congestion, there is no leukocytosis and no fever. This may represent a COPD exacerbation. 06/03 At this time I will treat the patient with IV Solu-Medrol 40 q.6, albuterol 2.5 mg nebs q.4 hours, ipratropium 0.5 mg nebs Q 4 hours. I see no focal infiltrates on his chest x-ray. Patient is placed on Zosyn per the hospitalist team for possible aspiration with altered mental status and I will continue this for now. 06/04 Patient tells me he slept well on the hospital noninvasive ventilator with the AVAPS mode. States he is breathing back at his baseline. He has no wheezing. White blood cell count 13.1, creatinine 1.10, patient remains on 45% FiO2 on AVAPS mode. patient's oxygen demands are much higher than baseline and he has a D dimer positive and dye allergy so I ordered perfusion scan and upper and lower extremity dopplers (already on eliquis). Continue diuresis. Will change him to prednisone 40 mg p.o. q.day today, continue albuterol and ipratroprium nebs Q 6 hours. Continue Zosyn (day 2). 06/05 He is worse, not responsive, and this is not due to respiratory acidosis. He is septic. Will check blood cultures, lactic acid, expand coverage with vancomycin. He is breathing in the 25-30 range, TV > 500 and minute ventilation is 17-19 L. The etiology for his decreased mention is not clear. His glucose was 170 this am, and his Na is normal. May be the fever. (2) Acute and chronic respiratory failure: Code(s): J96.20 - Acute and chronic respiratory failure, unspecified whether with hypoxia or hypercapnia Status: Acute Assessment and Plan: Noninvasive ventilation with an AVAPS mode initiated last admission on 02/19/2022, on 02/04/2022 at the end of the night on his AVAPS rate of 14, tidal volume 500, EPAP 6, minimal inspiratory pressure 7, maximal inspiratory pressure 25, 30% FIO2 and his blood gas was 7.46/46/62. His overnight oximetry on 30% FiO2 demonstrated time of saturation less than or equal to 88% at 6 minutes. He was discharged on AVAPS-AE rate of 14, tidal volume 500, minimal EPAP 5, maximal EPAP 15, minimal inspiratory pressure 7, maximal inspiratory pressure 25, 3 L bleed in. Currently the patient presented with acute on chronic hypercarbic and hypoxemic respiratory failure with a pH of 7.28/85/82 on BiPAP 12/5 and 100% FiO2. This was after a fall with head trauma, possible COPD exacerbation and a chest x-ray with congestion and BNP 4550. He has improved overnight on BiPAP with a blood gas of 7.34/62/86. At this time I have placed him on settings that are similar to his home noninvasive ventilato
[2022-06-05 17:09] LABS: Alveolar/Arterial O2 Gradient 331.9 mmHg; Base Excess ABG 20.5 mEq/l (+/-2.0); Fractional Inspired Oxygen 70 %; HCO3 ABG 48.6 mEq/l (22.0-26.0); Oxygen Content ABG 16.6 %vol (16.0-22.0); Oxygen Saturation ABG 96.6 % (95.0-100.0); Oxyhemoglobin 95.3 % THb (90.0-100.0); PO2 ABG 88.7 mmHg (80.0-100.0); PO2 FiO2 Ratio Arterial Blood 1.27 %; Total Hemoglobin 12.3 g/dL (12.0-18.0); pH ABG 7.441 (7.350-7.450)
--- NOTE | 2022-06-05 17:12 | PM.IMPN ---
Progress Note: A&P Assessment and Plan (1) Fall: Code(s): W19.XXXA - Unspecified fall, initial encounter Status: Acute Assessment and Plan: patient sustained ground level fall no loss of consciousness close head trauma CT of the head with no bleeds continue to monitor fall precautions bed rest 06/05/2022 interval history: patient with history of chronic hypoxic hypercarbic respiratory failure on BIPAP, and 4L oxygen presented with SOB and ABG showed persistent hypercarbia, and patient was somnolent however answer appropriately, was seen by minister helper ordered Lasix 80mg IV, x1, and Solu-medrol 125mg x1, and continous albuterol neb, after treatment patient did improve and repeat ABG showed improvement in his CO2, there was concern that patient may aspirated started patient on zosyn, patient is seen by contact clerk recommended to continue lasix 40mg IV BID and taper methylprednisone 6omg q8, to prednisone 40mg PO qdaily, today is more somnolent and responsive, however his ABG showing improvement with improved CO2 but mentation is poor, he has fever patient was seen by Dr. Thomas added vancomycin to zosyn and added blood culture, patient is unable to take PO and switch prednisone to solumedrol, will continue Lasix 40mg IV BID, (2) Acute and chronic respiratory failure with hypoxia: Code(s): J96.21 - Acute and chronic respiratory failure with hypoxia Status: Acute Assessment and Plan: patient is currently on BiPAP breathing treatments ABG reviewed continue to monitor supportive care continuous pulse ox continuous telemetry (3) Acute on chronic combined systolic (congestive) and diastolic (congestive) heart failure: Code(s): I50.43 - Acute on chronic combined systolic (congestive) and diastolic (congestive) heart failure Status: Acute Assessment and Plan: aggressive diuresis last echocardiogram is from on November ejection fraction 65% will repeat a echocardiogram Perez in [facility] input and output daily fluid restriction to 1500 cc daily daily weight cardiology consult (4) Diastolic congestive heart failure: Code(s): I50.30 - Unspecified diastolic (congestive) heart failure Status: Acute Assessment and Plan: as above (5) Generalized weakness: Code(s): R53.1 - Weakness Status: Acute Assessment and Plan: PT OT when clinically able to do so (6) COPD (chronic obstructive pulmonary disease): Code(s): J44.9 - Chronic obstructive pulmonary disease, unspecified Status: Acute Assessment and Plan: breathing treatments received Solu-Medrol not actively wheezing diminished breath sounds throughout (7) Alcohol dependence: Code(s): F10.20 - Alcohol dependence, uncomplicated Status: Acute Assessment and Plan: CIWA as needed (8) Chronic anemia: Code(s): D64.9 - Anemia, unspecified Status: Acute Assessment and Plan: continue to monitor transfuse for hemoglobin below 7 Subjective Date/time seen: 06/05/22 17:12 06/05/2022 interval history: patient with history of chronic hypoxic hypercarbic respiratory failure on BIPAP, and 4L oxygen presented with SOB and ABG showed persistent hypercarbia, and patient was somnolent however answer appropriately, was seen by minister helper ordered Lasix 80mg IV, x1, and Solu-medrol 125mg x1, and continous albuterol neb, after treatment patient did improve and repeat ABG showed improvement in his CO2, there was concern that patient may aspirated started patient on zosyn, patient is seen by contact clerk recommended to continue lasix 40mg IV BID and taper methylprednisone 6omg q8, to prednisone 40mg PO qdaily, today is more somnolent and responsive, however his ABG showing improvement with improved CO2 but mentation is poor, he has fever patient was seen by Dr. Thomas added vancomycin to zosyn and added blood culture, patient is unable to ta
[2022-06-05 17:13] LABS: Device NON-INVASIVE VENT; Modified Allen's Test Unable to perform; Site Drawn LEFT RADIAL
[2022-06-05 17:15] LABS: Non-Invasive Expiratory Pressure 6 CMH2O; Non-Invasive Vent Rate 16 /MIN
[2022-06-05 17:27] LABS: Lactic Acid Reflex 2.5 mmol/L (0.7-2.0)
[2022-06-05] MEDS: methylPREDNISolone SOD SUCC 40 MG VIAL IV PUSH (17:40)
[2022-06-05] MEDS: FENTANYL 2,500MCG/NS250ML(*CRX 2,500 MCG/250 ML BAG IV CONT (18:39)
[2022-06-05] MEDS: MIDAZOLAM 100MG/NS 100ML(*CRX) 100 MG/100 ML BAG IV CONT (18:40)
[2022-06-05] MEDS: ROCURONIUM BROMIDE 50 MG/5 ML VIAL 40 MG IV PUSH (18:40)
[2022-06-05] MEDS: ETOMIDATE 20 MG/10 ML AMPUL IV PUSH (18:40)
[2022-06-05] MEDS: NOREPINEPHRINE 8 MG/D5W 250 ML 8 MG/250 ML BAG 9.38 MG IV CONT (18:41)
--- NOTE | 2022-06-05 18:51 | PC.NURSE ---
This patient, Prabhakar Godwin, was received from [ [id number]] on 06/05/22 at 1810. Patient/family oriented to unit policies and routines
--- NOTE | 2022-06-05 19:07 | WPDPROCEDUR ---
Procedures Intubation Intubation Date: 06/05/22 Intubation Time: 18:15 Sedative: etomidate (20) Mg given: 20 Paralytic: succinylcholine Mg given: 40 Assist device used: fiber optic device ET tube size: 7.5 Tube secured depth (cm): 24 Tube secured location: lips Tube placement confirmation: visualized tube passing through cords, equal breath sounds bilaterally and confirmation by capnometry Patient tolerated procedure: well Intubation complications: none Additional comments: X-ray confirmed placement with chest x-ray.
--- NOTE | 2022-06-05 19:10 | WPDPROCEDUR ---
Procedures Central Line Placement Right Femoral: Central Line Date: 06/05/22 Central Line Time: 19:14 Consent: I have discussed with the patient and/or surrogate, the non-emergent placement of a central venous catheter, including its clinical necessity/indication and associated potential risks and complications. The patient and/or surrogate understand(s) and acknowledge(s) the need to proceed with central venous catheter insertion as an important element of the patient's clinical management. Time Out Performed: Yes Patient Position: supine Patient placed on monitor/pulse ox: Yes Provider Prep: Max. sterile barrier precautions Central line prep: 2% Chlorhexidine scrub Local anesthesia used: lidocaine 1% Amount of anesthesia used (ml): 8 Sterile US Technique with sterile gel/sterile probe covers: Yes Central line lumen inserted: triple Macedonian: 7 Length (cm): 16 Depth of Insertion (cm): 15 Post Procedure: sutured in place, good blood return, all ports aspirated, flushed, capped, transparent dressing and antimicrobial product Additional comments: No x-ray required as it is a femoral central line
[2022-06-05 19:34] LABS: Basophils Percent Auto 0.1 % (0.2-1.2); Hematocrit 38.6 % (42.0-52.0); Immature Granulocyte Absolute 0.08 K/mm3 (0.00-0.031); Immature Granulocyte Percent A 0.6 % (0-0.5); Lymphocytes Absolute Auto 0.33 K/mm3 (0.9-3.2); Lymphocytes Percent Auto 2.3 % (18.3-44.2); Mean Corpuscular HGB Conc 28.5 g/dl (32-36); Mean Corpuscular Hemoglobin 26.6 pg (26-34); Mean Corpuscular Volume 93.5 fl (80-100); Mean Platelet Volume 9.5 fl (7.4-10.4); Monocytes Percent Auto 14.4 % (2.6-8.5); Neutrophils Absolute Auto 11.6 K/mm3 (1.3-6.7); Neutrophils Percent Auto 82.6 % (45.5-73.1); Nucleated Red Blood Cells Perc 0.1 % (0.0-0.2); Platelet Count Result 438 k/mm3 (150-375); Red Blood Count 4.13 M/mm3 (4.6-6.20); Red Cell Distribution Width 17.1 % (11.5-14.5); White Blood Count 14.1 K/mm3 (4.5-10.0)
[2022-06-05 19:42] LABS: INR 1.7; Prothrombin Time 19.2 Seconds (11.1-14.7)
[2022-06-05 19:43] LABS: Partial Thromboplastin Time 29.7 SECONDS (22.3-36.8)
[2022-06-05 19:54] LABS: Anisocytosis 1+ (NORMAL); Hypochromasia 2+ (NORMAL); Platelet Estimate Increased (Adequate); Stomatocytes 1+ (NORMAL)
[2022-06-05 19:55] LABS: Schistocytes None Seen (NORMAL)
[2022-06-05 20:14] LABS: Reflex Lactic Acid Yes or No Add Lactic
[2022-06-05 20:23] LABS: Alveolar/Arterial O2 Gradient 471.3 mmHg; Base Excess ABG 15.4 mEq/l (+/-2.0); Fractional Inspired Oxygen 100 %; HCO3 ABG 42.2 mEq/l (22.0-26.0); Oxygen Content ABG 16.6 %vol (16.0-22.0); Oxygen Saturation ABG 99.2 % (95.0-100.0); PO2 ABG 178.9 mmHg (80.0-100.0); PO2 FiO2 Ratio Arterial Blood 1.79 %; Total Hemoglobin 11.8 g/dL (12.0-18.0); pH ABG 7.445 (7.350-7.450)
[2022-06-05 20:35] LABS: Device VENTILATOR; Modified Allen's Test Pass; PCO2 ABG 62.8 mmHg (35.0-45.0); Site Drawn LEFT RADIAL
[2022-06-05 20:36] LABS: Arterial Blood Gas PEEP 8 cmH2O; Arterial Blood Gas Tidal Volume 420 ml; Arterial Blood Gas Vent Mode CMV; Arterial Blood Gas Ventilator rate 22 /MIN
--- NOTE | 2022-06-05 20:52 | PM.EVENT ---
Event Note Event Note Event Note: 06/05/2022 at 20:10 Patient had just been intubated and had central line placed. Patient was initiated on Levophed. Nursing staff notified me patient has spiked fever to 104.3. On review of patient's chest x-ray has infiltrates bilaterally. Given his lactic acidosis and fever I suspect patient's x-ray findings are more due to pneumonia. The patient had a re been started on broad-spectrum antibiotic coverage with Zosyn and vancomycin per pulmonology. At this time I feel that the patient is most likely euvolemic. Will stop Lasix which patient has received 2 or 3 doses of and will give the patient 1 L fluid bolus and start the patient on maintenance IV fluids with NS at 100. I did discuss the patient's case with Dr. Thomas from pulmonology who agrees with the plan. Patient's ABG resulted and the patient's pH is compensated but pCO2 is not improved much despite intubation. Patient's PO2 is elevated. I gave orders to increase the patient's tidal volume from 420 up to 450. The patient's ventilatory rate remains at 22. Peep of 5. I gave orders to wean FiO2 per protocol for adequate oxygen saturations. The patient had orders for home Eliquis but he has not actually had Eliquis since he was admitted to not being able tolerate p.o. due to being on BiPAP. Heparin drip has been ordered in substitution of this. The patient does have dark drainage from his NG tube. On b.i.d. Protonix for stress ulcer prophylaxis. Patient's hemoglobin is stable and there is no evidence that this is an acute GI bleed at this time. 30 minutes spent in critical care activities. Due to a high probability of clinically significant, life threatening deterioration, the patient required my highest level of preparedness to intervene emergently and I personally spent this critical care time directly and personally managing the patient. This critical care time included obtaining a history; examining the patient; pulse oximetry; ordering and review of studies; arranging urgent treatment with development of a management plan; evaluation of patient's response to treatment; frequent reassessment; and discussions with other providers. It was exclusive of separately billable procedures and treating other patients and teaching time. Please see Assessment and Plan section and the rest of the note for further information on patient assessment and treatment.
[2022-06-05] MEDS: SODIUM CHLORIDE 0.9% IV 1,000 ML 999 ML IV CONT (21:12)
[2022-06-05] MEDS: HEPARIN SOD/D5W 100 UNITS/ML 25,000 UNITS/250 ML BAG 15 UNITS IV CONT (21:13)
[2022-06-05] MEDS: SODIUM CHLORIDE 0.9% IV 1,000 ML 100 ML IV CONT (21:13)
[2022-06-05] MEDS: PANTOPRAZOLE SODIUM IV 40 MG VIAL IV PUSH (21:14)
[2022-06-05] MEDS: CENTRAL LINE FLUSH 10 ML IV PUSH (21:47)
[2022-06-05] MEDS: MINERAL OIL/WHITE PETROLATUM OINTMENT 1 APPLIC EACH EYE (21:47)
[2022-06-05 23:42] LABS: Lactic Acid 2.3 mmol/L (0.7-2.0)
[2022-06-06] VITALS (7 sets, daily range): BP systolic 64–110; BP diastolic 49–71; PULSE 82–91; RESP 9–22; TEMP 37–37.2; O2SAT 96–100
--- NOTE | 2022-06-06 01:45 | PC.NURSE ---
Heparin gtt stopped per Dr. Mills at 0145.
[2022-06-06] MEDS: ALBUTEROL SULFATE NEB 2.5 MG/3 ML INH INHALATION (02:32)
[2022-06-06] MEDS: IPRATROPIUM BR 0.02% INH SOLN 0.5 MG/2.5 ML VIAL INHALATION (02:32)
[2022-06-06 02:51] LABS: Lactic Acid Reflex 2.5 mmol/L (0.7-2.0)
[2022-06-06 02:56] LABS: Alanine Aminotransferase 22 U/L (6-50); Albumin Level 3.3 g/dL (3.5-5.1); Alkaline Phosphatase 75 U/L (38-126); Aspartate Amino Transferase 45 U/L (17-59); Blood Urea Nitrogen 38 mg/dL (9-20); Calcium 9.8 mg/dL (8.4-10.2); Carbon Dioxide > 40 mmol/L (22-30); Chloride 107 mmol/L (98-107); Estimated CRCL calculation 51 ml/min; Estimated Glomerular Filt Rate 54; Glucose 172 mg/dL (65-110); Magnesium 2.3 mg/dL (1.6-2.3); Potassium 2.5 mmol/L (3.4-5.0); Sodium 158 mmol/L (137-145)
[2022-06-06 02:57] LABS: INR 1.8; Prothrombin Time 19.9 Seconds (11.1-14.7)
[2022-06-06 02:58] LABS: Partial Thromboplastin Time 91.4 SECONDS (22.3-36.8)
--- NOTE | 2022-06-06 03:18 | PM.EVENT ---
Event Note Event Note Event Note: 06/26/2022 at 03:00 Nursing staff called me that despite the patient's fever having resolved and his sedation having been stopped patient is still unresponsive. His pupils were no longer reactive. He no longer had a gag reflex. In the patient had suddenly developed 3 L of un instigated urine output. The patient was sent for a stat CT of the brain which demonstrated 21 mm midline shift left to right with left on state and subfalcine herniation and right temporal lobe entrapment. I attempted to call consult Neurosurgery at tertiary care. I was awaiting return of the neurosurgeons call. I did order Kcentra to reverse the patient's Eliquis and the patient's heparin drip was stopped. Also ordered FFP to reverse patient's coagulopathy but had to wait for type and cross. Prior to Kcentra and FFP being available I was finally able to reach the patient's family. The family returned my call prior to neurosurgeons returning my call. I discussed with the family the a prognosis given the patient's a findings on CT scan. They felt the patient would not want aggressive intervention if he had no reasonable expectation of functional recovery. Not at that time the family decided to withdrawal care. Patient was placed on comfort measures and was terminally extubated. Of note the stat read radiologist told me that on his review of the initial CT scan on the he feels that in hindsight there was may have been a small area of bleed. The family asked me how the patient could have developed a bleed within normal initial CT scan. I did inform the family that the radiologist stated that there were subtle findings that could have indicated to bleed at that time but he is looking at the imaging with the knowledge of the patient having a grossly abnormal CT at this time. 45 minutes was spent in critical care activities with the time discussing the patient's prognosis with family and attempting to arrange transfer to outside facility. Due to a high probability of clinically significant, life threatening deterioration, the patient required my highest level of preparedness to intervene emergently and I personally spent this critical care time directly and personally managing the patient. This critical care time included obtaining a history; examining the patient; pulse oximetry; ordering and review of studies; arranging urgent treatment with development of a management plan; evaluation of patient's response to treatment; frequent reassessment; and discussions with other providers. It was exclusive of separately billable procedures and treating other patients and teaching time. Please see Assessment and Plan section and the rest of the note for further information on patient assessment and treatment.
[2022-06-06] MEDS: LORazepam INJ (*CRX) 2 MG/ML VIAL IV PUSH (03:53)
[2022-06-06] MEDS: MORPHINE SULFATE (*CRX) 4 MG/ML INJ IV PUSH (03:54)
--- NOTE | 2022-06-06 04:29 | PC.NURSE ---
Patient extubated at 0359. at 0426. Dr. Mills at bedside at time of .
--- NOTE | 2022-06-06 07:20 | PM.DDS ---
Discharge Summary Date and Time Date of : 06/06/22 Time of : 04:26 Provider Pronounced By: Dr Mills Probable Cause of Probable Cause of : cerebral hemorrhagic Summary Hospital Course: patient with history of chronic hypoxic hypercarbic respiratory failure on BIPAP, and 4L oxygen presented with SOB and ABG showed persistent hypercarbia, and patient was somnolent however answer appropriately, was seen by nuclear plant instrument technician ordered Lasix 80mg IV, x1, and Solu-medrol 125mg x1, and continous albuterol neb, after treatment patient did improve and repeat ABG showed improvement in his CO2, there was concern that patient may aspirated started patient on zosyn, patient is seen by patient companion recommended to continue lasix 40mg IV BID and taper methylprednisone 6omg q8, to prednisone 40mg PO qdaily,? today is more somnolent and responsive, however his ABG showing improvement with improved CO2 but mentation is poor, he has fever patient was seen by Dr. Thomas added vancomycin to zosyn and added blood culture, patient is unable to take PO and switch prednisone to solumedrol, will continue Lasix 40mg IV BID, patient with was very somnolent and was transferred to ICU, while in the ICU patient was not responsive, CT scan of the head showed herniation of brain midline shift, patient was seen by set up mechanic heading machines and spoke with family and decided for the comfort measures and patient on 06/06/2022 at 04:26. Additional Data Confirmation of as documented by pronouncing clinician: Pupillary Reflex, Palpable Pulses, Response to Stimuli, Heart Tones and Breath Sounds Name of Provider Notified: Dr Mills Time Provider Notified: 04:26 Provider Requests Autopsy: No Family Requests Autopsy: No Bag Machine Helper Notified: Yes Date [facility] Notified of : 06/06/22 Time [facility] Notified of : 05:03
--- NOTE | 2022-06-06 07:47 | PC.NURSE ---
06/06 06 Supervisor [employer] for [facility] called and asked us to not place patient in the cooler, he is coming to the morgue now and will pick patient up off stretcher.
== END 2022-06-06 04:26 | disposition expired | DRG 291 ==
LOC: ANHED 21:24 → ANHIMU 22:14 → ANHICU 06-05 18:08
PROVIDERS: Internal Medicine; Internal Medicine Critical Care Medicine; Internal Medicine Pulmonary Disease; Nurse Practitioner; Admitting Provider Internal Medicine; Emergency Provider Emergency Medicine; PCP Family Medicine; Visit Provider Family Medicine
DX: I11.0 Hypertensive heart disease with heart failure (principal); I50.43 Acute on chronic combined systolic (congestive) and diastolic (congestive) heart failure; S06.5X0A Traumatic subdural hemorrhage without loss of consciousness, initial encounter; J18.9 Pneumonia, unspecified organism; J96.21 Acute and chronic respiratory failure with hypoxia; J96.22 Acute and chronic respiratory failure with hypercapnia; I48.92 Unspecified atrial flutter; E87.20 Acidosis, unspecified; J44.0 Chronic obstructive pulmonary disease with (acute) lower respiratory infection; R40.4 Transient alteration of awareness; I25.10 Atherosclerotic heart disease of native coronary artery without angina pectoris; Z20.822 Contact with and (suspected) exposure to COVID-19; W18.39XA Other fall on same level, initial encounter; K44.9 Diaphragmatic hernia without obstruction or gangrene; E87.6 Hypokalemia; K57.90 Diverticulosis of intestine, part unspecified, without perforation or abscess without bleeding; E78.2 Mixed hyperlipidemia; D50.9 Iron deficiency anemia, unspecified; F10.20 Alcohol dependence, uncomplicated; Z95.2 Presence of prosthetic heart valve; Z99.81 Dependence on supplemental oxygen; Z86.73 Personal history of transient ischemic attack (TIA), and cerebral infarction without residual deficits; Z95.5 Presence of coronary angioplasty implant and graft; Z87.891 Personal history of nicotine dependence
CPT/HCPCS: 36415; 36600; 70450; 71045; 72125; 72170; 78580; 80048; 80053; 80307; 81003; 82375; 82805; 83050; 83605; 83735; 83880; 84484; 85025; 85027; 85380; 85610; 85730; 86850; 86900; 86901; 87040; 87147; 87181; 87186; 93005; 93970; 94002; 94003; 94640; 96374; 97162; 97165; 99285; A9270; A9540; C1751; C8929; C9113; C9803; J0131; J1644; J1940; J2060; J2250; J2270; J2543; J2920; J2930; J3010; J3370; J7030; J7512; Q9957; U0003; U0005